=== PATIENT | female | born 1980 | race Caucasian/White ===

== ENCOUNTER → 2020-07-16 08:10 | Outpatient (BNVA) | payer MEDICARE, MEDICAID, SELFPAY | PROVIDERS: Visit Provider Surgery | DX: R00.0 Tachycardia, unspecified (principal); I10 Essential (primary) hypertension; Z79.899 Other long term (current) drug therapy ==

== ENCOUNTER 2020-07-23 13:48 | Outpatient (REF) | payer OTHER, MEDICARE, MEDICAID, SELFPAY ==
--- NOTE | 2020-07-23 13:51 | XR_ITS ---
EXAMINATION: XR CHEST CLINICAL INFORMATION: Essential primary hypertension COMPARISON: Previous chest x-rays most recent October 2017 TECHNIQUE: 2 views of the chest were obtained. FINDINGS: No significant abnormality is noted involving the heart, lungs, mediastinum, bony thorax or soft tissues. IMPRESSION: Unremarkable examination.
[2020-07-23 16:07] LABS: MANUAL DIFF FLAG NO
[2020-07-23 16:10] LABS: Basophils Absolute Auto 0.1 X10*3/uL (0.0-0.2); Basophils Percent Auto 0.9 % (0-2); Eosinophils Absolute Auto 0.1 X10*3/uL (0.0-0.4); Eosinophils Percent Auto 1.7 % (0-4); Hemoglobin 12.6 g/dl (12.0-16.0); Imm Gran Abs Auto 0.01 X10*3/uL (0.00-0.03); Imm Gran Pct Auto 0.2 % (0.0-0.4); Lymphocytes Absolute Auto 2.4 X10*3/uL (1.2-4.9); Lymphocytes Percent Auto 45.4 % (20-40); Mean Corpuscular HGB Conc 34.1 g/dl (31.0-35.0); Mean Corpuscular Hemoglobin 29.4 pg (27.0-33.0); Mean Corpuscular Volume 86.2 fL (80-98); Monocytes Absolute Auto 0.5 X10*3/uL (0.1-1.2); Monocytes Percent Auto 9.8 % (2-11); Neutrophils Absolute Auto 2.2 X10*3/uL (2.0-8.3); Platelet Count 229 X10*3/uL (160-400); Red Blood Count 4.29 X10*6/uL (4.20-5.50); Red Cell Distribution Width 12.9 % (11.0-16.0); White Blood Count 5.3 X10*3/uL (4.8-10.8)
[2020-07-23 16:22] LABS: Estimated Average Glucose 94 mg/dL; Hemoglobin A1c % 4.9 %
[2020-07-23 16:34] LABS: Alanine Aminotransferase 20 U/L (0-31); Albumin Level 4.2 g/dL (3.5-5.0); Alkaline Phosphatase 86 U/L (39-117); Anion Gap 11 (12-20); Aspartate Amino Transferase 17 U/L (5-31); Bilirubin Total 1.5 mg/dL (0.0-1.0); Blood Urea Nitrogen 10 mg/dL (9-16); C Reactive Protein 0.12 mg/dL (< or = 0.50); Calcium 9.3 mg/dL (8.4-10.2); Carbon Dioxide 27 mmol/L (22-29); Chloride 105 mmol/L (96-108); Cholesterol 167 mg/dL; Estimated Glomerular Filt Rate > 60; Glucose Fasting 97 mg/dL (60-99); HDL Cholesterol 47 mg/dL; Iron 58 mcg/dL (30-160); LDL Cholesterol Calculated 68 mg/dl; Percent Iron Saturation 16 % (15-50); Potassium 4.2 mmol/l (3.3-5.1); Sodium 139 mmol/L (135-145); Total Iron Binding Capacity 352 mcg/dL (228-428); Triglycerides 262 mg/dL; Unsaturated Iron Binding 294 ug/dL
[2020-07-23 16:55] LABS: Ferritin 17 ng/mL (10-250); TSH reflex Free T4 1.09 mIU/mL (0.32-4.0); Vitamin D 25-OH Total 20.5 ng/mL (>30)
[2020-07-24 21:11] LABS: Folate 16.2 ng/mL (> or = 4.0); Vitamin B12 602 pg/mL (200-900)
[2020-07-24 21:15] LABS: Insulin Level Total 15.9 uIU/mL
[2020-07-27 16:57] LABS: Zinc 57 mcg/dL (60-130)
[2020-07-29 17:11] LABS: Vitamin A 50 mcg/dL (38-98)
[2020-07-29 17:31] LABS: Parathyroid Hormone Related Pr 11 pg/mL (14-27)
[2020-07-31 13:27] LABS: Vitamin B1 13 nmol/L (8-30)
== END 2020-07-23 13:49 | disposition home or self-care (01) ==
LOC: HO.XRAY 13:48
PROVIDERS: Physician Assistant; PCP Internal Medicine; Visit Provider Surgery
DX: I10 Essential (primary) hypertension (principal)
CPT/HCPCS: 36415; 71046; 80053; 80061; 82306; 82607; 82728; 82746; 83036; 83519; 83525; 83540; 84425; 84443; 84590; 84630; 85025; 86140

== ENCOUNTER 2020-07-28 09:16 | Outpatient (REF) | payer OTHER, MEDICAID, SELFPAY ==
--- NOTE | 2020-07-28 | US_ITS ---
EXAMINATION: US COMPLETE ABDOMEN WITH LIVER ELASTOGRAPHY CLINICAL INFORMATION: Fatty liver. Assess for liver size and fibrosis COMPARISON: Ultrasound and CT 08/14/2014 TECHNIQUE: Real-time imaging of the abdominal viscera. Noninvasive ultrasound liver fibrosis assessment is performed using Melchor ElastPQ point quantification shear wave elastography (pSWE) with a 5 MHz transducer. Multiple elastography samples are obtained. FINDINGS: PANCREAS: The visualized pancreatic head and body are normal in appearance. The remainder of the pancreas is obscured from visualization by the overlying bowel gas. ABDOMINAL AORTA: The proximal aorta is obscured by bowel gas. Middle and distal aortic segments are normal in caliber. INFERIOR VENA CAVA: Visualized portions are normal. LIVER: Diffuse increased hepatic echogenicity. No focal lesions or intrahepatic biliary duct dilatation. The right lobe measures 14.6 cm in length. The left lobe measures 7.9 cm in length. Hepatopedal main portal vein flow. Shear wave elastography provides a median stiffness of 1.2 m/s (reference: normal median stiffness is 0.81 - 1.22 m/s). The IQR/median stiffness to assess sampling precision is 0.13 (reference: optimal IQR/median stiffness is under 0.3). GALLBLADDER: Question twinkle artifact in the supine position associated with the gallbladder wall, which could represent focal adenomyomatosis. This is not confirmed on the decubitus view. No definite gallstones otherwise. No gallbladder wall thickening or pericholecystic fluid. COMMON BILE DUCT: Normal in caliber measuring 0.3 cm in diameter. RIGHT KIDNEY: Normal. No hydronephrosis. No renal calculi or focal parenchymal lesions. The kidney measures 10.6 cm in maximum dimension. LEFT KIDNEY: Multiple nonobstructing renal calculi, the largest in the midpole measuring 3 x 2 mm. No hydronephrosis. No focal parenchymal lesions. The kidney measures 11.7 cm in maximum dimension. SPLEEN: Normal. The spleen measures 10.1 cm in maximum dimension. FREE FLUID: None. IMPRESSION: 1. Increased hepatic echogenicity, correlating with the clinical history of hepatic steatosis. No focal lesions or biliary ductal dilatation. 2. Elastography: Metavir score 1.2 m/s, within normal fibrosis stage. 3. Questionable twinkle artifact associated with the gallbladder wall, perhaps focal adenomyomatosis. 4. Left renal nonobstructing calculi.
--- NOTE | 2020-07-28 10:12 | FL_ITS ---
EXAMINATION: XR FL UPPER GI WITH AIR CLINICAL INFORMATION: Gastroesophageal reflux. COMPARISON: None TECHNIQUE: Upper GI with air. FINDINGS: Normal esophageal motility and distention. No mass or mucosal lesions are seen in the esophagus, stomach or duodenal bulb. No hiatal hernia is seen. No reflux is seen during the course of the procedure. FLUOROSCOPY TIME: 0.9 minutes. DOSE AREA PRODUCT: 158 uGy-m2 (microgray-meter squared). IMPRESSION: Unremarkable upper GI barium study.
== END 2020-07-28 09:17 | disposition home or self-care (01) ==
LOC: HO.US 09:16
PROVIDERS: PCP Internal Medicine; Visit Provider Surgery
DX: Z01.818 Encounter for other preprocedural examination (principal); E66.9 Obesity, unspecified; K21.9 Gastro-esophageal reflux disease without esophagitis
CPT/HCPCS: 74246; 76705; 76981

== ENCOUNTER → 2020-07-30 13:46 | Outpatient (BNVA) | payer MEDICARE, OTHER, MEDICAID, SELFPAY | PROVIDERS: PCP Internal Medicine; Referring Provider Internal Medicine; Visit Provider Dietitian, Registered | DX: Z76.89 Persons encountering health services in other specified circumstances (principal) ==

== ENCOUNTER → 2020-08-03 06:45 | Outpatient (BNVA) | payer OTHER, MEDICARE, MEDICAID, SELFPAY | PROVIDERS: PCP Internal Medicine; Referring Provider Internal Medicine; Visit Provider Surgery | DX: E66.9 Obesity, unspecified (principal); Z68.35 Body mass index [BMI] 35.0-35.9, adult; E55.9 Vitamin D deficiency, unspecified | CPT/HCPCS: 99215 ==

== ENCOUNTER → 2020-08-07 14:07 | Outpatient (BNVA) | payer OTHER, MEDICARE, MEDICAID, SELFPAY | PROVIDERS: PCP Internal Medicine; Referring Provider Internal Medicine; Visit Provider Physician Assistant | DX: E66.9 Obesity, unspecified (principal) | CPT/HCPCS: 99211 ==

== ENCOUNTER 2020-08-07 16:21 | Outpatient (REF) | payer OTHER, MEDICARE, MEDICAID, SELFPAY ==
[2020-08-08 14:06] LABS: H Pylori Breath Test NOT DETECTED (NOT DETECTED)
== END 2020-08-07 16:22 | disposition home or self-care (01) ==
LOC: HO.LNP 16:21
PROVIDERS: Visit Provider Physician Assistant
DX: E66.9 Obesity, unspecified (principal)
CPT/HCPCS: 83013

== ENCOUNTER → 2020-08-24 09:00 | Outpatient (BNVA) | payer OTHER, MEDICARE, MEDICAID, SELFPAY | PROVIDERS: PCP Internal Medicine; Referring Provider Internal Medicine; Visit Provider Surgery | DX: Z76.89 Persons encountering health services in other specified circumstances (principal) ==

== ENCOUNTER → 2020-09-03 13:34 | Outpatient (BNVA) | payer MEDICARE, OTHER, MEDICAID, SELFPAY | PROVIDERS: PCP Internal Medicine; Referring Provider Internal Medicine; Visit Provider Dietitian, Registered | DX: Z76.89 Persons encountering health services in other specified circumstances (principal) ==

== ENCOUNTER → 2020-09-16 08:52 | Outpatient (BNVA) | payer OTHER, MEDICARE, MEDICAID, SELFPAY | PROVIDERS: PCP Internal Medicine; Visit Provider Surgery | DX: E66.9 Obesity, unspecified (principal); Z68.35 Body mass index [BMI] 35.0-35.9, adult | CPT/HCPCS: Q3014 ==

== ENCOUNTER → 2020-11-04 08:10 | Outpatient (BNVA) | payer MEDICARE, MEDICAID, SELFPAY | PROVIDERS: PCP Internal Medicine; Visit Provider Surgery | DX: E66.9 Obesity, unspecified (principal) | CPT/HCPCS: Q3014 ==

== ENCOUNTER → 2020-12-04 08:33 | Outpatient (BNVA) | payer MEDICARE, MEDICAID, SELFPAY | PROVIDERS: PCP Internal Medicine; Visit Provider Surgery | DX: E66.9 Obesity, unspecified (principal); Z68.35 Body mass index [BMI] 35.0-35.9, adult; I10 Essential (primary) hypertension; E78.5 Hyperlipidemia, unspecified; K21.9 Gastro-esophageal reflux disease without esophagitis | CPT/HCPCS: Q3014 ==

== ENCOUNTER → 2020-12-11 13:42 | Outpatient (BNVA) | payer MEDICARE, MEDICAID, SELFPAY | PROVIDERS: PCP Internal Medicine; Visit Provider Physician Assistant ==

== ENCOUNTER → 2020-12-15 10:47 | Outpatient (BNVA) | payer MEDICARE, MEDICAID, SELFPAY | PROVIDERS: PCP Internal Medicine; Visit Provider Nurse Practitioner Family | DX: Z01.810 Encounter for preprocedural cardiovascular examination (principal); E66.9 Obesity, unspecified; R00.0 Tachycardia, unspecified; E78.5 Hyperlipidemia, unspecified; I10 Essential (primary) hypertension | CPT/HCPCS: 99212 ==

== ENCOUNTER 2020-12-17 06:25 | Day surgery (SDC) | payer MEDICARE, MEDICAID, SELFPAY ==
[2020-12-10 10:01] LABS: Basophils Percent Auto 0.8 % (0-2); Mean Corpuscular Volume 85.1 fL (80-98); Red Cell Distribution Width 12.9 % (11.0-16.0)
[2020-12-10 10:03] LABS: Eosinophils Absolute Auto 0.1 X10*3/uL (0.0-0.4); Eosinophils Percent Auto 1.9 % (0-4); Hematocrit 37.8 % (37-47); Hemoglobin 12.6 g/dl (12.0-16.0); Imm Gran Abs Auto 0.02 X10*3/uL (0.00-0.03); Imm Gran Pct Auto 0.4 % (0.0-0.4); Lymphocytes Absolute Auto 2.1 X10*3/uL (1.2-4.9); Lymphocytes Percent Auto 39.5 % (20-40); Mean Corpuscular HGB Conc 33.3 g/dl (31.0-35.0); Mean Corpuscular Hemoglobin 28.4 pg (27.0-33.0); Monocytes Absolute Auto 0.4 X10*3/uL (0.1-1.2); Monocytes Percent Auto 8.2 % (2-11); Neutrophils Absolute Auto 2.6 X10*3/uL (2.0-8.3); Neutrophils Percent Auto 49.2 % (45-73); Platelet Count 182 X10*3/uL (160-400); Red Blood Count 4.44 X10*6/uL (4.20-5.50); White Blood Count 5.2 X10*3/uL (4.8-10.8)
[2020-12-10 10:12] LABS: Partial Thromboplastin Time 28.2 SEC (24.1-38.0)
[2020-12-10 10:22] LABS: Alanine Aminotransferase 20 U/L (0-31); Alkaline Phosphatase 81 U/L (39-117); Anion Gap 12 (12-20); Aspartate Amino Transferase 18 U/L (5-31); Bilirubin Total 1.6 mg/dL (0.0-1.0); Blood Urea Nitrogen 14 mg/dL (9-16); C Reactive Protein 0.15 mg/dL (< or = 0.50); Calcium 8.9 mg/dL (8.4-10.2); Carbon Dioxide 27 mmol/L (22-29); Chloride 104 mmol/L (96-108); Cholesterol 171 mg/dL; Estimated Glomerular Filt Rate > 60; Glucose Random 96 mg/dL (60-115); HDL Cholesterol 49 mg/dL; LDL Cholesterol Calculated 65 mg/dl; Potassium 4.2 mmol/L (3.3-5.1); Sodium 139 mmol/L (135-145); Total Protein 6.6 g/dL (6.5-8.0); Triglycerides 286 mg/dL
[2020-12-10 10:23] LABS: Estimated Average Glucose 94 mg/dL; Hemoglobin A1c % 4.9 %
[2020-12-10 10:45] LABS: TSH reflex Free T4 2.46 uIU/mL (0.32-4.0)
--- NOTE | 2020-12-11 | ECG_ITS ---
Test Reason : Tachy arrythmia, Preop Blood Pressure : / mmHG Vent. Rate : 090 BPM Atrial Rate : 090 BPM P-R Int : 172 ms QRS Dur : 084 ms QT Int : 356 ms P-R-T Axes : 046 010 012 degrees QTc Int : 435 ms Normal sinus rhythm Nonspecific T wave abnormality Abnormal ECG When compared with ECG of 07-DEC-2018 20:46, No significant change was found Referred By: Joleen Mcmullen Electronically Signed By:PJ CARDONA MD
[2020-12-11 11:16] LABS: Insulin Level Total 25.8 uIU/mL
[2020-12-11 12:45] VITALS: BP 148/89; PULSE 92; RESP 16; O2SAT 100; BMI 35.9
--- NOTE | 2020-12-11 13:09 | HO.ANESPROP2 ---
Documented by User: Joleen Mcmullen 12/11/20 13:22 HPI - Anesthesia Eval Consult details Narrative: 40yo F for Gastric Sleeve Pending: cardiac clear PMFSH Active Problems Active Problems: All Active Problems (Updated 12/10/20 @ 15:34 by Teressa Aguila) Obesity (Acute) BMI 35.0-35.9,adult (Acute) Vitamin D deficiency (Acute) BMI 34.0-34.9,adult (Acute) BMI over 35 (Acute) BMI over 35 (Acute) Migraines (Acute) Sciatica (Acute) Depression (Acute) IBS (irritable bowel syndrome) (Acute) GERD (gastroesophageal reflux disease) (Acute) Hyperlipidemia (Acute) Sinus tachycardia (Acute) Hypertension (Acute) Past Medical History Medical History CVA (cerebral vascular accident) Dental crowns present Depression GERD (gastroesophageal reflux disease) Hyperlipidemia Hypertension IBS (irritable bowel syndrome) Migraines Sciatica Seizure Sinus tachycardia Family History Family History Father No problems noted. Mother Cervical cancer Family history of problems with anesthesia: No Surgical History Surgical History Hx of breast biopsy Hx of hemorrhoidectomy Hx of tubal ligation History of Problems with Anesthesia: No Social History Social History Alcohol intake: never Smoking Status: Former smoker Meds Allergies Allergy/AdvReac Type Severity Reaction Status Date / Time Penicillins Allergy Severe RASH Verified 12/17/20 06:39 morphine Allergy Intermediate N/V, RASH, Verified 12/17/20 06:39 itching sulfamethoxazole Allergy Intermediate RASH Verified 12/17/20 06:39 [From BACTRIM] trimethoprim [From BACTRIM] Allergy Intermediate RASH Verified 12/17/20 06:39 Home Medications Medication Instructions Recorded Confirmed Last Taken Type amitriptyline 10 mg tablet 10 mg PO BEDTIME 07/15/20 12/15/20 12/16/20 21:00 History atorvastatin 80 mg tablet 80 mg PO DAILY 07/15/20 12/15/20 12/16/20 08:00 History hydroxyzine HCl 25 mg tablet 25 mg PO BEDTIME PRN 07/15/20 12/15/20 12/03/20 20:00 History lorazepam 0.5 mg tablet 0.5 mg PO DAILY PRN 07/15/20 12/15/20 11/26/20 21:00 History propranolol 120 mg capsule,24 120 mg PO DAILY 07/15/20 12/15/20 12/16/20 08:00 History hr,extended release escitalopram oxalate 1 tab PO DAILY 12/10/20 12/15/20 12/17/20 02:00 History ezetimibe 1 tab PO DAILY 12/10/20 12/15/20 12/16/20 08:00 History Exam Exam Date and Time: December 11, 2020 1309 Height,Weight and Vital Signs: Height 5 ft 1 in Weight 86.183 kg Last Vital Signs Pulse 92 12/11/20 12:45 Resp 16 12/11/20 12:45 BP 148/89 H 12/11/20 12:45 Pulse Ox 100 12/11/20 12:45 Pertinent Lab Results Pertinent Lab Results: Laboratory Tests 12/10/20 12/10/20 12/10/20 09:10 09:10 09:10 WBC 5.2 RBC 4.44 Hgb 12.6 Hct 37.8 MCV 85.1 MCH 28.4 MCHC 33.3 RDW 12.9 Plt Count 182 MPV Not Reportable Immature Gran % (Auto) 0.4 Neut % (Auto) 49.2 Lymph % (Auto) 39.5 Whiteside % (Auto) 8.2 Eos % (Auto) 1.9 Baso % (Auto) 0.8 Lymph # (Auto) 2.1 Whiteside # (Auto) 0.4 Eos # (Auto) 0.1 Baso # (Auto) 0.0 Abs Immat Gran (auto) 0.02 Absolute Neuts (auto) 2.6 Absolute Nucleated RBC 0.000 Nucleated RBC % (auto) 0.0 PT 12.0 INR 1.0 APTT 28.2 Sodium 139 Potassium 4.2 Chloride 104 Carbon Dioxide 27 Anion Gap 12 BUN 14 Creatinine 0.70 Estim Creat Clear Calc TNP Estimated GFR > 60 Random Glucose 96 Estimat Average Glucose Hemoglobin A1c % Total Insulin Calcium 8.9 Total Bilirubin 1.6 H AST 18 ALT 20 Alkaline Phosphatase 81 C-Reactive Protein 0.15 Total Protein 6.6 Albumin 4.0 Triglycerides 286 Cholesterol 171 LDL Cholesterol, Calc 65 HDL Cholesterol 49 TSH 2.46 Blood Type Antibody Screen 12/10/20 12/10/20 12/10/20 09:10 09:10 09:10 WBC RBC Hgb Hct MCV MCH MCHC RDW Plt Count MPV Immature Gran % (Auto) Neut % (Auto) Lymph % (Auto) Whiteside % (Auto) Eos % (Auto) Baso % (Auto) Lymph # (Auto) Whiteside # (Auto) Eos # (Auto) Baso # (Auto) Abs Immat Gran (auto) Absolute Neuts (auto) Absolute Nucleated RBC Nucleated RBC % (auto) PT INR APTT Sodium Potassium Chloride Carbon Dioxide Anion Gap BUN Creatinine Estim Creat Clear Calc Estimated GFR Random Glucose Estimat Average Glucose 94 Hemoglobin A1c % 4.9 Total Insulin 25.8 H Calcium Total Bilirubin AST ALT Alkaline Phosphatase C-Reactive Protein Total Protein Albumin Triglycerides Cholesterol LDL Cholesterol, Calc HDL Cholesterol TSH Blood Type O Positive Antibody Screen NEGATIVE Airway Mallampati Class: III TM Dist: >3cm Neck ROM: Full Loose/Missing/Broken Teeth: Yes (Crowned #8&9) Heart: RRR Lungs: CTA Assessment and Plan Assessment Anesthesia Assessment: Anesthesia Plan Discussed and PAT Visit Documented by User: Julien Machado 12/17/20 08:45 PMFSH Past Medical History Medical History CVA (cerebral vascular accident) Dental crowns present Depression GERD (gastroesophageal reflux disease) Hyperlipidemia Hypertension IBS (irritable bowel syndrome) Migraines Sciatica Seizure Sinus tachycardia Family History Family History Father No problems noted. Mother Cervical cancer Surgical History Surgical History Hx of breast biopsy Hx of hemorrhoidectomy Hx of tubal ligation Social History Social History Alcohol intake: never Smoking Status: Former smoker Meds Allergies Allergy/AdvReac Type Severity Reaction Status Date / Time Penicillins Allergy Severe RASH Verified 12/17/20 06:39 morphine Allergy Intermediate N/V, RASH, Verified 12/17/20 06:39 itching sulfamethoxazole Allergy Intermediate RASH Verified 12/17/20 06:39 [From BACTRIM] trimethoprim [From BACTRIM] Allergy Intermediate RASH Verified 12/17/20 06:39 Home Medications Medication Instructions Recorded Confirmed Last Taken Type amitriptyline 10 mg tablet 10 mg PO BEDTIME 07/15/20 12/15/20 12/16/20 21:00 History atorvastatin 80 mg tablet 80 mg PO DAILY 07/15/20 12/15/20 12/16/20 08:00 History hydroxyzine HCl 25 mg tablet 25 mg PO BEDTIME PRN 07/15/20 12/15/20 12/03/20 20:00 History lorazepam 0.5 mg tablet 0.5 mg PO DAILY PRN 07/15/20 12/15/20 11/26/20 21:00 History propranolol 120 mg capsule,24 120 mg PO DAILY 07/15/20 12/15/20 12/16/20 08:00 History hr,extended release escitalopram oxalate 1 tab PO DAILY 12/10/20 12/15/20 12/17/20 02:00 History ezetimibe 1 tab PO DAILY 12/10/20 12/15/20 12/16/20 08:00 History Exam Airway Mallampati Class: III TM Dist: >3cm Neck ROM: Full Loose/Missing/Broken Teeth: No Heart: rrr+s1s2 Lungs: cta b/l Assessment and Plan Assessment Anesthesia Assessment: Anesthesia Plan Discussed, PAT Visit and Chart Reviewed Final Anesthetic Review NPO: Yes ASA Class: II Final Preanesthetic Review: No Changes in Pt Med Stat, Meds/Allgs Chart Reviewed, Consent Obtained/Reviewed and Anes Risks/Benef Reviewed Patient Risk: Intermediate Procedure Risk: Low Assessment/Block/Sedation in SS: Assess/Block/Sedation-SS Anesthetic Plan Anesthetic Plan: GA and Agree w/ Assess. and Plan Disposition: Standard PACU
[2020-12-14 15:07] LABS: Vitamin D 25-OH, D2 <4 ng/mL; Vitamin D 25-OH, D3 34 ng/mL; Vitamin D 25-OH, Total 34 ng/mL (30-100)
--- NOTE | 2020-12-16 19:25 | MHC.SHP ---
Pre-Procedural Eval Section A The patient is an INPATIENT: Yes The History & Physical has been completed within 30 days and I have reviewed it.: No Section B Chief Complaint: Obesity Details of Present Illness: Obesity Relevant Family History (Specify if Yes): Yes Relevant Social History: None Present Medications: see Short Stay Collaborative assessment Medical History: No relevant PMH History of Previous Operations: No relevant previous surgery Allergies: Allergies Allergy/AdvReac Type Severity Reaction Status Date / Time Penicillins Allergy Severe RASH Verified 12/10/20 15:12 morphine Allergy Intermediate N/V, RASH, Verified 12/10/20 15:12 itching sulfamethoxazole Allergy Intermediate RASH Verified 12/10/20 15:12 [From BACTRIM] trimethoprim [From BACTRIM] Allergy Intermediate RASH Verified 12/10/20 15:12 Review of Systems Sugical H&P ROS: Negative: Constitution, Cardiovascular, Respiratory, Neurological, Psychiatric, Hem-Onc, Allergic/Immunologic, Gastrointestinal, Genitourinary, Musculoskeletal, Integumentary, Endocrine and Eyes/Ears/Nose/Throat Exam Surgical H&P Exam: Normal: HEENT, Normal: Heart, Normal: Lungs, Normal: Extremities, Normal: Abdomen, Normal: Skin and Normal: Neurological Plan Diagnosis/Plan: Unchanged I have reviewed the history and physical and performed a pertinent physical examination on my patient. No changes have occurred unless specified.
[2020-12-17 06:44] VITALS: BP 124/79; PULSE 73; RESP 18; TEMP 36.4; O2SAT 98
[2020-12-17] MEDS: levoFLOXacin/D5W 500 MG/100 ML PIGGYBACK 100 MG IV (07:06)
[2020-12-17 07:08] LABS: COVID-19 Test Negative (Negative)
[2020-12-17] MEDS: Lactated Ringers 1,000 ML 100 ML IVCONT (07:13)
[2020-12-17] MEDS: Lactated Ringers 1,000 ML 999 ML IV (07:13)
--- NOTE | 2020-12-17 08:08 | PM.OP ---
Brief Operative Note Date of Service: 12/17/20 Pre-op diagnosis: Obesity, GERD and comorbidities (see below) Post-op diagnosis: same (Extensive intragastric food contents) Procedure: Esophago-gastroscopy An upper endoscopy was performed as part of the sleeve gastrectomy procedure. Examination of the stomach revealed an extensive amount of food contents. The food contents were throughout the stomach from the GE junction to the pylorus. Most of them were coating the gastric wall and could not be detached. Therefore due to safety reasons the sleeve gastrectomy will be aborted and the surgery will be re-scheduled to allow for additional time for the stomach to empty. Surgeon: Shyam Pearson MD Anesthesia: GETA Estimated blood loss (mL): 0 IV fluids (mL): 1,000 Urine output (mL): 0 (No Perdomo to record) Pathology: none sent Condition: stable Disposition: PACU
[2020-12-17 08:39] VITALS: BP 96/48; PULSE 80; RESP 16; TEMP 36.2; O2SAT 99
[2020-12-17 08:44] VITALS: BP 106/57; PULSE 71; RESP 16; O2SAT 99
[2020-12-17 08:49] VITALS: BP 107/63; PULSE 65; RESP 18; O2SAT 98
[2020-12-17 08:55] VITALS: BP 98/65; PULSE 70; RESP 18; O2SAT 99
[2020-12-17 09:10] VITALS: BP 106/64; PULSE 69; RESP 18; O2SAT 97
== END 2020-12-17 10:15 | disposition home or self-care (01) ==
LOC: HO.SSS 12-18 13:17
PROVIDERS: PCP Internal Medicine; Visit Provider Surgery
PROC: (CPT 43845; principal; 2020-12-17 07:30)
DX: E66.9 Obesity, unspecified (principal); Z68.35 Body mass index [BMI] 35.0-35.9, adult; K21.9 Gastro-esophageal reflux disease without esophagitis; I10 Essential (primary) hypertension; E78.5 Hyperlipidemia, unspecified; Z98.84 Bariatric surgery status; E55.9 Vitamin D deficiency, unspecified; Z20.822 Contact with and (suspected) exposure to COVID-19; I69.351 Hemiplegia and hemiparesis following cerebral infarction affecting right dominant side; I69.398 Other sequelae of cerebral infarction; H53.8 Other visual disturbances; Z79.899 Other long term (current) drug therapy; Z88.0 Allergy status to penicillin; Z88.2 Allergy status to sulfonamides; Z88.8 Allergy status to other drugs, medicaments and biological substances
CPT/HCPCS: 43235; 36415; 80053; 80061; 82306; 83036; 83525; 84443; 85025; 85610; 85730; 86140; 86850; 86900; 86901; 87635; 93005; A4649; J0131; J1100; J1956; J2250; J2405; J3010

== ENCOUNTER 2020-12-22 05:44 | Inpatient (IN) | payer MEDICARE, MEDICAID, SELFPAY ==
--- NOTE | 2020-12-21 12:15 | P.CONAN_ITS ---
Documented by User: Joleen Mcmullen 12/21/20 12:21 HPI - Anesthesia Eval Consult details Narrative: 40yo F for Gastrectomy Sleeve Cardiac cleared Rescheduled from 12/17/20 - brought to OR, found to have food in stomach. PMFSH Active Problems Active Problems: All Active Problems (Updated 12/15/20 @ 14:29 by Chelsi Canseco, [employer]) Preop cardiovascular exam (Acute) Obesity (Acute) BMI 35.0-35.9,adult (Acute) Vitamin D deficiency (Acute) BMI 34.0-34.9,adult (Acute) BMI over 35 (Acute) BMI over 35 (Acute) Migraines (Acute) Sciatica (Acute) Depression (Acute) IBS (irritable bowel syndrome) (Acute) GERD (gastroesophageal reflux disease) (Acute) Hyperlipidemia (Acute) Sinus tachycardia (Acute) Hypertension (Acute) Past Medical History Medical History CVA (cerebral vascular accident) Dental crowns present Depression GERD (gastroesophageal reflux disease) Hyperlipidemia Hypertension IBS (irritable bowel syndrome) Migraines Sciatica Seizure Sinus tachycardia Family History Family History Father No problems noted. Mother Cervical cancer Surgical History Surgical History Hx of breast biopsy Hx of hemorrhoidectomy Hx of tubal ligation Social History Social History Alcohol intake: never Smoking Status: Former smoker Use of substances other than those prescribed or required for medical reasons: No Advance Directives: No Advance Directives Information Provided: No Meds Allergies Allergy/AdvReac Type Severity Reaction Status Date / Time Penicillins Allergy Severe RASH Verified 12/17/20 06:39 morphine Allergy Intermediate N/V, RASH, Verified 12/17/20 06:39 itching sulfamethoxazole Allergy Intermediate RASH Verified 12/17/20 06:39 [From BACTRIM] trimethoprim [From BACTRIM] Allergy Intermediate RASH Verified 12/17/20 06:39 Home Medications Medication Instructions Recorded Confirmed Last Taken Type amitriptyline 10 mg tablet 10 mg PO BEDTIME 07/15/20 12/15/20 12/16/20 21:00 History atorvastatin 80 mg tablet 80 mg PO DAILY 07/15/20 12/15/20 12/16/20 08:00 History hydroxyzine HCl 25 mg tablet 25 mg PO BEDTIME PRN 07/15/20 12/15/20 12/03/20 20:00 History lorazepam 0.5 mg tablet 0.5 mg PO DAILY PRN 07/15/20 12/15/20 11/26/20 21:00 History propranolol 120 mg capsule,24 120 mg PO DAILY 07/15/20 12/15/20 12/16/20 08:00 History hr,extended release escitalopram oxalate 1 tab PO DAILY 12/10/20 12/15/20 12/17/20 02:00 History ezetimibe 1 tab PO DAILY 12/10/20 12/15/20 12/16/20 08:00 History Exam Exam Date and Time: December 21, 2020 1215 Pertinent Lab Results Pertinent Lab Results: Laboratory Tests 12/10/20 12/10/20 09:10 09:10 WBC 5.2 Hgb 12.6 Hct 37.8 Plt Count 182 Sodium 139 Potassium 4.2 Chloride 104 Carbon Dioxide 27 BUN 14 Creatinine 0.70 Narrative Narrative: EKG 12/10/20 Normal sinus rhythm Nonspecific T wave abnormality Abnormal ECG When compared with ECG of 07-DEC-2018 20:46, No significant change was found Assessment and Plan Assessment Anesthesia Assessment: Chart Reviewed Documented by User: Julien Machado 12/22/20 07:01 [facility] Past Medical History Medical History CVA (cerebral vascular accident) Dental crowns present Depression GERD (gastroesophageal reflux disease) Hyperlipidemia Hypertension IBS (irritable bowel syndrome) Migraines Sciatica Seizure Sinus tachycardia Family History Family History Father No problems noted. Mother Cervical cancer Surgical History Surgical History Hx of breast biopsy Hx of hemorrhoidectomy Hx of tubal ligation Social History Social History Alcohol intake: never Smoking Status: Former smoker Use of substances other than those prescribed or required for medical reasons: No Advance Directives: No Advance Directives Information Provided: No Meds Allergies Allergy/AdvReac Type Severity Reaction Status Date / Time Penicillins Allergy Severe RASH Verified 12/17/20 06:39 morphine Allergy Intermediate N/V, RASH, Verified 12/17/20 06:39 itching sulfamethoxazole Allergy Intermediate RASH Verified 12/17/20 06:39 [From BACTRIM] trimethoprim [From BACTRIM] Allergy Intermediate RASH Verified 12/17/20 06:39 Home Medications Medication Instructions Recorded Confirmed Last Taken Type amitriptyline 10 mg tablet 10 mg PO BEDTIME 07/15/20 12/15/20 12/16/20 21:00 History atorvastatin 80 mg tablet 80 mg PO DAILY 07/15/20 12/15/20 12/16/20 08:00 History hydroxyzine HCl 25 mg tablet 25 mg PO BEDTIME PRN 07/15/20 12/15/20 12/03/20 20:00 History lorazepam 0.5 mg tablet 0.5 mg PO DAILY PRN 07/15/20 12/15/20 11/26/20 21:00 History propranolol 120 mg capsule,24 120 mg PO DAILY 07/15/20 12/15/20 12/16/20 08:00 History hr,extended release escitalopram oxalate 1 tab PO DAILY 12/10/20 12/15/20 12/17/20 02:00 History ezetimibe 1 tab PO DAILY 12/10/20 12/15/20 12/16/20 08:00 History Exam Airway Mallampati Class: II TM Dist: >3cm Neck ROM: Full Loose/Missing/Broken Teeth: No Heart: rrr+s1s2 Lungs: CTA b/l Assessment and Plan Assessment Anesthesia Assessment: Anesthesia Plan Discussed, PAT Visit and Chart Reviewed Final Anesthetic Review NPO: Yes ASA Class: II Final Preanesthetic Review: No Changes in Pt Med Stat, Meds/Allgs Chart Reviewed, Consent Obtained/Reviewed and Anes Risks/Benef Reviewed Patient Risk: Low Procedure Risk: Low Assessment/Block/Sedation in SS: Assess/Block/Sedation-SS Anesthetic Plan Anesthetic Plan: GA and Agree w/ Assess. and Plan Disposition: Standard PACU
[2020-12-22] VITALS (19 sets, daily range): BP systolic 88–142; BP diastolic 46–84; PULSE 46–81; RESP 9–18; TEMP 36.1–36.8; O2SAT 86–100; BMI 33.6
[2020-12-22 06:43] LABS: COVID-19 Test Negative (Negative); IDNOW Serial# 9DD0AD1C
[2020-12-22] MEDS: Lactated Ringers 1,000 ML 100 ML IVCONT (06:52)
--- NOTE | 2020-12-22 07:23 | MHC.SHP ---
Pre-Procedural Eval Section A The patient is an INPATIENT: Yes The History & Physical has been completed within 30 days and I have reviewed it.: No Section B Chief Complaint: Obesity Details of Present Illness: obesity Relevant Family History (Specify if Yes): No Relevant Social History: None Present Medications: see Short Stay Collaborative assessment Medical History: No relevant PMH History of Previous Operations: No relevant previous surgery Allergies: Allergies Allergy/AdvReac Type Severity Reaction Status Date / Time Penicillins Allergy Severe RASH Verified 12/17/20 06:39 morphine Allergy Intermediate N/V, RASH, Verified 12/17/20 06:39 itching sulfamethoxazole Allergy Intermediate RASH Verified 12/17/20 06:39 [From BACTRIM] trimethoprim [From BACTRIM] Allergy Intermediate RASH Verified 12/17/20 06:39 Review of Systems Sugical H&P ROS: Negative: Constitution, Cardiovascular, Respiratory, Neurological, Psychiatric, Hem-Onc, Allergic/Immunologic, Gastrointestinal, Genitourinary, Musculoskeletal, Integumentary, Endocrine and Eyes/Ears/Nose/Throat Exam Surgical H&P Exam: Normal: HEENT, Normal: Heart, Normal: Lungs, Normal: Extremities, Normal: Abdomen, Normal: Skin and Normal: Neurological Plan Diagnosis/Plan: Unchanged I have reviewed the history and physical and performed a pertinent physical examination on my patient. No changes have occurred unless specified.
--- NOTE | 2020-12-22 10:20 | P.BOP_ITS ---
Brief Operative Note Date of Service: 12/22/20 Pre-op diagnosis: Severe obesity with comorbidities Post-op diagnosis: same (& diaphragmatic hernia ) Procedure: INITIAL PATIENT BMI ON PRESENTATION AT OUR OFFICE: 35.9 kg/m2 LAST BMI BEFORE SURGERY: 35 kg/m2 COMORBIDITIES: The patient participated in an intensive weekly lifestyle intervention and exercise program during which the patient has lost between the initial office visit and the last preoperative visit 4 lbs, or 2% of initial actual body weight. The patient met the BMI-criteria for bariatric surgery based on the BMI on initial presentation. The patient should not be penalized for achieving such weight loss because it is not sustainable long-term without surgical intervention and it was achieved in preparation for bariatric surgery under my direction and based on my published research ([email or web address] and [email or web address]) that a 10% preoperative weight loss improves long-term weight loss after surgery and reduces perioperative complications. Insurance carriers such as [facility] have endorsed my recommendations and have included in their policies criteria to include a 10% preoperative weight loss requirement. PROCEDURE: Esophago-gastroscopy, laparoscopic repair of incarcerated diaphragmatic hernia, laparoscopic sleeve gastrectomy and laparoscopic gastropexy INDICATIONS: This is a 40 year-old female who was electively scheduled for laparoscopic, possibly open sleeve gastrectomy. The risks and complications of the procedure were discussed with the patient in advance, particularly the possibility of ; pulmonary embolism; staple line leak; bleeding; GERD; cardiac, pulmonary, or renal complications; as well as long-term problems such as insufficient weight loss, vitamin deficiency, strictures, or ulcers. The patient understood all the risks, and was in agreement to proceed with surgery. DESCRIPTION OF PROCEDURE: After informed consent was obtained from the patient, the patient was given preoperative antibiotics, and was transferred to the operating room. After successful induction of general anesthesia, pneumatic compressive devices were placed on both lower extremities. An upper endoscopy was performed next. The oropharynx and esophagus appeared to be within normal limits. There was a diaphragmatic hernia present of moderate size consistent with the findings of the preoperative upper GI. The stomach was entered. Then after all fluid and air were suctioned and the stomach was fully decompressed, the scope was withdrawn and secured in the mid esophagus. The patient was then prepped and draped in the usual sterile manner, and abdominal access was established at the right upper quadrant with the Malissa technique. A 12 mm blunt port was inserted, and the abdomen was insufflated with CO2 to a pressure of 15 mmHg. Under direct visualization, additional ports were placed, specifically two 5 mm Versi-step ports to the left upper quadrant, and a 5 mm Versi-Step port to the right upper quadrant. 1% lidocaine plan was used to infiltrate all port sites as well as all fascia defects. Following that, the patient was placed in a steep reverse Trendelenburg position. An additional 5 mm port was placed to the right flank for the Mediflex retractor that was used to retract the left lobe of the liver. The gastro-esophageal fat pad was opened with the ultrasonic device (Thunderbeat, Olympus) and the anterior esophagus and hiatus were exposed. The angle of His was opened with the ultrasonic device the fundus of the stomach from any diaphragmatic and splenic attachments. I then opened the gastrocolic ligament between the transverse colon and the greater curvature of the stomach with the ultrasonic device to enter the lesser sac and facilitate the ligation of the short gastric vessels. I started at a mid-point along the greater curvature and using the Thunderbeat, all short gastric vessels were divided all the way to the angle of His until the left jhon was completely dissected at its entirety. I then divided the gastro-colic ligament distally to a distance of about 3-4 cm proximal to the esophagus. There was an obvious significant-sized hiatal hernia. I continued dissecting along the hiatus toward the left jhon and the angle of His. I fully mobilized the fat pad that was incarcerated in the hernia. I then continued by dissecting even further into the posterior retro-esophageal space all the way to the angle of His. I continued to mobilize the esophagus into the mediastinum circumferentially. Both vagal nerves were seen and preserved. Right jhon was completely dissected. There was a large vessel at the lesser omentum which was preserved although it made exposure to the hiatus more difficult. At that point, I was able to have at least 3 to 5 cm of esophagus into the abdomen. After I completely mobilized the esophagus from both the left and right jhon and I had a good mobilization of the esophagus circumferentially, I closed the hernia defect with two interrupted #0 Surgidac sutures using the Endo Stitch device, one of which was placed posterior and one anterior to the esophagus. The stomach was then divided transversely with one Endo SANGEETA-45 purple, one SANGEETA- 60 purple and three SANGEETA-60 articulating orange loads using the AEON stapler and loads. Every effort was made that the gastric sleeve had a tubular shape and an even caliber throughout. Once the sleeve resection was completed, the staple line of the gastric sleeve was reinforced with Hemoclips. The resected stomach was retrieved without difficulty from the Malissa port. A gastropexy was then performed in order to prevent postoperative GERD and partial gastric volvulus. Several interrupted 2.0 Surgidac sutures were placed between the sleeve's staple line and the previously divided greater omentum and gastro-colic ligament using the Endo-Stitch device. An upper endoscopy was performed. There was no narrowing at the GE junction. The scope was easily advanced all the way to the pylorus which was clearly visualized. There was no narrowing anywhere and the sleeve's caliber was even throughout. The sleeve's staple line was inspected and there was no evidence of ischemia, bleeding or dehiscence. At that point the gastroscope was withdrawn from the patient?s mouth while we were decompressing the bowel and the stomach from any remaining air. I looked into the lesser sac to see how the sleeve was situating and it was situating well. There was no bleeding from the staple line, spleen, or short gastric vessels. The Mediflex retractor was removed, and the undersurface of the liver was inspected and there was no bleeding. The patient was placed in supine position. I closed the fascial defect of the 12 mm port site with a figure of eight #1 Polysorb suture. Then 100 cc 0.25 % Marcaine plain with 10 mg of Dexamethasone were used to infiltrate the fascial closure as well as all skin incisions. At this point, the abdomen was deflated, all ports were removed under direct vision, and no bleeding was noted from any of the port sites. The skin incisions were irrigated with saline and were closed with 4-0 absorbable monofilament sutu res. Steri-Strips and OpSites were used to cover all incisions. The patient was extubated and was transferred in stable condition to the recovery room for further care. I was present and performed all munoz parts of the procedure. Ms. Yousif was the apartment community assistant manager. There were no residents to assist with this case. Geovanni Pearson MD, PhD, FACS Surgeon: Shyam Pearson MD Anesthesia: GETA, local and other (TAP block) Marine Habitat Resource Specialist: Selena Yousif Estimated blood loss (mL): 10 IV fluids (mL): 3,000 Urine output (mL): 0 (No Perdomo to gravity) Pathology: other (Stomach) Condition: stable Disposition: PACU
--- NOTE | 2020-12-22 10:25 | PM.PNGS ---
Subjective Subjective Date of Service: 12/23/20 Interval history: Complains of mild incisional pain but was able to ambulate and use the incentive spirometer. Physical Exam Vital Signs: Vital Signs: Last Vital Signs Temp 97.4 F 12/22/20 06:23 Pulse 71 12/22/20 06:23 Resp 18 12/22/20 06:23 BP 142/66 H 12/22/20 06:23 Pulse Ox 99 12/22/20 06:23 Body Mass Index 33.6 GI: Inspection: Yes normal to inspection, Yes incision (clean, dry and intact) and Yes obesity Extrem: Right lower extremity: normal to inspection (no calf tenderness) Left lower extremity: normal to inspection (no calf tenderness) Progress Note: A&P Assessment and plan (1) Obesity: Status: Acute (2) BMI 35.0-35.9,adult: Status: Acute (3) GERD (gastroesophageal reflux disease): Status: Acute (4) Hyperlipidemia: Status: Acute (5) Hypertension: Status: Acute (6) Sinus tachycardia: Status: Acute (7) CVA (cerebral vascular accident): Problem details: at age 24, right sided weakness, loss of peripheral vision on right Unknown etiology Status: Acute (8) Diaphragmatic hernia: Status: Acute (9) S/P laparoscopic sleeve gastrectomy: Status: Acute Assessment and Plan: 40 year old Female was admitted 12/22/2020 with morbid obesity and comorbidities. Problem 1: s/p laparoscopic sleeve gastrectomy, repair of incarcerated diaphragmatic hernia, gastropexy Status: Doing well Plan: Check am labs, If OK, will begin phase 1 bariatric diet. (10) Sleep apnea with use of continuous positive airway pressure (CPAP): Status: Acute (11) PCOS (polycystic ovarian syndrome): Status: Acute (12) Sciatica: Problem details: left Status: Acute (13) Depression: Status: Acute (14) IBS (irritable bowel syndrome): Status: Acute (15) Migraines: Problem details: On injectable tax, migraines ~[id number] Status: Acute (16) Steatosis, liver: Status: Acute Fall Risk Details Current Medications: Current Medications Generic Name Dose Route Start Last Admin Trade Name Freq PRN Reason Stop Dose Admin Fentanyl 50 mcg 12/22/20 07:01 Fentanyl Citrate/Pf 100 Mcg/2 Ml Vial IVPUSH Q5M PRN Pain, Moderate (Pain Scale 4-6 Hydromorphone HCl 0.5 mg 12/22/20 07:01 Hydromorphone Hcl 0.5 Mg/0.5 Ml Syringe IVPUSH Q5M PRN Pain, Severe (Pain Scale 7-10) Lactated Ringer's 1,000 mls @ 100 mls/hr 12/22/20 06:15 12/22/20 06:52 Lr IVCONT 100 mls/hr .Q10H MAURICE Administration Promethazine HCl 12.5 mg/ 50.5 mls @ 202 mls/hr 12/22/20 07:01 Sodium Chloride IV ONCE PRN Nausea and Vomiting Ondansetron HCl 4 mg 12/22/20 07:01 Ondansetron Hcl 4 Mg/2 Ml Vial IVPUSH ONCE PRN Nausea and Vomiting Oxycodone HCl 10 mg 12/22/20 07:01 Oxycodone Hcl Immed Release 5 Mg Tablet PO ONCE PRN Pain, Mild (Pain Scale 1-3) Time Spent With Patient Time: Total time spent is greater than 50% in coordination of care (as documented) at patient's floor/unit and/or counseling patient: Time with patient: less than 15 minutes
--- NOTE | 2020-12-22 10:43 | PM.DS ---
DS: Providers Provider Date of Service: 12/23/20 Date of admission: 12/22/20 05:44 Primary care physician: Campos Trivedi MD DS: Diagnosis Discharge Diagnosis (1) Obesity: Status: Acute (2) BMI 35.0-35.9,adult: Status: Acute (3) GERD (gastroesophageal reflux disease): Status: Acute (4) Hyperlipidemia: Status: Acute (5) Hypertension: Status: Acute (6) Sinus tachycardia: Status: Acute (7) CVA (cerebral vascular accident): Status: Acute Problem details: at age 24, right sided weakness, loss of peripheral vision on right Unknown etiology (8) Diaphragmatic hernia: Status: Acute (9) S/P laparoscopic sleeve gastrectomy: Status: Acute DS: Medications Discharge Medications Home Medications: Home Medications Medication Instructions Recorded Confirmed amitriptyline 10 mg tablet 10 mg PO BEDTIME 07/15/20 12/15/20 atorvastatin 80 mg tablet 80 mg PO DAILY 07/15/20 12/15/20 hydroxyzine HCl 25 mg tablet 25 mg PO BEDTIME PRN 07/15/20 12/15/20 lorazepam 0.5 mg tablet 0.5 mg PO DAILY PRN 07/15/20 12/15/20 propranolol 120 mg capsule,24 120 mg PO DAILY 07/15/20 12/15/20 hr,extended release escitalopram oxalate 1 tab PO DAILY 12/10/20 12/15/20 ezetimibe 1 tab PO DAILY 12/10/20 12/15/20 Previous Rx's Medication Instructions Recorded amlodipine 5 mg tablet 5 mg PO DAILY 90 Days #90 tab 07/28/20 evolocumab 140 mg/mL subcutaneous 140 mg SUBCUT Q2W 90 Days #7 ml 09/21/20 syringe pantoprazole 40 mg tablet,delayed 40 mg PO DAILY #30 tab 12/04/20 release DS: Summary Time Spent with Patient Time attestation: ADMITTING DIAGNOSIS: morbid obesity, hx if CVA, HTN, hyperlipidemia, IBS, migraines, seixures, depression, GERD, hiatal hernia DISCHARGE DIAGNOSIS: same, s/p laparoscopic sleeve gastrectomy and hiatal hernia repair PAST SURGICAL HISTORY: BTL, breast biopsy PROCEDURE: upper endoscopy, laparoscopic sleeve gastrectomy and hiatal hernia repair DISCHARGE SUMMARY: History of Present Illness: The patient is a 40 year-old woman with a BMI of 35.9 kg/m2 and associated co-morbidities as described above. The patient had extensive work-up preoperatively and was electively scheduled for laparoscopic, possible open sleeve gastrectomy and gastropexy. Risks and complications of the surgery were discussed with the patient in advance, particularly the possibility of , pulmonary embolism, anastomotic leak, bleeding, bowel injury, GERD, cardiac, renal or pulmonary complications. The patient understood all the risks and was in agreement with the surgical plan. Hospital Course: The patient underwent an uneventful laparoscopic sleeve gastrectomy with gastropexy and repair of hiatal hernia the day of admission. Postoperatively, the patient was transferred to the surgical floor. The patient was on IV Acetaminophen and IV dilaudid for pain control. Patient was started on bariatric phase 1 diet POD #0. On postoperative day one, the patient was feeling well without nausea, vomiting, fevers, or tachycardia. The patient had some mild incisional pain. The abdomen was soft. On the morning of postoperative day one, the patient was continued on 1 ounce of water or ice every half hour. During the first day, the patient did fairly well, having some incisional pain, but able to ambulate adequately and to tolerate liquids well. Since the patient is doing well, we decided that the patient was ready to be discharged. The patient was given instructions to follow-up with me next week and to call my office for any fever over 101, persistent abdominal pain, nausea, vomiting, GERD, symptoms of DVT such as calf tenderness, or leg swelling, or pulmonary embolism such as chest pain or shortness of breath. The patient was also instructed to drink 40-60 ounces of liquids per day using the 1-ounce cups. The patient was given prescription for Tylenol for pain, Zofran prn for nausea, and pantoprazole and carafate. The patient was encouraged to ambulate and use the incentive spirometer. The patient was allowed to shower, but no baths, and encouraged to stay active at home. All of these instructions were given to the patient personally. All questions were answered and the patient understood all instructions, the instructions were also given to the patient in print. Total time spent providing and/or coordinating discharge services: Discharge coordination time: Less than 30 minutes Physical Exam Vital Signs: Vital Signs: Last Vital Signs Temp 98.2 F 12/22/20 10:30 Pulse 68 12/22/20 10:35 Resp 14 12/22/20 10:35 BP 88/55 L 12/22/20 10:35 Pulse Ox 98 12/22/20 10:35 Body Mass Index 33.6 DS: Data Data Completed and Pending Pending studies at discharge: Pending at discharge 12/22/20 08:38 Surgical [PTH] Routine Labs on day of discharge: Laboratory Results - last 24 hr 12/22/20 12/22/20 06:15 06:23 COVID-19 ([facility]) Negative COVID-19 Clin Com See Note Blood Type O Positive Antibody Screen NEGATIVE Discharge Plan Discharge Anticipated Discharge Date/Time: 12/23/20 10:41 Patient Disposition: Home, Self-Care Referrals: Campos Trivedi MD [Primary Care Provider] - Discharge Medications: Continued amlodipine [Norvasc] 5 mg tablet 5 mg PO DAILY 90 Days Qty: 90 RF: 3 evolocumab [Repatha Syringe] 140 mg/mL syringe 140 mg subcut Q2W 90 Days Qty: 7 RF: 3 escitalopram oxalate 10 mg tablet 1 tab PO DAILY RF: 0 ezetimibe 10 mg tablet 1 tab PO DAILY RF: 0 amitriptyline 10 mg tablet 10 mg PO BEDTIME RF: 0 atorvastatin [Lipitor] 80 mg tablet 80 mg PO DAILY RF: 0 lorazepam 0.5 mg tablet 0.5 mg PO DAILY PRN (Reason: Anxiety) RF: 0 propranolol [Inderal LA] 120 mg capsule,extended release 24 hr 120 mg PO DAILY RF: 0 hydroxyzine HCl 25 mg tablet 25 mg PO BEDTIME PRN (Reason: Insomnia) RF: 0 pantoprazole 40 mg tablet,delayed release (DR/EC) 40 mg PO DAILY Qty: 30 RF: 2 Discharge Orders: Discharge Order (Routine); Ordered 12/23/20 Ordered By: Shyam Pearson Diet: other Activity on Discharge: No heavy lifting Stand Alone Forms: Patient Portal Discharge page Activity Restrictions/Additional Instructions: No tub baths, sex or returning to work until discussed at first post op appointment. No exercise, alcohol, tobacco or illegal drug use. Continue to use incentive spirometer hourly while awake. Walk in home for 5- 10 minutes every 2 hours during the first week. Continue phase 1 diet today and start phase 2 diet tomorrow morning. Follow all instructions in the bariatric handbook and call with any questions. Care Plan Goals: weight loss Health Concerns: obesity Plan of Treatment: see discharge instructions Discharge Date/Time: 12/23/20 09:43
[2020-12-22] MEDS: Famotidine/PF 20 MG/2 ML VIAL IVPUSH ×2 (10:54→20:22)
[2020-12-22] MEDS: fentaNYL citrate/PF 100 MCG/2 ML VIAL 50 MCG IVPUSH ×2 (10:59→11:03)
[2020-12-22 12:16] LABS: Hematocrit 34.7 % (37-47); Hemoglobin 11.3 g/dl (12.0-16.0)
[2020-12-22] MEDS: ondansetron HCL 4 MG/2 ML VIAL IVPUSH ×2 (13:11→20:22)
[2020-12-22] MEDS: Lactated Ringers 1,000 ML 125 ML IVCONT (13:11)
[2020-12-22 13:14] LABS: Anion Gap 13 (12-20); Blood Urea Nitrogen 13 mg/dL (9-16); Calcium 8.3 mg/dL (8.4-10.2); Carbon Dioxide 24 mmol/L (22-29); Chloride 104 mmol/L (96-108); Estimated Glomerular Filt Rate > 60; Glucose Random 116 mg/dL (60-115); Potassium 5.4 mmol/L (3.3-5.1); Sodium 136 mmol/L (135-145)
[2020-12-22] MEDS: Propranolol HCL LA 60 MG CAP.SA.24H PO (16:28)
[2020-12-22] MEDS: 0.9 % Sodium Chloride 1,000 ML 125 ML IVCONT (20:22)
[2020-12-22] MEDS: HYDROmorphone HCl 0.5 MG/0.5 ML SYRINGE 0.25 MG IVPUSH (20:22)
[2020-12-22] MEDS: 0.9 % Sodium Chloride Flush 3 ML SYRINGE IVFLUSH (20:22)
[2020-12-23] VITALS: BP 111/67; PULSE 67; RESP 16; TEMP 36.1; O2SAT 97
[2020-12-23 00:23] VITALS: RESP 16
[2020-12-23] MEDS: HYDROmorphone HCl 0.5 MG/0.5 ML SYRINGE 0.25 MG IVPUSH (00:23)
[2020-12-23 00:56] VITALS: RESP 16
[2020-12-23] MEDS: LORazepam 2 MG/ML VIAL 0.25 MG IVPUSH (02:05)
[2020-12-23 04:00] VITALS: BP 125/69; PULSE 67; RESP 16; TEMP 36.4; O2SAT 97
[2020-12-23] MEDS: ondansetron HCL 4 MG/2 ML VIAL IVPUSH (04:05)
[2020-12-23] MEDS: 0.9 % Sodium Chloride 1,000 ML 125 ML IVCONT (04:22)
[2020-12-23 06:47] LABS: MANUAL DIFF FLAG SCAN; Neutrophils Percent Auto 79.2 % (45-73); Red Cell Distribution Width 12.6 % (11.0-16.0); SCAN SMEAR FLAG 1
[2020-12-23 06:49] LABS: Hematocrit 35.5 % (37-47); Hemoglobin 11.6 g/dl (12.0-16.0); Imm Gran Abs Auto 0.03 X10*3/uL (0.00-0.03); Imm Gran Pct Auto 0.3 % (0.0-0.4); Lymphocytes Absolute Auto 1.2 X10*3/uL (1.2-4.9); Lymphocytes Percent Auto 13.2 % (20-40); Mean Corpuscular HGB Conc 32.7 g/dl (31.0-35.0); Mean Corpuscular Hemoglobin 28.3 pg (27.0-33.0); Mean Corpuscular Volume 86.6 fL (80-98); Mean Platelet Volume 13.4 fL (9.4-12.3); Monocytes Absolute Auto 0.6 X10*3/uL (0.1-1.2); Monocytes Percent Auto 7.3 % (2-11); Platelet Count 162 X10*3/uL (160-400); White Blood Count 8.8 X10*3/uL (4.8-10.8)
[2020-12-23] MEDS: levoFLOXacin/D5W 500 MG/100 ML PIGGYBACK 100 MG IV (07:04)
[2020-12-23 07:08] LABS: Anion Gap 13 (12-20); Blood Urea Nitrogen 10 mg/dL (9-16); Calcium 8.1 mg/dL (8.4-10.2); Carbon Dioxide 22 mmol/L (22-29); Chloride 107 mmol/L (96-108); Creatinine Clr Calc Pharmacy 102.2; Estimated Glomerular Filt Rate > 60; Glucose Random 115 mg/dL (60-115); Potassium 4.7 mmol/L (3.3-5.1); Sodium 137 mmol/L (135-145)
[2020-12-23 07:09] VITALS: BP 124/60; PULSE 68; RESP 16; TEMP 36.4; O2SAT 98
[2020-12-23 07:13] LABS: PLT ABN DIST 1
--- NOTE | 2020-12-23 08:21 | MHC.CM.PN ---
Addendum entered by Erica Lockhart RN 12/23/20 09:22: HCP COMPLETED WITH PT, PT HAS DESIGNATED HER [employer] [phone], PT GIVEN ORIGINAL AND 3 COPIES, COPY UPLOADED TO [employer] AND PLACED IN CHART. Original Note: IMM 12/23/20, EMR REVIEWED, PT ADMITTED FOR LAP SLEEVE GASTRECTOMY, HERNIA REPAIR, CM MET W/PT WHO IS ALERT AND ORIENTED AND REPORTS SHE LIVES WITH AND 3 TEENAGE SONS, PT DENIES USE OF DME AND HAVING HOME SERVICES, PT REPORTS FAMILY CAN ASSIST HER WITH ANY NEEDS ONCE HOME, PT VERIFIES PCP, PHARMACY AND DOES NOT HAVE A HCP BUT WOULD LIKE TO COMPLETE ONE PRIOR TO D/C. DISCHARGE PLAN: HOME SELF-CARE, TO TRANSPORT, FOLLOW-UP IN SURGEONS OFFICE. PCP: VIKTORIYA GASPAR
[2020-12-23] MEDS: Famotidine/PF 20 MG/2 ML VIAL IVPUSH (08:37)
--- NOTE | 2020-12-23 14:35 | HO.POSTANES ---
Post Anesthesia Evaluation Post Anesthesia Evaluation Vital Signs: Vital Signs Temp Pulse Resp BP Pulse Ox 12/23/20 07:09 97.5 F 68 16 124/60 98 12/23/20 04:00 97.5 F 67 16 125/69 97 Anesthesia: General Endotracheal-GETA Mental Status: Awake Pain Control: Satisfactory Nausea/Vomiting: None Hydration: Adequate Anesthesia-Related Issues: No Anes. Related Issues
== END 2020-12-23 09:43 | disposition home or self-care (01) | DRG 620 ==
LOC: HO.SSSA 10:42 → HO.S3 11:25
PROVIDERS: Physician Assistant; Admitting Provider Surgery; PCP Internal Medicine; Visit Provider Surgery
PROC: 0DB64Z3 Excision of Stomach, Percutaneous Endoscopic Approach, Vertical (ICD-10-PCS; CPT 43845; principal; 2020-12-22 07:30)
DX: E66.01 Morbid (severe) obesity due to excess calories (principal); K44.0 Diaphragmatic hernia with obstruction, without gangrene; E78.5 Hyperlipidemia, unspecified; Z86.73 Personal history of transient ischemic attack (TIA), and cerebral infarction without residual deficits; Z68.35 Body mass index [BMI] 35.0-35.9, adult; F32.9 Major depressive disorder, single episode, unspecified; K58.9 Irritable bowel syndrome, unspecified; K21.9 Gastro-esophageal reflux disease without esophagitis; G47.30 Sleep apnea, unspecified; K76.0 Fatty (change of) liver, not elsewhere classified; Z99.89 Dependence on other enabling machines and devices; Z88.0 Allergy status to penicillin; Z88.5 Allergy status to narcotic agent; Z79.899 Other long term (current) drug therapy
CPT/HCPCS: 36415; 80048; 85014; 85018; 85025; 86850; 86900; 87635; 88307; 88342; 99024; A4649; J0131; J0330; J1100; J1170; J1956; J2060; J2250; J2370; J2405; J3010

== ENCOUNTER → 2020-12-30 07:44 | Outpatient (BNVA) | payer MEDICARE, MEDICAID, SELFPAY | PROVIDERS: PCP Internal Medicine; Visit Provider Surgery | DX: E66.9 Obesity, unspecified (principal); Z68.33 Body mass index [BMI] 33.0-33.9, adult; Z71.3 Dietary counseling and surveillance | CPT/HCPCS: 99212 ==

== ENCOUNTER → 2021-01-27 08:15 | Outpatient (BNVA) | payer MEDICARE, MEDICAID, SELFPAY | PROVIDERS: PCP Internal Medicine; Visit Provider Surgery | DX: E66.9 Obesity, unspecified (principal); Z68.31 Body mass index [BMI] 31.0-31.9, adult | CPT/HCPCS: 99212; Q3014 ==

== ENCOUNTER 2021-02-10 13:02 | Outpatient (REF) | payer MEDICARE, MEDICAID, SELFPAY ==
[2021-02-10 13:48] LABS: Eosinophils Absolute Auto 0.1 X10*3/uL (0.0-0.4); Eosinophils Percent Auto 1.2 % (0-4); Imm Gran Abs Auto 0.01 X10*3/uL (0.00-0.03); Imm Gran Pct Auto 0.2 % (0.0-0.4); Mean Corpuscular HGB Conc 33.1 g/dl (31.0-35.0); Neutrophils Absolute Auto 2.5 X10*3/uL (2.0-8.3)
[2021-02-10 13:50] LABS: Basophils Percent Auto 0.8 % (0-2); Hematocrit 38.7 % (37-47); Hemoglobin 12.8 g/dl (12.0-16.0); Lymphocytes Absolute Auto 1.8 X10*3/uL (1.2-4.9); Mean Corpuscular Hemoglobin 28.6 pg (27.0-33.0); Mean Corpuscular Volume 86.6 fL (80-98); Monocytes Absolute Auto 0.5 X10*3/uL (0.1-1.2); Monocytes Percent Auto 10.9 % (2-11); Neutrophils Percent Auto 50.9 % (45-73); Platelet Count 150 X10*3/uL (160-400); Red Blood Count 4.47 X10*6/uL (4.20-5.50); Red Cell Distribution Width 14.1 % (11.0-16.0); White Blood Count 4.9 X10*3/uL (4.8-10.8)
[2021-02-10 13:55] LABS: MANUAL DIFF FLAG NO
[2021-02-10 13:56] LABS: PLT ABN DIST NO
[2021-02-10 14:08] LABS: Alanine Aminotransferase 56 U/L (0-31); Albumin Level 3.9 g/dL (3.5-5.0); Alkaline Phosphatase 65 U/L (39-117); Anion Gap 13 (12-20); Aspartate Amino Transferase 45 U/L (5-31); Bilirubin Total 1.3 mg/dL (0.0-1.0); Blood Urea Nitrogen 9 mg/dL (9-16); C Reactive Protein 0.17 mg/dL (< or = 0.50); Calcium 9.4 mg/dL (8.4-10.2); Carbon Dioxide 29 mmol/L (22-29); Chloride 104 mmol/L (96-108); Estimated Glomerular Filt Rate > 60; Glucose Random 102 mg/dL (60-115); Lipase 33 U/L (8-78); Potassium 3.6 mmol/L (3.3-5.1); Sodium 142 mmol/L (135-145); Total Protein 6.4 g/dL (6.5-8.0)
== END 2021-02-10 13:03 | disposition home or self-care (01) ==
LOC: HO.LAB 13:02
PROVIDERS: PCP Internal Medicine; Visit Provider Surgery
DX: R10.9 Unspecified abdominal pain (principal)
CPT/HCPCS: 36415; 80053; 83690; 85025; 86140

== ENCOUNTER 2021-02-17 09:05 | Outpatient (REF) | payer MEDICARE, MEDICAID, SELFPAY ==
--- NOTE | ~2021-02-17 | US_ITS ---
EXAMINATION: US COMPLETE ABDOMEN WITH LIVER ELASTOGRAPHY CLINICAL INFORMATION: Abdominal pain. COMPARISON: None. TECHNIQUE: Real-time imaging of the abdominal viscera. Noninvasive ultrasound liver fibrosis assessment is performed using Melchor ElastPQ point quantification shear wave elastography (pSWE) with a C5-2 MHz transducer. Multiple elastography samples are obtained. FINDINGS: PANCREAS: Normal. The visualized pancreatic head and body are normal in appearance. The remainder of the pancreas is obscured from visualization by the overlying bowel gas. ABDOMINAL AORTA: The proximal abdominal aorta is seen intercostally and likely normal. The mid and the distal abdominal aorta is normal caliber. INFERIOR VENA CAVA: Visualized portions are normal. LIVER: Normal. The liver demonstrates normal size, contour and echogenicity. No focal lesion or intrahepatic biliary duct dilatation. The right lobe measures 14.4 cm in length. The left lobe measures 5.81 cm in length. Portal flow is antegrade. Shear wave liver elastography median stiffness is 1.73 m/s (reference: normal median stiffness is 1.3 m/s or less). IQR/median stiffness to assess sampling precision is 0.14 (reference: good quality data set is IQR/median stiffness of 0.15 or less). GALLBLADDER: There is echogenic bile but no echogenic mobile stones or wall thickening. There is echogenic [id number] gallbladder wall, question calcification. COMMON BILE DUCT: Normal in caliber measuring 0.3 cm in diameter. RIGHT KIDNEY: There is normal cortical thickness. There is an echogenic upper pole stone measuring 0.4 x 0.3 x 0.57. No additional echogenic stones seen. There is no caliectasis or hydronephrosis. The kidney measures 10.1 cm in maximum dimension. LEFT KIDNEY: There is normal cortical thickness. There are multiple echogenic stones. An upper pole echogenic stone measures 0.7 x 0.2 x 0.4 cm, part of cyst, and a midpole echogenic stone measures 0.5 x 0.3 x 0.3 cm. There is no caliectasis or hydronephrosis. There is an anechoic cyst with posterior wall calcification in the upper pole measuring 1.2 x 0.68 x 1.0 cm. There is echogenic calcification measuring 0.7 cm, whether this represents an separate stone adjacent to the cyst or wall calcification in the cyst as described above. The kidney measures 11.1 cm in maximum dimension. SPLEEN: Normal. The spleen measures 11.1 cm in maximum dimension. FREE FLUID: None. US/US abdomen comp w elastography IMPRESSION: 1. Nonobstructive echogenic left renal calculi without hydronephrosis. Complex cyst upper pole left kidney with posterior wall calcification. Nonobstructive echogenic stone upper pole right kidney. Pancreas and proximal abdominal aorta suboptimally visualized. 2. Liver elastography: Median value stiffness 1.73 suggestive of cACLD. REFERENCE: Society of Radiologists in Ultrasound Liver Stiffness Thresholds (2020): LIVER STIFFNESS THRESHOLDS: *Liver Stiffness equal or less than 1.3 m/s: High probability of being normal. *Liver Stiffness less than 1.7 m/s: In the absence of other known clinical signs, rules out compensated advanced chronic liver disease. *Liver Stiffness 1.7-2.1 m/s: Suggestive of compensated advanced chronic liver disease but need further test for confirmation. *Liver Stiffness over 2.1 m/s: Rules in compensated advanced chronic liver disease. *Liver Stiffness over 2.4 m/s: Suggestive of clinically significant portal hypertension. QUALITY OF DATA SET: *IQR/Median value equal or less than 0.15 implies a quality data set. *IQR/Median value over 0.15 implies a poor quality data set. SIGNIFICANT CHANGE FROM PRIOR EXAM: Significant change if liver stiffness measurement is 10% or greater from prior exam. OTHER CONSIDERATIONS: The stage of liver fibrosis may be overestimated in the setting of acute hepatitis, liver inflammation, elevated liver function tests, hepatic vascular congestion, obstructive cholestasis, non-fasting state, and infiltrative diseases such as amyloidosis and lymphoma. In some patients with NAFLD, the liver stiffness thresholds for compensated advanced chronic liver disease may be lower. In causes other than viral hepatitis and NAFLD, liver stiffness thresholds are not well established.
== END 2021-02-17 09:06 | disposition home or self-care (01) ==
LOC: HO.US 09:05
PROVIDERS: PCP Internal Medicine; Visit Provider Surgery
DX: R10.9 Unspecified abdominal pain (principal)
CPT/HCPCS: 76705; 76981

== ENCOUNTER → 2021-02-26 08:11 | Outpatient (BNVA) | payer MEDICARE, MEDICAID, SELFPAY | PROVIDERS: PCP Internal Medicine; Visit Provider Surgery | DX: E66.3 Overweight (principal) | CPT/HCPCS: 99212 ==

== ENCOUNTER 2021-05-07 12:23 | Emergency (ER) | payer MEDICARE, MEDICAID, SELFPAY ==
--- NOTE | ~2021-05-07 | CT_ITS ---
CT ANGIOGRAM NECK WITH CONTRAST CT ANGIOGRAM BRAIN WITH CONTRAST CLINICAL INFORMATION: L sided dizziness, headache hx of stroke COMPARISON: Head CT 08/24/2015. TECHNIQUE: Test bolus sequences followed by intravenous administration 70 mL of Omnipaque 350. Helical imaging was performed in the axial plane from the thoracic inlet to the skull vertex. Delayed postcontrast imaging of the head was also performed. The data was processed at the anesthesiology technologist workstation for generation of MIP sequences. Angled MIPs and volume rendered reformatted images were also generated at an offline 3D workstation under concurrent supervision. Stenoses are assessed in accordance with NASCET criteria unless otherwise indicated. This CT examination was performed using dose optimization techniques as appropriate, variously including the following: *Automated exposure control *Adjustment of mA and/or kV according to patient size (this includes techniques or standardized protocols for targeted exams where dose is matched to indication/reason for exam; i.e. extremities or head) *Use of iterative reconstruction technique FINDINGS: BRAIN: [Redemonstrated chronic infarct within the left occipital lobe. There is no intracranial hemorrhage, hydrocephalus, extra-axial surface collection, midline shift, or other herniation pattern. Qureshi to white matter differentiation is diffusely maintained without evidence of an evolved acute territorial infarct. The basilar cisterns are preserved. No significant soft tissue abnormality. No acute osseous abnormality. The paranasal sinuses and the mastoid air cells are well aerated.] CERVICAL SOFT TISSUES AND LUNG APICES: Multilevel cervical spondylosis. No significant soft tissue findings within the neck. Imaged upper lungs are clear. NECK CTA: [There is a classic 3 vessel configuration of the aortic arch. Proximal arch vessels are non-stenotic. The vertebral arteries are codominant. No significant ostial stenosis is visualized on either side. Both vertebral arteries are widely patent throughout their extracranial cervical course. Both common and internal carotid arteries are normal in course and caliber.] BRAIN CTA: [There is normal opacification of major intracranial arteries. No focal flow-limiting stenosis nor discrete proximal large artery occlusion. No aneurysm. Timing of the contrast bolus allows assessment of the major dural venous sinuses, which all opacify normally] CT/CT angio head neck IMPRESSION: - No acute intracranial findings. A small chronic infarct within the left occipital lobe is again noted. - No acute arterial occlusions and no significant arterial stenoses within the head or neck.
--- NOTE | ~2021-05-07 | XR_ITS ---
EXAMINATION: XR CHEST CLINICAL INFORMATION: Dizziness COMPARISON: Previous chest x-ray most recent July 2020 TECHNIQUE: 2 views of the chest were obtained. FINDINGS: The cardiac and mediastinal contours are stable. The lungs are clear. There is no pleural effusion. There are surgical clips projecting over the stomach. Bony structures are unremarkable. XR/XR chest 2V IMPRESSION: Unremarkable examination.
[2021-05-07 15:14] VITALS: BP 124/86; PULSE 54; RESP 18; TEMP 36.7; O2SAT 100; BMI 26.4
--- NOTE | 2021-05-07 15:23 | ECG_ITS ---
Test Reason : DIZZINESS Blood Pressure : / mmHG Vent. Rate : 048 BPM Atrial Rate : 048 BPM P-R Int : 166 ms QRS Dur : 088 ms QT Int : 454 ms P-R-T Axes : 036 011 007 degrees QTc Int : 405 ms Sinus bradycardia Otherwise normal ECG When compared with ECG of 11-DEC-2020 13:35, Vent. rate has decreased BY 42 BPM Nonspecific T wave abnormality no longer evident in Anterolateral leads Referred By: Gayle Cuadra Electronically Signed By:PJ CARDONA MD
--- NOTE | 2021-05-07 15:38 | ED_ITS ---
HPI - Dizziness General Chief Complaint: Dizziness <ARIEL Payne - Last Filed: 05/07/21 15:43> Stated Complaint: neck pain, dizziness, fainted yesterday <ARIEL Payne - Last Filed: 05/07/21 15:43> Time Seen by Provider: 05/07/21 15:23 <ARIEL Payne - Last Filed: 05/07/21 15:43> Source: patient <Sindy Barros DO - Last Filed: 05/07/21 19:09> Mode of arrival: ambulatory <Sindy Barros DO - Last Filed: 05/07/21 19:09> Limitations: no limitations <Sindy Barros DO - Last Filed: 05/07/21 19:09> History of Present Illness MD elicited complaint: dizziness and lightheadedness <Sindy Barros DO - Last Filed: 05/07/21 19:09> Pertinent past history: other (states 20 years ago had a CVA no known source no deficits and states she is on ASA daily) <Sindy Barros DO - Last Filed: 05/07/21 19:09> Onset (ago): day(s) <Sindy Barros DO - Last Filed: 05/07/21 19:09> Timing: gradual onset and awoke with symptoms <Sindy Barros DO - Last Filed: 05/07/21 19:09> Severity: moderate <Sindy Barros DO - Last Filed: 05/07/21 19:09> Description: sense of movement and lightheadedness <Sindy Barros DO - Last Filed: 05/07/21 19:09> Context: change in body position <Sindy Barros DO - Last Filed: 05/07/21 19:09> History of similar symptoms: Yes <Sindy Barros DO - Last Filed: 05/07/21 19:09> Exacerbating factors: movement/ambulation and change in body position <Sindy Barros DO - Last Filed: 05/07/21 19:09> Relieving factors: remaining still <Sindy Barros DO - Last Filed: 05/07/21 19:09> Associated symptoms: nausea, weakness, ear discomfort and tinnitus <Sindy Barros DO - Last Filed: 05/07/21 19:09> Related Data Home Medications: Home Medications Medication Instructions Recorded Confirmed amitriptyline 10 mg tablet 10 mg PO BEDTIME 07/15/20 12/15/20 atorvastatin 80 mg tablet 80 mg PO DAILY 07/15/20 12/15/20 hydroxyzine HCl 25 mg tablet 25 mg PO BEDTIME PRN 07/15/20 12/15/20 lorazepam 0.5 mg tablet 0.5 mg PO DAILY PRN 07/15/20 12/15/20 escitalopram oxalate 1 tab PO DAILY 12/10/20 12/15/20 ezetimibe 1 tab PO DAILY 12/10/20 12/15/20 Previous Rx's Medication Instructions Recorded amlodipine 5 mg tablet 5 mg PO DAILY 90 Days #90 tab 07/28/20 evolocumab 140 mg/mL subcutaneous 140 mg SUBCUT Q2W 90 Days #7 ml 09/21/20 syringe pantoprazole 40 mg tablet,delayed 40 mg PO DAILY #30 tab 12/04/20 release fondaparinux 2.5 mg/0.5 mL 2.5 mg SUBCUT Q24H #5 ml 01/02/21 subcutaneous solution syringe sucralfate 100 mg/mL oral 10 ml PO BID #1800 ml 01/04/21 suspension docusate sodium 100 mg capsule 100 mg PO DAILY #30 cap 01/16/21 ondansetron HCl 4 mg tablet 4 mg PO Q12H #30 tab 02/15/21 ursodiol 300 mg capsule 300 mg PO ONCE #30 cap 02/17/21 propranolol 120 mg capsule,24 120 mg PO DAILY #90 cap 04/26/21 hr,extended release [id number] 1 tab PO Q6H PRN #20 tab 05/07/21 <ARIEL Payne - Last Filed: 05/07/21 15:43> Allergies/Adverse Reactions: Allergies Allergy/AdvReac Type Severity Reaction Status Date / Time Penicillins Allergy Severe RASH Verified 12/30/20 07:50 morphine Allergy Intermediate N/V, RASH, Verified 12/30/20 07:50 itching sulfamethoxazole Allergy Intermediate RASH Verified 12/30/20 07:50 [From BACTRIM] trimethoprim [From BACTRIM] Allergy Intermediate RASH Verified 12/30/20 07:50 <ARIEL Payne - Last Filed: 05/07/21 15:43> Review of Systems Review of Systems: Constitutional : No Weight loss, No Fever, No Chills, No Fatigue, No Malaise ENT/Mouth : No sore throat, No Rhinorrhea Eyes: No Eye Pain, No Swelling, No Redness Cardiovascular : No Chest Pain, No SOB, No Dyspnea on Exertion, No Orthopnea, No Edema, No Palpitations Respiratory : No Cough, No Sputum, No Wheezing Gastrointestinal : pos Nausea, No Vomiting, No Diarrhea, No Constipation, No abdominal Pain, No Hematochezia, No Melena Genitourinary : No Dysuria, No Urinary Frequency, No Hematuria, Musculoskeletal : No joint pain, No Myalgias, No Joint Swelling Skin : No Skin Lesions, No rash Neuro : No Weakness, No Numbness, pos Dizziness, pos Headache Psych : No Anxiety/Panic, No Depression Heme/Lymph: No Bruising, No Bleeding,No Lymphadenopathy Endocrine : No Polyuria, No Polydipsia All other systems reviewed and are negative <Sindy Barros DO - Last Filed: 05/07/21 19:09> ON LICENSE OF [facility] Past Medical History Attestation statement: The following information was validated with the patient. <Sindy Barros DO - Last Filed: 05/07/21 19:09> Medical History: Medical History CVA (cerebral vascular accident) Dental crowns present Depression GERD (gastroesophageal reflux disease) Hyperlipidemia Hypertension IBS (irritable bowel syndrome) Migraines PCOS (polycystic ovarian syndrome) Sciatica Seizure Sinus tachycardia Steatosis, liver <ARIEL Payne - Last Filed: 05/07/21 15:43> Surgical History: Surgical History History of sleeve gastrectomy History of sleeve gastrectomy Hx of breast biopsy Hx of hemorrhoidectomy Hx of tubal ligation <ARIEL Payne - Last Filed: 05/07/21 15:43> Family History Family History: Family History Father No problems noted. 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 Do you presently have visiting nurse or other home services: No Alcohol intake: never Patient Tobacco Use Status: Never used Tobacco Advance Directives: No Advance Directives Information Provided: Yes Patient : No service: No Current occupational status: unemployed <ARIEL Payne - Last Filed: 05/07/21 15:43> Physical Exam Vital Signs: Vital Signs: Last Vital Signs Temp 98.0 F 05/07/21 15:14 Pulse 47 L 05/07/21 16:21 Resp 16 05/07/21 16:21 BP 125/72 05/07/21 16:21 Pulse Ox 100 05/07/21 16:21 Body Mass Index 26.4 <ARIEL Payne - Last Filed: 05/07/21 15:43> Vital Signs: Last Vital Signs Temp 98.0 F 05/07/21 15:14 Pulse 47 L 05/07/21 16:21 Resp 16 05/07/21 16:21 BP 125/72 05/07/21 16:21 Pulse Ox 100 05/07/21 16:21 Body Mass Index 26.4 <Sindy Barros DO - Last Filed: 05/07/21 19:09> Appearance: Alert. Oriented X3. No acute distress. Eyes: Pupils equal, round and reactive to light. ENT: Pharynx normal. L TM normal Neck: Normal inspection. Neck supple. no meningeal signs CVS: Normal heart rate and rhythm. Pulses normal. Respiratory: No respiratory distress. Breath sounds normal. Abdomen: Soft and nontender. Skin: Skin warm and dry. Normal skin color. Normal skin turgor. Extremities: No lower extremity edema. No calf ttp Neuro: Oriented X 3. No motor deficit. No sensory deficit. no drift <Sindy Barros DO - Last Filed: 05/07/21 19:09> Course Course Course Narrative: 15:24pm - 41 year old female presenting to the ED with multiple complaints which include dizziness with associated left sided head pain, left ear ringing, nausea and reports a syncopal episode yesterday without head trauma. Denies being on blood thinners. On exam patient is alert and oriented x3. Normal steady gait. No focal neuro deficits are noted. Lungs clear to auscultation. CV RRR. At this time patient will be sent back to the waiting room labs, chest x-ray, EKG and UA ordered at this time. <ARIEL Payne - Last Filed: 05/07/21 15:43> HR in 50s at baseline, labs stable, negative workup today stable for DC 66 on recheck ambulated the patient - no ataxia normal gait denies dizziness <Sindy aBrros DO - Last Filed: 05/07/21 19:09> MDM - Dizziness MDM Narrative Medical decision making narrative: 41 yo female hx of gastric sleeve, DIMITRI, migraines reported stroke 20 years ago without a known cause, HTN, HLD here with 2 days of dizziness, ringing in the ears, headache - at this time will obtain labs, EKG, hydrate and give supportive medications, CTA head and neck given reported history of stroke could be complex migraine as well. <Sindy Barros DO - Last Filed: 05/07/21 19:09> Lab Data Result diagrams: : 05/07/21 16:42 05/07/21 16:42 <ARIEL Payne - Last Filed: 05/07/21 15:43> Labs: Lab Results 05/07/21 05/07/21 05/07/21 Range/Units 16:19 16:42 16:42 WBC 5.4 (4.8-10.8) X10*3/uL RBC 4.50 (4.20-5.50) X10*6/uL Hgb 13.2 (12.0-16.0) g/dl Hct 39.8 (37-47) % MCV 88.4 (80-98) fL MCH 29.3 (27.0-33.0) pg MCHC 33.2 (31.0-35.0) g/dl RDW 13.4 (11.0-16.0) % Plt Count 158 L (160-400) X10*3/uL MPV 13.7 H (9.4-12.3) fL Immature Gran % (Auto) Cancelled Neut % (Auto) Cancelled Lymph % (Auto) Cancelled [place] % (Auto) Cancelled Eos % (Auto) Cancelled Baso % (Auto) Cancelled Lymph # (Auto) Cancelled [place] # (Auto) Cancelled Eos # (Auto) Cancelled Baso # (Auto) Cancelled Abs Immat Gran (auto) Cancelled Absolute Neuts (auto) Cancelled Absolute Nucleated RBC 0.000 (0.0-0.012) X10*3/uL Nucleated RBC % (auto) 0.0 (0.0-0.2) /100WBC Neutrophils % (Manual) 45 (45-73) % Band Neutrophils % 5 (3-5) % Lymphocytes % (Manual) 38 (20-40) % Monocytes % (Manual) 6 (2-11) % Eosinophils % (Manual) 2 (0-4) % Basophils % (Manual) 2 H (0-1) % Metamyelocytes % 1 % Myelocytes % 1 % Abs Neuts (Manual) 2.7 (2.2-7.9) X10*3/uL Lymphocytes # (Manual) 2.1 (0.6-4.8) X10*3/uL Monocytes # (Manual) 0.3 (0.0-1.2) X10*3/uL Eosinophils # (Manual) 0.1 (0.0-0.8) X10*3/UL Basophils # (Manual) 0.1 (0.0-0.3) X10*3/uL Metamyelocytes # 0.1 X10*3/uL Myelocytes # 0.1 X10*/uL Platelet Estimate NORMAL (NORMAL) Large Platelets PRESENT Plt Morphology Comment NOTED RBC Morphology NOTED Ovalocytes 1+ (5-14) /OIF Acanthocytes (Spur) 1+ (0-2) /OIF Hold Purple Top PT (9.9-13.0) SEC INR (0.9-1.1) Sodium (135-145) mmol/L Potassium (3.3-5.1) mmol/L Chloride (96-108) mmol/L Carbon Dioxide (22-29) mmol/L Anion Gap (12-20) BUN (9-16) mg/dL Creatinine (0.5-1.4) mg/dL Estim Creat Clear Calc Estimated GFR Random Glucose (60-115) mg/dL Calcium (8.4-10.2) mg/dL Magnesium 1.9 (1.6-2.6) mg/dL Total Bilirubin (0.0-1.0) mg/dL AST (5-31) U/L ALT (0-31) U/L Alkaline Phosphatase (39-117) U/L Total Protein (6.5-8.0) g/dL Albumin (3.5-5.0) g/dL Beta HCG, Quant mIU/mL Urine Color YELLOW Urine Appearance CLEAR Urine pH 6.0 (5.0-8.0) Ur Specific [place] 1.025 (1.005-1.025) Urine Protein NEG (NEG-TRACE) MG/DL Urine Glucose (UA) NEG (NEG) MG/DL Urine Ketones 5 (NEG) MG/DL Urine Blood NEG (NEG) Urine Nitrite NEG (NEG) Ur Leukocyte Esterase NEG (NEG) 05/07/21 05/07/21 05/07/21 Range/Units 16:42 16:42 16:42 WBC (4.8-10.8) X10*3/uL RBC (4.20-5.50) X10*6/uL Hgb (12.0-16.0) g/dl Hct (37-47) % MCV (80-98) fL MCH (27.0-33.0) pg MCHC (31.0-35.0) g/dl RDW (11.0-16.0) % Plt Count (160-400) X10*3/uL MPV (9.4-12.3) fL Immature Gran % (Auto) Neut % (Auto) Lymph % (Auto) [place] % (Auto) Eos % (Auto) Baso % (Auto) Lymph # (Auto) [place] # (Auto) Eos # (Auto) Baso # (Auto) Abs Immat Gran (auto) Absolute Neuts (auto) Absolute Nucleated RBC (0.0-0.012) X10*3/uL Nucleated RBC % (auto) (0.0-0.2) /100WBC Neutrophils % (Manual) (45-73) % Band Neutrophils % (3-5) % Lymphocytes % (Manual) (20-40) % Monocytes % (Manual) (2-11) % Eosinophils % (Manual) (0-4) % Basophils % (Manual) (0-1) % Metamyelocytes % % Myelocytes % % Abs Neuts (Manual) (2.2-7.9) X10*3/uL Lymphocytes # (Manual) (0.6-4.8) X10*3/uL Monocytes # (Manual) (0.0-1.2) X10*3/uL Eosinophils # (Manual) (0.0-0.8) X10*3/UL Basophils # (Manual) (0.0-0.3) X10*3/uL Metamyelocytes # X10*3/uL Myelocytes # X10*/uL Platelet Estimate (NORMAL) Large Platelets Plt Morphology Comment RBC Morphology Ovalocytes /OIF Acanthocytes (Spur) /OIF Hold Purple Top SEE NOTE PT 12.4 (9.9-13.0) SEC INR 1.1 (0.9-1.1) Sodium 140 (135-145) mmol/L Potassium 4.5 D (3.3-5.1) mmol/L Chloride 106 (96-108) mmol/L Carbon Dioxide 26 (22-29) mmol/L Anion Gap 13 (12-20) BUN 13 (9-16) mg/dL Creatinine 0.77 (0.5-1.4) mg/dL Estim Creat Clear Calc 80.4 Estimated GFR > 60 Random Glucose 90 (60-115) mg/dL Calcium 9.5 (8.4-10.2) mg/dL Magnesium (1.6-2.6) mg/dL Total Bilirubin 1.5 H (0.0-1.0) mg/dL AST 14 D (5-31) U/L ALT 7 (0-31) U/L Alkaline Phosphatase 61 (39-117) U/L Total Protein 6.9 (6.5-8.0) g/dL Albumin 4.2 (3.5-5.0) g/dL Beta HCG, Quant mIU/mL Urine Color Urine Appearance Urine pH (5.0-8.0) Ur Specific [place] (1.005-1.025) Urine Protein (NEG-TRACE) MG/DL Urine Glucose (UA) (NEG) MG/DL Urine Ketones (NEG) MG/DL Urine Blood (NEG) Urine Nitrite (NEG) Ur Leukocyte Esterase (NEG) 05/07/21 Range/Units 16:42 WBC (4.8-10.8) X10*3/uL RBC (4.20-5.50) X10*6/uL Hgb (12.0-16.0) g/dl Hct (37-47) % MCV (80-98) fL MCH (27.0-33.0) pg MCHC (31.0-35.0) g/dl RDW (11.0-16.0) % Plt Count (160-400) X10*3/uL MPV (9.4-12.3) fL Immature Gran % (Auto) Neut % (Auto) Lymph % (Auto) [place] % (Auto) Eos % (Auto) Baso % (Auto) Lymph # (Auto) [place] # (Auto) Eos # (Auto) Baso # (Auto) Abs Immat Gran (auto) Absolute Neuts (auto) Absolute Nucleated RBC (0.0-0.012) X10*3/uL Nucleated RBC % (auto) (0.0-0.2) /100WBC Neutrophils % (Manual) (45-73) % Band Neutrophils % (3-5) % Lymphocytes % (Manual) (20-40) % Monocytes % (Manual) (2-11) % Eosinophils % (Manual) (0-4) % Basophils % (Manual) (0-1) % Metamyelocytes % % Myelocytes % % Abs Neuts (Manual) (2.2-7.9) X10*3/uL Lymphocytes # (Manual) (0.6-4.8) X10*3/uL Monocytes # (Manual) (0.0-1.2) X10*3/uL Eosinophils # (Manual) (0.0-0.8) X10*3/UL Basophils # (Manual) (0.0-0.3) X10*3/uL Metamyelocytes # X10*3/uL Myelocytes # X10*/uL Platelet Estimate (NORMAL) Large Platelets Plt Morphology Comment RBC Morphology Ovalocytes /OIF Acanthocytes (Spur) /OIF Hold Purple Top PT (9.9-13.0) SEC INR (0.9-1.1) Sodium (135-145) mmol/L Potassium (3.3-5.1) mmol/L Chloride (96-108) mmol/L Carbon Dioxide (22-29) mmol/L Anion Gap (12-20) BUN (9-16) mg/dL Creatinine (0.5-1.4) mg/dL Estim Creat Clear Calc Estimated GFR Random Glucose (60-115) mg/dL Calcium (8.4-10.2) mg/dL Magnesium (1.6-2.6) mg/dL Total Bilirubin (0.0-1.0) mg/dL AST (5-31) U/L ALT (0-31) U/L Alkaline Phosphatase (39-117) U/L Total Protein (6.5-8.0) g/dL Albumin (3.5-5.0) g/dL Beta HCG, Quant < 2 mIU/mL Urine Color Urine Appearance Urine pH (5.0-8.0) Ur Specific [place] (1.005-1.025) Urine Protein (NEG-TRACE) MG/DL Urine Glucose (UA) (NEG) MG/DL Urine Ketones (NEG) MG/DL Urine Blood (NEG) Urine Nitrite (NEG) Ur Leukocyte Esterase (NEG) <ARIEL Payne - Last Filed: 05/07/21 15:43> Lab Results 05/07/21 05/07/21 05/07/21 Range/Units 16:19 16:42 16:42 WBC 5.4 (4.8-10.8) X10*3/uL RBC 4.50 (4.20-5.50) X10*6/uL Hgb 13.2 (12.0-16.0) g/dl Hct 39.8 (37-47) % MCV 88.4 (80-98) fL MCH 29.3 (27.0-33.0) pg MCHC 33.2 (31.0-35.0) g/dl RDW 13.4 (11.0-16.0) % Plt Count 158 L (160-400) X10*3/uL MPV 13.7 H (9.4-12.3) fL Immature Gran % (Auto) Cancelled Neut % (Auto) Cancelled Lymph % (Auto) Cancelled [place] % (Auto) Cancelled Eos % (Auto) Cancelled Baso % (Auto) Cancelled Lymph # (Auto) Cancelled [place] # (Auto) Cancelled Eos # (Auto) Cancelled Baso # (Auto) Cancelled Abs Immat Gran (auto) Cancelled Absolute Neuts (auto) Cancelled Absolute Nucleated RBC 0.000 (0.0-0.012) X10*3/uL Nucleated RBC % (auto) 0.0 (0.0-0.2) /100WBC Neutrophils % (Manual) 45 (45-73) % Band Neutrophils % 5 (3-5) % Lymphocytes % (Manual) 38 (20-40) % Monocytes % (Manual) 6 (2-11) % Eosinophils % (Manual) 2 (0-4) % Basophils % (Manual) 2 H (0-1) % Metamyelocytes % 1 % Myelocytes % 1 % Abs Neuts (Manual) 2.7 (2.2-7.9) X10*3/uL Lymphocytes # (Manual) 2.1 (0.6-4.8) X10*3/uL Monocytes # (Manual) 0.3 (0.0-1.2) X10*3/uL Eosinophils # (Manual) 0.1 (0.0-0.8) X10*3/UL Basophils # (Manual) 0.1 (0.0-0.3) X10*3/uL Metamyelocytes # 0.1 X10*3/uL Myelocytes # 0.1 X10*/uL Platelet Estimate NORMAL (NORMAL) Large Platelets PRESENT Plt Morphology Comment NOTED RBC Morphology NOTED Ovalocytes 1+ (5-14) /OIF Acanthocytes (Spur) 1+ (0-2) /OIF Hold Purple Top PT (9.9-13.0) SEC INR (0.9-1.1) Sodium (135-145) mmol/L Potassium (3.3-5.1) mmol/L Chloride (96-108) mmol/L Carbon Dioxide (22-29) mmol/L Anion Gap (12-20) BUN (9-16) mg/dL Creatinine (0.5-1.4) mg/dL Estim Creat Clear Calc Estimated GFR Random Glucose (60-115) mg/dL Calcium (8.4-10.2) mg/dL Magnesium 1.9 (1.6-2.6) mg/dL Total Bilirubin (0.0-1.0) mg/dL AST (5-31) U/L ALT (0-31) U/L Alkaline Phosphatase (39-117) U/L Total Protein (6.5-8.0) g/dL Albumin (3.5-5.0) g/dL Beta HCG, Quant mIU/mL Urine Color YELLOW Urine Appearance CLEAR Urine pH 6.0 (5.0-8.0) Ur Specific [place] 1.025 (1.005-1.025) Urine Protein NEG (NEG-TRACE) MG/DL Urine Glucose (UA) NEG (NEG) MG/DL Urine Ketones 5 (NEG) MG/DL Urine Blood NEG (NEG) Urine Nitrite NEG (NEG) Ur Leukocyte Esterase NEG (NEG) 05/07/21 05/07/21 05/07/21 Range/Units 16:42 16:42 16:42 WBC (4.8-10.8) X10*3/uL RBC (4.20-5.50) X10*6/uL Hgb (12.0-16.0) g/dl Hct (37-47) % MCV (80-98) fL MCH (27.0-33.0) pg MCHC (31.0-35.0) g/dl RDW (11.0-16.0) % Plt Count (160-400) X10*3/uL MPV (9.4-12.3) fL Immature Gran % (Auto) Neut % (Auto) Lymph % (Auto) [place] % (Auto) Eos % (Auto) Baso % (Auto) Lymph # (Auto) [place] # (Auto) Eos # (Auto) Baso # (Auto) Abs Immat Gran (auto) Absolute Neuts (auto) Absolute Nucleated RBC (0.0-0.012) X10*3/uL Nucleated RBC % (auto) (0.0-0.2) /100WBC Neutrophils % (Manual) (45-73) % Band Neutrophils % (3-5) % Lymphocytes % (Manual) (20-40) % Monocytes % (Manual) (2-11) % Eosinophils % (Manual) (0-4) % Basophils % (Manual) (0-1) % Metamyelocytes % % Myelocytes % % Abs Neuts (Manual) (2.2-7.9) X10*3/uL Lymphocytes # (Manual) (0.6-4.8) X10*3/uL Monocytes # (Manual) (0.0-1.2) X10*3/uL Eosinophils # (Manual) (0.0-0.8) X10*3/UL Basophils # (Manual) (0.0-0.3) X10*3/uL Metamyelocytes # X10*3/uL Myelocytes # X10*/uL Platelet Estimate (NORMAL) Large Platelets Plt Morphology Comment RBC Morphology Ovalocytes /OIF Acanthocytes (Spur) /OIF Hold Purple Top SEE NOTE PT 12.4 (9.9-13.0) SEC INR 1.1 (0.9-1.1) Sodium 140 (135-145) mmol/L Potassium 4.5 D (3.3-5.1) mmol/L Chloride 106 (96-108) mmol/L Carbon Dioxide 26 (22-29) mmol/L Anion Gap 13 (12-20) BUN 13 (9-16) mg/dL Creatinine 0.77 (0.5-1.4) mg/dL Estim Creat Clear Calc 80.4 Estimated GFR > 60 Random Glucose 90 (60-115) mg/dL Calcium 9.5 (8.4-10.2) mg/dL Magnesium (1.6-2.6) mg/dL Total Bilirubin 1.5 H (0.0-1.0) mg/dL AST 14 D (5-31) U/L ALT 7 (0-31) U/L Alkaline Phosphatase 61 (39-117) U/L Total Protein 6.9 (6.5-8.0) g/dL Albumin 4.2 (3.5-5.0) g/dL Beta HCG, Quant mIU/mL Urine Color Urine Appearance Urine pH (5.0-8.0) Ur Specific [place] (1.005-1.025) Urine Protein (NEG-TRACE) MG/DL Urine Glucose (UA) (NEG) MG/DL Urine Ketones (NEG) MG/DL Urine Blood (NEG) Urine Nitrite (NEG) Ur Leukocyte Esterase (NEG) 05/07/21 Range/Units 16:42 WBC (4.8-10.8) X10*3/uL RBC (4.20-5.50) X10*6/uL Hgb (12.0-16.0) g/dl Hct (37-47) % MCV (80-98) fL MCH (27.0-33.0) pg MCHC (31.0-35.0) g/dl RDW (11.0-16.0) % Plt Count (160-400) X10*3/uL MPV (9.4-12.3) fL Immature Gran % (Auto) Neut % (Auto) Lymph % (Auto) [place] % (Auto) Eos % (Auto) Baso % (Auto) Lymph # (Auto) [place] # (Auto) Eos # (Auto) Baso # (Auto) Abs Immat Gran (auto) Absolute Neuts (auto) Absolute Nucleated RBC (0.0-0.012) X10*3/uL Nucleated RBC % (auto) (0.0-0.2) /100WBC Neutrophils % (Manual) (45-73) % Band Neutrophils % (3-5) % Lymphocytes % (Manual) (20-40) % Monocytes % (Manual) (2-11) % Eosinophils % (Manual) (0-4) % Basophils % (Manual) (0-1) % Metamyelocytes % % Myelocytes % % Abs Neuts (Manual) (2.2-7.9) X10*3/uL Lymphocytes # (Manual) (0.6-4.8) X10*3/uL Monocytes # (Manual) (0.0-1.2) X10*3/uL Eosinophils # (Manual) (0.0-0.8) X10*3/UL Basophils # (Manual) (0.0-0.3) X10*3/uL Metamyelocytes # X10*3/uL Myelocytes # X10*/uL Platelet Estimate (NORMAL) Large Platelets Plt Morphology Comment RBC Morphology Ovalocytes /OIF Acanthocytes (Spur) /OIF Hold Purple Top PT (9.9-13.0) SEC INR (0.9-1.1) Sodium (135-145) mmol/L Potassium (3.3-5.1) mmol/L Chloride (96-108) mmol/L Carbon Dioxide (22-29) mmol/L Anion Gap (12-20) BUN (9-16) mg/dL Creatinine (0.5-1.4) mg/dL Estim Creat Clear Calc Estimated GFR Random Glucose (60-115) mg/dL Calcium (8.4-10.2) mg/dL Magnesium (1.6-2.6) mg/dL Total Bilirubin (0.0-1.0) mg/dL AST (5-31) U/L ALT (0-31) U/L Alkaline Phosphatase (39-117) U/L Total Protein (6.5-8.0) g/dL Albumin (3.5-5.0) g/dL Beta HCG, Quant < 2 mIU/mL Urine Color Urine Appearance Urine pH (5.0-8.0) Ur Specific [place] (1.005-1.025) Urine Protein (NEG-TRACE) MG/DL Urine Glucose (UA) (NEG) MG/DL Urine Ketones (NEG) MG/DL Urine Blood (NEG) Urine Nitrite (NEG) Ur Leukocyte Esterase (NEG) <Sindy Barros DO - Last Filed: 05/07/21 19:09> ECG Data Attestation: I personally reviewed and interpreted this ECG as follows: <Sindy Barros DO - Last Filed: 05/07/21 19:09> ECG interpretation date: 05/07/21 <Sindy Barros DO - Last Filed: 05/07/21 19:09> ECG interpretation time: 16:15 <Sindy Barros DO - Last Filed: 05/07/21 19:09> Interpretation: Rate: 48 Rhythm: sinus bradycardia [place]: normal Normal P waves. Normal SARAH. Normal QRS complex. ST T wave : normal no JADYN qTC: normal prior studies: no acute ischemia The study has been interpreted contemporaneously by me. . <Sindy Barros DO - Last Filed: 05/07/21 19:09> Discharge Plan Discharge Clinical Impression: Dizziness Headache Qualifiers: Headache type: unspecified Headache chronicity pattern: acute headache Intractability: not intractable Qualified Code(s): R51.9 - Headache, unspecified <ARIEL Payne - Last Filed: 05/07/21 15:43> Patient Disposition: Home, Self-Care <ARIEL Payne Last Filed: 05/07/21 15:43> Instructions: Acute Headache (ED), Dizziness (ED) <ARIEL Payne Last Filed: 05/07/21 15:43> Additional Instructions: return to ED for any worsening symptoms or concerns <ARIEL Payne Last Filed: 05/07/21 15:43> Prescriptions: New [id number] 50-325-40 mg tablet 1 tab PO Q6H PRN (Reason: pain) Qty: 20 RF: 0 No Action amlodipine [Norvasc] 5 mg tablet 5 mg PO DAILY 90 Days Qty: 90 RF: 3 evolocumab [Repatha Syringe] 140 mg/mL syringe 140 mg subcut Q2W 90 Days Qty: 7 RF: 3 fondaparinux 2.5 mg/0.5 mL syringe 2.5 mg subcut Q24H Qty: 5 RF: 0 sucralfate 100 mg/mL suspension 10 ml PO BID Qty: 1800 RF: 2 docusate sodium [Colace] 100 mg capsule 100 mg PO DAILY Qty: 30 RF: 2 ondansetron HCl [Zofran] 4 mg tablet 4 mg PO Q12H Qty: 30 RF: 0 ursodiol 300 mg capsule 300 mg PO ONCE Qty: 30 RF: 2 propranolol 120 mg capsule,extended release 24 hr 120 mg PO DAILY Qty: 90 RF: 3 escitalopram oxalate 10 mg tablet 1 tab PO DAILY RF: 0 ezetimibe 10 mg tablet 1 tab PO DAILY RF: 0 amitriptyline 10 mg tablet 10 mg PO BEDTIME RF: 0 atorvastatin [Lipitor] 80 mg tablet 80 mg PO DAILY RF: 0 lorazepam 0.5 mg tablet 0.5 mg PO DAILY PRN (Reason: Anxiety) RF: 0 hydroxyzine HCl 25 mg tablet 25 mg PO BEDTIME PRN (Reason: Insomnia) RF: 0 pantoprazole 40 mg tablet,delayed release (DR/EC) 40 mg PO DAILY Qty: 30 RF: 2 <ARIEL Payne - Last Filed: 05/07/21 15:43> Referrals: Campos Trivedi MD [Primary Care Provider] - 2 days <ARIEL Payne - Last Filed: 05/07/21 15:43> Stand Alone Forms: Work/School Release <ARIEL Payne - Last Filed: 05/07/21 15:43>
[2021-05-07 15:54] VITALS: BP 144/82; BP 145/85; PULSE 50; PULSE 56
[2021-05-07 15:55] VITALS: BP 132/87
[2021-05-07 16:21] VITALS: BP 125/72; PULSE 47; RESP 16; O2SAT 100
[2021-05-07 16:40] LABS: Glucose Urine UA NEG (NEG); Leukocyte Esterase Urine NEG (NEG); Nitrite Urine NEG (NEG); Specific Gravity - Urine 1.025 (1.005-1.025); Urine Blood NEG (NEG); Urine Ketones 5 MG/DL (NEG); Urine Protein NEG (NEG-TRACE)
[2021-05-07 16:43] LABS: Appearance Urine CLEAR; Color Urine YELLOW
[2021-05-07] MEDS: 0.9 % Sodium Chloride 1,000 ML 999 ML IVCONT (16:50)
[2021-05-07] MEDS: diphenhydrAMINE HCL 50 MG/ML VIAL 25 MG IVPUSH (16:50)
[2021-05-07] MEDS: Metoclopramide HCl 10 MG/2 ML VIAL IVPUSH (16:50)
[2021-05-07 16:55] LABS: INTERNATIONAL NORM RATIO 1.1 (0.9-1.1); Prothrombin Time 12.4 SEC (9.9-13.0)
[2021-05-07 16:59] LABS: Hematocrit 39.8 % (37-47); Hemoglobin 13.2 g/dl (12.0-16.0); Mean Corpuscular HGB Conc 33.2 g/dl (31.0-35.0); Mean Corpuscular Hemoglobin 29.3 pg (27.0-33.0); Mean Corpuscular Volume 88.4 fL (80-98); Mean Platelet Volume 13.7 fL (9.4-12.3); Platelet Count 158 X10*3/uL (160-400); Red Cell Distribution Width 13.4 % (11.0-16.0); WBC ABN SCTR FOR CBC 1
[2021-05-07 17:21] LABS: Magnesium 1.9 mg/dL (1.6-2.6)
[2021-05-07 17:22] LABS: Alanine Aminotransferase 7 U/L (0-31); Albumin Level 4.2 g/dL (3.5-5.0); Alkaline Phosphatase 61 U/L (39-117); Anion Gap 13 (12-20); Aspartate Amino Transferase 14 U/L (5-31); Bilirubin Total 1.5 mg/dL (0.0-1.0); Blood Urea Nitrogen 13 mg/dL (9-16); Calcium 9.5 mg/dL (8.4-10.2); Carbon Dioxide 26 mmol/L (22-29); Chloride 106 mmol/L (96-108); Creatinine Clr Calc Pharmacy 80.4; Estimated Glomerular Filt Rate > 60; Glucose Random 90 mg/dL (60-115); Potassium 4.5 mmol/L (3.3-5.1); Sodium 140 mmol/L (135-145); Total Protein 6.9 g/dL (6.5-8.0)
[2021-05-07 17:28] LABS: HCG Quantitative < 2 mIU/mL
[2021-05-07 18:05] LABS: Band Neutrophils Percent 5 % (3-5); Basophils Percent Manual 2 % (0-1); Eosinophils Percent Manual 2 % (0-4); Lymphocytes Percent Manual 38 % (20-40); Metamyelocytes Percent 1 %; Monocytes Percent Manual 6 % (2-11); Myelocytes Percent 1 %; Neutrophils Percent Manual 45 % (45-73); Platelet Estimate NORMAL (NORMAL); Platelet Morphology Comment NOTED; RBC Morphology NOTED
[2021-05-07 18:06] LABS: Acanthocytes 1+ (0-2) /OIF; Basophils Abs Manual 0.1 X10*3/uL (0.0-0.3); Eosinophils Absolute Manual 0.1 X10*3/UL (0.0-0.8); Large Platelet PRESENT; Lymphocytes Absolute Manual 2.1 X10*3/uL (0.6-4.8); Metamyelocytes Absolute 0.1 X10*3/uL; Monocytes Absolute Manual 0.3 X10*3/uL (0.0-1.2); Myelocytes Absolute 0.1 X10*/uL; Neutrophils Absolute Manual 2.7 X10*3/uL (2.2-7.9); Ovalocytes 1+ (5-14) /OIF; White Blood Count 5.4 X10*3/uL (4.8-10.8)
[2021-05-07] MEDS: iohexoL 350 MG/ML 100 ML INFUS..BTL IV (18:19)
== END 2021-05-07 19:41 | disposition home or self-care (01) ==
PROVIDERS: Physician Assistant Medical; Emergency Provider Emergency Medicine; PCP Internal Medicine
DX: R42 Dizziness and giddiness (principal); M54.2 Cervicalgia; R51.9 Headache, unspecified; I10 Essential (primary) hypertension; Z79.899 Other long term (current) drug therapy; Z98.84 Bariatric surgery status
CPT/HCPCS: 36415; 70496; 70498; 71046; 80053; 81003; 83735; 84702; 85007; 85027; 85610; 93005; 96365; 96375; 99284; J1200; J2765; Q9967

== ENCOUNTER → 2021-05-10 07:40 | Outpatient (BNVA) | payer MEDICARE, MEDICAID, SELFPAY | PROVIDERS: PCP Internal Medicine; Visit Provider Surgery | DX: Z13.89 Encounter for screening for other disorder (principal) | CPT/HCPCS: Q3014 ==

== ENCOUNTER → 2021-07-02 12:42 | Outpatient (BNVA) | payer MEDICARE, MEDICAID, SELFPAY | PROVIDERS: PCP Internal Medicine; Visit Provider Physician Assistant Surgical | DX: K21.9 Gastro-esophageal reflux disease without esophagitis (principal); K55.9 Vascular disorder of intestine, unspecified; K59.00 Constipation, unspecified; Z98.84 Bariatric surgery status | CPT/HCPCS: 99212 ==

== ENCOUNTER 2021-07-23 08:51 | Outpatient (REF) | payer MEDICARE, MEDICAID, SELFPAY ==
--- NOTE | ~2021-07-23 | FL_ITS ---
EXAMINATION: XR GI SERIES CLINICAL INFORMATION: Vitamin D deficiency. Gastroesophageal reflux disease. COMPARISON: Previous upper GI July 2020 TECHNIQUE: Upper GI was performed using thin and thick barium and effervescent granules. FINDINGS: Esophageal motility is normal. No reflux or hernia is seen. There are surgical clips adjacent to the proximal stomach. Stomach and duodenum are otherwise normal appearing. No fold thickening, mass, ulcer or stricture is seen. FLUOROSCOPY TIME: 0.9 minutes DOSE AREA PRODUCT: 6 kapadia per centimeter squared. 22 saved fluoroscopic images. FL/FL upper GI series IMPRESSION: Postsurgical changes to the stomach otherwise unremarkable exam.
[2021-07-28 15:06] LABS: Vitamin D 25-OH, D2 <4 ng/mL; Vitamin D 25-OH, D3 28 ng/mL; Vitamin D 25-OH, Total 28 ng/mL (30-100)
== END 2021-07-23 08:52 | disposition home or self-care (01) ==
LOC: HO.XRAY 08:51
PROVIDERS: PCP Internal Medicine; Visit Provider Physician Assistant Surgical
DX: E55.9 Vitamin D deficiency, unspecified (principal); K21.9 Gastro-esophageal reflux disease without esophagitis; I10 Essential (primary) hypertension; E66.9 Obesity, unspecified
CPT/HCPCS: 36415; 74240; 82306

== ENCOUNTER → 2021-08-16 08:52 | Outpatient (BNVA) | payer MEDICARE, MEDICAID, SELFPAY | PROVIDERS: PCP Internal Medicine; Visit Provider Physician Assistant Surgical ==

== ENCOUNTER → 2021-09-16 14:36 | Outpatient (BNVA) | payer MEDICARE, MEDICAID, SELFPAY | PROVIDERS: PCP Internal Medicine; Visit Provider Internal Medicine Cardiovascular Disease | DX: E78.5 Hyperlipidemia, unspecified (principal) | CPT/HCPCS: 99212 ==

== ENCOUNTER 2021-09-22 10:00 | Outpatient (REF) | payer MEDICARE, MEDICAID, SELFPAY ==
[2021-09-22 11:03] LABS: Cholesterol 233 mg/dL; HDL Cholesterol 58 mg/dL; LDL Cholesterol Calculated 146 mg/dl; Triglycerides 145 mg/dL
[2021-09-25 10:56] LABS: CRP High Sensitivity 0.4 mg/L
== END 2021-09-22 10:01 | disposition home or self-care (01) ==
LOC: HO.LAB 10:00
PROVIDERS: Physician Assistant Surgical; Visit Provider Internal Medicine Cardiovascular Disease
DX: E78.5 Hyperlipidemia, unspecified (principal); I25.10 Atherosclerotic heart disease of native coronary artery without angina pectoris; E55.9 Vitamin D deficiency, unspecified; K21.9 Gastro-esophageal reflux disease without esophagitis
CPT/HCPCS: 36415; 80061; 82306; 86141

== ENCOUNTER → 2021-09-23 13:31 | Outpatient (BNVA) | payer MEDICARE, MEDICAID, SELFPAY | PROVIDERS: PCP Internal Medicine; Referring Provider Surgery; Visit Provider Physician Assistant Surgical | DX: Z98.84 Bariatric surgery status (principal) | CPT/HCPCS: 99212 ==

== ENCOUNTER → 2021-11-26 13:24 | Outpatient (BNVA) | payer MEDICARE, MEDICAID, SELFPAY | PROVIDERS: PCP Internal Medicine; Visit Provider Physician Assistant Surgical | DX: Z98.84 Bariatric surgery status (principal) | CPT/HCPCS: 99212 ==

== ENCOUNTER 2021-12-24 09:22 | Outpatient (REF) | payer MEDICARE, MEDICAID, SELFPAY ==
[2021-12-24 09:47] LABS: MANUAL DIFF FLAG NO
[2021-12-24 10:18] LABS: Basophils Absolute Auto 0.1 X10*3/uL (0.0-0.2); Basophils Percent Auto 1.1 % (0-2); Eosinophils Absolute Auto 0.1 X10*3/uL (0.0-0.4); Hematocrit 35.1 % (37.0-47.0); Hemoglobin 11.3 g/dl (12.0-16.0); Imm Gran Abs Auto 0.01 X10*3/uL (0.00-0.03); Imm Gran Pct Auto 0.2 % (0.0-0.4); Lymphocytes Absolute Auto 1.7 X10*3/uL (1.2-4.9); Lymphocytes Percent Auto 38.2 % (20-40); Mean Corpuscular HGB Conc 32.2 g/dl (31.0-35.0); Mean Corpuscular Hemoglobin 28.6 pg (27.0-33.0); Mean Corpuscular Volume 88.9 fL (80.0-98.0); Mean Platelet Volume 13.8 fL (9.4-12.3); Monocytes Absolute Auto 0.4 X10*3/uL (0.1-1.2); Monocytes Percent Auto 8.6 % (2-11); Neutrophils Absolute Auto 2.2 x10*3/uL (2.0-8.3); Neutrophils Percent Auto 49.9 % (45-73); Platelet Count 138 X10*3/uL (160-400); Red Blood Count 3.95 X10*6/uL (4.20-5.50); Red Cell Distribution Width 13.3 % (11.0-16.0); White Blood Count 4.4 X10*3/uL (4.8-10.8)
[2021-12-24 10:48] LABS: Anion Gap 9 (12-20); Blood Urea Nitrogen 11 mg/dL (9-16); C Reactive Protein 0.03 mg/dL (< or = 0.50); Calcium 9.3 mg/dL (8.4-10.2); Carbon Dioxide 30 mmol/L (22-29); Chloride 106 mmol/L (96-108); Cholesterol 154 mg/dL; Estimated Glomerular Filt Rate > 60; Glucose Random 83 mg/dL (60-115); HDL Cholesterol 73 mg/dL; Iron 90 mcg/dL (30-160); LDL Cholesterol Calculated 63 mg/dl; Percent Iron Saturation 25 % (15-50); Potassium 4.3 mmol/L (3.3-5.1); Sodium 141 mmol/L (135-145); Total Iron Binding Capacity 356 mcg/dL (228-428); Triglycerides 93 mg/dL; Unsaturated Iron Binding 266 ug/dL
[2021-12-24 11:00] LABS: Ferritin 7 ng/mL (10-250); TSH reflex Free T4 1.44 uIU/mL (0.32-4.0); Vitamin D 25-OH Total 23.1 ng/mL (>30)
[2021-12-24 11:19] LABS: Estimated Average Glucose 85 mg/dL; Hemoglobin A1c % 4.6 %
[2021-12-24 13:18] LABS: Folate 11.8 ng/mL (> or = 4.0); Vitamin B12 456 pg/mL (200-900)
[2021-12-26 12:37] LABS: Calcium (PTHI) 9.1 mg/dL (8.6-10.2); PTHI 69 pg/mL (14-64)
[2021-12-29 00:07] LABS: Zinc 65 mcg/dL (60-130)
[2021-12-30 06:51] LABS: Vitamin B1 13 nmol/L (8-30)
[2021-12-31 10:26] LABS: Vitamin A 38 mcg/dL (38-98)
== END 2021-12-24 09:23 | disposition home or self-care (01) ==
LOC: HO.LAB 09:22
PROVIDERS: Visit Provider Physician Assistant Surgical
DX: E66.3 Overweight (principal); Z68.25 Body mass index [BMI] 25.0-25.9, adult; E78.5 Hyperlipidemia, unspecified; Z98.84 Bariatric surgery status
CPT/HCPCS: 36415; 80048; 80061; 82306; 82607; 82728; 82746; 83036; 83540; 83970; 84425; 84443; 84590; 84630; 85025; 86140; 99212

== ENCOUNTER → 2022-06-30 14:24 | Outpatient (BNVA) | payer MEDICARE, MEDICAID, SELFPAY | PROVIDERS: PCP Internal Medicine; Visit Provider Physician Assistant Surgical | DX: E66.3 Overweight (principal); Z68.26 Body mass index [BMI] 26.0-26.9, adult; Z98.84 Bariatric surgery status | CPT/HCPCS: 99212 ==

== ENCOUNTER 2022-08-07 10:03 | Emergency (ER) | payer MEDICARE, MEDICAID, SELFPAY ==
[2022-08-07 10:04] VITALS: BP 122/71; PULSE 78; RESP 18; TEMP 36.6; O2SAT 100; BMI 26.0
--- NOTE | 2022-08-07 11:52 | ED.EAR ---
HPI - Ear Problem General Chief complaint: Ear Problems Stated complaint: Ear infection Time Seen by Provider: 08/07/22 11:42 Source: patient Mode of arrival: ambulatory Limitations: no limitations History of Present Illness MD Complaint: ear pain Location: left ear Duration: constant Severity: severe Relieving factors: nothing Exacerbating factors: palpation Discharge from ear: no Associated symptoms ear: decreased hearing, headache, external ear tenderness and ear swelling Treatment prior to arrival: other (has been on cefuroxime and neomycin drops without relief from UC x 2 days) Related Data Home Medications Medication Instructions Recorded Confirmed lorazepam 0.5 mg tablet 0.5 mg PO DAILY PRN Anxiety 07/15/20 06/30/22 escitalopram oxalate 10 mg tablet 1 tab PO DAILY 12/10/20 06/30/22 Previous Rx's Medication Instructions Recorded rosuvastatin 40 mg tablet 40 mg PO DAILY #90 tabs 01/06/22 fluconazole 150 mg tablet 150 mg PO Q3D 2 doses #2 tabs 08/07/22 (Diflucan) hydrocodone 5 mg-acetaminophen 325 1 tab PO Q6H PRN pain #10 tabs 08/07/22 mg tablet levofloxacin 500 mg tablet 500 mg PO DAILY #10 tabs 08/07/22 ofloxacin 0.3 % ear drops 10 drp otic (ears) DAILY 7 days #5 08/07/22 mL Allergies Allergy/AdvReac Type Severity Reaction Status Date / Time Penicillins Allergy Severe RASH Verified 06/30/22 14:33 morphine Allergy Intermediate N/V, RASH, Verified 06/30/22 14:33 itching sulfamethoxazole Allergy Intermediate RASH Verified 06/30/22 14:33 [From BACTRIM] trimethoprim [From BACTRIM] Allergy Intermediate RASH Verified 06/30/22 14:33 Review of Systems Review of Systems: Constitutional : no Fever, no chills ENT/Mouth : no sore throat, pos ear pain Eyes: No Discharge Cardiovascular : No Chest Pain, No SOB Respiratory : No Cough, No Sputum Gastrointestinal : No Nausea, No Vomiting, No Diarrhea Skin : No rash Neuro : No Headache PMFSH Past Medical History Medical History CVA (cerebral vascular accident) Dental crowns present Depression GERD (gastroesophageal reflux disease) Hyperlipidemia Hypertension IBS (irritable bowel syndrome) Migraines PCOS (polycystic ovarian syndrome) Sciatica Seizure Sinus tachycardia Steatosis, liver Surgical History History of sleeve gastrectomy History of sleeve gastrectomy Hx of breast biopsy Hx of hemorrhoidectomy Hx of tubal ligation Family History Family History Father No problems noted. Mother Cervical cancer Social History Social History Are you a primary hospice care transitions coordinator to a significant other at home: Yes Do you presently have visiting nurse or other home services: No Alcohol intake: never Patient Tobacco Use Status: Never used Tobacco Advance Directives: Yes Advance Directives on File: Yes Advance Directives Date on File: 12/24/20 service: No Current occupational status: unemployed Physical Exam Vital Signs: Vital Signs: Last Vital Signs Temp 98 F 08/07/22 10:04 Pulse 78 08/07/22 10:04 Resp 18 08/07/22 10:04 BP 122/71 08/07/22 10:04 Pulse Ox 100 08/07/22 10:04 O2 Del Method 08/07/22 10:04 BMI result Body Mass Index 26.0 Appearance: Alert. Oriented X3. No acute distress. Eyes: Pupils equal, round and reactive to light. ENT: Pharynx normal. no mastoid ttp, mild L preauricular swelling, external canal swelling can see into canal it is red and swollen yellow discharge no blood TM red and bulging - noted swelling will place wick to allow gtts to work Neck: Normal inspection. Neck supple. CVS: Normal heart rate and rhythm. Pulses normal. Respiratory: No respiratory distress. Breath sounds normal. Abdomen: Soft and nontender. Skin: Skin warm and dry. Normal skin color. Normal skin turgor. Extremities: No lower extremity edema. No calf ttp Neuro: Oriented X 3. No motor deficit. No sensory deficit. Procedures Procedure Narrative Procedure Narrative: L ear verbal consent, gently placed ear wick no issues patient tolerated really well minimally placed just to open up canal for gtts MDM - Ear MDM Narrative Medical decision making narrative: 42 yo female no hx of DM here with 3 days of L ear pain and swelling - no mastoid ttp, mild swelling of external ear, not toxic, mild preuricular swelling - no evidence of deeper space infection was on cefuroxime and neomycin will place ear which given swelling and broaden to quinolone drops and PO medications. Discharge Plan Discharge Clinical Impression: Otitis externa Qualifiers: Otitis externa type: diffuse Chronicity: acute Laterality: left Qualified Code(s): H60.312 - Diffuse otitis externa, left ear Otitis media Qualifiers: Otitis media type: suppurative Chronicity: acute Laterality: left Recurrence: non-recurrent Spontaneous tympanic membrane rupture: without spontaneous rupture Qualified Code(s): H66.002 - Acute suppurative otitis media without spontaneous rupture of ear drum, left ear Patient Disposition: Home, Self-Care Instructions: Otitis Externa (ED), Ear Infection (ED) Additional Instructions: return to ED for any worsening symptoms or concerns - no improvement after two doses of antibiotics or worse tomorrow STOP ALL OTHER ANTIBIOTICS NO STRENUOUS EXERCISE WHILE ON ANTIBIOTICS REMOVE EAR WICK (WHITE APPLICATOR) IN 48 HOURS DO NOT GET WET LAY FLAT FOR 10 MINUTES TO LET THE DROPS ABSORB FOLLOW UP IN 3 DAYS WITH PRIMARY CARE DOCTOR TO ASSESS IMPROVEMENT OF EAR Prescriptions: New fluconazole [Diflucan] 150 mg tablet 150 mg PO Q3D Qty: 2 0RF Rx Instructions: may repeat second dose 72 hrs after first dose if symptoms persist ofloxacin 0.3 % drops 10 drp otic (ears) DAILY 7 Days Qty: 5 0RF levofloxacin 500 mg tablet 500 mg PO DAILY Qty: 10 0RF hydrocodone-acetaminophen 5-325 mg tablet 1 tab PO Q6H PRN (Reason: pain) Qty: 10 0RF Rx Instructions: partial fill okay; Partial Fill upon patient request. No Action rosuvastatin 40 mg tablet 40 mg PO DAILY Qty: 90 3RF Rx Instructions: lab work 11/2021 escitalopram oxalate 10 mg tablet 1 tab PO DAILY lorazepam 0.5 mg tablet 0.5 mg PO DAILY PRN (Reason: Anxiety)
== END 2022-08-07 12:08 | disposition home or self-care (01) ==
PROVIDERS: Emergency Provider Emergency Medicine; PCP Physician Assistant Medical
DX: H66.002 Acute suppurative otitis media without spontaneous rupture of ear drum, left ear (principal); H60.312 Diffuse otitis externa, left ear; H92.02 Otalgia, left ear
CPT/HCPCS: 99282; 99283

== ENCOUNTER 2022-10-26 09:44 | Outpatient (REF) | payer MEDICARE, MEDICAID, SELFPAY ==
[2022-10-26 10:26] LABS: Hematocrit 35.6 % (37.0-47.0); Hemoglobin 11.3 g/dl (12.0-16.0); Mean Corpuscular HGB Conc 31.7 g/dl (31.0-35.0); Mean Corpuscular Hemoglobin 26.5 pg (27.0-33.0); Mean Corpuscular Volume 83.6 fL (80.0-98.0); Mean Platelet Volume 13.4 fL (9.4-12.3); Platelet Count 185 X10*3/uL (160-400); Red Blood Count 4.26 X10*6/uL (4.20-5.50); Red Cell Distribution Width 14.4 % (11.0-16.0)
[2022-10-26 10:27] LABS: WBC ABN SCTR FOR CBC 1
[2022-10-26 10:37] LABS: Estimated Average Glucose 85 mg/dL; Hemoglobin A1c % 4.6 %
[2022-10-26 11:03] LABS: Eosinophils Percent Manual 1 % (0-4); Hypochromasia 1+ (5-14) /OIF; Lymphocytes Percent Manual 42 % (20-40); Microcytosis 1+ (5-14) /OIF; Monocytes Percent Manual 9 % (2-11); Neutrophils Percent Manual 48 % (45-73); Platelet Estimate NORMAL (NORMAL); RBC Morphology NOTED
[2022-10-26 11:05] LABS: Lymphocytes Absolute Manual 1.9 X10*3/uL (1.2-4.9); Monocytes Absolute Manual 0.4 X10*3/uL (0.1-1.2); White Blood Count 4.5 X10*3/uL (4.8-10.8)
[2022-10-26 11:47] LABS: Alanine Aminotransferase 9 U/L (0-31); Alkaline Phosphatase 59 U/L (39-117); Anion Gap 12 (12-20); Aspartate Amino Transferase 13 U/L (5-31); Bilirubin Total 1.3 mg/dL (0.0-1.0); Blood Urea Nitrogen 10 mg/dL (9-16); C Reactive Protein < 0.04 mg/dL (< or = 0.50); Calcium 9.3 mg/dL (8.4-10.2); Carbon Dioxide 25 mmol/L (22-29); Chloride 107 mmol/L (96-108); Cholesterol 256 mg/dL; Estimated Glomerular Filt Rate > 60; Glucose Random 85 mg/dL (60-115); HDL Cholesterol 69 mg/dL; Iron 91 mcg/dL (30-160); Percent Iron Saturation 25 % (15-50); Potassium 3.7 mmol/L (3.3-5.1); Sodium 140 mmol/L (135-145); Total Iron Binding Capacity 371 mcg/dL (228-428); Total Protein 6.5 g/dL (6.5-8.0); Unsaturated Iron Binding 280 ug/dL
[2022-10-26 12:36] LABS: Folate 11.9 ng/mL (> or = 4.0); Vitamin B12 744 pg/mL (200-900)
[2022-10-26 12:56] LABS: LDL Cholesterol Calculated 152 mg/dl; Triglycerides 177 mg/dL
[2022-10-26 13:14] LABS: Platelet Morphology Comment NORMAL
[2022-10-26 13:19] LABS: Neutrophils Absolute Manual 2.2 X10*3/uL (2.0-8.3)
[2022-10-26 13:25] LABS: Ferritin 5 ng/mL (10-250); Insulin 20 uU/mL (2-29); TSH reflex Free T4 1.61 uIU/mL (0.32-4.0)
[2022-10-27 13:44] LABS: Calcium (PTHI) 9.5 mg/dL (8.6-10.2); PTHI 56 pg/mL (16-77)
[2022-10-30 20:08] LABS: Vitamin B1 17 nmol/L (8-30)
[2022-10-30 20:39] LABS: Zinc 84 mcg/dL (60-130)
[2022-11-01 14:34] LABS: Vitamin A 57 mcg/dL (38-98)
== END 2022-10-26 09:45 | disposition home or self-care (01) ==
LOC: HO.LAB 09:44
PROVIDERS: PCP Physician Assistant Medical; Visit Provider Physician Assistant Surgical
DX: K91.2 Postsurgical malabsorption, not elsewhere classified (principal); Z98.84 Bariatric surgery status
CPT/HCPCS: 36415; 80053; 80061; 82306; 82607; 82728; 82746; 83036; 83525; 83540; 83970; 84425; 84443; 84590; 84630; 85007; 85027; 86140

== ENCOUNTER → 2022-10-31 10:30 | Outpatient (BNVA) | payer MEDICARE, MEDICAID, SELFPAY | PROVIDERS: PCP Physician Assistant Medical; Visit Provider Physician Assistant Surgical | DX: E66.3 Overweight (principal); Z98.84 Bariatric surgery status; Z68.26 Body mass index [BMI] 26.0-26.9, adult | CPT/HCPCS: Q3014 ==

== ENCOUNTER → 2023-01-23 15:04 | Outpatient (BNVA) | payer MEDICARE, MEDICAID, SELFPAY | PROVIDERS: PCP Physician Assistant Medical; Referring Provider Physician Assistant Medical; Visit Provider Internal Medicine Cardiovascular Disease | DX: I63.9 Cerebral infarction, unspecified (principal) | CPT/HCPCS: 93005; 99212 ==

== ENCOUNTER → 2023-02-27 11:30 | Outpatient (BNVA) | payer MEDICARE, MEDICAID, SELFPAY | PROVIDERS: PCP Physician Assistant Medical; Visit Provider Physician Assistant Surgical | DX: E66.3 Overweight (principal); Z98.84 Bariatric surgery status; Z68.26 Body mass index [BMI] 26.0-26.9, adult | CPT/HCPCS: 99212 ==

== ENCOUNTER → 2023-03-16 12:07 | Outpatient (BNVA) | payer MEDICARE, MEDICAID, SELFPAY | PROVIDERS: PCP Physician Assistant Medical; Visit Provider Internal Medicine Cardiovascular Disease | DX: I63.9 Cerebral infarction, unspecified (principal); R55 Syncope and collapse | CPT/HCPCS: 99212 ==

== ENCOUNTER → 2023-04-06 10:43 | Outpatient (BNVA) | payer MEDICARE, MEDICAID, SELFPAY | PROVIDERS: PCP Physician Assistant Medical; Visit Provider Physician Assistant Surgical | DX: E66.3 Overweight (principal); Z68.27 Body mass index [BMI] 27.0-27.9, adult; L98.7 Excessive and redundant skin and subcutaneous tissue; Z98.84 Bariatric surgery status | CPT/HCPCS: 99212 ==

== ENCOUNTER → 2023-05-24 13:47 | Outpatient (REF) | payer MEDICARE, MEDICAID, SELFPAY ==
--- NOTE | 2023-05-24 13:53 | HM_ITS ---
Cardiac event monitor Indication: Syncope Technique: Patient was hooked up to cardiac event monitor on 05/24/2023 for total period of 30 days. Compliance rate was 83%. Findings: Baseline was normal sinus rhythm with minimal heart rate of 63 beats per minute and maximum heart rate 104 beats per minute. There were no significant arrhythmias noted and no significant ectopy burden noted. Patient reported 2 symptoms 1 of chest pain that correlated to sinus rhythm the other reporting as racing of fast heart rate again correlating with underlying normal sinus rhythm. Conclusion: 1. Baseline rhythm was normal sinus rhythm with no significant pauses with no significant arrhythmias 2. Patient reported to events correlated with sinus rhythm MTDD
== END ==
LOC: HO.CARD 13:47
PROVIDERS: PCP Physician Assistant Medical; Visit Provider Internal Medicine Cardiovascular Disease
DX: I63.9 Cerebral infarction, unspecified (principal); R00.0 Tachycardia, unspecified; R55 Syncope and collapse
CPT/HCPCS: 93270

== ENCOUNTER → 2023-05-24 13:53 | Outpatient (BNV) | payer MEDICARE, MEDICAID, SELFPAY | PROVIDERS: PCP Physician Assistant Medical; Visit Provider Internal Medicine Cardiovascular Disease | DX: R00.0 Tachycardia, unspecified (principal); R07.9 Chest pain, unspecified | CPT/HCPCS: 93272 ==

== ENCOUNTER 2023-06-05 08:00 | Outpatient (AMB) | payer MEDICARE, MEDICAID, SELFPAY ==
--- NOTE | 2023-06-05 10:17 | MHC.OFFVISWM ---
Intake VS Expanded 06/05/23 10:18 Height 5 ft 1 in Weight 139 lb BMI 26.3 Intake Visit Reasons: TV Pre Op Panniculectomy 06/22/23 Allergies Penicillins Allergy (Severe, Verified 06/05/23 10:17) RASH morphine Allergy (Intermediate, Verified 06/05/23 10:17) N/V, RASH, itching sulfamethoxazole [From BACTRIM] Allergy (Intermediate, Verified 06/05/23 10:17) RASH trimethoprim [From BACTRIM] Allergy (Intermediate, Verified 06/05/23 10:17) RASH Medication List - Last Reconciled 06/05/23 by Shyam Pearson MD cholecalciferol (vitamin D3) 50 mcg PO DAILY ciprofloxacin HCl (Cipro) 500 mg PO Q12H clotrimazole 1% 1 appl topical BID docusate sodium (Colace) 100 mg PO DAILY escitalopram oxalate 1 tab PO DAILY ferrous sulfate (FeroSul) 325 mg PO DAILY hydrocodone-acetaminophen 5-325 mg 1 tab PO Q6H PRN lorazepam 0.5 mg PO DAILY PRN rosuvastatin 40 mg PO DAILY HPI TV Pre Op Panniculectomy 06/22/23 HPI Details Start time: 10.14am, End time: 10.34am ?I spent 15 minutes speaking with the patient on the phone plus an additional 5 minutes reviewing and updating records for a total of 20 minutes HPI Comments History of Present Illness Details Overall weight loss: 51lbs, or 26.8% TBWL Is doing 2 premade Premier protein shakes, 2 meals (lunch and dinner) PFSH Medical History CVA (cerebral vascular accident) Dental crowns present Depression GERD (gastroesophageal reflux disease) Hyperlipidemia Hypertension IBS (irritable bowel syndrome) Migraines PCOS (polycystic ovarian syndrome) Sciatica Seizure Sinus tachycardia Steatosis, liver Surgical History History of sleeve gastrectomy History of sleeve gastrectomy Hx of breast biopsy Hx of hemorrhoidectomy Hx of tubal ligation Family History Father No problems noted. Mother Cervical cancer Social History (Reviewed 04/06/23 @ 10:51 by SHANT Last Are you a primary skin care therapist to a significant other at home: Yes Do you presently have visiting nurse or other home services: No Alcohol intake: never Patient Tobacco Use Status: Never used Tobacco Advance Directives Date on File: 12/24/20 service: No Current occupational status: unemployed Physical Exam Vital Signs: BMI result Body Mass Index 26.3 Assessment & Plan Assessment & Plan (1) Excess skin: Code(s): L98.7 - Excessive and redundant skin and subcutaneous tissue Plan: 1. Plan for panniculectomy. Risks of infection, bleeding, asymmetry, fluid collections, wound dehiscence and blood clots were discussed with the patient. 2. You will have a drain the abdomen that may stay a few weeks before it may be removed 3. You will need to be doing sponge baths the first 1-2 weeks. No showers. You need to have help at home to get you up and limit your activities as much as possible for at least the 4-6 weeks after surgery 4. We will arrange for a visiting nurse to come at home to help you with dressing changes and send me pictures of the procedures. We will send at your home supplies for the dressing changes. 5. Change nutritional plan to two premade Premier shakes at 8am-10am, and 11am-1pm, one Zone Perfect protein bars at 2pm-4pm and one meal at 5pm-6pm (6 forks of protein and 6 forks of salad or vegetables). If needed, do another HALF bar at 8pm-9pm if you feel hungry. This will improve weight loss and healing after surgery. 6. Continue all vitamins 7. Stop aspirin tomorrow 06/06/23. 8. Do blood work not fasting any day between Monday11/14/22 and Monday11/18/22 and curing pickling packer the antibiotic prescription from your pharmacy 9. Risks and complications were discussed the possibility of bleeding that may require transfusion, loss of the umbilicus, wound dehiscence or infection, dog ears , flap asymmetry. We also discussed the importance of strict avoidance of weight lifting. 10. Avoid aspirin, motrin, ibuprofen, Aleve, Advil, Naproxyn. 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 Panel Today K91.2 - Postsurgical malabsorption, not elsewhere classified, Z90.3 - Acquired absence of stomach [part of] C Reactive Protein Today K91.2 - Postsurgical malabsorption, not elsewhere classified, Z90.3 - Acquired absence of stomach [part of] Ferritin Today K91.2 - Postsurgical malabsorption, not elsewhere classified, Z90.3 - Acquired absence of stomach [part of] Hemoglobin A1c Today K91.2 - Postsurgical malabsorption, not elsewhere classified, Z90.3 - Acquired absence of stomach [part of] Insulin Today K91.2 - Postsurgical malabsorption, not elsewhere classified, Z90.3 - Acquired absence of stomach [part of] IRON PROFILE Today K91.2 - Postsurgical malabsorption, not elsewhere classified, Z90.3 - Acquired absence of stomach [part of] Lipid Panel Today K91.2 - Postsurgical malabsorption, not elsewhere classified, Z90.3 - Acquired absence of stomach [part of] PTHI Today K91.2 - Postsurgical malabsorption, not elsewhere classified, Z90.3 - Acquired absence of stomach [part of] TSH reflex Free T4 Today K91.2 - Postsurgical malabsorption, not elsewhere classified, Z90.3 - Acquired absence of stomach [part of] Vitamin A Today K91.2 - Postsurgical malabsorption, not elsewhere classified, Z90.3 - Acquired absence of stomach [part of] Vitamin B1 Today K91.2 - Postsurgical malabsorption, not elsewhere classified, Z90.3 - Acquired absence of stomach [part of] Vitamin D 25-OH Total Today K91.2 - Postsurgical malabsorption, not elsewhere classified, Z90.3 - Acquired absence of stomach [part of] Zinc Today K91.2 - Postsurgical malabsorption, not elsewhere classified, Z90.3 - Acquired absence of stomach [part of] Prothrombin Time INR Today K91.2 - Postsurgical malabsorption, not elsewhere classified, Z90.3 - Acquired absence of stomach [part of] Partial Thromboplastin Time Today K91.2 - Postsurgical malabsorption, not elsewhere classified, Z90.3 - Acquired absence of stomach [part of] Complete Blood Count Auto Diff Today K91.2 - Postsurgical malabsorption, not elsewhere classified, Z90.3 - Acquired absence of stomach [part of] Medications: New docusate sodium (Colace) 100 mg PO DAILY 30 caps 2RF K59.00 - Constipation, unspecified ciprofloxacin HCl (Cipro) 500 mg PO Q12H 30 tabs 2RF L03.90 - Cellulitis, unspecified Telehealth Telehealth Location of provider rendering services: practice address Location of patient: address on file Patient Identification confirmed using: Name, : Yes Telehealth method: voice only Patient verbally consented to treatment: Yes Patient verbally consented to billing insurance company: Yes Patient informed of any privacy concerns related to visit: Yes Minutes spent on Phone/Video with Pt.: 20 Coding Level of Care Code Tele Est Pt Level 3 (20090) Diagnoses Excess skin L98.7 Postgastrectomy malabsorption K91.2; Z90.3 Time Spent (min) 20
[2023-06-05 10:18] VITALS: BMI 26.3
== END 2023-06-05 10:35 | disposition home or self-care (01) ==
PROVIDERS: PCP Physician Assistant Medical; Visit Provider Surgery
DX: L98.7 Excessive and redundant skin and subcutaneous tissue (principal); E66.3 Overweight; Z68.27 Body mass index [BMI] 27.0-27.9, adult; Z90.3 Acquired absence of stomach [part of]; Z98.84 Bariatric surgery status
CPT/HCPCS: 99443

== ENCOUNTER → 2023-06-05 08:00 | Outpatient (BNVA) | payer MEDICARE, MEDICAID, SELFPAY | PROVIDERS: PCP Physician Assistant Medical; Visit Provider Surgery ==

== ENCOUNTER → 2023-06-15 08:45 | Outpatient (BNVA) | payer MEDICARE, MEDICAID, SELFPAY | PROVIDERS: PCP Physician Assistant Medical; Visit Provider Surgery ==

== ENCOUNTER 2023-06-22 06:01 | Day surgery (SDC) | payer MEDICARE, MEDICAID, SELFPAY ==
[2023-06-12 11:08] LABS: MANUAL DIFF FLAG NO
[2023-06-12 11:43] LABS: Basophils Absolute Auto 0.1 X10*3/uL (0.0-0.2); Basophils Percent Auto 0.8 % (0-2); Eosinophils Absolute Auto 0.1 X10*3/uL (0.0-0.4); Eosinophils Percent Auto 1.6 % (0-4); Hematocrit 38.1 % (37.0-47.0); Hemoglobin 12.8 g/dl (12.0-16.0); Imm Gran Abs Auto 0.01 X10*3/uL (0.00-0.03); Imm Gran Pct Auto 0.2 % (0.0-0.4); Lymphocytes Absolute Auto 1.8 X10*3/uL (1.2-4.9); Lymphocytes Percent Auto 29.5 % (20-40); Mean Corpuscular HGB Conc 33.6 g/dl (31.0-35.0); Mean Corpuscular Hemoglobin 30.6 pg (27.0-33.0); Mean Corpuscular Volume 91.1 fL (80.0-98.0); Mean Platelet Volume 14.3 fL (9.4-12.3); Monocytes Absolute Auto 0.4 X10*3/uL (0.1-1.2); Neutrophils Absolute Auto 3.7 x10*3/uL (2.0-8.3); Neutrophils Percent Auto 60.9 % (45-73); Platelet Count 147 X10*3/uL (160-400); Red Blood Count 4.18 X10*6/uL (4.20-5.50); Red Cell Distribution Width 12.2 % (11.0-16.0); White Blood Count 6.1 X10*3/uL (4.8-10.8)
[2023-06-12 11:54] LABS: Prothrombin Time 11.7 SEC (11.1-13.3)
[2023-06-12 11:56] LABS: Partial Thromboplastin Time 28.8 SEC (26.0-36.4)
[2023-06-12 12:14] LABS: Estimated Average Glucose 82 mg/dL; Hemoglobin A1c % 4.5 % (<6.0)
[2023-06-12 13:26] LABS: Alanine Aminotransferase 11 U/L (0-31); Alkaline Phosphatase 52 U/L (39-117); Anion Gap 11 (12-20); Aspartate Amino Transferase 15 U/L (5-31); Bilirubin Total 1.4 mg/dL (0.0-1.0); Blood Urea Nitrogen 11 mg/dL (9-16); C Reactive Protein < 0.04 mg/dL (< or = 0.50); Calcium 9.5 mg/dL (8.4-10.2); Carbon Dioxide 27 mmol/L (22-29); Chloride 107 mmol/L (96-108); Cholesterol 159 mg/dL (<200); Estimated Glomerular Filt Rate > 60; Glucose Random 88 mg/dL (60-115); HDL Cholesterol 65 mg/dL (>40); Iron 102 mcg/dL (30-160); LDL Cholesterol Calculated 78 mg/dL (<100); Percent Iron Saturation 34 % (15-50); Potassium 3.8 mmol/L (3.3-5.1); Sodium 141 mmol/L (135-145); Total Iron Binding Capacity 298 mcg/dL (228-428); Total Protein 6.7 g/dL (6.5-8.0); Triglycerides 83 mg/dL (<150); Unsaturated Iron Binding 196 ug/dL
[2023-06-12 13:27] LABS: Vitamin B12 980 pg/mL (200-900)
[2023-06-12 13:30] LABS: Ferritin 17 ng/mL (10-250); Insulin 11 uU/mL (2-29); TSH reflex Free T4 0.75 uIU/mL (0.32-4.0); Vitamin D 25-OH Total 40.4 ng/mL (>30)
[2023-06-13 16:43] LABS: Calcium (PTHI) 9.4 mg/dL (8.6-10.2); PTHI 43 pg/mL (16-77)
[2023-06-14 11:27] VITALS: BMI 26.3
[2023-06-15 00:53] LABS: Zinc 85 mcg/dL (60-130)
[2023-06-16 08:34] LABS: Vitamin B1 14 nmol/L (8-30)
[2023-06-16 18:53] LABS: Vitamin A 37 mcg/dL (38-98)
--- NOTE | 2023-06-18 22:06 | MHC.SHP ---
Pre-Procedural Eval Section A Date of Service: 06/18/23 The patient is an INPATIENT: No The History & Physical has been completed within 30 days and I have reviewed it.: Yes Section B Chief Complaint: Excessive and redundant skin and subcutaneous tiss Relevant Family History (Specify if Yes): No Relevant Social History: None Present Medications: None Medical History: No relevant PMH History of Previous Operations: Relevant previous surgery/procedure and date(s) (Laparoscopic sleeve gastrectomy) Allergies: Allergies Allergy/AdvReac Type Severity Reaction Status Date / Time Penicillins Allergy Severe RASH Verified 06/05/23 10:17 morphine Allergy Intermediate N/V, RASH, Verified 06/05/23 10:17 itching sulfamethoxazole Allergy Intermediate RASH Verified 06/05/23 10:17 [From BACTRIM] trimethoprim [From BACTRIM] Allergy Intermediate RASH Verified 06/05/23 10:17 Review of Systems Sugical H&P ROS: Negative: Constitution, Cardiovascular, Respiratory, Neurological, Psychiatric, Hem-Onc, Allergic/Immunologic, Gastrointestinal, Genitourinary, Musculoskeletal, Integumentary, Endocrine and Eyes/Ears/Nose/Throat Exam Surgical H&P Exam: Normal: HEENT, Normal: Heart, Normal: Lungs, Normal: Extremities, Normal: Abdomen, Normal: Skin and Normal: Neurological Plan Diagnosis/Plan: Unchanged I have reviewed the history and physical and performed a pertinent physical examination on my patient. No changes have occurred unless specified. Time Spent With Patient Time: Total time managing care of this patient today ____ minutes.
--- NOTE | 2023-06-21 09:54 | P.CONAN_ITS ---
Documented by User: Joleen Mcmullen NP 06/21/23 10:00 HPI - Anesthesia Eval Consult details Narrative: 43yo F for Panniculectomy Cardiac coptimized (Recent eval for dyan/syncope with tilt table test) PMFSH Active Problems Active Problems: All Active Problems (Updated 06/14/23 @ 11:08 by Mague Vickers RN) Obesity (Acute) BMI 35.0-35.9,adult (Acute) Vitamin D deficiency (Acute) BMI 34.0-34.9,adult (Acute) BMI over 35 (Acute) BMI over 35 (Acute) Preop cardiovascular exam (Acute) Diaphragmatic hernia (Acute) S/P laparoscopic sleeve gastrectomy (Acute) Sleep apnea with use of continuous positive airway pressure (CPAP) (Acute) BMI 33.0-33.9,adult (Acute) COVID-19 (Acute) Constipation (Acute) BMI 31.0-31.9,adult (Acute) Abdominal pain (Acute) Biliary colic (Acute) Overweight (Acute) Syncope (Acute) Excess skin (Acute) Postgastrectomy malabsorption (Acute) Steatosis, liver (Acute) CVA (cerebral vascular accident) (Acute) PCOS (polycystic ovarian syndrome) (Acute) Migraines (Acute) Sciatica (Acute) Depression (Acute) IBS (irritable bowel syndrome) (Acute) GERD (gastroesophageal reflux disease) (Acute) Hyperlipidemia (Acute) Sinus tachycardia (Acute) Hypertension (Acute) Past Medical History Medical History Anemia Vaso vagal episode Anxiety Asthma Steatosis, liver PCOS (polycystic ovarian syndrome) Dental crowns present Migraines Sciatica Seizure CVA (cerebral vascular accident) Depression IBS (irritable bowel syndrome) GERD (gastroesophageal reflux disease) Hyperlipidemia Sinus tachycardia Hypertension Family History Family History Father No problems noted. Mother Cervical cancer Family history of problems with anesthesia: No Surgical History Surgical History Hx of prior ablation treatment History of sleeve gastrectomy History of sleeve gastrectomy Hx of hemorrhoidectomy Hx of breast biopsy Hx of tubal ligation History of Problems with Anesthesia: No Social History Social History Are you a primary long term acute care registered nurse to a significant other at home: No Do you presently have visiting nurse or other home services: No Alcohol intake: never Patient Tobacco Use Status: Never used Tobacco Use of substances other than those prescribed or required for medical reasons: No Have you been hit, kicked, punched, or otherwise hurt by someone within the past year? If so, by whom?: No Are you DNR?: No Advance Directives: No Advance Directives Information Provided: Yes Advance Directives on File: No Advance Directives Date on File: 12/24/20 Recently lost weight without trying: No Eating poorly because of decreased appetite: No Nutrition Risks: No Nutritional Risk Patient : No : No Poor oral hygiene: Yes (two front upper crowns) service: No Current occupational status: unemployed Meds Allergies Allergy/AdvReac Type Severity Reaction Status Date / Time Penicillins Allergy Severe RASH Verified 06/05/23 10:17 morphine Allergy Intermediate N/V, RASH, Verified 06/05/23 10:17 itching sulfamethoxazole Allergy Intermediate RASH Verified 06/05/23 10:17 [From BACTRIM] trimethoprim [From BACTRIM] Allergy Intermediate RASH Verified 06/05/23 10:17 Home Medications Medication Instructions Recorded Confirmed Last Taken Type lorazepam 0.5 mg tablet 0.5 mg PO DAILY PRN Anxiety 07/15/20 06/22/23 11/26/20 21:00 History escitalopram oxalate 10 mg tablet 1 tab PO DAILY 12/10/20 06/22/23 12/17/20 02:00 History ferrous sulfate 325 mg (65 mg 325 mg PO DAILY 01/23/23 06/22/23 Unknown History iron) tablet (FeroSul) Exam Exam Date and Time: June 21, 2023 0954 Height,Weight and Vital Signs: Height 5 ft 1 in Weight 63.049 kg Pertinent Lab Results Pertinent Lab Results: Laboratory Tests 06/12/23 06/12/23 06/12/23 10:44 11:03 11:03 WBC 6.1 RBC 4.18 L Hgb 12.8 Hct 38.1 MCV 91.1 MCH 30.6 MCHC 33.6 RDW 12.2 Plt Count 147 L MPV 14.3 H Immature Gran % (Auto) 0.2 Neut % (Auto) 60.9 Lymph % (Auto) 29.5 [place] % (Auto) 7.0 Eos % (Auto) 1.6 Baso % (Auto) 0.8 Lymph # (Auto) 1.8 [place] # (Auto) 0.4 Eos # (Auto) 0.1 Baso # (Auto) 0.1 Abs Immat Gran (auto) 0.01 Absolute Neuts (auto) 3.7 Absolute Nucleated RBC 0.000 Nucleated RBC % (auto) 0.0 PT 11.7 INR 1.0 APTT 28.8 Sodium Potassium Chloride Carbon Dioxide Anion Gap BUN Creatinine Estim Creat Clear Calc Estimated GFR Random Glucose Estimat Average Glucose Hemoglobin A1c % Insulin Level Calcium Iron TIBC % Saturation Unsat Iron Binding Ferritin Total Bilirubin AST ALT Alkaline Phosphatase C-Reactive Protein Total Protein Albumin Triglycerides Cholesterol LDL Cholesterol, Calc HDL Cholesterol Vitamin A Vitamin B1 Vitamin B12 25-OH Vitamin D Total TSH PTH Intact Calcium (PTH Intact) Zinc Blood Type O Positive Antibody Screen NEGATIVE 06/12/23 06/12/23 06/12/23 11:03 11:03 11:03 WBC RBC Hgb Hct MCV MCH MCHC RDW Plt Count MPV Immature Gran % (Auto) Neut % (Auto) Lymph % (Auto) [place] % (Auto) Eos % (Auto) Baso % (Auto) Lymph # (Auto) [place] # (Auto) Eos # (Auto) Baso # (Auto) Abs Immat Gran (auto) Absolute Neuts (auto) Absolute Nucleated RBC Nucleated RBC % (auto) PT INR APTT Sodium 141 Potassium 3.8 Chloride 107 Carbon Dioxide 27 Anion Gap 11 L BUN 11 Creatinine 0.65 Estim Creat Clear Calc TNP Estimated GFR > 60 Random Glucose 88 Estimat Average Glucose 82 Hemoglobin A1c % 4.5 Insulin Level 11 Calcium 9.5 Iron 102 TIBC 298 % Saturation 34 Unsat Iron Binding 196 Ferritin 17 Total Bilirubin 1.4 H AST 15 ALT 11 Alkaline Phosphatase 52 C-Reactive Protein < 0.04 Total Protein 6.7 Albumin 4.0 Triglycerides 83 Cholesterol 159 LDL Cholesterol, Calc 78 HDL Cholesterol 65 Vitamin A Vitamin B1 Vitamin B12 980 H 25-OH Vitamin D Total 40.4 TSH 0.75 PTH Intact Calcium (PTH Intact) Zinc Blood Type Antibody Screen 06/12/23 06/12/23 06/12/23 11:03 11:03 11:03 WBC RBC Hgb Hct MCV MCH MCHC RDW Plt Count MPV Immature Gran % (Auto) Neut % (Auto) Lymph % (Auto) [place] % (Auto) Eos % (Auto) Baso % (Auto) Lymph # (Auto) [place] # (Auto) Eos # (Auto) Baso # (Auto) Abs Immat Gran (auto) Absolute Neuts (auto) Absolute Nucleated RBC Nucleated RBC % (auto) PT INR APTT Sodium Potassium Chloride Carbon Dioxide Anion Gap BUN Creatinine Estim Creat Clear Calc Estimated GFR Random Glucose Estimat Average Glucose Hemoglobin A1c % Insulin Level Calcium Iron TIBC % Saturation Unsat Iron Binding Ferritin Total Bilirubin AST ALT Alkaline Phosphatase C-Reactive Protein Total Protein Albumin Triglycerides Cholesterol LDL Cholesterol, Calc HDL Cholesterol Vitamin A 37 L Vitamin B1 14 Vitamin B12 25-OH Vitamin D Total TSH PTH Intact 43 Calcium (PTH Intact) 9.4 Zinc 85 Blood Type Antibody Screen Narrative Narrative: EKG 01/2023 normal sinus rhythm with nonspecific T-wave changes ECHO 02/2023 1. Nml LV size. Nml conc LVH. Nml RWM 2. Nml LV systolic function. LVEF 63%. Nml LV diastolic function. 3. Nml RV size and function 4. Bubble study without evidence of R to L shunting at rest and with Valsalva 5. No significant valve disease Assessment and Plan Assessment Anesthesia Assessment: Chart Reviewed Final Anesthetic Review Family History of Problems with Anesthesia: No History of Problems with Anesthesia: No Documented by User: Kely Galvan MD 06/22/23 11:14 [facility] Active Problems Active Problems: All Active Problems (Updated 06/22/23 @ 07:47 by Kely Galvan MD) Obesity (Acute) Vitamin D deficiency (Acute) BMI 34.0-34.9,adult (Acute) Preop cardiovascular exam (Acute) Diaphragmatic hernia (Acute) S/P laparoscopic sleeve gastrectomy (Acute) Sleep apnea with use of continuous positive airway pressure (CPAP) (Acute)- patient denies h/o DIMITRI. Never had sleep test Constipation (Acute) Abdominal pain (Acute) Biliary colic (Acute) Overweight (Acute) Syncope (Acute) Excess skin (Acute) Postgastrectomy malabsorption (Acute) Steatosis, liver (Acute) H/o CVA (cerebral vascular accident) aged 24. On baby aspirin. Last dose 1 week ago PCOS (polycystic ovarian syndrome) (Acute) Migraines (Acute) Sciatica (Acute) Depression (Acute) IBS (irritable bowel syndrome) (Acute) GERD (gastroesophageal reflux disease) (Acute) Hyperlipidemia (Acute) Sinus tachycardia (Acute) Hypertension (Acute) Past Medical History Medical History Anemia Vaso vagal episode Anxiety Asthma Steatosis, liver PCOS (polycystic ovarian syndrome) Dental crowns present Migraines Sciatica Seizure CVA (cerebral vascular accident) Depression IBS (irritable bowel syndrome) GERD (gastroesophageal reflux disease) Hyperlipidemia Sinus tachycardia Hypertension Family History Family History Father No problems noted. Mother Cervical cancer Surgical History Surgical History Hx of prior ablation treatment History of sleeve gastrectomy History of sleeve gastrectomy Hx of hemorrhoidectomy Hx of breast biopsy Hx of tubal ligation Social History Social History Are you a primary long term acute care registered nurse to a significant other at home: No Do you presently have visiting nurse or other home services: No Alcohol intake: never Patient Tobacco Use Status: Never used Tobacco Use of substances other than those prescribed or required for medical reasons: No Have you been hit, kicked, punched, or otherwise hurt by someone within the past year? If so, by whom?: No Are you DNR?: No Advance Directives: No Advance Directives Information Provided: Yes Advance Directives on File: No Advance Directives Date on File: 12/24/20 Recently lost weight without trying: No Eating poorly because of decreased appetite: No Nutrition Risks: No Nutritional Risk Patient : No : No Poor oral hygiene: Yes (two front upper crowns) service: No Current occupational status: unemployed Meds Allergies Allergy/AdvReac Type Severity Reaction Status Date / Time Penicillins Allergy Severe RASH Verified 06/05/23 10:17 morphine Allergy Intermediate N/V, RASH, Verified 06/05/23 10:17 itching sulfamethoxazole Allergy Intermediate RASH Verified 06/05/23 10:17 [From BACTRIM] trimethoprim [From BACTRIM] Allergy Intermediate RASH Verified 06/05/23 10:17 Home Medications Medication Instructions Recorded Confirmed Last Taken Type lorazepam 0.5 mg tablet 0.5 mg PO DAILY PRN Anxiety 07/15/20 06/22/23 11/26/20 21:00 History escitalopram oxalate 10 mg tablet 1 tab PO DAILY 12/10/20 06/22/23 12/17/20 02:00 History ferrous sulfate 325 mg (65 mg 325 mg PO DAILY 01/23/23 06/22/23 Unknown History iron) tablet (FeroSul) Exam Height,Weight and Vital Signs: Height 5 ft 1 in Weight 63.049 kg Vital Signs Temp Pulse Resp BP Pulse Ox O2 Del Method 98.1 F 67 16 123/85 99 Room Air 06/22/23 06:58 06/22/23 06:58 06/22/23 06:58 06/22/23 06:58 06/22/23 06:58 06/22/23 06:58 Airway Loose/Missing/Broken Teeth: No (Denies broken, loose, missing teeth) Heart: RRR Lungs: CTAB Assessment and Plan Final Anesthetic Review Assessment/Block/Sedation in SS: Assess/Block/Sedation-SS Documented by User: Odessa Vasquez MD 06/22/23 08:19 PMFSH Past Medical History Medical History Anemia Vaso vagal episode Anxiety Asthma Steatosis, liver PCOS (polycystic ovarian syndrome) Dental crowns present Migraines Sciatica Seizure CVA (cerebral vascular accident) Depression IBS (irritable bowel syndrome) GERD (gastroesophageal reflux disease) Hyperlipidemia Sinus tachycardia Hypertension Family History Family History Father No problems noted. Mother Cervical cancer Surgical History Surgical History Hx of prior ablation treatment History of sleeve gastrectomy History of sleeve gastrectomy Hx of hemorrhoidectomy Hx of breast biopsy Hx of tubal ligation Social History Social History Are you a primary long term acute care registered nurse to a significant other at home: No Do you presently have visiting nurse or other home services: No Alcohol intake: never Patient Tobacco Use Status: Never used Tobacco Use of substances other than those prescribed or required for medical reasons: No Have you been hit, kicked, punched, or otherwise hurt by someone within the past year? If so, by whom?: No Are you DNR?: No Advance Directives: No Advance Directives Information Provided: Yes Advance Directives on File: No Advance Directives Date on File: 12/24/20 Recently lost weight without trying: No Eating poorly because of decreased appetite: No Nutrition Risks: No Nutritional Risk Patient : No : No Poor oral hygiene: Yes (two front upper crowns) service: No Current occupational status: unemployed Meds Allergies Allergy/AdvReac Type Severity Reaction Status Date / Time Penicillins Allergy Severe RASH Verified 06/05/23 10:17 morphine Allergy Intermediate N/V, RASH, Verified 06/05/23 10:17 itching sulfamethoxazole Allergy Intermediate RASH Verified 06/05/23 10:17 [From BACTRIM] trimethoprim [From BACTRIM] Allergy Intermediate RASH Verified 06/05/23 10:17 Home Medications Medication Instructions Recorded Confirmed Last Taken Type lorazepam 0.5 mg tablet 0.5 mg PO DAILY PRN Anxiety 07/15/20 06/22/23 11/26/20 21:00 History escitalopram oxalate 10 mg tablet 1 tab PO DAILY 12/10/20 06/22/23 12/17/20 02:00 History ferrous sulfate 325 mg (65 mg 325 mg PO DAILY 01/23/23 06/22/23 Unknown History iron) tablet (FeroSul) Exam Airway Mallampati Class: II TM Dist: >3cm Neck ROM: Full Heart: rrr Lungs: ccta Assessment and Plan Assessment Anesthesia Assessment: Anesthesia Plan Discussed Final Anesthetic Review NPO: Yes ASA Class: III Final Preanesthetic Review: No Changes in Pt Med Stat, Meds/Allgs Chart Reviewed, Consent Obtained/Reviewed and Anes Risks/Benef Reviewed Patient Risk: Intermediate Procedure Risk: Intermediate Anesthetic Plan Anesthetic Plan: GA Disposition: Standard PACU
[2023-06-22] VITALS (12 sets, daily range): BP systolic 109–127; BP diastolic 56–85; PULSE 67–115; RESP 16–18; TEMP 36.7–37; O2SAT 97–99
[2023-06-22] MEDS: Lactated Ringers 1,000 ML 100 ML IVCONT (06:59)
--- NOTE | 2023-06-22 07:27 | PM.OP ---
Brief Operative Note Date of Service: 06/22/23 Pre-op diagnosis: Excess skin Post-op diagnosis: same Procedure: PROCEDURE: Panniculectomy with umbilical transposition and bilateral subcutaneous fat flaps INDICATION: This a 43 year old female who underwent laparoscopic sleeve gastrectomy on 12/22/2020. She had an excellent result achieving a BMI of 26.84 kg/m2 with a total weight loss of 51lbs, or 26.3% of her TBWL. As a result, she has developed panniculitis which has not resolved despite continuous use of clotrimazole ointment as well as skin irritation. On exam she has extreme skin laxity due to massive weight loss, with the abdominal pannus completely hanging 4cm below the pubis. Panniculectomy was recommended. We discussed the two options for the panniculectomy of using a combined vertical and horizontal incisions or just a horizontal (bikini) incision. It was my recommendation to do only horizontal incision based on her body habitus and skin laxity. The patient agreed with this. Risks and complications were discussed with the patient including bleeding, infection, umbilical loss, flap necrosis, asymmetry, dehiscence, seroma, VTE. The patient understood the risks and was in agreement to proceed with surgery. PROCEDURE: The incisions were appropriately marked at the preop area with the patient standing and laying down. After induction of general anesthesia a Perdomo catheter and pneumatic compression devices were placed. The patient was prepped and draped in the usual sterile manner and the incisions were marked again and confirmed. The skin was infiltrated with lidocaine and epinephrine. The #10 blade scalpel was used for the large incisions and the #15 blade scalpel for the umbilicus. Cautery was used to divide the subcutaneous tissues until the fascia was identified. Then I used the cautery to separate the pannus from the fascia. The inferior incision was made initially and I mobilized the flap for a several centimeters cephalad to the umbilicus. The umbilicus was incised circumferentially and detached from the surrounding tissues all the way to the fascia while its stalk was preserved. With the patient in reflex position I confirmed that the skin flaps were appropriate and would allow for the tissues to come together with reasonable tension. At that point a horizontal incision was made 4 cm above the umbilicus. #10 blade was used for the skin, cautery for the dermis and the remaining tissues. A subcutaneous fat flap was raised from the upper skin flap in order to fill the space under the skin and support the closure of the two flaps. In addition the inferior flap was mobilized caudally for a few centimeters to create a space for the subcutaneous fat flap as well as relieve tension from the closure. A circumferential incision was made at the area where the umbilicus would be re-implanted. The umbilicus was appropriately oriented and was delivered through the defect and was secured in place with a [place]. No bleeding was noted anywhere. One FABY drain was placed from the left corner of the horizontal incision across the wound and was secured in place with a silk suture. A total of 14ml of Zynrelef was applied on top of the fascia and under the subcutaneous fat flaps. The subcutaneous fat flap was secured under the inferior flap with several interrupted 3.0 Monocryl sutures. The two flaps were brought together and were attached at the midline of the horizontal incision with a #3.0 Monocryl suture. At that point the umbilicus was properly oriented and was re-approximated to the skin with 8 interrupted 3.0 Monocryl sutures. In a similar fashion the skin flaps were re-approximated with multiple 3.0 Monocryl sutures. The skin was closed in all incisions and umbilicus with 4.0 Monocryl sutures. Steri-strips, xeroform gauzes and gauzes were used to cover the incisions. An abdominal binder was also placed. The was awaken and was transferred to the recover room in a stable condition. I was present and performed the entire procedure. Chel was the assistant finance manager. Geovanni Pearson MD, PhD, FACS Surgeon: Shyam Pearson MD Surgeon: Shyam Pearson MD Anesthesia: GETA, local and other (14ml Zynrelef) Was an [employer] used for this Procedure?: No [employer]: Micah Milligan Estimated blood loss (mL): 10 IV fluids (mL): 1,500 Urine output (mL): 500 (No Perdomo to record output) Pathology: other (Abdominal pannus) Condition: stable Disposition: PACU
--- NOTE | 2023-06-22 11:49 | PHA.MEDREC ---
Pharmacy Consult ? Medication Reconciliation Pharmacy has completed the medication reconciliation. COMPLETED BY RN, REVIEWED BY PHARMACY
--- NOTE | 2023-06-22 12:20 | W.MHC.F2F ---
Service Date Service Date: 06/22/23 Encounter Date of encounter: 06/22/23 Reasons for Services Signs and symptoms assessed: s/p panniculectomy on 06/22/23 Reason for senior care: postoperative assessment and/or care Homebound: Leaving the home is medically contraindicated at this time without the asist of a device and/or another person due th the listed conditions above and below. Reason homebound: unable to drive Certification: Based on the above findings, I certify that this patient is confined to the home and needs intermittent senior care care, physical therapy and/or speech therapy, or continues to need occupational therapy. The patient is under my care, and I have initiated the establishment of the plan of care. The patient will be followed by a physician who will periodically review the plan of care. Time Spent With Patient Time: Total time managing care of this patient today 20 minutes.
== END 2023-06-22 14:57 | disposition home or self-care (01) ==
PROVIDERS: PCP Physician Assistant Medical; Visit Provider Surgery
PROC: 0JB80ZZ Excision of Abdomen Subcutaneous Tissue and Fascia, Open Approach (ICD-10-PCS; CPT 15830; principal; 2023-06-22 07:30)
DX: L98.7 Excessive and redundant skin and subcutaneous tissue (principal); M79.3 Panniculitis, unspecified; K91.2 Postsurgical malabsorption, not elsewhere classified; Z90.3 Acquired absence of stomach [part of]; K21.9 Gastro-esophageal reflux disease without esophagitis; L57.4 Cutis laxa senilis; K76.0 Fatty (change of) liver, not elsewhere classified; I10 Essential (primary) hypertension; E78.5 Hyperlipidemia, unspecified; L03.90 Cellulitis, unspecified; R00.0 Tachycardia, unspecified; K59.00 Constipation, unspecified; Z86.73 Personal history of transient ischemic attack (TIA), and cerebral infarction without residual deficits; Z98.51 Tubal ligation status; Z79.899 Other long term (current) drug therapy; Z88.0 Allergy status to penicillin; Z88.2 Allergy status to sulfonamides; Z88.5 Allergy status to narcotic agent; E65 Localized adiposity; L30.4 Erythema intertrigo; R26.2 Difficulty in walking, not elsewhere classified
CPT/HCPCS: 15830; 15847; 36415; 80053; 80061; 82306; 82607; 82728; 83036; 83525; 83540; 83970; 84425; 84443; 84590; 84630; 85025; 85610; 85730; 86140; 86850; 86900; 86901; 88304; C9088; J0131; J1100; J1170; J1956; J2250; J2371; J2405; J3010; J3370

== ENCOUNTER → 2023-06-22 06:01 | Outpatient (BNV) | payer MEDICARE, MEDICAID, SELFPAY | PROVIDERS: PCP Physician Assistant Medical; Visit Provider Physician Assistant Surgical | DX: L98.7 Excessive and redundant skin and subcutaneous tissue (principal) | CPT/HCPCS: 15830 ==

== ENCOUNTER 2023-06-30 10:58 | Outpatient (AMB) | payer MEDICARE, MEDICAID, SELFPAY ==
--- NOTE | 2023-06-30 11:00 | A.OFFVIS_ITS ---
Intake VS Expanded 06/30/23 11:08 Pulse 64 Pulse Source Pulse Oximeter Temp 97.3 F Temperature Source Tympanic Pulse Oximetry 100 Oxygen Delivery Method Room Air Intake Visit Reasons: (OV) 8 Days PO Panniculectomy 06/22/23 Allergies Penicillins Allergy (Severe, Verified 06/05/23 10:17) RASH morphine Allergy (Intermediate, Verified 06/05/23 10:17) N/V, RASH, itching sulfamethoxazole [From BACTRIM] Allergy (Intermediate, Verified 06/05/23 10:17) RASH trimethoprim [From BACTRIM] Allergy (Intermediate, Verified 06/05/23 10:17) RASH HPI HPI Comments History of Present Illness Details 43 yo female s/p panniculectomy by Dr Ra marte on 06/22/23 Reports min to no pain 50-60 serosang out of drain daily ruddy meal plan per Dr Jordan continues abx Had several days of constipation, now resolved. [facility] Medical History Anemia Vaso vagal episode Anxiety Asthma Steatosis, liver PCOS (polycystic ovarian syndrome) Dental crowns present Migraines Sciatica Seizure CVA (cerebral vascular accident) Depression IBS (irritable bowel syndrome) GERD (gastroesophageal reflux disease) Hyperlipidemia Sinus tachycardia Hypertension Surgical History Hx of prior ablation treatment History of sleeve gastrectomy History of sleeve gastrectomy Hx of hemorrhoidectomy Hx of breast biopsy Hx of tubal ligation Family History Father No problems noted. Mother Cervical cancer Social History Are you a primary career orientation teacher to a significant other at home: No Do you presently have visiting nurse or other home services: No Alcohol intake: never Patient Tobacco Use Status: Never used Tobacco Advance Directives Date on File: 12/24/20 service: No Current occupational status: unemployed Physical Exam GI Other: min dehiscence at 6-8 o clock of umbilicus, viable, no s/sx infection Assessment & Plan Assessment & Plan (1) S/P panniculectomy: Code(s): Z98.890 - Other specified postprocedural states Plan: S/P panniculectomy on 06/22/23 Continue to follow meal plan exactly from Dr Julian VALDEZ Continue to monitor drain output daily Abdominal binder at all times except dressing change or hygene rtc 1 week Coding Level of Care Code Global (78825) Diagnoses S/P panniculectomy Z98.890
[2023-06-30 11:08] VITALS: PULSE 64; TEMP 36.3; O2SAT 100
== END 2023-06-30 11:25 | disposition home or self-care (01) ==
PROVIDERS: PCP Physician Assistant Medical; Visit Provider Physician Assistant Surgical
DX: Z98.890 Other specified postprocedural states (principal)
CPT/HCPCS: 99024

== ENCOUNTER → 2023-06-30 10:58 | Outpatient (BNVA) | payer MEDICARE, MEDICAID, SELFPAY | PROVIDERS: PCP Physician Assistant Medical; Visit Provider Physician Assistant Surgical ==

== ENCOUNTER 2023-07-04 12:59 | Outpatient (AMB) | payer MEDICARE, MEDICAID, SELFPAY ==
[2023-07-04 13:05] VITALS: RESP 16; BMI 26.8
--- NOTE | 2023-07-04 13:05 | A.OFFVIS_ITS ---
Intake VS Expanded 07/04/23 13:05 Height 5 ft 1 in Weight 141 lb 15.643 oz BMI 26.8 Respiratory Rate 16 Intake Visit Reasons: (OV) PO Panniculectomy 06/22/23 Allergies Penicillins Allergy (Severe, Verified 07/04/23 13:06) RASH morphine Allergy (Intermediate, Verified 07/04/23 13:06) N/V, RASH, itching sulfamethoxazole [From BACTRIM] Allergy (Intermediate, Verified 07/04/23 13:06) RASH trimethoprim [From BACTRIM] Allergy (Intermediate, Verified 07/04/23 13:06) RASH HPI HPI Comments History of Present Illness Details 43 yo female s/p panniculectomy on 3. Demian meal plan per Dr Jordan continues abx mild left sided discomfort w BM q 2 days on MOM and colace daily PFSH Medical History Anemia Vaso vagal episode Anxiety Asthma Steatosis, liver PCOS (polycystic ovarian syndrome) Dental crowns present Migraines Sciatica Seizure CVA (cerebral vascular accident) Depression IBS (irritable bowel syndrome) GERD (gastroesophageal reflux disease) Hyperlipidemia Sinus tachycardia Hypertension Surgical History Hx of prior ablation treatment History of sleeve gastrectomy History of sleeve gastrectomy Hx of hemorrhoidectomy Hx of breast biopsy Hx of tubal ligation Family History Father No problems noted. Mother Cervical cancer Social History Are you a primary director of healthcare systems to a significant other at home: No Do you presently have visiting nurse or other home services: No Alcohol intake: never Patient Tobacco Use Status: Never used Tobacco Advance Directives Date on File: 12/24/20 service: No Current occupational status: unemployed Physical Exam Vital Signs: Last Vital Signs Resp 16 07/04/23 13:05 BMI result Body Mass Index 26.8 Skin Other: no dehiscence, no s/sx inferctino 20 mL serosang in collection bulb. Assessment & Plan Assessment & Plan (1) S/P panniculectomy: Code(s): Z98.890 - Other specified postprocedural states Plan: 30-40 mL via collection bulb daily continue to monitor output Continue abx and meal plans Add another colace daily for the constipation rtc 1 week Coding Level of Care Code Global (35534) Diagnoses S/P panniculectomy Z98.890
== END 2023-07-04 13:25 | disposition home or self-care (01) ==
PROVIDERS: PCP Physician Assistant Medical; Visit Provider Physician Assistant Surgical
DX: Z98.890 Other specified postprocedural states (principal)
CPT/HCPCS: 99024

== ENCOUNTER → 2023-07-04 12:59 | Outpatient (BNVA) | payer MEDICARE, MEDICAID, SELFPAY | PROVIDERS: PCP Physician Assistant Medical; Visit Provider Physician Assistant Surgical | DX: Z98.890 Other specified postprocedural states (principal) ==

== ENCOUNTER 2023-07-12 11:33 | Outpatient (AMB) | payer MEDICARE, MEDICAID, SELFPAY ==
--- NOTE | 2023-07-12 11:42 | A.OFFVIS_ITS ---
Intake VS Expanded 07/12/23 11:56 BP 136/81 Blood Pressure Location Rt brachial Blood Pressure Position Sitting Pulse 64 Pulse Source Pulse Oximeter Temp 97.7 F Temperature Source Temporal Artery Scan Pulse Oximetry 97 Oxygen Delivery Method Room Air Intake Visit Reasons: (OV) PO Panniculectomy 06/22/23 Allergies Penicillins Allergy (Severe, Verified 07/12/23 11:57) RASH morphine Allergy (Intermediate, Verified 07/12/23 11:57) N/V, RASH, itching sulfamethoxazole [From BACTRIM] Allergy (Intermediate, Verified 07/12/23 11:57) RASH trimethoprim [From BACTRIM] Allergy (Intermediate, Verified 07/12/23 11:57) RASH HPI HPI Comments History of Present Illness Details 43-year-old female presents to the [facility] in follow-up. She underwent a panniculectomy on 06/22/2023. She reports she continues the meal plan as outlined by Dr. Jordan. She continues the antibiotics. She denies any complaints of pain and reports approximately 20 mL of fluid out of her drain daily over the last 3 or 4 days. [facility] Medical History Anemia Vaso vagal episode Anxiety Asthma Steatosis, liver PCOS (polycystic ovarian syndrome) Dental crowns present Migraines Sciatica Seizure CVA (cerebral vascular accident) Depression IBS (irritable bowel syndrome) GERD (gastroesophageal reflux disease) Hyperlipidemia Sinus tachycardia Hypertension Surgical History Hx of prior ablation treatment History of sleeve gastrectomy History of sleeve gastrectomy Hx of hemorrhoidectomy Hx of breast biopsy Hx of tubal ligation Family History Father No problems noted. Mother Cervical cancer Social History Are you a primary resident caregiver to a significant other at home: No Do you presently have visiting nurse or other home services: No Alcohol intake: never Patient Tobacco Use Status: Never used Tobacco Advance Directives Date on File: 12/24/20 service: No Current occupational status: unemployed Physical Exam GI Inspection: Yes incision (c/d/i) Assessment & Plan Assessment & Plan (1) S/P panniculectomy: Code(s): Z98.890 - Other specified postprocedural states Plan: Continue current plans. Monitor drain output. Return to clinic 1 week. Coding Level of Care Code Global (66044) Diagnoses S/P panniculectomy Z98.890
[2023-07-12 11:56] VITALS: BP 136/81; PULSE 64; TEMP 36.5; O2SAT 97
== END 2023-07-12 12:13 | disposition home or self-care (01) ==
PROVIDERS: PCP Physician Assistant Medical; Visit Provider Physician Assistant Surgical
DX: Z98.890 Other specified postprocedural states (principal)
CPT/HCPCS: 99024

== ENCOUNTER → 2023-07-12 11:33 | Outpatient (BNVA) | payer MEDICARE, MEDICAID, SELFPAY | PROVIDERS: PCP Physician Assistant Medical; Visit Provider Physician Assistant Surgical | DX: Z98.890 Other specified postprocedural states (principal) ==

== ENCOUNTER 2023-07-19 11:52 | Outpatient (AMB) | payer MEDICARE, MEDICAID, SELFPAY ==
[2023-07-19 12:00] VITALS: PULSE 75; TEMP 36.7; O2SAT 98
--- NOTE | 2023-07-19 12:00 | MHC.OFFVISWM ---
Intake VS Expanded 07/19/23 12:00 Pulse 75 Pulse Source Pulse Oximeter Temp 98.1 F Temperature Source Temporal Artery Scan Pulse Oximetry 98 Oxygen Delivery Method Room Air Intake Visit Reasons: (OV) PO Panniculectomy 06/22/23 Allergies Penicillins Allergy (Severe, Verified 07/19/23 12:01) RASH morphine Allergy (Intermediate, Verified 07/19/23 12:01) N/V, RASH, itching sulfamethoxazole [From BACTRIM] Allergy (Intermediate, Verified 07/19/23 12:01) RASH trimethoprim [From BACTRIM] Allergy (Intermediate, Verified 07/19/23 12:01) RASH HPI HPI Comments History of Present Illness Details Very pleasant 43-year-old female, returns to the office today in follow-up. She is approximately 4 weeks post panniculectomy performed on 06/22/2023. She states that she is doing well, tolerating antibiotics and meal plan according to Dr. Pearson. She states she has had approximately 10 mL out the of the drain daily over the last 2-3 days. [facility] Medical History Anemia Vaso vagal episode Anxiety Asthma Steatosis, liver PCOS (polycystic ovarian syndrome) Dental crowns present Migraines Sciatica Seizure CVA (cerebral vascular accident) Depression IBS (irritable bowel syndrome) GERD (gastroesophageal reflux disease) Hyperlipidemia Sinus tachycardia Hypertension Surgical History Hx of prior ablation treatment History of sleeve gastrectomy History of sleeve gastrectomy Hx of hemorrhoidectomy Hx of breast biopsy Hx of tubal ligation Family History Father No problems noted. Mother Cervical cancer Social History Are you a primary career development specialist to a significant other at home: No Do you presently have visiting nurse or other home services: No Alcohol intake: never Patient Tobacco Use Status: Never used Tobacco Advance Directives Date on File: 12/24/20 service: No Current occupational status: unemployed Physical Exam Vital Signs: Last Vital Signs Temp 98.1 F 07/19/23 12:00 Pulse 75 07/19/23 12:00 Pulse Ox 98 07/19/23 12:00 Oxygen Delivery Method Room Air 07/19/23 12:00 GI Inspection: Yes incision (Incision c/d/i, umbilicus with scab and viable) Assessment & Plan Assessment & Plan (1) S/P panniculectomy: Code(s): Z98.890 - Other specified postprocedural states Plan: Patient seen and examined with Dr. Pearson. She will continue her current meal plan, antibiotics, monitoring drain output, and return to clinic in approximately 2 weeks. If at that time, she is doing well and has had no further increase in output, she will have her drain removed. She was instructed to avoid any salty foods, soups, processed meats as this can contribute to water retention. Coding Level of Care Code Global (55243) Diagnoses S/P panniculectomy Z98.890
== END 2023-07-19 12:26 | disposition home or self-care (01) ==
PROVIDERS: PCP Physician Assistant Medical; Visit Provider Physician Assistant Surgical
DX: Z98.890 Other specified postprocedural states (principal)
CPT/HCPCS: 99024

== ENCOUNTER → 2023-07-19 11:52 | Outpatient (BNVA) | payer MEDICARE, MEDICAID, SELFPAY | PROVIDERS: PCP Physician Assistant Medical; Visit Provider Physician Assistant Surgical | DX: Z98.890 Other specified postprocedural states (principal) ==

== ENCOUNTER 2023-08-02 09:06 | Outpatient (AMB) | payer MEDICARE, MEDICAID, SELFPAY ==
--- NOTE | 2023-08-02 09:08 | MHC.OFFVISWM ---
Intake VS Expanded 08/02/23 09:14 BP 142/68 H Blood Pressure Location Rt brachial Blood Pressure Position Sitting Pulse 77 Pulse Source Pulse Oximeter Temp 97.4 F Temperature Source Temporal Artery Scan Pulse Oximetry 100 Oxygen Delivery Method Room Air Intake Visit Reasons: (OV) PO Panniculectomy 06/22/23 Feather Edger Required: No Allergies Penicillins Allergy (Severe, Verified 08/02/23 09:14) RASH morphine Allergy (Intermediate, Verified 08/02/23 09:14) N/V, RASH, itching sulfamethoxazole [From BACTRIM] Allergy (Intermediate, Verified 08/02/23 09:14) RASH trimethoprim [From BACTRIM] Allergy (Intermediate, Verified 08/02/23 09:14) RASH Medication List - Last Reconciled 08/02/23 by ARIEL Azul cholecalciferol (vitamin D3) 50 mcg PO DAILY ciprofloxacin HCl (Cipro) 500 mg PO Q12H clotrimazole 1% 1 appl topical BID docusate sodium (Colace) 100 mg PO DAILY escitalopram oxalate 1 tab PO DAILY ferrous sulfate (FeroSul) 325 mg PO DAILY hydrocodone-acetaminophen 5-325 mg 1 tab PO Q6H PRN lorazepam 0.5 mg PO DAILY PRN rosuvastatin 40 mg PO DAILY HPI HPI Comments History of Present Illness Details Patient is a very pleasant 43-year-old female who returns to the office today in follow-up for her panniculectomy performed on 06/22/2023. She states that over the last for 5 days she has noticed an increase in swelling to the right side of her lower abdomen. She has not noticed any increase in drainage or change in consistency. Drainage has been approximately 15 mL serous fluid daily. She has been feeling well and denies any fevers or chills. She has continued her antibiotics and meal plan per Dr. Pearson. [facility] Medical History Anemia Vaso vagal episode Anxiety Asthma Steatosis, liver PCOS (polycystic ovarian syndrome) Dental crowns present Migraines Sciatica Seizure CVA (cerebral vascular accident) Depression IBS (irritable bowel syndrome) GERD (gastroesophageal reflux disease) Hyperlipidemia Sinus tachycardia Hypertension Surgical History Hx of prior ablation treatment History of sleeve gastrectomy History of sleeve gastrectomy Hx of hemorrhoidectomy Hx of breast biopsy Hx of tubal ligation Family History Father No problems noted. Mother Cervical cancer Social History Are you a primary critical care specialist to a significant other at home: No Do you presently have visiting nurse or other home services: No Alcohol intake: never Patient Tobacco Use Status: Never used Tobacco Advance Directives Date on File: 12/24/20 service: No Current occupational status: unemployed Physical Exam Vital Signs: Last Vital Signs Temp 97.4 F 08/02/23 09:14 Pulse 77 08/02/23 09:14 BP 142/68 H 08/02/23 09:14 Pulse Ox 100 08/02/23 09:14 Oxygen Delivery Method Room Air 08/02/23 09:14 GI Other: Incision is clean, dry, intact. There is some asymmetry to her abdomen with fullness appreciated about the right lower quadrant without induration or appreciable fluctuance Assessment & Plan Assessment & Plan (1) S/P panniculectomy: Code(s): Z98.890 - Other specified postprocedural states Plan: Will order abdominal ultrasound looking for any fluid collection. She will return to clinic next week for possible drain removal if no fluid collection. She may need IR guided removal if there is loculated fluid. Continue oral antibiotics and meal plan per Dr. Pearson. Patient was seen and examined with Dr. Pearson today. Orders: Orders US abdomen limited Today Z98.890 - Other specified postprocedural states Coding Level of Care Code Global (69528) Diagnoses S/P panniculectomy Z98.890
[2023-08-02 09:14] VITALS: BP 142/68; PULSE 77; TEMP 36.3; O2SAT 100
== END 2023-08-02 09:31 | disposition home or self-care (01) ==
PROVIDERS: PCP Physician Assistant Medical; Visit Provider Physician Assistant Surgical
DX: Z98.890 Other specified postprocedural states (principal)
CPT/HCPCS: 99024

== ENCOUNTER → 2023-08-02 09:06 | Outpatient (BNVA) | payer MEDICARE, MEDICAID, SELFPAY | PROVIDERS: PCP Physician Assistant Medical; Visit Provider Physician Assistant Surgical ==

== ENCOUNTER 2023-08-02 12:43 | Outpatient (REF) | payer MEDICARE, MEDICAID, SELFPAY ==
--- NOTE | ~2023-08-02 | US_ITS ---
EXAMINATION: US ABDOMEN LIMITED CLINICAL INFORMATION: Post panniculectomy 07/12/2023. Evaluate for fluid collection.. COMPARISON: None available. TECHNIQUE: Real-time imaging of the anterior abdominal wall over the panniculectomy incision FINDINGS: There is a small complex fluid collection deep to the right side of the incision measuring 2.7 x 1 x 2.7 cm. Drainage catheter is seen deep to the incision. No other fluid collection along the course of the drainage catheter seen. US/US abdomen limited IMPRESSION: Small complex fluid collection to the right side of the incision measuring 2.7 x 1 x 2.7 cm
== END 2023-08-02 12:44 | disposition home or self-care (01) ==
LOC: HO.US 12:43
PROVIDERS: PCP Physician Assistant Medical; Visit Provider Physician Assistant Surgical
DX: Z98.890 Other specified postprocedural states (principal)
CPT/HCPCS: 76705

== ENCOUNTER 2023-08-07 09:13 | Outpatient (AMB) | payer MEDICARE, MEDICAID, SELFPAY ==
--- NOTE | 2023-08-07 09:15 | MHC.OFFVIS ---
Intake Vital Signs 08/07/23 09:16 Height 5 ft 1 in Weight 146 lb 13.246 oz BMI 27.7 BP 138/80 Blood Pressure Location Lt brachial Position Sitting Pulse 60 Pulse Source Pulse Oximeter Intake Visit Reasons: follow up Intake Note: f/u School Child Care Attendant Required: No Allergies Penicillins Allergy (Severe, Verified 08/07/23 09:18) RASH morphine Allergy (Intermediate, Verified 08/07/23 09:18) N/V, RASH, itching sulfamethoxazole [From BACTRIM] Allergy (Intermediate, Verified 08/07/23 09:18) RASH trimethoprim [From BACTRIM] Allergy (Intermediate, Verified 08/07/23 09:18) RASH Medication List - Last Reconciled 08/07/23 by Chelsi Canseco, HEARING SCREEN COORDINATOR-C cholecalciferol (vitamin D3) 50 mcg PO DAILY ciprofloxacin HCl (Cipro) 500 mg PO Q12H clotrimazole 1% 1 appl topical BID docusate sodium (Colace) 100 mg PO DAILY escitalopram oxalate 1 tab PO DAILY ferrous sulfate (FeroSul) 325 mg PO DAILY hydrocodone-acetaminophen 5-325 mg 1 tab PO Q6H PRN lorazepam 0.5 mg PO DAILY PRN rosuvastatin 40 mg PO DAILY HPI follow up HPI Details Zeny is a 43-year-old female with past medical history of hypertension, hyperlipidemia, obesity status prosed bariatric surgery, inappropriate sinus tach, CVA, vasovagal syncope who presents for follow-up. Today she reports that since her last visit she had 2 episodes where she felt presyncopal. She did not have a full syncope event. Both occasions occurred when she was on the toilet having a bowel movement. She had a pain in her abdomen then developed tingling in her feet and sweating. She laid down on the floor and her symptoms did resolve. No episodes have occurred in other situations. She has maintain good hydration. No chest discomfort, shortness of breath, palpitations, PND, orthopnea or edema. She reports good activity tolerance. She recently had panniculectomy and still has a drain in place. [facility] Medical History Anemia Vaso vagal episode Anxiety Asthma Steatosis, liver PCOS (polycystic ovarian syndrome) Dental crowns present Migraines Sciatica Seizure CVA (cerebral vascular accident) Depression IBS (irritable bowel syndrome) GERD (gastroesophageal reflux disease) Hyperlipidemia Sinus tachycardia Hypertension Surgical History Hx of prior ablation treatment History of sleeve gastrectomy History of sleeve gastrectomy Hx of hemorrhoidectomy Hx of breast biopsy Hx of tubal ligation Family History Father No problems noted. Mother Cervical cancer Social History Are you a primary aged or disabled carer to a significant other at home: No Do you presently have visiting nurse or other home services: No Alcohol intake: never Patient Tobacco Use Status: Never used Tobacco Advance Directives Date on File: 12/24/20 service: No Current occupational status: unemployed Review of Systems Const All systems reviewed & are unremarkable except as noted in HPI and below ENT Details: presyncope Denies dizziness Card Denies chest pain, Denies chest pain at rest, Denies chest pain with activity, Denies rapid heart rate, Denies pedal edema, Denies edema, Denies leg edema, Denies lightheadedness, Denies palpitations, Denies dyspnea, Denies dyspnea on exertion and Denies orthopnea Resp Denies cough, Denies dyspnea and Denies dyspnea on exertion GI Denies hematochezia and Denies change in stool character Musc Denies abnormal gait, Denies limited range of motion, Denies muscle cramps, Denies muscle weakness, Denies numbness, Denies radiating pain into limb, Denies stiffness and Denies tingling Neuro Denies abnormal gait, Denies dizziness, Denies numbness and Denies tingling Endo Denies palpitations Physical Exam Vital Signs: Last Vital Signs Pulse 60 08/07/23 09:16 BP 138/80 08/07/23 09:16 BMI result Body Mass Index 27.7 Const General: cooperative, healthy appearing, comfortable and no acute distress Orientation/consciousness: patient oriented x3 Eyes Sclerae: sclerae normal Neck Neck: Yes normal visual inspection Resp Effort & Inspection: normal respiratory effort Auscultation: clear to auscultation bilaterally, no crackles, no rales, no rhonchi and no wheezes Cardio Jugular venous distension: no JVD Rate: regular rate Rhythm: regular rhythm Heart sounds: S1 normal heart sound present, S2 normal heart sound present, no murmurs and no rubs Skin General skin exam: no rashes or lesions noted Neuro General: patient oriented x3 Extrem General: Yes normal to inspection Psych Appearance: grossly normal Mental Status: mental status grossly normal Speech and movement: Normal speech and movement present Assessment & Plan Assessment & Plan (1) Vasovagal syncope: Code(s): R55 - Syncope and collapse Plan: Syncopal event which occurred in the setting of abdominal discomfort. She was evaluated at [facility] following that event. EKG showed sinus rhythm with nonspecific ST changes. A CT scan of the head and echocardiogram were both non revealing. Her event was thought to be vasovagal. On last visit a cardiac event monitor was ordered and done on 05/24/2023 for 30 days showing sinus rhythm with heart rate range 64 to 104, no significant arrhythmia. A tilt-table test was performed on 06/13/2023 which confirmed vasovagal syncope. Since last visit in March she describes 2 episodes of presyncope that occurred when sitting on the toilet for bowel movement, having abdominal discomfort. No presyncope or syncope has occurred in any other setting. She has been instructed to increase her fluid intake, use compression stockings, recognize symptoms and lay down whenever symptoms occur. She recently had abdominal surgery and is being followed by the Bariatric Department. Cardiology follow-up 4 months, sooner if needed. (2) CVA (cerebral vascular accident): Comment: at age 24, right sided weakness, loss of peripheral vision on right Unknown etiology Code(s): I63.9 - Cerebral infarction, unspecified Plan: History of CVA with infarct of the occipital lobe. She is maintained on low-dose aspirin. Also on statin therapy with target LDL goal less than 70. On last visit she thought her rosuvastatin was giving her a headache. Now she tells me her headache has resolved and she has been able to take rosuvastatin without concerning symptoms. Labs done 06/12/2023 shows LDL 78. (3) Hypertension: Code(s): I10 - Essential (primary) hypertension Plan: Adequately controlled at present. No med changes made (4) Hyperlipidemia: Code(s): E78.5 - Hyperlipidemia, unspecified Plan: As above (5) Sinus tachycardia: Code(s): R00.0 - Tachycardia, unspecified Plan: History of inappropriate sinus tachycardia. Recent cardiac event monitor as above. Sinus tachycardia/palpitations have not been an issue recently. Coding Level of Care Code Est Pt Level 4 (34513) Diagnoses Vasovagal syncope R55 CVA (cerebral vascular accident) I63.9 Hypertension I10 Hyperlipidemia E78.5 Sinus tachycardia R00.0 Time Spent (min) 28
[2023-08-07 09:16] VITALS: BP 138/80; PULSE 60; BMI 27.7
== END 2023-08-07 09:44 | disposition home or self-care (01) ==
PROVIDERS: PCP Physician Assistant Medical; Visit Provider Nurse Practitioner Family
DX: R55 Syncope and collapse (principal); I63.9 Cerebral infarction, unspecified; I10 Essential (primary) hypertension; E78.5 Hyperlipidemia, unspecified; R00.0 Tachycardia, unspecified
CPT/HCPCS: 99214

== ENCOUNTER → 2023-08-07 09:13 | Outpatient (BNVA) | payer MEDICARE, MEDICAID, SELFPAY | PROVIDERS: PCP Physician Assistant Medical; Visit Provider Nurse Practitioner Family | DX: R55 Syncope and collapse (principal); I63.9 Cerebral infarction, unspecified; I10 Essential (primary) hypertension; R00.0 Tachycardia, unspecified; E78.5 Hyperlipidemia, unspecified | CPT/HCPCS: 99212 ==

== ENCOUNTER 2023-08-08 08:33 | Emergency (ER) | payer MEDICARE, MEDICAID, SELFPAY ==
--- NOTE | ~2023-08-08 | CT_ITS ---
EXAMINATION: CT abdomen pelvis without IV contrast. Clinical indications: Abdominal pain and swelling. COMPARISON: CT abdomen pelvis without contrast 08/14/2014. TECHNIQUE: 5 mm thin axial and reformatted 3 mm thin sagittal and coronal images of abdomen pelvis were obtained without contrast. [address] examination was performed using dose optimization technique as appropriate, variously including the following: Automated exposure control Adjustment of MA and/or KV according to patient size(this includes techniques or standardized protocols for targeted exams where dose is matched to indication/reason for exam; extremities or head. Use of iterative reconstruction techniques. FINDINGS: Abdomen and pelvis: Lung bases: There is focal atelectatic changes in the right lung base. Heart size is normal. Liver, ducts and gallbladder: The liver is normal size, contour and attenuation. No focal lesion or intrahepatic ductal dilatation seen no radiopaque gallstones or wall thickening. Spleen: Unremarkable. Pancreas: Unremarkable. Adrenal glands: Unremarkable. Kidneys: Both kidneys are normal size, attenuation without radiopaque renal calculi or hydronephrosis. Lymphovascular structures: Abdominal aorta is normal caliber. No abnormal size retroperitoneal lymph nodes or mass seen. Abdominal wall: There is small umbilical hernia with fat stranding likely low-grade inflammatory process. There is abdominal wall reconstructive surgery with a drainage catheter. The tip of a drainage catheter is in the right lateral abdominal wall exiting the left lateral abdominal wall. No focal collection seen. Pelvis: The urinary bladder is nondistended. The uterus is anteverted no free fluid or free air seen. No adnexal mass. No evidence of inguinal hernia or lymph nodes. Osseous structures: No aggressive lytic or sclerotic process seen. CT/CT abdomen wo IV con IMPRESSION: There is lower abdominal wall reconstructive surgery with a drainage catheter. The tip of the drainage catheter is in the right lateral abdominal wall.. No focal fluid collection seen. Mild fat stranding of the umbilicus with underlying hernia. Moderate constipation.
[2023-08-08 09:14] VITALS: BP 137/87; PULSE 66; RESP 18; TEMP 36.7; O2SAT 99; BMI 24.6
--- NOTE | 2023-08-08 09:25 | PC.NURSE ---
SPOKE WITH DR CASTELLANO WHO HAD RECEIVED A CALL FROM PATIENT'S PHYSICIAN. PLAN IS FOR LAB WORK AND NON CONTRAST CT. PT UPDATED ON PLAN. ORDERS PER MD.
[2023-08-08 09:46] LABS: Appearance Urine Clear; Color Urine Yellow; Glucose Urine UA Negative (Negative); Leukocyte Esterase Urine Negative (Negative); Nitrite Urine Negative (Negative); Specific Gravity - Urine <= 1.005 (1.005-1.025); Urine Blood Negative (Negative); Urine Ketones Negative (Negative); Urine Protein Negative (Neg-Trace)
[2023-08-08 09:46] LABS: Hemoglobin 12.5 g/dl (12.0-16.0); Mean Corpuscular HGB Conc 34.7 g/dl (31.0-35.0); Mean Corpuscular Hemoglobin 30.9 pg (27.0-33.0); Mean Corpuscular Volume 88.9 fL (80.0-98.0); Mean Platelet Volume 12.8 fL (9.4-12.3); Platelet Count 174 X10*3/uL (160-400); Red Blood Count 4.05 X10*6/uL (4.20-5.50); Red Cell Distribution Width 12.6 % (11.0-16.0)
[2023-08-08 09:51] LABS: WBC ABN SCTR FOR CBC 1
[2023-08-08 10:04] LABS: Alanine Aminotransferase 12 U/L (0-31); Albumin Level 4.2 g/dL (3.5-5.0); Alkaline Phosphatase 52 U/L (39-117); Anion Gap 11 (12-20); Aspartate Amino Transferase 18 U/L (5-31); Bilirubin Total 1.8 mg/dL (0.0-1.0); Blood Urea Nitrogen 9 mg/dL (9-16); Calcium 9.1 mg/dL (8.4-10.2); Carbon Dioxide 27 mmol/L (22-29); Chloride 107 mmol/L (96-108); Creatinine Clr Calc Pharmacy 90.1; Estimated Glomerular Filt Rate > 60; Glucose Random 86 mg/dL (60-115); Sodium 141 mmol/L (135-145); Total Protein 6.9 g/dL (6.5-8.0)
[2023-08-08 10:31] LABS: Band Neutrophils Percent 3 % (3-5); Eosinophils Percent Manual 3 % (0-4); Lymphocytes Percent Manual 41 % (20-40); Monocytes Percent Manual 3 % (2-11); Neutrophils Percent Manual 50 % (45-73); Toxic Vacuolation PRESENT
[2023-08-08 10:32] LABS: RBC Morphology NOTED
[2023-08-08 10:33] LABS: Macrocytosis 1+ (5-14) /OIF; Platelet Estimate NORMAL (NORMAL); Platelet Morphology Comment NORMAL; Polychromasia 1+ (0-2) /OIF
[2023-08-08 10:34] LABS: Tear Drop Cells 1+ (0-2) /OIF
[2023-08-08 10:35] LABS: Eosinophils Absolute Manual 0.1 X10*3/uL (0.0-0.4); Lymphocytes Absolute Manual 1.4 X10*3/uL (1.2-4.9); Monocytes Absolute Manual 0.1 X10*3/uL (0.1-1.2); Neutrophils Absolute Manual 1.9 X10*3/uL (2.0-8.3); White Blood Count 3.5 X10*3/uL (4.8-10.8)
== END 2023-08-08 17:27 | disposition left against medical advice (07) ==
LOC: HO.ED 17:14
PROVIDERS: Emergency Provider Emergency Medicine; PCP Physician Assistant Medical
DX: G89.18 Other acute postprocedural pain (principal); I10 Essential (primary) hypertension; E78.5 Hyperlipidemia, unspecified; Z86.73 Personal history of transient ischemic attack (TIA), and cerebral infarction without residual deficits; Z98.84 Bariatric surgery status
CPT/HCPCS: 36415; 72192; 74150; 80053; 81003; 85007; 85027; 99282; 99284

== ENCOUNTER 2023-08-14 11:14 | Outpatient (AMB) | payer MEDICARE, MEDICAID, SELFPAY ==
--- NOTE | 2023-08-14 11:21 | A.OFFVIS_ITS ---
Intake VS Expanded 08/14/23 11:31 BP 135/81 Blood Pressure Location Lt brachial Blood Pressure Position Sitting Pulse 66 Pulse Source Pulse Oximeter Pulse Oximetry 100 Oxygen Delivery Method Room Air Height 5 ft 1 in Intake Visit Reasons: (OV) PO Panniculectomy 06/22/23 *Time okay Per MB* Intake Note: Patient is seen in office for post op assessment post panniculectomy. Lens Grinder And Polisher Required: No Accompanied by: Self / Same As Patient Allergies Penicillins Allergy (Severe, Verified 08/14/23 11:33) RASH morphine Allergy (Intermediate, Verified 08/14/23 11:33) N/V, RASH, itching sulfamethoxazole [From BACTRIM] Allergy (Intermediate, Verified 08/14/23 11:33) RASH trimethoprim [From BACTRIM] Allergy (Intermediate, Verified 08/14/23 11:33) RASH HPI HPI Comments History of Present Illness Details Pleasant 43-year-old female returns to the office today. She is being seen in follow-up from her hand next elected knee performed on 06/22/2023. She did have a fluid collection in the right abdomen that was seen on ultrasound. She went to the emergency room approximately week later due to complaints of abdominal pain. There was no increase in the right-sided fluid collection, and the CT scan revealed stool burden. She was given bowel meds and has since had regular bowel movements with no further abdominal pain. She states that she has had approximately 15 mL of serous fluid from the collection bulb daily over the last 5 days. [facility] Medical History Anemia Vaso vagal episode Anxiety Asthma Steatosis, liver PCOS (polycystic ovarian syndrome) Dental crowns present Migraines Sciatica Seizure CVA (cerebral vascular accident) Depression IBS (irritable bowel syndrome) GERD (gastroesophageal reflux disease) Hyperlipidemia Sinus tachycardia Hypertension Surgical History Hx of prior ablation treatment History of sleeve gastrectomy History of sleeve gastrectomy Hx of hemorrhoidectomy Hx of breast biopsy Hx of tubal ligation Family History Father No problems noted. Mother Cervical cancer Social History Are you a primary healthcare applications analyst to a significant other at home: No Do you presently have visiting nurse or other home services: No Alcohol intake: never Patient Tobacco Use Status: Never used Tobacco Advance Directives Date on File: 12/24/20 service: No Current occupational status: unemployed Physical Exam Vital Signs: Last Vital Signs Pulse 66 08/14/23 11:31 BP 135/81 08/14/23 11:31 Pulse Ox 100 08/14/23 11:31 Oxygen Delivery Method Room Air 08/14/23 11:31 Skin Other: Incision healing well, umbilicus viable, no signs or symptoms of infection or dehiscence. Assessment & Plan Assessment & Plan (1) S/P panniculectomy: Code(s): Z98.890 - Other specified postprocedural states Plan: Continue meal plan per . Drain was removed today without incident. She will avoid showers for the next 48 hours. Continue with her abdominal binder. She may continue use of the treadmill with the abdominal binder starting tomorrow. Return to clinic in 1 week. Coding Level of Care Code Global (25402) Diagnoses S/P panniculectomy Z98.890
[2023-08-14 11:31] VITALS: BP 135/81; PULSE 66; O2SAT 100
== END 2023-08-14 11:46 | disposition home or self-care (01) ==
PROVIDERS: PCP Physician Assistant Medical; Visit Provider Physician Assistant Surgical
DX: Z98.890 Other specified postprocedural states (principal)
CPT/HCPCS: 99024

== ENCOUNTER → 2023-08-14 11:14 | Outpatient (BNVA) | payer MEDICARE, MEDICAID, SELFPAY | PROVIDERS: PCP Physician Assistant Medical; Visit Provider Physician Assistant Surgical ==

== ENCOUNTER 2023-08-21 11:38 | Outpatient (AMB) | payer MEDICARE, MEDICAID, SELFPAY ==
--- NOTE | 2023-08-21 11:56 | A.OFFVIS_ITS ---
Intake VS Expanded 08/21/23 12:00 BP 134/76 Blood Pressure Location Rt brachial Blood Pressure Position Sitting Pulse 64 Pulse Source Pulse Oximeter Temp 95.8 F L Temperature Source Temporal Artery Scan Pulse Oximetry 100 Oxygen Delivery Method Room Air Intake Visit Reasons: (OV) PO Panniculectomy 06/22/23 *Time okay Per MB* Allergies Penicillins Allergy (Severe, Verified 08/21/23 12:01) RASH morphine Allergy (Intermediate, Verified 08/21/23 12:01) N/V, RASH, itching sulfamethoxazole [From BACTRIM] Allergy (Intermediate, Verified 08/21/23 12:01) RASH trimethoprim [From BACTRIM] Allergy (Intermediate, Verified 08/21/23 12:01) RASH HPI HPI Comments History of Present Illness Details This is a pleasant 43-year-old female who returns to the office today in follow-up from her panniculectomy performed on 06/22/2023. The drain was removed at her visit last week. She reports continued intermittent lower abdominal pain described as ?cramping? occurring perhaps once every several days. She reports having bowel movements daily. She reports continuing the meal plan as outlined by Dr. Kieran maradiaga and continues antibiotics. [facility] Medical History Anemia Vaso vagal episode Anxiety Asthma Steatosis, liver PCOS (polycystic ovarian syndrome) Dental crowns present Migraines Sciatica Seizure CVA (cerebral vascular accident) Depression IBS (irritable bowel syndrome) GERD (gastroesophageal reflux disease) Hyperlipidemia Sinus tachycardia Hypertension Surgical History Hx of prior ablation treatment History of sleeve gastrectomy History of sleeve gastrectomy Hx of hemorrhoidectomy Hx of breast biopsy Hx of tubal ligation Family History Father No problems noted. Mother Cervical cancer Social History Are you a primary managed care analyst to a significant other at home: No Do you presently have visiting nurse or other home services: No Alcohol intake: never Patient Tobacco Use Status: Never used Tobacco Advance Directives Date on File: 12/24/20 service: No Current occupational status: unemployed Review of Systems Const All systems reviewed & are unremarkable except as noted in HPI and below Physical Exam Vital Signs: Last Vital Signs Temp 95.8 F L 08/21/23 12:00 Pulse 64 08/21/23 12:00 BP 134/76 08/21/23 12:00 Pulse Ox 100 08/21/23 12:00 Oxygen Delivery Method Room Air 08/21/23 12:00 GI Inspection: Yes incision (heling well) Palpation (GI): Soft to palpation and nontender Assessment & Plan Assessment & Plan (1) S/P panniculectomy: Code(s): Z98.890 - Other specified postprocedural states Plan: Continue antibiotics x1 more week (total of 2 weeks since the drain was removed) then she may stop. May begin exercising for weight loss on the treadmill using the abdominal binder with exercise and activity. Continue meal plan per Dr. Pearson. Return to the office in 2 weeks. I suspect that her intermittent abdominal discomfort is bowel related. There is no physical findings suggestive of abnormality and recent CT scan showed excess stool burden. Coding Level of Care Code Global (75474) Diagnoses S/P panniculectomy Z98.890
[2023-08-21 12:00] VITALS: BP 134/76; PULSE 64; TEMP 35.4; O2SAT 100
== END 2023-08-21 12:23 | disposition home or self-care (01) ==
PROVIDERS: PCP Physician Assistant Medical; Visit Provider Physician Assistant Surgical
DX: Z98.890 Other specified postprocedural states (principal)
CPT/HCPCS: 99024

== ENCOUNTER → 2023-08-21 11:38 | Outpatient (BNVA) | payer MEDICARE, MEDICAID, SELFPAY | PROVIDERS: PCP Physician Assistant Medical; Visit Provider Physician Assistant Surgical ==

== ENCOUNTER 2023-09-04 11:59 | Outpatient (AMB) | payer MEDICARE, SELFPAY ==
--- NOTE | 2023-09-04 12:08 | MHC.OFFVISWM ---
Intake VS Expanded 09/04/23 12:13 BP 155/83 H Blood Pressure Location Rt brachial Blood Pressure Position Sitting Pulse 72 Pulse Source Pulse Oximeter Temp 97.8 F Temperature Source Temporal Artery Scan Pulse Oximetry 100 Oxygen Delivery Method Room Air Intake Visit Reasons: (OV) PO Panniculectomy 06/22/23 *Time okay Per MB* Allergies Penicillins Allergy (Severe, Verified 09/04/23 12:13) RASH morphine Allergy (Intermediate, Verified 09/04/23 12:13) N/V, RASH, itching sulfamethoxazole [From BACTRIM] Allergy (Intermediate, Verified 09/04/23 12:13) RASH trimethoprim [From BACTRIM] Allergy (Intermediate, Verified 09/04/23 12:13) RASH HPI HPI Comments History of Present Illness Details 43-year-old female returns to the office today in follow-up. She is status post panniculectomy performed on 06/22/2023. She states that she has some intermittent left lower quadrant abdominal cramping although has been moving her bowels fairly regularly, she does state that she has been snacking on dried fruit at night which may be causing increased gas and distention. We discussed avoiding this and she will stop snacking on dried fruit, substituting for a fresh apple or half cup fresh berries. She has been using the treadmill daily for approximately 20 minutes. She continues wearing the abdominal binder. [facility] Medical History Anemia Vaso vagal episode Anxiety Asthma Steatosis, liver PCOS (polycystic ovarian syndrome) Dental crowns present Migraines Sciatica Seizure CVA (cerebral vascular accident) Depression IBS (irritable bowel syndrome) GERD (gastroesophageal reflux disease) Hyperlipidemia Sinus tachycardia Hypertension Surgical History Hx of prior ablation treatment History of sleeve gastrectomy History of sleeve gastrectomy Hx of hemorrhoidectomy Hx of breast biopsy Hx of tubal ligation Family History Father No problems noted. Mother Cervical cancer Social History Are you a primary field care advocate to a significant other at home: No Do you presently have visiting nurse or other home services: No Alcohol intake: never Patient Tobacco Use Status: Never used Tobacco Advance Directives Date on File: 12/24/20 service: No Current occupational status: unemployed Physical Exam Vital Signs: Last Vital Signs Temp 97.8 F 09/04/23 12:13 Pulse 72 09/04/23 12:13 BP 155/83 H 09/04/23 12:13 Pulse Ox 100 09/04/23 12:13 Oxygen Delivery Method Room Air 09/04/23 12:13 GI Other: All incisions healing very nicely without any evidence of dehiscence or infection. Abdomen is soft. No point tenderness. Assessment & Plan Assessment & Plan (1) S/P panniculectomy: Code(s): Z98.890 - Other specified postprocedural states Plan: Patient encouraged to follow the meal plan exactly. Increase exercise as able. May discontinue her abdominal binder 09/24/2023. Return to clinic 1 month. Stop snacking on dried fruit. Coding Level of Care Code Global (32215) Diagnoses S/P panniculectomy Z98.890
[2023-09-04 12:13] VITALS: BP 155/83; PULSE 72; TEMP 36.6; O2SAT 100
== END 2023-09-04 12:26 | disposition home or self-care (01) ==
PROVIDERS: PCP Physician Assistant Medical; Visit Provider Physician Assistant Surgical
DX: Z98.890 Other specified postprocedural states (principal)
CPT/HCPCS: 99024

== ENCOUNTER → 2023-09-04 11:59 | Outpatient (BNVA) | payer MEDICARE, SELFPAY | PROVIDERS: PCP Physician Assistant Medical; Visit Provider Physician Assistant Surgical ==

== ENCOUNTER 2023-10-02 12:28 | Outpatient (REF) | payer MEDICARE, SELFPAY ==
[2023-10-02 15:28] LABS: Appearance Urine Clear; Color Urine Yellow; Glucose Urine UA Negative (Negative); Leukocyte Esterase Urine Negative (Negative); Nitrite Urine Negative (Negative); Specific Gravity - Urine 1.015 (1.005-1.025); UMIC TRIGGER UACC YES; Urine Blood Small (1+) (Negative); Urine Ketones Negative (Negative); Urine Protein Negative (Neg-Trace)
[2023-10-02 15:38] LABS: Basophils Percent Auto 0.4 % (0-2); Eosinophils Percent Auto 0.4 % (0-4); Hematocrit 37.7 % (37.0-47.0); Hemoglobin 12.6 g/dl (12.0-16.0); Imm Gran Abs Auto 0.02 X10*3/uL (0.00-0.03); Imm Gran Pct Auto 0.4 % (0.0-0.4); Lymphocytes Absolute Auto 0.6 X10*3/uL (1.2-4.9); Lymphocytes Percent Auto 13.2 % (20-40); MANUAL DIFF FLAG SCAN; Mean Corpuscular HGB Conc 33.4 g/dl (31.0-35.0); Mean Corpuscular Hemoglobin 29.8 pg (27.0-33.0); Mean Corpuscular Volume 89.1 fL (80.0-98.0); Mean Platelet Volume 13.7 fL (9.4-12.3); Monocytes Absolute Auto 0.4 X10*3/uL (0.1-1.2); Monocytes Percent Auto 7.9 % (2-11); Neutrophils Absolute Auto 3.7 x10*3/uL (2.0-8.3); Neutrophils Percent Auto 77.7 % (45-73); Platelet Count 147 X10*3/uL (160-400); Red Blood Count 4.23 X10*6/uL (4.20-5.50); Red Cell Distribution Width 12.7 % (11.0-16.0); SCAN SMEAR FLAG 1; White Blood Count 4.8 X10*3/uL (4.8-10.8)
[2023-10-02 15:39] LABS: PLT ABN DIST 1
[2023-10-02 15:48] LABS: Alanine Aminotransferase 10 U/L (0-31); Albumin Level 4.1 g/dL (3.5-5.0); Alkaline Phosphatase 65 U/L (39-117); Anion Gap 11 (12-20); Aspartate Amino Transferase 16 U/L (5-31); Bilirubin Total 1.6 mg/dL (0.0-1.0); Blood Urea Nitrogen 14 mg/dL (9-16); Carbon Dioxide 28 mmol/L (22-29); Chloride 106 mmol/L (96-108); Estimated Glomerular Filt Rate > 60; Glucose Random 88 mg/dL (60-115); Sodium 141 mmol/L (135-145); Total Protein 6.7 g/dL (6.5-8.0)
[2023-10-02 16:14] LABS: Bacteria Urine Trace (None Seen); Hyaline Casts Urine 0-2 /LPF (0-2); RBC Urine 0-2 /HPF (0-2); WBC Urine 0-5 /HPF (0-5)
[2023-10-02 18:23] LABS: SLIDE REVIEW VERIFIED
== END 2023-10-02 12:29 | disposition home or self-care (01) ==
LOC: HO.LAB 12:28
PROVIDERS: PCP Physician Assistant Medical; Visit Provider Physician Assistant Surgical
DX: Z13.89 Encounter for screening for other disorder (principal)
CPT/HCPCS: 36415; 80053; 81001; 85025

== ENCOUNTER 2023-10-02 12:28 | Outpatient (AMB) | payer MEDICARE, MEDICAID, SELFPAY ==
--- NOTE | 2023-10-02 12:48 | A.OFFVIS_ITS ---
Intake VS Expanded 10/02/23 12:52 BP 115/72 Blood Pressure Location Lt brachial Pulse 96 Pulse Source Pulse Oximeter Temp 96.8 F Temperature Source Tympanic Pulse Oximetry 97 Oxygen Delivery Method Room Air Intake Visit Reasons: (OV) PO Panniculectomy 06/22/23 Banking Supervisor Required: No Allergies Penicillins Allergy (Severe, Verified 09/04/23 12:13) RASH morphine Allergy (Intermediate, Verified 09/04/23 12:13) N/V, RASH, itching sulfamethoxazole [From BACTRIM] Allergy (Intermediate, Verified 09/04/23 12:13) RASH trimethoprim [From BACTRIM] Allergy (Intermediate, Verified 09/04/23 12:13) RASH Medication List - Last Reconciled 10/02/23 by ARIEL Azul cholecalciferol (vitamin D3) 50 mcg PO DAILY clotrimazole 1% 1 appl topical BID docusate sodium (Colace) 100 mg PO DAILY escitalopram oxalate 1 tab PO DAILY ferrous sulfate (FeroSul) 325 mg PO DAILY lorazepam 0.5 mg PO DAILY PRN rosuvastatin 40 mg PO DAILY HPI HPI Comments History of Present Illness Details 43-year-old female returns to the office today in follow-up. She is approximately 3 months post panniculectomy performed on 06/22/2023. She also has a history of sleeve gastrectomy performed on 12/22/2020. She states that over the last 2 days she has noticed abdominal pain, she states that this did start in the periumbilical area and has migrated to the right lower quadrant. She has noticed associated chills and sweats with difficulty sleeping last night. She has had normal bowel movements although does report urinary urgency without dysuria or hematuria. She has been taking 3 shakes per day of the last 2 days but has had little appetite. She was advised to go to the emergency room for a CT scan and blood work as well as urinalysis. She states that she will go. [facility] Medical History Anemia Vaso vagal episode Anxiety Asthma Steatosis, liver PCOS (polycystic ovarian syndrome) Dental crowns present Migraines Sciatica Seizure CVA (cerebral vascular accident) Depression IBS (irritable bowel syndrome) GERD (gastroesophageal reflux disease) Hyperlipidemia Sinus tachycardia Hypertension Surgical History S/P panniculectomy Hx of prior ablation treatment History of sleeve gastrectomy History of sleeve gastrectomy Hx of hemorrhoidectomy Hx of breast biopsy Hx of tubal ligation Family History Father No problems noted. Mother Cervical cancer Social History Are you a primary group care worker to a significant other at home: No Do you presently have visiting nurse or other home services: No Alcohol intake: never Comment: pt sleeping Patient Tobacco Use Status: Never used Tobacco Advance Directives Date on File: 12/24/20 service: No Current occupational status: unemployed Physical Exam Vital Signs: Last Vital Signs Temp 96.8 F 10/02/23 12:52 Pulse 96 10/02/23 12:52 BP 115/72 10/02/23 12:52 Pulse Ox 97 10/02/23 12:52 Oxygen Delivery Method Room Air 10/02/23 12:52 Const General: healthy appearing and ill appearing Resp Effort & Inspection: normal respiratory effort Auscultation: clear to auscultation bilaterally Cardio Rate: regular rate Rhythm: regular rhythm GI Inspection: Yes normal to inspection Palpation (GI): Tenderness to palpation present (GI) in the RLQ and at McBurney's point and no guarding Extrem General: Yes normal to inspection Assessment & Plan Assessment & Plan (1) Abdominal pain, right lower quadrant: Code(s): R10.31 - Right lower quadrant pain Plan: She was advised to go to the emergency room and I called down there to give report. She texted me upon leaving the office stating that she does not think that she will stay. She was advised that she may need more urgent care given the pattern of her pain. I will order blood work and urinalysis for today. Differential diagnosis includes early appendicitis, urinary tract infection, nephrolithiasis, constipation. Orders: Orders Complete Blood Count Auto Diff Today R10.31 - Right lower quadrant pain UA CC w/rflx Micro + Cult Today R10.31 - Right lower quadrant pain Comprehensive Met. Panel Today R10.31 - Right lower quadrant pain Coding Level of Care Code Est Pt Level 4 (87541) Diagnoses Abdominal pain, right lower quadrant R10.31
[2023-10-02 12:52] VITALS: BP 115/72; PULSE 96; TEMP 36; O2SAT 97
== END 2023-10-02 13:13 | disposition home or self-care (01) ==
PROVIDERS: PCP Physician Assistant Medical; Visit Provider Physician Assistant Surgical
DX: R10.31 Right lower quadrant pain (principal)
CPT/HCPCS: 99214

== ENCOUNTER 2023-10-02 13:07 | Emergency (ER) | payer MEDICARE, MEDICAID, SELFPAY | END 2023-10-02 15:40 | disposition left against medical advice (07) | LOC: HO.ED 15:28 | PROVIDERS: Emergency Provider Emergency Medicine; PCP Physician Assistant Medical | DX: R10.9 Unspecified abdominal pain (principal) | CPT/HCPCS: 36415; 80053; 81001; 85025; 99212 ==

== ENCOUNTER 2023-10-03 09:20 | Emergency (ER) | payer MEDICARE, MEDICAID, SELFPAY ==
--- NOTE | ~2023-10-03 | CT_ITS ---
EXAMINATION: CT ANGIOGRAM OF THE CHEST WITH AND WITHOUT CONTRAST (CT PULMONARY ANGIOGRAM FOR PE) CLINICAL INFORMATION: Reason for Exam requested by bariatric surgery, sob COMPARISON: Previous chest x-ray April 2021 TECHNIQUE: Prior to contrast administration, noncontrast localization images were obtained. Subsequently, multidetector volumetric imaging was performed from the thoracic inlet to below the diaphragms following the administration of 65 mL Omnipaque 350 intravenous contrast. No contrast reaction reported Sagittal, coronal, and MIP oblique sagittal reformatted images were obtained on the CT workstation, uploaded to PACS, and reviewed. This CT examination was performed using dose optimization techniques as appropriate, variously including the following: *Automated exposure control *Adjustment of mA and/or kV according to patient size (this includes techniques or standardized protocols for targeted exams where dose is matched to indication/reason for exam; i.e. extremities or head) *Use of iterative reconstruction technique Total exam dose-length product 218 mGy-cm FINDINGS: QUALITY OF STUDY/CONTRAST BOLUS: Satisfactory. PULMONARY ARTERIES: No pulmonary emboli. THORACIC AORTA: No aneurysm. LUNG: Surgical staple line right right lower lobe nodule. Question 2 cm solid right lower lobe nodules measuring 7 mm axial image 213 and 222 series 11. Small 3 mm peripheral or subpleural left lower lobe nodules probably representing subpleural lymph nodes. PLEURA: No pleural effusion or pneumothorax. MEDIASTINUM: Normal heart size. No pericardial effusion. No hilar or mediastinal lymphadenopathy. No evidence of septal bowing or right heart strain. CORONARY ARTERY CALCIFICATION: None visualized on this study. CHEST WALL/AXILLA: No axillary or internal mammary lymphadenopathy. OSSEOUS STRUCTURES: No acute or suspicious osseous abnormality. UPPER ABDOMEN: No reflux of contrast into the hepatic veins to suggest elevated right heart pressures. CT/CT angio chest PE protocol IMPRESSION: No evidence of pulmonary embolism. VTE: negative
--- NOTE | ~2023-10-03 | CT_ITS ---
EXAMINATION: CT ABDOMEN AND PELVIS WITH CONTRAST CLINICAL INFORMATION: Bilateral lower quadrant pain COMPARISON: Previous CT of the abdomen and pelvis July 2023 TECHNIQUE: Multidetector volumetric images were obtained from the superior aspect of the liver through the pubic symphysis following administration 85 mL of Omnipaque 350 intravenous contrast. Sagittal and coronal reformatted images were obtained on the technologist's workstation. Oral contrast: Yes This CT examination was performed using dose optimization techniques as appropriate, variously including the following: *Automated exposure control *Adjustment of mA and/or kV according to patient size (this includes techniques or standardized protocols for targeted exams where dose is matched to indication/reason for exam; i.e. extremities or head) *Use of iterative reconstruction technique DLP: 430 mGy-cm FINDINGS: LIVER, GALLBLADDER, AND BILIARY TREE: The liver is normal in size, shape, and attenuation. No focal hepatic lesion or biliary ductal dilatation is present. The gallbladder is unremarkable with no evidence of radiopaque gallstones, gallbladder wall thickening, or obvious pericholecystic inflammatory changes. PANCREAS: Unremarkable. SPLEEN: Unremarkable. ADRENAL GLANDS: Unremarkable. KIDNEYS AND URETERS: The kidneys are normal in size, shape, and attenuation. . 3 mm stone in the mid left kidney. Question small 1 mm size stones in the right kidney. No hydronephrosis. Small subcentimeter left renal cyst. No imaging follow-up recommended. BLADDER: Unremarkable. GASTROINTESTINAL TRACT: Postsurgical changes from gastric sleeve. No fluid collection or free air. The small and large bowel are unremarkable. The appendix is unremarkable. ABDOMINAL WALL: Postsurgical changes to the anterior abdominal wall. No hernia or fluid collection. LYMPH NODES: Normal. VASCULAR: Duplicated IVC. PELVIC VISCERA: Unremarkable. OSSEOUS STRUCTURES: Unremarkable. CT/CT abdomen pelvis w IV con IMPRESSION: 3 mm left renal stone and question small millimeter right lower pole renal stones. Postsurgical changes from gastric bypass. Fleischner guidelines were followed.
[2023-10-03 10:16] VITALS: BP 148/95; PULSE 72; RESP 18; TEMP 36.1; O2SAT 98; BMI 26.9
[2023-10-03 10:37] LABS: MANUAL DIFF FLAG NO
[2023-10-03 10:38] LABS: Basophils Percent Auto 0.4 % (0-2); Eosinophils Absolute Auto 0.1 X10*3/uL (0.0-0.4); Hematocrit 38.3 % (37.0-47.0); Hemoglobin 12.7 g/dl (12.0-16.0); Lymphocytes Percent Auto 40.1 % (20-40); Mean Corpuscular HGB Conc 33.2 g/dl (31.0-35.0); Mean Corpuscular Hemoglobin 29.7 pg (27.0-33.0); Mean Corpuscular Volume 89.5 fL (80.0-98.0); Mean Platelet Volume 12.6 fL (9.4-12.3); Monocytes Absolute Auto 0.4 X10*3/uL (0.1-1.2); Monocytes Percent Auto 16.3 % (2-11); Neutrophils Percent Auto 41.2 % (45-73); Platelet Count 154 X10*3/uL (160-400); Red Blood Count 4.28 X10*6/uL (4.20-5.50)
[2023-10-03 10:40] LABS: Appearance Urine Clear; Color Urine Yellow; Glucose Urine UA Negative (Negative); Leukocyte Esterase Urine Negative (Negative); Nitrite Urine Negative (Negative); PH 5.5 (5.0-9.0); Specific Gravity - Urine <= 1.005 (1.005-1.025); Urine Blood Negative (Negative); Urine Ketones Negative (Negative); Urine Protein Negative (Neg-Trace)
[2023-10-03 10:41] LABS: UPreg QC Valid YES; Urine Pregnancy NEGATIVE (NEGATIVE); White Blood Count 2.5 X10*3/uL (4.8-10.8)
[2023-10-03 10:54] LABS: Alanine Aminotransferase 11 U/L (0-31); Albumin Level 4.1 g/dL (3.5-5.0); Alkaline Phosphatase 63 U/L (39-117); Anion Gap 12 (12-20); Aspartate Amino Transferase 20 U/L (5-31); Bilirubin Total 1.1 mg/dL (0.0-1.0); Blood Urea Nitrogen 10 mg/dL (9-16); Calcium 9.1 mg/dL (8.4-10.2); Carbon Dioxide 29 mmol/L (22-29); Chloride 106 mmol/L (96-108); Creatinine Clr Calc Pharmacy 92.6; Estimated Glomerular Filt Rate > 60; Glucose Random 96 mg/dL (60-115); Potassium 3.5 mmol/L (3.3-5.1); Sodium 143 mmol/L (135-145); Total Protein 7.2 g/dL (6.5-8.0)
[2023-10-03 13:06] VITALS: BP 133/76; PULSE 66; RESP 18; TEMP 37; O2SAT 99
--- NOTE | 2023-10-03 13:29 | ED.GENADULT ---
HPI - General Adult General Chief complaint: General Medical Stated complaint: LLQ pain SOB Time Seen by Provider: 10/03/23 13:09 Source: patient Mode of arrival: ambulatory Limitations: no limitations History of Present Illness HPI narrative: Comes to the emergency room complaining of bilateral lower quadrant pain for 2 months. Patient states that over the last 3 days, it has been constant and worse than before. Patient had surgery, panniculectomy on 06/22/2023. Patient states she has no complications from her surgeries. Patient denies nausea vomiting or diarrhea, no fever or chills, no URI or UTI symptoms. Patient states that yesterday she had an asthma exacerbation. Today, patient is breathing comfortably. Related Data Home Medications Medication Instructions Recorded Confirmed lorazepam 0.5 mg tablet 0.5 mg PO DAILY PRN Anxiety 07/15/20 10/02/23 escitalopram oxalate 10 mg tablet 1 tab PO DAILY 12/10/20 10/02/23 ferrous sulfate 325 mg (65 mg 325 mg PO DAILY 01/23/23 10/02/23 iron) tablet (FeroSul) Previous Rx's Medication Instructions Recorded rosuvastatin 40 mg tablet 40 mg PO DAILY #90 tabs 01/06/22 cholecalciferol (vitamin D3) 50 50 mcg PO DAILY #90 caps 10/31/22 mcg (2,000 unit) capsule clotrimazole 1 % topical cream 1 appl topical BID #45 grams 02/27/23 docusate sodium 100 mg capsule 100 mg PO DAILY #30 caps 06/05/23 (Colace) Allergies Allergy/AdvReac Type Severity Reaction Status Date / Time Penicillins Allergy Severe RASH Verified 09/04/23 12:13 morphine Allergy Intermediate N/V, RASH, Verified 09/04/23 12:13 itching sulfamethoxazole Allergy Intermediate RASH Verified 09/04/23 12:13 [From BACTRIM] trimethoprim [From BACTRIM] Allergy Intermediate RASH Verified 09/04/23 12:13 Review of Systems Review of Systems: Constitutional : No Weight loss, No Fever, No Chills, No Night Sweats, No Fatigue, No Malaise ENT/Mouth : No Hearing loss, No Ear Pain, No Nasal Congestion, No Sinus Pain, No Hoarseness, No sore throat, No Rhinorrhea, No Swallowing Difficulty Eyes: No Eye Pain, No Swelling, No Redness, No Foreign Body, No Discharge, No Vision Changes Cardiovascular : No Chest Pain, No SOB, No Dyspnea on Exertion, No Orthopnea, No Edema, No Palpitations Respiratory : Asthma exacerbation yesterday but resolved today, No Cough, No Sputum, No Wheezing, No Smoke Exposure, No Dyspnea Gastrointestinal : No Nausea, No Vomiting, No Diarrhea, No Constipation, complaining of bilateral lower quadrant pain Genitourinary : no irregular bleeding, No Dysuria, No Urinary Frequency, No Hematuria, No Urinary Incontinence, No Urgency, No Flank Pain, No Urinary Flow Changes, No Hesitancy Musculoskeletal : No joint pain, No Myalgias, No Joint Swelling Skin : No Skin Lesions, No rash Neuro : No Weakness, No Numbness, No Paresthesias, No Loss of Consciousness, No Dizziness, No Headache Psych : No Anxiety/Panic, No Depression, No SI/HI/AH/VH, No Social Issues, Heme/Lymph: No Bruising, No Bleeding,No Lymphadenopathy Endocrine : No Polyuria, No Polydipsia, No Temperature Intolerance PMFSH Past Medical History Medical History Anemia Vaso vagal episode Anxiety Asthma Steatosis, liver PCOS (polycystic ovarian syndrome) Dental crowns present Migraines Sciatica Seizure CVA (cerebral vascular accident) Depression IBS (irritable bowel syndrome) GERD (gastroesophageal reflux disease) Hyperlipidemia Sinus tachycardia Hypertension Surgical History S/P panniculectomy Hx of prior ablation treatment History of sleeve gastrectomy History of sleeve gastrectomy Hx of hemorrhoidectomy Hx of breast biopsy Hx of tubal ligation Family History Family History Father No problems noted. Mother Cervical cancer Social History Social History Are you a primary workforce investment act career manager to a significant other at home: No Do you presently have visiting nurse or other home services: No Alcohol intake: never Comment: pt sleeping Patient Tobacco Use Status: Never used Tobacco Advance Directives: Yes Advance Directives on File: Yes Advance Directives Date on File: 12/24/20 service: No Current occupational status: unemployed Physical Exam ED Vital Signs: Vital Signs - 24 hr 10/03/23 10:16 10/03/23 13:06 10/03/23 14:52 Temperature 97.0 F 98.6 F 98.4 F Pulse Rate 72 66 68 Respiratory Rate 18 18 18 Blood Pressure 148/95 H 133/76 128/82 Pulse Oximetry 98 99 100 Oxygen Delivery Method Room Air Room Air Room Air 10/03/23 17:18 Temperature 98.7 F Pulse Rate 62 Respiratory Rate 15 Blood Pressure 128/75 Pulse Oximetry 100 Oxygen Delivery Method Room Air BMI result Body Mass Index 26.9 Const Other: Appearance: Alert. Oriented X3. No acute distress. Comfortable, using her phone Eyes: Pupils equal, round and reactive to light. ENT: Pharynx normal. Neck: Normal inspection. Neck supple. No lymph nodes noted. No crepitus CVS: Normal heart rate and rhythm. Pulses normal. Normal S1 and S2 Respiratory: No respiratory distress. Breath sounds normal. No Wheezing. No rales Abdomen: Soft and nontender. No rigidity. No distention. Skin: Skin warm and dry. Normal skin color. Normal skin turgor. Well-healed panniculectomy incision, no drainage, no signs of cellulitis, no rebound, no guarding Extremities: No lower extremity edema. No Lacerations. No Rash Neuro: Oriented X 3. No motor deficit. No sensory deficit. Moving all extremities. No slurred speech. CN 2 through 12 grossly intact Psych: calm, cooperative, normal affect Course Course Course Narrative: My interpretation of labs: Normal hematology, normal chemistry, LFTs within normal limits -CT scan of the abdomen pending. Bariatric surgery requested a CTA. At this time, patient is asymptomatic Medications Administered Discontinued Medications Generic Name Dose Route Start Last Admin Trade Name Freq PRN Reason Stop Dose Admin Iohexol 100 ml 10/03/23 15:59 10/03/23 15:59 Iohexol 350 Mg/Ml 100 Ml Infus..Btl IV 10/03/23 16:00 85 ml ONCE ONE Administration Medical Decision Making Medical Decision Making [facility] Narrative: -my interpretation of labs: Hematology and chemistry at baseline -my interpretation of CTA: No obvious pulmonary embolism -interpretation of CT scan of the abdomen, surgical changes from gastric sleeve present, no SBO, no obvious abnormality -I discussed the patient with AP on-call for bariatric surgery, okay for patient to be discharged home, patient to follow-up with her primary care physician. -discussed the above-mentioned with the patient, also there is a 3 mm stone in the left kidney, unlikely to be causing patient's symptoms. Patient agrees with plan Differential Diagnosis Differential Diagnoses: The differential diagnosis associated with the presentation includes (Panniculitis, SBO, appendicitis, diverticulitis) Admission/Observation Consideration of admission/observation: Escalation of care including admission/observation considered (Given patient's recent history and concerns of the bariatric surgery team, admission was concerned) Lab Data MDM Lab Attestation statement: I reviewed the patient's lab results. 10/03/23 10:31 10/03/23 10:31 Labs: Lab Results 10/03/23 Range/Units 10:31 WBC 2.5 L (4.8-10.8) X10*3/uL RBC 4.28 (4.20-5.50) X10*6/uL Hgb 12.7 (12.0-16.0) g/dl Hct 38.3 (37.0-47.0) % MCV 89.5 (80.0-98.0) fL MCH 29.7 (27.0-33.0) pg MCHC 33.2 (31.0-35.0) g/dl RDW 13.0 (11.0-16.0) % Plt Count 154 L (160-400) X10*3/uL MPV 12.6 H (9.4-12.3) fL Immature Gran % (Auto) 0.0 (0.0-0.4) % Neut % (Auto) 41.2 L (45-73) % Lymph % (Auto) 40.1 H (20-40) % Metcalfe % (Auto) 16.3 H (2-11) % Eos % (Auto) 2.0 (0-4) % Baso % (Auto) 0.4 (0-2) % Lymph # (Auto) 1.0 L (1.2-4.9) X10*3/uL Metcalfe # (Auto) 0.4 (0.1-1.2) X10*3/uL Eos # (Auto) 0.1 (0.0-0.4) X10*3/uL Baso # (Auto) 0.0 (0.0-0.2) X10*3/uL Abs Immat Gran (auto) 0.00 (0.00-0.03) X10*3/uL Absolute Neuts (auto) 1.0 L (2.0-8.3) x10*3/uL Absolute Nucleated RBC 0.000 (0.0-0.012) X10*3/uL Nucleated RBC % (auto) 0.0 (0.0-0.2) /100WBC Sodium 143 (135-145) mmol/L Potassium 3.5 (3.3-5.1) mmol/L Chloride 106 (96-108) mmol/L Carbon Dioxide 29 (22-29) mmol/L Anion Gap 12 (12-20) BUN 10 (9-16) mg/dL Creatinine 0.66 (0.5-1.4) mg/dL Estim Creat Clear Calc 92.6 Estimated GFR > 60 Random Glucose 96 (60-115) mg/dL Calcium 9.1 (8.4-10.2) mg/dL Total Bilirubin 1.1 H (0.0-1.0) mg/dL AST 20 (5-31) U/L ALT 11 (0-31) U/L Alkaline Phosphatase 63 (39-117) U/L Total Protein 7.2 (6.5-8.0) g/dL Albumin 4.1 (3.5-5.0) g/dL Lipase 20 (8-78) U/L Urine Color Yellow Urine Appearance Clear Urine pH 5.5 (5.0-9.0) Ur Specific Rentz <= 1.005 (1.005-1.025) Urine Protein Negative (Neg-Trace) mg/dL Urine Glucose (UA) Negative (Negative) mg/dL Urine Ketones Negative (Negative) mg/dL Urine Blood Negative (Negative) Urine Nitrite Negative (Negative) Ur Leukocyte Esterase Negative (Negative) Urine Test NEGATIVE (NEGATIVE) Independent Interpretation I performed an independent interpretation of an: CT Scan Radiology Impression Discussion of test interpretation with radiology: I have reviewed the radiologist's reading. Radiologist Impression: FINDINGS: LIVER, GALLBLADDER, AND BILIARY TREE: The liver is normal in size, shape, and attenuation. No focal hepatic lesion or biliary ductal dilatation is present. The gallbladder is unremarkable with no evidence of radiopaque gallstones, gallbladder wall thickening, or obvious pericholecystic inflammatory changes. PANCREAS: Unremarkable. SPLEEN: Unremarkable. ADRENAL GLANDS: Unremarkable. KIDNEYS AND URETERS: The kidneys are normal in size, shape, and attenuation. . 3 mm stone in the mid left kidney. Question small 1 mm size stones in the right kidney. No hydronephrosis. Small subcentimeter left renal cyst. No imaging follow-up recommended. BLADDER: Unremarkable. GASTROINTESTINAL TRACT: Postsurgical changes from gastric sleeve. No fluid collection or free air. The small and large bowel are unremarkable. The appendix is unremarkable. ABDOMINAL WALL: Postsurgical changes to the anterior abdominal wall. No hernia or fluid collection. LYMPH NODES: Normal. VASCULAR: Duplicated IVC. PELVIC VISCERA: Unremarkable. OSSEOUS STRUCTURES: Unremarkable. CT/CT abdomen pelvis w IV con IMPRESSION: 3 mm left renal stone and question small millimeter right lower pole renal stones. Postsurgical changes from gastric bypass. IMPRESSION: No evidence of pulmonary embolism. VTE: negative External Record Review External record reviewed: Office record (Bariatric surgery) Discharge Plan Discharge Clinical Impression: Abdominal pain Patient Disposition: Home, Self-Care Instructions: Abdominal Pain (ED) Additional Instructions: Please follow-up with your primary care physician tomorrow. If you have any worsening or new symptoms, please return to the emergency room or call 911 Prescriptions: No Action rosuvastatin 40 mg tablet 40 mg PO DAILY Qty: 90 3RF Rx Instructions: lab work 11/2021 escitalopram oxalate 10 mg tablet 1 tab PO DAILY lorazepam 0.5 mg tablet 0.5 mg PO DAILY PRN (Reason: Anxiety) clotrimazole 1 % cream 1 appl topical BID Qty: 45 3RF ferrous sulfate [FeroSul] 325 mg (65 mg iron) tablet 325 mg PO DAILY cholecalciferol (vitamin D3) 50 mcg (2,000 unit) capsule 50 mcg PO DAILY Qty: 90 3RF docusate sodium [Colace] 100 mg capsule 100 mg PO DAILY Qty: 30 2RF
[2023-10-03 14:25] LABS: Lipase 20 U/L (8-78)
[2023-10-03 14:52] VITALS: BP 128/82; PULSE 68; RESP 18; TEMP 36.9; O2SAT 100
[2023-10-03] MEDS: iohexoL 350 MG/ML 100 ML INFUS..BTL IV (15:59)
[2023-10-03 17:18] VITALS: BP 128/75; PULSE 62; RESP 15; TEMP 37.1; O2SAT 100
== END 2023-10-03 19:04 | disposition home or self-care (01) ==
PROVIDERS: Emergency Provider Emergency Medicine; PCP Physician Assistant Medical
DX: R10.32 Left lower quadrant pain (principal); R06.02 Shortness of breath; Z79.899 Other long term (current) drug therapy
CPT/HCPCS: 36415; 71275; 74177; 80053; 81003; 81025; 83690; 85025; 99283; 99284; Q9967

== ENCOUNTER 2023-10-12 11:50 | Outpatient (REF) | payer MEDICARE, MEDICAID, SELFPAY ==
[2023-10-12] MEDS: Barium Sulfate Oral (Mocha) 450 ML ORAL.SUSP 900 ML PO (14:41)
[2023-10-12] MEDS: iohexoL 350 MG/ML 100 ML INFUS..BTL IV (14:41)
== END 2023-10-12 11:51 | disposition home or self-care (01) ==
LOC: HO.CT 11:50
PROVIDERS: Visit Provider Physician Assistant Surgical
DX: R10.9 Unspecified abdominal pain (principal)
CPT/HCPCS: 74177; Q9967

== ENCOUNTER 2023-11-17 12:40 | Outpatient (AMB) | payer MEDICAID, SELFPAY ==
--- NOTE | 2023-11-17 12:49 | A.OFFVIS_ITS ---
Intake VS Expanded 11/17/23 12:53 BP 136/61 Blood Pressure Location Rt brachial Blood Pressure Position Sitting Pulse 78 Pulse Source Pulse Oximeter Temp 96.4 F L Temperature Source Tympanic Pulse Oximetry 100 Oxygen Delivery Method Room Air Intake Visit Reasons: (OV) PO Panniculectomy 06/22/23 Company Dancer Required: No Allergies Penicillins Allergy (Severe, Verified 11/17/23 12:54) RASH morphine Allergy (Intermediate, Verified 11/17/23 12:54) N/V, RASH, itching sulfamethoxazole [From BACTRIM] Allergy (Intermediate, Verified 11/17/23 12:54) RASH trimethoprim [From BACTRIM] Allergy (Intermediate, Verified 11/17/23 12:54) RASH Medication List - Last Reconciled 11/17/23 by ARIEL Azul cholecalciferol (vitamin D3) 50 mcg PO DAILY clotrimazole 1% 1 appl topical BID docusate sodium (Colace) 100 mg PO DAILY escitalopram oxalate 1 tab PO DAILY ferrous sulfate (FeroSul) 325 mg PO DAILY lorazepam 0.5 mg PO DAILY PRN rosuvastatin 40 mg PO DAILY HPI HPI Comments History of Present Illness Details Patient is a pleasant 43-year-old female who returns to the office today in follow-up. She is approximately 4.5 months post panniculectomy performed on 06/22/2023. She had been having problems with abdominal pain, CT scan without evidence of significant abnormality but heavy stool burden consistent with constipation. She is also 2 years 11 months post laparoscopic sleeve gastrectomy with hiatal hernia repair performed on 12/22/2020. She does complain of intermittent mild suprapubic tenderness. She reports sometimes straining to move her bowels although denies hard stools. She continues with meal plan as outlined by Dr. Pearson. [facility] Medical History Anemia Vaso vagal episode Anxiety Asthma Steatosis, liver PCOS (polycystic ovarian syndrome) Dental crowns present Migraines Sciatica Seizure CVA (cerebral vascular accident) Depression IBS (irritable bowel syndrome) GERD (gastroesophageal reflux disease) Hyperlipidemia Sinus tachycardia Hypertension Surgical History S/P panniculectomy Hx of prior ablation treatment History of sleeve gastrectomy History of sleeve gastrectomy Hx of hemorrhoidectomy Hx of breast biopsy Hx of tubal ligation Family History Father No problems noted. Mother Cervical cancer Social History Are you a primary health care marketing specialist to a significant other at home: No Do you presently have visiting nurse or other home services: No Alcohol intake: never Comment: pt sleeping Patient Tobacco Use Status: Never used Tobacco Advance Directives Date on File: 12/24/20 service: No Current occupational status: unemployed Physical Exam Vital Signs: Last Vital Signs Temp 96.4 F L 11/17/23 12:53 Pulse 78 11/17/23 12:53 BP 136/61 11/17/23 12:53 Pulse Ox 100 11/17/23 12:53 Oxygen Delivery Method Room Air 11/17/23 12:53 GI Inspection: Yes normal to inspection and Yes incision (Transverse incision and umbilicus has healed nicely.) Palpation (GI): Soft to palpation and nontender Assessment & Plan Assessment & Plan (1) S/P panniculectomy: Comment: 06/22/23 Code(s): Z98.890 - Other specified postprocedural states Plan: Patient was reassured that there is no identifiable abnormality based on CT scan findings and that her intermittent suprapubic discomfort is likely constipation related. Suggested adding fiber gummy daily. She may continue to exercise freely without restriction. We will have her return to the office in approximately 5 weeks for her 3 year follow-up from her sleeve gastrectomy. Coding Level of Care Code Est Pt Level 3 (30264) Diagnoses S/P panniculectomy Z98.890
[2023-11-17 12:53] VITALS: BP 136/61; PULSE 78; TEMP 35.8; O2SAT 100
== END 2023-11-17 13:13 | disposition home or self-care (01) ==
PROVIDERS: PCP Physician Assistant Medical; Visit Provider Physician Assistant Surgical
DX: E66.3 Overweight (principal); Z68.28 Body mass index [BMI] 28.0-28.9, adult; Z90.3 Acquired absence of stomach [part of]; Z98.84 Bariatric surgery status
CPT/HCPCS: 99213

== ENCOUNTER → 2023-11-17 12:40 | Outpatient (BNVA) | payer MEDICARE, MEDICAID, SELFPAY | PROVIDERS: PCP Physician Assistant Medical; Visit Provider Physician Assistant Surgical | DX: Z98.890 Other specified postprocedural states (principal) | CPT/HCPCS: 99212 ==

== ENCOUNTER 2023-12-11 10:12 | Outpatient (AMB) | payer MEDICARE, MEDICAID, SELFPAY ==
[2023-12-11 10:23] VITALS: BP 120/82; PULSE 74; BMI 26.7
--- NOTE | 2023-12-11 10:23 | A.OFFVIS_ITS ---
Intake Vital Signs 12/11/23 10:23 Height 5 ft 1 in Weight 141 lb 8.588 oz BMI 26.7 BP 120/82 Blood Pressure Location Rt brachial Position Sitting Pulse 74 Pulse Source Pulse Oximeter Intake Visit Reasons: 4M follow up Pharmacy Ancillary Required: No Allergies Penicillins Allergy (Severe, Verified 12/11/23 10:26) RASH morphine Allergy (Intermediate, Verified 12/11/23 10:26) N/V, RASH, itching sulfamethoxazole [From BACTRIM] Allergy (Intermediate, Verified 12/11/23 10:26) RASH trimethoprim [From BACTRIM] Allergy (Intermediate, Verified 12/11/23 10:26) RASH Medication List - Last Reconciled 12/11/23 by Chelsi Canseco, LEASE ANALYST-C cholecalciferol (vitamin D3) 50 mcg PO DAILY clotrimazole 1% 1 appl topical BID docusate sodium (Colace) 100 mg PO DAILY escitalopram oxalate 1 tab PO DAILY ferrous sulfate (FeroSul) 325 mg PO DAILY lorazepam 0.5 mg PO DAILY PRN rosuvastatin 40 mg PO DAILY HPI 4M follow up HPI Details Zeny is a 43-year-old female with past medical history of hypertension, hyperlipidemia, obesity status post bariatric surgery, inappropriate sinus tach, CVA, vasovagal syncope who presents for follow-up. Today she states she has been doing well since her last visit in July. She has had no recurrent presyncope and no syncope events. She has occasional heart palpitations which are not bothersome to her. No chest discomfort at rest or with activity. No shortness of breath, PND, orthopnea or edema. She reports good activity tolerance. She is leaving for vacation to [place] tomorrow. [facility] Medical History Anemia Vaso vagal episode Anxiety Asthma Steatosis, liver PCOS (polycystic ovarian syndrome) Dental crowns present Migraines Sciatica Seizure CVA (cerebral vascular accident) Depression IBS (irritable bowel syndrome) GERD (gastroesophageal reflux disease) Hyperlipidemia Sinus tachycardia Hypertension Surgical History S/P panniculectomy Hx of prior ablation treatment History of sleeve gastrectomy History of sleeve gastrectomy Hx of hemorrhoidectomy Hx of breast biopsy Hx of tubal ligation Family History Father No problems noted. Mother Cervical cancer Social History Are you a primary care taker to a significant other at home: No Do you presently have visiting nurse or other home services: No Alcohol intake: never Comment: pt sleeping Patient Tobacco Use Status: Never used Tobacco Advance Directives Date on File: 12/24/20 service: No Current occupational status: unemployed Review of Systems Const All systems reviewed & are unremarkable except as noted in HPI and below ENT Denies dizziness Card Denies chest pain, Denies chest pain at rest, Denies chest pain with activity, Denies rapid heart rate, Denies pedal edema, Denies edema, Denies leg edema, Denies lightheadedness, Denies palpitations, Denies dyspnea, Denies dyspnea on exertion and Denies orthopnea Resp Denies cough, Denies dyspnea and Denies dyspnea on exertion GI Denies hematochezia and Denies change in stool character Musc Denies abnormal gait, Denies limited range of motion, Denies muscle cramps, Denies muscle weakness, Denies numbness, Denies radiating pain into limb, Denies stiffness and Denies tingling Neuro Denies abnormal gait, Denies dizziness, Denies numbness and Denies tingling Endo Denies palpitations Physical Exam Vital Signs: Last Vital Signs Pulse 74 12/11/23 10:23 BP 120/82 12/11/23 10:23 BMI result Body Mass Index 26.7 Const General: cooperative, healthy appearing, comfortable and no acute distress Orientation/consciousness: patient oriented x3 Eyes Sclerae: sclerae normal Neck Neck: Yes normal visual inspection Resp Effort & Inspection: normal respiratory effort Auscultation: clear to auscultation bilaterally, no crackles, no rales, no rhonchi and no wheezes Cardio Jugular venous distension: no JVD Rate: regular rate Rhythm: regular rhythm Heart sounds: S1 normal heart sound present, S2 normal heart sound present, no murmurs and no rubs Skin General skin exam: no rashes or lesions noted Neuro General: patient oriented x3 Extrem General: Yes normal to inspection Psych Appearance: grossly normal Mental Status: mental status grossly normal Speech and movement: Normal speech and movement present Assessment & Plan Assessment & Plan (1) Vasovagal syncope: Code(s): R55 - Syncope and collapse Plan: Syncopal event which occurred in the setting of abdominal discomfort. She was evaluated at [facility] following that event. EKG showed sinus rhythm with nonspecific ST changes. A CT scan of the head and echocardiogram were both non revealing. Her event was thought to be vasovagal. Cardiac event monitor done on 05/24/2023 for 30 days showing sinus rhythm with heart rate range 64 to 104, no significant arrhythmia. A tilt-table test was performed on 06/13/2023 which confirmed vasovagal syncope. Between March and July she describes 2 episodes of presyncope that occurred when sitting on the toilet for bowel movement, having abdominal discomfort. No presyncope or syncope has occurred in any other setting. No recurrent events since July. Reviewed increasing her fluid intake, use compression stockings, recognize symptoms and lay down whenever symptoms occur. Cardiology follow-up 6 months, sooner if needed. (2) CVA (cerebral vascular accident): Comment: at age 24, right sided weakness, loss of peripheral vision on right Unknown etiology Code(s): I63.9 - Cerebral infarction, unspecified Plan: History of CVA with infarct of the occipital lobe. She is maintained on low- dose aspirin. Also on statin therapy with target LDL goal less than 70. On last visit she thought her rosuvastatin was giving her a headache. Now she tells me her headache has resolved and she has been able to take rosuvastatin without concerning symptoms. Labs done 06/12/2023 shows LDL 78. (3) Hypertension: Code(s): I10 - Essential (primary) hypertension Plan: Adequately controlled at present. No med changes made (4) Hyperlipidemia: Code(s): E78.5 - Hyperlipidemia, unspecified Plan: As above (5) Sinus tachycardia: Code(s): R00.0 - Tachycardia, unspecified Plan: History of inappropriate sinus tachycardia. Recent cardiac event monitor as above. Sinus tachycardia/palpitations have not been an issue recently. Plan Time spent on chart review, documentation, interview and assessment Coding Level of Care Code Est Pt Level 3 (05247) Diagnoses Vasovagal syncope R55 CVA (cerebral vascular accident) I63.9 Hypertension I10 Hyperlipidemia E78.5 Sinus tachycardia R00.0 Time Spent (min) 24
== END 2023-12-11 10:51 | disposition home or self-care (01) ==
PROVIDERS: PCP Physician Assistant Medical; Visit Provider Nurse Practitioner Family
DX: R55 Syncope and collapse (principal); I63.9 Cerebral infarction, unspecified; I10 Essential (primary) hypertension; E78.5 Hyperlipidemia, unspecified; R00.0 Tachycardia, unspecified
CPT/HCPCS: 99213

== ENCOUNTER → 2023-12-11 10:12 | Outpatient (BNVA) | payer MEDICARE, MEDICAID, SELFPAY | PROVIDERS: PCP Physician Assistant Medical; Visit Provider Nurse Practitioner Family | DX: R55 Syncope and collapse (principal); I10 Essential (primary) hypertension; E78.5 Hyperlipidemia, unspecified; R00.0 Tachycardia, unspecified; Z86.73 Personal history of transient ischemic attack (TIA), and cerebral infarction without residual deficits | CPT/HCPCS: 99212 ==

== ENCOUNTER 2024-02-02 11:49 | Outpatient (REF) | payer MEDICARE, MEDICAID, SELFPAY ==
[2024-02-02 12:33] LABS: Hematocrit 37.4 % (37.0-47.0); Hemoglobin 12.8 g/dl (12.0-16.0); Mean Corpuscular HGB Conc 34.2 g/dl (31.0-35.0); Mean Corpuscular Volume 87.8 fL (80.0-98.0); Mean Platelet Volume 13.1 fL (9.4-12.3); Platelet Count 168 X10*3/uL (160-400); Red Blood Count 4.26 X10*6/uL (4.20-5.50); Red Cell Distribution Width 13.2 % (11.0-16.0); WBC ABN SCTR FOR CBC 1; White Blood Count 4.3 X10*3/uL (4.8-10.8)
[2024-02-02 13:54] LABS: Band Neutrophils Percent 0 % (3-5); Eosinophils Absolute Manual 0.1 X10*3/uL (0.0-0.4); Eosinophils Percent Manual 3 % (0-4); Lymphocytes Absolute Manual 1.2 X10*3/uL (1.2-4.9); Lymphocytes Percent Manual 28 % (20-40); Monocytes Absolute Manual 0.2 X10*3/uL (0.1-1.2); Monocytes Percent Manual 5 % (2-11); Neutrophils Absolute Manual 2.8 X10*3/uL (2.0-8.3); Neutrophils Percent Manual 64 % (45-73)
[2024-02-02 13:55] LABS: Platelet Estimate NORMAL (NORMAL); Platelet Morphology Comment NORMAL; RBC Morphology NORMAL
[2024-02-02 15:28] LABS: Estimated Average Glucose 91 mg/dL; Hemoglobin A1c % 4.8 % (<6.0)
[2024-02-02 17:22] LABS: Anion Gap 8 (12-20); Blood Urea Nitrogen 10 mg/dL (9-16); C Reactive Protein < 0.10 mg/dL (< or = 0.50); Calcium 8.5 mg/dL (8.4-10.2); Carbon Dioxide 30 mmol/L (22-29); Chloride 107 mmol/L (96-108); Cholesterol 255 mg/dL (<200); Estimated Glomerular Filt Rate > 60; Ferritin 12 ng/mL (10-250); Glucose Random 84 mg/dL (60-115); HDL Cholesterol 71 mg/dL (>40); Insulin 6 uU/mL (2-29); Iron 146 mcg/dL (30-160); LDL Cholesterol Calculated 161 mg/dL (<100); Percent Iron Saturation 48 % (15-50); Potassium 3.6 mmol/L (3.3-5.1); Sodium 141 mmol/L (135-145); TSH reflex Free T4 0.85 uIU/mL (0.32-4.0); Total Iron Binding Capacity 302 mcg/dL (228-428); Triglycerides 115 mg/dL (<150); Unsaturated Iron Binding 156 ug/dL; Vitamin D 25-OH Total 36.1 ng/mL (>30)
[2024-02-02 20:13] LABS: Folate 13.2 ng/mL (> or = 4.0)
[2024-02-04 00:38] LABS: Vitamin B12 921 pg/mL (200-900)
[2024-02-06 06:14] LABS: Vitamin A 34 mcg/dL (38-98)
[2024-02-06 06:44] LABS: Zinc 61 mcg/dL (60-130)
[2024-02-07 14:38] LABS: Vitamin B1 10 nmol/L (8-30)
== END 2024-02-02 11:50 | disposition home or self-care (01) ==
LOC: HO.LAB 11:49
PROVIDERS: Visit Provider Physician Assistant Surgical
DX: E66.3 Overweight (principal); E55.9 Vitamin D deficiency, unspecified; K76.0 Fatty (change of) liver, not elsewhere classified; K58.9 Irritable bowel syndrome, unspecified; E78.5 Hyperlipidemia, unspecified; I10 Essential (primary) hypertension
CPT/HCPCS: 36415; 80048; 80061; 82306; 82607; 82728; 82746; 83036; 83525; 83540; 84425; 84443; 84590; 84630; 85007; 85027; 86140

== ENCOUNTER 2024-02-21 07:04 | Day surgery (SDC) | payer MEDICARE, MEDICAID, SELFPAY ==
--- NOTE | 2024-02-19 14:43 | P.CONAN_ITS ---
Documented by User: Joleen Mcmullen NP 02/19/24 14:44 HPI - Anesthesia Eval Consult details Narrative: 43yo F for Upper Endoscopy PMFSH Active Problems Active Problems: All Active Problems Abdominal pain, right lower quadrant (Acute) S/P panniculectomy (Acute) Vasovagal syncope (Acute) Postgastrectomy malabsorption (Acute) Excess skin (Acute) Syncope (Acute) Overweight (Acute) Biliary colic (Acute) Abdominal pain (Acute) BMI 31.0-31.9,adult (Acute) Constipation (Acute) COVID-19 (Acute) BMI 33.0-33.9,adult (Acute) Sleep apnea with use of continuous positive airway pressure (CPAP) (Acute) S/P laparoscopic sleeve gastrectomy (Acute) Diaphragmatic hernia (Acute) Preop cardiovascular exam (Acute) BMI over 35 (Acute) BMI over 35 (Acute) BMI 34.0-34.9,adult (Acute) Vitamin D deficiency (Acute) BMI 35.0-35.9,adult (Acute) Obesity (Acute) Steatosis, liver (Acute) CVA (cerebral vascular accident) (Acute) PCOS (polycystic ovarian syndrome) (Acute) Migraines (Acute) Sciatica (Acute) Depression (Acute) IBS (irritable bowel syndrome) (Acute) GERD (gastroesophageal reflux disease) (Acute) Hyperlipidemia (Acute) Sinus tachycardia (Acute) Hypertension (Acute) Past Medical History Medical History Anemia Vaso vagal episode Anxiety Asthma Steatosis, liver PCOS (polycystic ovarian syndrome) Dental crowns present Migraines Sciatica Seizure CVA (cerebral vascular accident) Depression IBS (irritable bowel syndrome) GERD (gastroesophageal reflux disease) Hyperlipidemia Sinus tachycardia Hypertension Family History Family History Father No problems noted. Mother Cervical cancer Family history of problems with anesthesia: No Surgical History Surgical History S/P panniculectomy Hx of prior ablation treatment History of sleeve gastrectomy History of sleeve gastrectomy Hx of hemorrhoidectomy Hx of breast biopsy Hx of tubal ligation History of Problems with Anesthesia: No Social History Social History Are you a primary out of school hours care worker to a significant other at home: No Do you presently have visiting nurse or other home services: No Alcohol intake: never Comment: pt sleeping Patient Tobacco Use Status: Former Tobacco user Quit Date: 1 month Use of substances other than those prescribed or required for medical reasons: No Are you DNR?: No Advance Directives: No Advance Directives Information Provided: Yes Advance Directives Date on File: 12/24/20 service: No Current occupational status: unemployed Meds Allergies Allergy/AdvReac Type Severity Reaction Status Date / Time Penicillins Allergy Severe RASH Verified 02/21/24 07:19 morphine Allergy Intermediate N/V, RASH, Verified 02/21/24 07:19 itching sulfamethoxazole Allergy Intermediate RASH Verified 02/21/24 07:19 [From BACTRIM] trimethoprim [From BACTRIM] Allergy Intermediate RASH Verified 02/21/24 07:19 Home Medications ?Medication ?Instructions ?Recorded ?Confirmed ?Last Taken ?Type lorazepam 0.5 mg tablet 0.5 mg PO DAILY PRN Anxiety 07/15/20 12/11/23 11/26/20 21:00 History escitalopram oxalate 10 mg tablet 1 tab PO DAILY 12/10/20 02/21/24 02/21/24 History ferrous sulfate 325 mg (65 mg 325 mg PO DAILY 01/23/23 12/11/23 Unknown History iron) tablet (FeroSul) Assessment and Plan Assessment Anesthesia Assessment: Chart Reviewed Final Anesthetic Review Family History of Problems with Anesthesia: No History of Problems with Anesthesia: No Documented by User: Pia Beavers MD 02/21/24 07:48 [facility] Past Medical History Medical History Anemia Vaso vagal episode Anxiety Asthma Steatosis, liver PCOS (polycystic ovarian syndrome) Dental crowns present Migraines Sciatica Seizure CVA (cerebral vascular accident) Depression IBS (irritable bowel syndrome) GERD (gastroesophageal reflux disease) Hyperlipidemia Sinus tachycardia Hypertension Family History Family History Father No problems noted. Mother Cervical cancer Surgical History Surgical History S/P panniculectomy Hx of prior ablation treatment History of sleeve gastrectomy History of sleeve gastrectomy Hx of hemorrhoidectomy Hx of breast biopsy Hx of tubal ligation Social History Social History Are you a primary out of school hours care worker to a significant other at home: No Do you presently have visiting nurse or other home services: No Alcohol intake: never Comment: pt sleeping Patient Tobacco Use Status: Former Tobacco user Quit Date: 1 month Use of substances other than those prescribed or required for medical reasons: No Are you DNR?: No Advance Directives: No Advance Directives Information Provided: Yes Advance Directives Date on File: 12/24/20 service: No Current occupational status: unemployed Meds Allergies Allergy/AdvReac Type Severity Reaction Status Date / Time Penicillins Allergy Severe RASH Verified 02/21/24 07:19 morphine Allergy Intermediate N/V, RASH, Verified 02/21/24 07:19 itching sulfamethoxazole Allergy Intermediate RASH Verified 02/21/24 07:19 [From BACTRIM] trimethoprim [From BACTRIM] Allergy Intermediate RASH Verified 02/21/24 07:19 Home Medications ?Medication ?Instructions ?Recorded ?Confirmed ?Last Taken ?Type lorazepam 0.5 mg tablet 0.5 mg PO DAILY PRN Anxiety 07/15/20 12/11/23 11/26/20 21:00 History escitalopram oxalate 10 mg tablet 1 tab PO DAILY 12/10/20 02/21/24 02/21/24 History ferrous sulfate 325 mg (65 mg 325 mg PO DAILY 01/23/23 12/11/23 Unknown History iron) tablet (FeroSul) Exam Airway Mallampati Class: III TM Dist: >3cm Neck ROM: Full Loose/Missing/Broken Teeth: No (crowns upper central incisors) Heart: RRR Lungs: CTA Assessment and Plan Assessment Anesthesia Assessment: Anesthesia Plan Discussed Final Anesthetic Review NPO: Yes ASA Class: II Final Preanesthetic Review: Meds/Allgs Chart Reviewed, Consent Obtained/Reviewed and Anes Risks/Benef Reviewed Patient Risk: Low Procedure Risk: Intermediate Anesthetic Plan Anesthetic Plan: MAC: Disposition: Standard PACU
[2024-02-21 07:13] VITALS: BMI 25.5
--- NOTE | 2024-02-21 07:50 | MHC.SHP ---
Pre-Procedural Eval Section A - 24 Hr Update-Section A only Date of Service: 02/21/24 The patient is an INPATIENT: No The patient has been examined within 24 hours of the surgical procedure. The History & Physical has been completed within 30 days and I have reviewed it.: Yes Section B - Complete if H&P > 30 days Chief Complaint: Other acute postprocedural pain Details of Present Illness: abdominal pain Relevant Family History (Specify if Yes): No Relevant Social History: None Present Medications: None Medical History: No relevant PMH History of Previous Operations: Relevant previous surgery/procedure and date(s) (laparoscopic sleeve gastrectomy) Allergies: Allergies Allergy/AdvReac Type Severity Reaction Status Date / Time Penicillins Allergy Severe RASH Verified 02/21/24 07:19 morphine Allergy Intermediate N/V, RASH, Verified 02/21/24 07:19 itching sulfamethoxazole Allergy Intermediate RASH Verified 02/21/24 07:19 [From BACTRIM] trimethoprim [From BACTRIM] Allergy Intermediate RASH Verified 02/21/24 07:19 Review of Systems Sugical H&P ROS: Negative: Constitution, Cardiovascular, Respiratory, Neurological, Psychiatric, Hem-Onc, Allergic/Immunologic, Genitourinary, Musculoskeletal, Integumentary, Endocrine and Eyes/Ears/Nose/Throat and Yes, Specify: Gastrointestinal (lower abdominal pain) Exam Surgical H&P Exam: Normal: HEENT, Normal: Heart, Normal: Lungs, Normal: Extremities, Normal: Skin and Normal: Neurological and Not Evaluated: Abdomen (periumbilical tenderness) Plan Diagnosis/Plan: Unchanged (EGD to assess etiology of abdominal pain. Risks of bleeding and perforation were discussed with the patient and he is in agreement with the plan.) I have reviewed the history and physical and performed a pertinent physical examination on my patient. No changes have occurred unless specified. Time Spent With Patient Time: Total time managing care of this patient today ____ minutes.
[2024-02-21 07:51] VITALS: BP 131/75; PULSE 61; RESP 16; TEMP 36.3; O2SAT 100
[2024-02-21] MEDS: Lactated Ringers 1,000 ML 80 ML IVCONT (07:52)
--- NOTE | 2024-02-21 08:14 | P.BOP_ITS ---
Brief Operative Note Date of Service: 02/21/24 Pre-op diagnosis: Abdominal pain Post-op diagnosis: same Procedure: PROCEDURE DATE: 02/21/2024 PREOPERATIVE DIAGNOSIS: Abdominal pain, s/p sleeve gastrectomy POSTOPERATIVE DIAGNOSIS: ?Same as above. 1) mild esophagitis PROCEDURE: [id number] with biopsies Surgeon: ?Geovanni Pearson M.D.. Ph.D. Heating Plant Superintendent: None ? Anesthesia: IV sedation Estimated blood loss: ?Minimal FINDINGS AND PROCEDURE: ? OPERATIVE INDICATIONS: ?The patient is a 43 year old female known to me who underwent a laparoscopic sleeve gastrectomy. The patient had remarkable weight loss so far and had a completely uneventful recovery.? Recently in June 2023 had a panniculectomy. The patient was doing very well but has recently been complaining of periumbilical and lower abdominal pain as well as some fullness in the LLQ. Based on this information I recommended an upper endoscopy to evaluate the patient's symptoms. Risks and complications of the surgery were discussed with the patient in advance particularly the possibility of perforation or bleeding that may require surgical intervention. The patient understood the risks and was in agreement with the plan. ? PROCEDURE: After informed consent was obtained by the patient, the patient was ?transferred to the Operating Room and was placed in the supine position.? After successful induction of IV sedation, a mouth block was inserted and the patient was placed in the left lateral decubitus position. An upper endoscopy was performed next, the oropharynx and esophagus appeared within the normal limits. There was no hiatal hernia. The z-line was irregular with tongues of gastric mucosa protruding into the esophagus in 25% of circumference. Two biopsies were obtained from the distal esophagus 2-3 cm proxi mal to the GE junction and two additional biopsies from the GE junction. The sleeve was entered and it appeared to be of normal size. There was no gastritis. There was no stricture or ulcer. Biopsies were obtained from the proximal sleeve as well as the antrum. No significant bleeding was noted from any of the biopsy sites. The scope was then advanced into the duodenum which appeared to be normal as well. At that point the duodenum ?and the sleeve were decompressed and the scope was withdrawn from the patient's mouth. No retroflexion was performed due to the history of sleeve gastrectomy. The patient extubated and was transferred in stable condition to the Recovery Room for further care. I was present and performed all steps of the procedure. There were no residents to assist with this case. Geovanni Pearson M.D., Ph.D. Surgeon: Shyam Pearson MD Anesthesia: MAC Was an Heating Plant Superintendent used for this Procedure?: No Estimated blood loss (mL): 0 IV fluids (mL): 400 Urine output (mL): 0 (No Perdomo to record output) Pathology: other (1) antrum x1, 2) proximal sleeve/gastric fundus x1, 3) EGJ x2, 4) distal esophagus x2) Condition: stable Disposition: PACU
[2024-02-21 08:38] VITALS: BP 134/80; PULSE 83; RESP 18; TEMP 36.4; O2SAT 100
[2024-02-21 09:00] VITALS: BP 121/49; PULSE 75; RESP 17; TEMP 36.4; O2SAT 99
== END 2024-02-21 09:44 | disposition home or self-care (01) ==
PROVIDERS: Visit Provider Surgery
PROC: 0DJ08ZZ Inspection of Upper Intestinal Tract, Via Natural or Artificial Opening Endoscopic (ICD-10-PCS; CPT 43235; principal; 2024-02-21 08:10)
DX: G89.18 Other acute postprocedural pain (principal); K20.80 Other esophagitis without bleeding; K22.89 Other specified disease of esophagus; Z98.84 Bariatric surgery status; Z90.3 Acquired absence of stomach [part of]; K21.9 Gastro-esophageal reflux disease without esophagitis; I10 Essential (primary) hypertension; E78.5 Hyperlipidemia, unspecified; D64.9 Anemia, unspecified; J45.909 Unspecified asthma, uncomplicated; K76.0 Fatty (change of) liver, not elsewhere classified; K58.9 Irritable bowel syndrome, unspecified; Z86.73 Personal history of transient ischemic attack (TIA), and cerebral infarction without residual deficits; Z79.899 Other long term (current) drug therapy; Z88.0 Allergy status to penicillin; Z88.2 Allergy status to sulfonamides; Z88.5 Allergy status to narcotic agent; Z98.890 Other specified postprocedural states; Z87.891 Personal history of nicotine dependence
CPT/HCPCS: 43239; 88305; 88313; 88342; J1596; J2250; J2704

== ENCOUNTER → 2024-02-21 07:04 | Outpatient (BNV) | payer MEDICARE, MEDICAID, SELFPAY | PROVIDERS: Visit Provider Surgery | DX: R10.9 Unspecified abdominal pain (principal); K20.90 Esophagitis, unspecified without bleeding; G89.18 Other acute postprocedural pain | CPT/HCPCS: 43239 ==

== ENCOUNTER 2024-02-26 13:38 | Outpatient (AMB) | payer MEDICARE, MEDICAID, SELFPAY ==
--- NOTE | 2024-02-26 13:45 | A.OFFVIS_ITS ---
VS Expanded 02/26/24 13:54 BP 128/66 Blood Pressure Location Rt brachial Blood Pressure Position Sitting Pulse 82 Pulse Source Pulse Oximeter Temp 97.7 F Temperature Source Temporal Artery Scan Pulse Oximetry 99 Oxygen Delivery Method Room Air Height 5 ft 1 in Weight 141 lb 9.6 oz BMI 26.8 Body Fat % 32.4 Body Fat Mass 45.8 Fat Free Mass 95.6 Visceral Fat Rating 6.0 Body Water % 48.1 Body Water Mass 68.2 Muscle Mass/Score 90.8 Basal Metabolic Rate/Score 1,307 Intake Visit Reasons: (OV) PO LSG 12/22/20 Imaging Analyst Required: No Allergies Penicillins Allergy (Severe, Verified 02/26/24 13:49) RASH morphine Allergy (Intermediate, Verified 02/26/24 13:49) N/V, RASH, itching sulfamethoxazole [From BACTRIM] Allergy (Intermediate, Verified 02/26/24 13:49) RASH trimethoprim [From BACTRIM] Allergy (Intermediate, Verified 02/26/24 13:49) RASH Medication List - Last Reconciled 02/26/24 by ARIEL Azul aspirin 81 mg PO DAILY cholecalciferol (vitamin D3) 50 mcg PO DAILY clotrimazole 1% 1 appl topical BID docusate sodium (Colace) 100 mg PO DAILY escitalopram oxalate 1 tab PO DAILY ferrous sulfate (FeroSul) 325 mg PO DAILY lorazepam 0.5 mg PO DAILY PRN rosuvastatin 40 mg PO DAILY vitamin A palmitate 3,000 mcg PO DAILY 90 days HPI Comments Details: Patient is a pleasant 43-year-old female who returns to the office today in follow-up. She is approximately 8 months post panniculectomy performed on 06/22/2023. She had been having problems with abdominal pain, CT scan without evidence of significant abnormality but heavy stool burden consistent with constipation. She had upper endoscopy by Dr. Pearson done on 02/21/2024. Operative report: An upper endoscopy was performed next, the oropharynx and esophagus appeared within the normal limits. There was no hiatal hernia. The z-line was irregular with tongues of gastric mucosa protruding into the esophagus in 25% of circumference. Two biopsies were obtained from the distal esophagus 2-3 cm proximal to the GE junction and two additional biopsies from the GE junction. The sleeve was entered and it appeared to be of normal size. There was no gastritis. There was no stricture or ulcer. Biopsies were obtained from the proximal sleeve as well as the antrum. No significant bleeding was noted from any of the biopsy sites. The scope was then advanced into the duodenum which appeared to be normal as well. At that point the duodenum ?and the sleeve were decompressed and the scope was withdrawn from the patient's mouth. No retroflexion was performed due to the history of sleeve gastrectomy. Pathology: A. Stomach, antrum, biopsy: Antral-type mucosa with mild chronic inactive inflammation; no Helicobacter organisms seen. B. Stomach, proximal sleeve, biopsy: Oxyntic mucosa with mild chronic inactive inflammation; no Helicobacter organisms seen. C. GE junction, biopsy: - Cardiac-type mucosa with moderate chronic inactive inflammation; no intestinal metaplasia seen. - Squamous mucosa within normal limits. D. Esophagus, biopsy: Squamous epithelium within normal limits; no inflammation seen She is also 3 years 2 months post laparoscopic sleeve gastrectomy with hiatal hernia repair performed on 12/22/2020. She does complain of intermittent mild suprapubic tenderness. Weight today is 141.6 lb with a BMI of 26.8. Meal plan: premier protein 2 scoops in 8-10 oz almond milk meal 6 forks protein 6 salad another meal 6 forks protein and 6 forks veg and 1/2 c rice 2 days of the week Drinking 40-60 oz water Exercise plan: Treadmill 45 min 4 days per week, doesn't track calories. [facility] Medical History Anemia Vaso vagal episode Anxiety Asthma Steatosis, liver PCOS (polycystic ovarian syndrome) Dental crowns present Migraines Sciatica Seizure CVA (cerebral vascular accident) Depression IBS (irritable bowel syndrome) GERD (gastroesophageal reflux disease) Hyperlipidemia Sinus tachycardia Hypertension Surgical History (Updated 02/26/24 @ 13:51 by Marilyn Batista CMA) Hx of bladder endoscopy S/P panniculectomy Hx of prior ablation treatment History of sleeve gastrectomy History of sleeve gastrectomy Hx of hemorrhoidectomy Hx of breast biopsy Hx of tubal ligation Family History Father No problems noted. Mother Cervical cancer Social History (Updated 02/26/24 @ 13:51 by Marilyn Colon, CHILDREN'S TUTOR) Are you a primary healthcare educator to a significant other at home: No Do you presently have visiting nurse or other home services: No Alcohol intake: current Alcohol intake frequency: holidays/special occasions only Patient Tobacco Use Status: Former Tobacco user Quit Date: 1 month Advance Directives Date on File: 12/24/20 service: No Current occupational status: unemployed Physical Exam Const General: healthy appearing and no acute distress Resp Effort & Inspection: normal respiratory effort Auscultation: clear to auscultation bilaterally Cardio Rate: regular rate Rhythm: regular rhythm GI Auscultation: normal bowel sounds Extrem General: Yes normal to inspection Assessment & Plan Assessment & Plan (1) S/P laparoscopic sleeve gastrectomy: Code(s): Z98.84 - Bariatric surgery status Category: Surgical Plan: Overall doing fairly well. She appeared in good spirits and had no significant complaints. Still complains of some mild right lower quadrant abdominal discomfort. Encouraged to avoid rice at dinnertime, decrease her protein shake in the morning from 2 scoops down to 1.5 scoops per shake. Encouraged to increase exercise to daily with a goal of burning 300 calories per day. We will have her return to the office in 4 months, she will text sooner with any questions or concerns. She may text at any time.
[2024-02-26 13:54] VITALS: BP 128/66; PULSE 82; TEMP 36.5; O2SAT 99; BMI 26.8
== END 2024-02-26 14:14 | disposition home or self-care (01) ==
PROVIDERS: PCP Physician Assistant Medical; Visit Provider Physician Assistant Surgical
DX: E66.3 Overweight (principal); Z68.26 Body mass index [BMI] 26.0-26.9, adult; Z90.3 Acquired absence of stomach [part of]; Z98.84 Bariatric surgery status
CPT/HCPCS: 99213

== ENCOUNTER → 2024-02-26 13:38 | Outpatient (BNVA) | payer MEDICARE, MEDICAID, SELFPAY | PROVIDERS: PCP Physician Assistant Medical; Visit Provider Physician Assistant Surgical | DX: Z98.84 Bariatric surgery status (principal) | CPT/HCPCS: 99212 ==

== ENCOUNTER 2024-06-13 12:20 | Outpatient (AMB) | payer MEDICARE, MEDICAID, SELFPAY ==
[2024-06-13 12:29] VITALS: BP 130/80; PULSE 61; BMI 27.9
--- NOTE | 2024-06-13 12:29 | MHC.OFFVIS ---
Vital Signs 06/13/24 12:29 Height 5 ft 1 in Weight 147 lb 11.355 oz BMI 27.9 BP 130/80 Blood Pressure Location Lt brachial Position Sitting Pulse 61 Intake Visit Reasons: ED-[facility] F/up Intake Note: Follow-up [facility] ED with ekg feeling good now Marketing Communications Associate Required: No Allergies Penicillins Allergy (Severe, Verified 02/26/24 13:49) RASH morphine Allergy (Intermediate, Verified 02/26/24 13:49) N/V, RASH, itching sulfamethoxazole [From BACTRIM] Allergy (Intermediate, Verified 02/26/24 13:49) RASH trimethoprim [From BACTRIM] Allergy (Intermediate, Verified 02/26/24 13:49) RASH HPI Comments Details: Zeny comes for follow-up after recent hospital presentation to [facility] with sudden-onset retrosternal to up a precordial chest discomfort she describes as sharp pressure that started suddenly while she was resting. Symptoms were present for 2 days but was on an often severity and got severely worse when she presented to [facility]. Symptoms associated with shortness of breath. By the time she came to the emergency room with chest pain has resolved without any obvious intervention. A troponins were minimally elevated but flat. EKG was unremarkable and therefore she was discharged home and advised outpatient follow-up. She has been taking all her medications. LDL is extremely well optimized. Stress remains very active. She has not had any recurrent syncopal episodes. [facility] Medical History Anemia Vaso vagal episode Anxiety Asthma Steatosis, liver PCOS (polycystic ovarian syndrome) Dental crowns present Migraines Sciatica Seizure CVA (cerebral vascular accident) Depression IBS (irritable bowel syndrome) GERD (gastroesophageal reflux disease) Hyperlipidemia Sinus tachycardia Hypertension Surgical History Hx of bladder endoscopy S/P panniculectomy Hx of prior ablation treatment History of sleeve gastrectomy History of sleeve gastrectomy Hx of hemorrhoidectomy Hx of breast biopsy Hx of tubal ligation Family History Father No problems noted. Mother Cervical cancer Social History Are you a primary care management associate to a significant other at home: No Do you presently have visiting nurse or other home services: No Alcohol intake: current Alcohol intake frequency: holidays/special occasions only Patient Tobacco Use Status: Former Tobacco user Advance Directives Date on File: 12/24/20 service: No Current occupational status: unemployed Review of Systems Const Denies chills, Denies fatigue, Denies fever(s), Denies frequent falls, Denies weakness, Denies weight gain and Denies weight loss ENT Denies dizziness Card Denies chest pain, Denies leg edema, Denies lightheadedness, Denies palpitations, Denies dyspnea, Denies dyspnea on exertion, Denies orthopnea and Denies other (loss of consciousness) Resp Denies cough, Denies dyspnea and Denies dyspnea on exertion GI Denies hematochezia and Denies change in stool character Musc Denies abnormal gait, Denies muscle weakness, Denies numbness, Denies radiating pain into limb and Denies tingling Neuro Denies abnormal gait, Denies dizziness, Denies frequent falls, Denies numbness, Denies tingling and Denies weakness Endo Denies fatigue and Denies palpitations Physical Exam Vital Signs: Last Vital Signs Pulse 61 06/13/24 12:29 BP 130/80 06/13/24 12:29 BMI result Body Mass Index 27.9 Const General: cooperative, healthy appearing, comfortable and no acute distress Orientation/consciousness: patient oriented x3 Eyes Sclerae: sclerae normal Neck Neck: Yes normal visual inspection Resp Effort & Inspection: normal respiratory effort Auscultation: clear to auscultation bilaterally, no crackles, no rales, no rhonchi and no wheezes Cardio Jugular venous distension: no JVD Rate: regular rate Rhythm: regular rhythm Heart sounds: S1 normal heart sound present, S2 normal heart sound present, no murmurs and no rubs Skin General skin exam: no rashes or lesions noted Neuro General: patient oriented x3 Extrem General: Yes normal to inspection Psych Appearance: grossly normal Mental Status: mental status grossly normal Speech and movement: Normal speech and movement present Assessment & Plan Assessment & Plan (1) Atypical chest pain: Code(s): R07.89 - Other chest pain Plan: Atypical chest pain in this middle-aged woman with prior history of occipital infarct with marked hyperlipidemia in the past with prior smoking. Currently she is not smoking as good functional status. Her chest pain has atypical feature but had minimally elevated troponins. Given her multiple risk factors suggest a stress echocardiogram to further assess for myocardial ischemia. Further treatment based on the finding of the test results. (2) Vasovagal syncope: Code(s): R55 - Syncope and collapse Category: Medical Plan: Vasovagal syncope without any obvious recurrence at this point time advised to maintain adequate hydration. An adequate salt intake was discussed orthostatic precautions were discussed advised to call me with any worsening symptoms. (3) CVA (cerebral vascular accident): Comment: at age 24, right sided weakness, loss of peripheral vision on right Unknown etiology Code(s): I63.9 - Cerebral infarction, unspecified Category: Medical Plan: CVA with prior occipital stroke with marked hyperlipidemia. No obvious vascular or cardioembolic source was found at that time. Has done well on medical therapy with no recurrent neurologic events. Continue lifelong aspirin therapy. Continue high-intensity statin therapy with LDL well optimized at this point time. Smoking cessation was applauded. Continue to maintain activity level as tolerated. Will follow up in the clinic in 1 year, sooner p.r.n.. Thank you for allowing me to partake in the care Coding Level of Care Code Est Pt Level 4 (24531) Diagnoses Atypical chest pain R07.89 Vasovagal syncope R55 CVA (cerebral vascular accident) I63.9
== END 2024-06-13 12:51 | disposition home or self-care (01) ==
PROVIDERS: PCP Physician Assistant Medical; Visit Provider Internal Medicine Cardiovascular Disease
DX: R07.89 Other chest pain (principal); R55 Syncope and collapse; I63.9 Cerebral infarction, unspecified
CPT/HCPCS: 93010; 99214

== ENCOUNTER → 2024-06-13 12:20 | Outpatient (BNVA) | payer MEDICARE, MEDICAID, SELFPAY | PROVIDERS: PCP Physician Assistant Medical; Visit Provider Internal Medicine Cardiovascular Disease | DX: R07.89 Other chest pain (principal); R55 Syncope and collapse; Z86.73 Personal history of transient ischemic attack (TIA), and cerebral infarction without residual deficits; R94.31 Abnormal electrocardiogram [ECG] [EKG] | CPT/HCPCS: 93005; 99212 ==

== ENCOUNTER → 2024-06-24 10:40 | Outpatient (REF) | payer MEDICARE, MEDICAID, SELFPAY ==
--- NOTE | 2024-06-24 10:43 | CA_ITS ---
Acquisition Time: 2024-06-24 10:40:33 Total Exercise Time: 00:09:45 Test Indications: R07.89 - Other chest pain Medications: Protocol: PRESTON Max HR: 193 BPM 110% of Pred: 174 BPM Max BP: 140/086 mmHG Max Work Load: 11.3 METS Exercise stress test exercise 9 min 456 sec of Preston protocol achieving 104% MPHR, with 6/10 chest pressure(resolved within seconds of recovery), mild SOB, without arrhythmias, with normotensive response to exercise, with T wave inversion 3, aVF. Echo images obtained by tech at rest and immediately post peak exercise. Definity contrast used. Referred By: Fitz Claros Overread By: Aminata Ahuja
== END ==
LOC: HO.CARD 10:40
PROVIDERS: PCP Physician Assistant Medical; Visit Provider Internal Medicine Cardiovascular Disease
DX: R07.89 Other chest pain (principal)
CPT/HCPCS: 93350; Q9957

== ENCOUNTER → 2024-06-24 10:43 | Outpatient (BNV) | payer MEDICARE, MEDICAID, SELFPAY | PROVIDERS: PCP Physician Assistant Medical; Visit Provider Nurse Practitioner | DX: R07.89 Other chest pain (principal) | CPT/HCPCS: 93016; 93018; 93350; 93352 ==

== ENCOUNTER 2024-07-01 11:53 | Outpatient (AMB) | payer MEDICARE, MEDICAID, SELFPAY ==
[2024-07-01 11:34] VITALS: BMI 28.0
--- NOTE | 2024-07-01 11:34 | A.OFFVIS_ITS ---
VS Expanded 07/01/24 11:34 Height 5 ft 1 in Weight 148 lb 4 oz BMI 28.0 Body Fat % 34 Visceral Fat Rating 11 Body Water % 45.3 Intake Visit Reasons: (tV) PO LSG 12/22/20 Allergies Penicillins Allergy (Severe, Verified 02/26/24 13:49) RASH morphine Allergy (Intermediate, Verified 02/26/24 13:49) N/V, RASH, itching sulfamethoxazole [From BACTRIM] Allergy (Intermediate, Verified 02/26/24 13:49) RASH trimethoprim [From BACTRIM] Allergy (Intermediate, Verified 02/26/24 13:49) RASH HPI Comments Details: Patient is a pleasant 43-year-old female who returns to the office today in follow-up. She is approximately 1 year post panniculectomy performed on 06/22/2023. She had been having problems with abdominal pain, CT scan without evidence of significant abnormality but heavy stool burden consistent with constipation. She states that her constipation has improved and she is having no longer difficulty with this. She does report noted asymmetry with a ?bulge? on the right side. She is also 3 years 6 months post laparoscopic sleeve gastrectomy with hiatal hernia repair performed on 12/22/2020. She does complain of intermittent mild suprapubic tenderness. Weight today is 148.4 lb with a BMI of 28. She reports her last weight was in May. And at that time was 143.6 lb Meal plan: premier protein 1-2 scoops in 8-10 oz almond milk (1 or 2 depending on if she is having lunch) skip another meal 7-8 forks protein and 7-8 forks veg and 1/2 c rice 2 days of the week after dinner eating snacks - pretzels, chips, cookies, ice cream. Drinking 48 oz water Exercise plan: Treadmill 60 min 7 days per week, (for the last weeks, before, she was using it 6 x per week 2 x per day) at home, doesn't track calories. weight lifting [facility] Medical History Anemia Vaso vagal episode Anxiety Asthma Steatosis, liver PCOS (polycystic ovarian syndrome) Dental crowns present Migraines Sciatica Seizure CVA (cerebral vascular accident) Depression IBS (irritable bowel syndrome) GERD (gastroesophageal reflux disease) Hyperlipidemia Sinus tachycardia Hypertension Surgical History Hx of bladder endoscopy S/P panniculectomy Hx of prior ablation treatment History of sleeve gastrectomy History of sleeve gastrectomy Hx of hemorrhoidectomy Hx of breast biopsy Hx of tubal ligation Family History Father No problems noted. Mother Cervical cancer Social History Are you a primary insurance healthcare representative to a significant other at home: No Do you presently have visiting nurse or other home services: No Alcohol intake: current Alcohol intake frequency: holidays/special occasions only Patient Tobacco Use Status: Former Tobacco user Advance Directives Date on File: 12/24/20 service: No Current occupational status: unemployed Telehealth Telehealth Telehealth Platform: Telephone Location of provider rendering services: practice address Location of patient: address on file Patient Identification confirmed using: Name, : Yes Telehealth method: voice only Patient verbally consented to treatment: Yes Patient verbally consented to billing insurance company: Yes Patient informed of any privacy concerns related to visit: Yes Minutes spent on Phone/Video with Pt.: 15 Assessment & Plan Assessment & Plan (1) Overweight: Code(s): E66.3 - Overweight Category: Medical Plan: Encouraged to change meal plan, utilizing Premier protein powder: 9-11 am shake with 1 scoop 1-3 pm half scoop with an additional half cup of fresh berries or an apple meal at 5 pm 7 forks protein and 7 forks vegetables, avoiding rice 8-10 pm shake 1 scoop Avoid snacks at night. Attempt to track calories burned. She states she has started using her treadmill now daily, previously using it twice a week. It appears as though the snacking at night and rice are the barriers to her stated goal of healthy weight and healthy lifestyle. She will try to avoid these. We will have her return to the office in approximately 4 weeks. Encouraged to text weekly with her weight is and with any questions or concerns.
== END 2024-07-01 11:59 | disposition home or self-care (01) ==
LOC: HO.HBS 11:53
PROVIDERS: PCP Physician Assistant Medical; Visit Provider Physician Assistant Surgical
DX: E66.3 Overweight (principal); Z68.28 Body mass index [BMI] 28.0-28.9, adult
CPT/HCPCS: 98967

== ENCOUNTER → 2024-07-01 11:53 | Outpatient (BNVA) | payer MEDICARE, MEDICAID, SELFPAY | PROVIDERS: PCP Physician Assistant Medical; Visit Provider Physician Assistant Surgical ==

== ENCOUNTER 2024-08-03 05:27 | Emergency (ER) | payer MEDICARE, MEDICAID, SELFPAY ==
--- NOTE | ~2024-08-03 | CT_ITS ---
EXAMINATION: CT ABDOMEN AND PELVIS WITHOUT CONTRAST CLINICAL INFORMATION: Left flank pain COMPARISON: CT abdomen from 10/04/2023, CT angiogram chest from 10/03/2023 TECHNIQUE: Multidetector volumetric imaging was performed from the superior aspect of the liver through the pubic symphysis. Sagittal and coronal reformatted images were obtained on the technologist's workstation. This CT examination was performed using dose optimization techniques as appropriate, variously including the following: *Automated exposure control *Adjustment of mA and/or kV according to patient size (this includes techniques or standardized protocols for targeted exams where dose is matched to indication/reason for exam; i.e. extremities or head) *Use of iterative reconstruction technique DLP: 477 mGy-cm FINDINGS: LUNG BASES: Post surgical changes of the right lower lobe, stable. Stable pleural-based nodular focus along the lateral aspect of the left lower lobe (series 4, image 67) measuring 4 mm. No pneumothorax. No large pleural effusion. Slight elevation right hemidiaphragm. LIVER, GALLBLADDER, AND BILIARY TREE: The liver is normal in size, shape, and attenuation. No focal hepatic lesion or biliary ductal dilatation is present. The gallbladder is unremarkable with no evidence of radiopaque gallstones, gallbladder wall thickening, or obvious pericholecystic inflammatory changes. PANCREAS: Unremarkable. SPLEEN: Unremarkable. ADRENAL GLANDS: Unremarkable. KIDNEYS AND URETERS: Mild left-sided hydroureteronephrosis with periureteral and perinephric stranding secondary to a 7 mm calculus along the left proximal ureter. Additional calculus noted in the left renal lower pole measuring 7 mm. No right-sided nephrolithiasis or hydronephrosis. BLADDER: Suboptimally distended. GASTROINTESTINAL TRACT: Postsurgical changes of the stomach. The small and large bowel are unremarkable. The appendix is unremarkable. ABDOMINAL WALL: Surgical material along the anterior abdominal wall. LYMPH NODES: No enlarged lymph nodes per size criteria. VASCULAR: Abdominal aorta is nonaneurysmal. Duplicated IVC. PELVIC VISCERA: Anteverted uterus with coarse calcification along the anterior fundus. OSSEOUS STRUCTURES: Degenerative changes of the thoracolumbar lumbosacral spine. Degenerative arthropathy of the bilateral sacroiliac joints. CT/CT abdomen pelvis wo IV con IMPRESSION: 1. Mild left-sided hydroureteronephrosis with periureteral and perinephric stranding secondary to a 7 mm calculus along the left proximal ureter. Additional calculus noted in the left renal lower pole measuring 7 mm. 2. Postsurgical changes of the stomach. 3. Duplicated IVC. 4. Stable pleural-based nodular focus along the lateral aspect of the left lower lobe measuring 4 mm. Stable postsurgical changes in the right lower lobe. Electronically signed by: Frances Kilpatrick MD 08/03/2024 10:35 AM EDT
[2024-08-03 05:43] VITALS: BP 139/83; PULSE 75; RESP 20; TEMP 36.9; O2SAT 100; BMI 26.3
[2024-08-03 06:09] LABS: Hematocrit 36.9 % (37.0-47.0); Hemoglobin 12.2 g/dl (12.0-16.0); Mean Corpuscular HGB Conc 33.1 g/dl (31.0-35.0); Mean Corpuscular Hemoglobin 29.2 pg (27.0-33.0); Mean Corpuscular Volume 88.3 fL (80.0-98.0); Mean Platelet Volume 13.3 fL (9.4-12.3); Platelet Count 149 X10*3/uL (160-400); Red Blood Count 4.18 X10*6/uL (4.20-5.50); Red Cell Distribution Width 12.4 % (11.0-16.0); WBC ABN SCTR FOR CBC 1; White Blood Count 9.3 X10*3/uL (4.8-10.8)
[2024-08-03 06:10] LABS: Appearance Urine Cloudy; Color Urine Orange; Glucose Urine UA Negative (Negative); Leukocyte Esterase Urine Small (1+) (Negative); Nitrite Urine Negative (Negative); UMIC TRIGGER UACC YES; Urine Blood Large (3+) (Negative); Urine Ketones Negative (Negative); Urine Protein 30 (1+) mg/dL (Neg-Trace)
[2024-08-03 06:11] LABS: UPreg QC Valid YES; Urine Pregnancy NEGATIVE (NEGATIVE)
[2024-08-03 06:16] LABS: Bacteria Urine None Seen (None Seen); Hyaline Casts Urine 0-2 /LPF (0-2); RBC Urine >20 /HPF (0-2); Squamous Epithelial Cell Urine 0-2 /HPF (0-2); UACC Culture Trigger YES; WBC Urine 0-5 /HPF (0-5)
[2024-08-03 06:22] LABS: Alanine Aminotransferase 9 U/L (0-31); Alkaline Phosphatase 58 U/L (39-117); Anion Gap 12 (12-20); Aspartate Amino Transferase 15 U/L (5-31); Bilirubin Total 1.2 mg/dL (0.0-1.0); Blood Urea Nitrogen 16 mg/dL (9-16); Calcium 8.9 mg/dL (8.4-10.2); Carbon Dioxide 29 mmol/L (22-29); Chloride 107 mmol/L (96-108); Creatinine Clr Calc Pharmacy 78.7; Estimated Glomerular Filt Rate > 60; Glucose Random 113 mg/dL (60-115); Lipase 47 U/L (8-78); Potassium 4.2 mmol/L (3.3-5.1); Sodium 144 mmol/L (135-145); Total Protein 6.6 g/dL (6.5-8.0)
[2024-08-03] MEDS: ondansetron HCL 4 MG/2 ML VIAL IVPUSH (06:37)
[2024-08-03] MEDS: 0.9 % Sodium Chloride 1,000 ML 999 ML IVCONT (06:37)
[2024-08-03] MEDS: Ketorolac Tromethamine 30 MG/ML VIAL IVPUSH (06:37)
[2024-08-03 06:43] LABS: Band Neutrophils Percent 0 % (3-5); Basophils Abs Manual 0.2 X10*3/uL (0.0-0.2); Basophils Percent Manual 2 % (0-2); Eosinophils Absolute Manual 0.4 X10*3/uL (0.0-0.4); Eosinophils Percent Manual 4 % (0-4); Lymphocytes Absolute Manual 1.3 X10*3/uL (1.2-4.9); Lymphocytes Percent Manual 14 % (20-40); Monocytes Absolute Manual 0.1 X10*3/uL (0.1-1.2); Monocytes Percent Manual 1 % (2-11); Neutrophils Absolute Manual 7.3 X10*3/uL (2.0-8.3); Neutrophils Percent Manual 79 % (45-73); RBC Morphology NORMAL
[2024-08-03 06:44] LABS: Platelet Estimate SLIGHTLY DECREASED (NORMAL); Platelet Morphology Comment NORMAL
--- NOTE | 2024-08-03 07:11 | ED_ITS ---
HPI - Abdominal Pain General Chief Complaint: Abdominal Pain Stated Complaint: abd pain, n/v Time Seen by Provider: 08/03/24 06:26 Source: patient Mode of arrival: ambulatory Limitations: no limitations History of Present Illness ED Provider: Edna Tovar PA-C HPI narrative: 44 yo female with history of CVA, PCOS, GERD, HTN, sciatrica, migraines, kidney stones who presents to the Er for evaluation of 07/25 left lower quadrants pain that started 3-4 hours ago, woke her up from sleep. Pain is sharp and stabbing and radiates to the left flank. It is associated with nausea and vomiting. She had a normal BM yesterday. No fever or chills. No urinary symptoms until she got here when she noticed blood in her urine. MD elicited complaint: abdominal pain and flank pain Pertinent past history: kidney stones Onset (ago): hour(s) Pain Consistency: constant Location: LLQ Severity: severe Pain scale (0-10): 10 Quality: stabbing and sharp Radiation: L flank Migration to: no migration Exacerbating factors: nothing Relieving factors: nothing Context: history of similar episodes Associated symptoms: nausea and vomiting Related Data Home Medications ?Medication ?Instructions ?Recorded ?Confirmed lorazepam 0.5 mg tablet 0.5 mg PO DAILY PRN Anxiety 07/15/20 02/26/24 ferrous sulfate 325 mg (65 mg 325 mg PO DAILY 01/23/23 02/26/24 iron) tablet (FeroSul) aspirin 81 mg tablet,delayed 81 mg PO DAILY 02/26/24 02/26/24 release escitalopram oxalate 10 mg tablet 10 mg PO DAILY 06/13/24 Previous Rx's ?Medication ?Instructions ?Recorded clotrimazole 1 % topical cream 1 appl topical BID #45 grams 02/27/23 docusate sodium 100 mg capsule 100 mg PO DAILY #30 caps 06/05/23 (Colace) cholecalciferol (vitamin D3) 50 50 mcg PO DAILY #90 caps 12/21/23 mcg (2,000 unit) capsule rosuvastatin 40 mg tablet 40 mg PO DAILY #90 tabs 02/15/24 vitamin A palmitate 3,000 mcg 3,000 mcg PO DAILY 90 days #90 caps 06/14/24 (10,000 unit) capsule naproxen 500 mg tablet 500 mg PO BID PRN pain #20 tabs 08/03/24 ondansetron 4 mg disintegrating 4 mg PO Q8H PRN nausea and 08/03/24 tablet vomiting 3 days #10 tabs oxycodone 5 mg tablet 5 mg PO Q8H PRN severe pain (scale 08/03/24 score 7-10) #6 tabs tamsulosin 0.4 mg capsule (Flomax) 0.4 mg PO DAILY #20 caps 08/03/24 Allergies Allergy/AdvReac Type Severity Reaction Status Date / Time Penicillins Allergy Severe RASH Verified 08/03/24 05:44 morphine Allergy Intermediate N/V, RASH, Verified 08/03/24 05:44 itching sulfamethoxazole Allergy Intermediate RASH Verified 08/03/24 05:44 [From BACTRIM] trimethoprim [From BACTRIM] Allergy Intermediate RASH Verified 08/03/24 05:44 Review of Systems Review of Systems Yes all other systems are reviewed and are negative PMFSH Past Medical History Medical History Anemia Vaso vagal episode Anxiety Asthma Steatosis, liver PCOS (polycystic ovarian syndrome) Dental crowns present Migraines Sciatica Seizure CVA (cerebral vascular accident) Depression IBS (irritable bowel syndrome) GERD (gastroesophageal reflux disease) Hyperlipidemia Sinus tachycardia Hypertension Surgical History Hx of bladder endoscopy S/P panniculectomy Hx of prior ablation treatment History of sleeve gastrectomy History of sleeve gastrectomy Hx of hemorrhoidectomy Hx of breast biopsy Hx of tubal ligation Family History Family History Father No problems noted. Mother Cervical cancer Social History Social History Are you a primary tree care foreman to a significant other at home: No Do you presently have visiting nurse or other home services: No Alcohol intake: current Alcohol intake frequency: holidays/special occasions only Patient Tobacco Use Status: Former Tobacco user Smoked in Last 30 Days: No Advance Directives: Yes Advance Directives on File: Yes Advance Directives Date on File: 12/24/20 Do you have a plan to hurt others: No Plan Patient : No service: No Current occupational status: unemployed Physical Exam ED Vital Signs: Vital Signs - 24 hr 10/19/24 05:43 08/03/24 08:50 Temperature 98.5 F 98.3 F Pulse Rate 75 79 Respiratory Rate 20 18 Blood Pressure 139/83 128/75 Pulse Oximetry 100 97 Oxygen Delivery Method Room Air Room Air BMI result Body Mass Index 26.3 Appearance: Alert. Oriented X3. Appears uncomfortable. Head: normocephalic, atraumatic. Eyes: Pupils equal, round and reactive to light. ENT: Pharynx normal. No tonsillar swelling or exudate. Neck: Normal inspection. Neck supple. CVS: Normal heart rate and rhythm. Pulses normal. Respiratory: No respiratory distress. Breath sounds normal. Abdomen: Soft with LLQ tenderness with guarding, no rebound, normal active +BS x4. +CVA tenderness on the left Skin: Skin warm and dry. Normal skin color. Normal skin turgor. No rashes. Extremities: No lower extremity edema. No joint swelling. Neuro/psych: Oriented X 3. No motor deficit. No sensory deficit. CN II-XII intact. Normal speech and cognition. Medical Decision Making Medical Decision Making [facility] Narrative: 44-year-old female presents to the ER for evaluation of 10 and a 10 left lower quadrant pain that radiates to the left flank with new onset hematuria. Symptoms started 3 hours ago and are worsening. Patient appears uncomfortable on arrival, concern for kidney stone. IV was established and she was given IV morphine and Toradol. Urinalysis showing blood. Lab work showing no leukocytosis, no significant anemia, mild thrombocytopenia. Normal renal function. CT scan reviewed, 7 mm stone seen in the ureter with mild hydronephrosis. She is feeling better after the Toradol. She has a urologist at [facility] that she would like to follow-up with. She feels comfortable for discharge home with pain medication and outpatient follow-up. Return precautions were discussed. Stable for DC home Differential Diagnosis Differential Diagnoses: The differential diagnosis associated with the presentation includes kidney stone with hydroneprhosis, UTI, pyelonephritis, diverticulitis, colitis Admission/Observation Consideration of admission/observation: Escalation of care including admission/observation considered Lab Data [facility] Lab Attestation statement: I reviewed the patient's lab results. mild thrombocytopenia, normal renal function, +UA w/ blood 08/03/24 05:57 08/03/24 05:57 Labs: Lab Results 08/03/24 Range/Units 05:57 WBC 9.3 (4.8-10.8) X10*3/uL RBC 4.18 L (4.20-5.50) X10*6/uL Hgb 12.2 (12.0-16.0) g/dl Hct 36.9 L (37.0-47.0) % MCV 88.3 (80.0-98.0) fL MCH 29.2 (27.0-33.0) pg MCHC 33.1 (31.0-35.0) g/dl RDW 12.4 (11.0-16.0) % Plt Count 149 L (160-400) X10*3/uL MPV 13.3 H (9.4-12.3) fL Immature Gran % (Auto) Cancelled Neut % (Auto) Cancelled Lymph % (Auto) Cancelled [place] % (Auto) Cancelled Eos % (Auto) Cancelled Baso % (Auto) Cancelled Lymph # (Auto) Cancelled [place] # (Auto) Cancelled Eos # (Auto) Cancelled Baso # (Auto) Cancelled Abs Immat Gran (auto) Cancelled Absolute Neuts (auto) Cancelled Absolute Nucleated RBC 0.000 (0.0-0.012) X10*3/uL Nucleated RBC % (auto) 0.0 (0.0-0.2) /100WBC Neutrophils % (Manual) 79 H (45-73) % Band Neutrophils % 0 L (3-5) % Lymphocytes % (Manual) 14 L (20-40) % Monocytes % (Manual) 1 L (2-11) % Eosinophils % (Manual) 4 (0-4) % Basophils % (Manual) 2 (0-2) % Abs Neuts (Manual) 7.3 (2.0-8.3) X10*3/uL Lymphocytes # (Manual) 1.3 (1.2-4.9) X10*3/uL Monocytes # (Manual) 0.1 (0.1-1.2) X10*3/uL Eosinophils # (Manual) 0.4 (0.0-0.4) X10*3/uL Basophils # (Manual) 0.2 (0.0-0.2) X10*3/uL Platelet Estimate SLIGHTLY DECREASED (NORMAL) Plt Morphology Comment NORMAL RBC Morphology NORMAL Sodium 144 (135-145) mmol/L Potassium 4.2 (3.3-5.1) mmol/L Chloride 107 (96-108) mmol/L Carbon Dioxide 29 (22-29) mmol/L Anion Gap 12 (12-20) BUN 16 (9-16) mg/dL Creatinine 0.76 (0.5-1.4) mg/dL Estim Creat Clear Calc 78.7 Estimated GFR > 60 Random Glucose 113 (60-115) mg/dL Calcium 8.9 (8.4-10.2) mg/dL Total Bilirubin 1.2 H (0.0-1.0) mg/dL AST 15 (5-31) U/L ALT 9 (0-31) U/L Alkaline Phosphatase 58 (39-117) U/L Total Protein 6.6 (6.5-8.0) g/dL Albumin 4.0 (3.5-5.0) g/dL Lipase 47 (8-78) U/L Urine Color [place] A Urine Appearance Cloudy Urine pH 6.0 (5.0-9.0) Ur Specific [place] 1.020 (1.005-1.025) Urine Protein 30 (1+) H (Neg-Trace) mg/dL Urine Glucose (UA) Negative (Negative) mg/dL Urine Ketones Negative (Negative) mg/dL Urine Blood Large (3+) H (Negative) Urine Nitrite Negative (Negative) Ur Leukocyte Esterase Small (1+) H (Negative) Urine RBC >20 H (0-2) /HPF Urine WBC 0-5 (0-5) /HPF Ur Squamous Epith Cells 0-2 (0-2) /HPF Urine Bacteria None Seen (None Seen) Hyaline Casts 0-2 (0-2) /LPF Urine Test NEGATIVE (NEGATIVE) Independent Interpretation I performed an independent interpretation of an: CT Scan Interpretation: Large obstructing kidney stone with hydroureteronephrosis on the left side Radiology Impression Discussion of test interpretation with radiology: I have reviewed the radiologist's reading. Radiologist Impression: EXAMINATION: CT ABDOMEN AND PELVIS WITHOUT CONTRAST CLINICAL INFORMATION: Left flank pain COMPARISON: CT abdomen from 10/04/2023, CT angiogram chest from 10/03/2023 TECHNIQUE: Multidetector volumetric imaging was performed from the superior aspect of the liver through the pubic symphysis. Sagittal and coronal reformatted images were obtained on the technologist's workstation. This CT examination was performed using dose optimization techniques as appropriate, variously including the following: *Automated exposure control *Adjustment of mA and/or kV according to patient size (this includes techniques or standardized protocols for targeted exams where dose is matched to indication/reason for exam; i.e. extremities or head) *Use of iterative reconstruction technique DLP: 477 mGy-cm FINDINGS: LUNG BASES: Post surgical changes of the right lower lobe, stable. Stable pleural-based nodular focus along the lateral aspect of the left lower lobe (series 4, image 67) measuring 4 mm. No pneumothorax. No large pleural effusion. Slight elevation right hemidiaphragm. LIVER, GALLBLADDER, AND BILIARY TREE: The liver is normal in size, shape, and attenuation. No focal hepatic lesion or biliary ductal dilatation is present. The gallbladder is unremarkable with no evidence of radiopaque gallstones, gallbladder wall thickening, or obvious pericholecystic inflammatory changes. PANCREAS: Unremarkable. SPLEEN: Unremarkable. ADRENAL GLANDS: Unremarkable. KIDNEYS AND URETERS: Mild left-sided hydroureteronephrosis with periureteral and perinephric stranding secondary to a 7 mm calculus along the left proximal ureter. Additional calculus noted in the left renal lower pole measuring 7 mm. No right-sided nephrolithiasis or hydronephrosis. BLADDER: Suboptimally distended. GASTROINTESTINAL TRACT: Postsurgical changes of the stomach. The small and large bowel are unremarkable. The appendix is unremarkable. ABDOMINAL WALL: Surgical material along the anterior abdominal wall. LYMPH NODES: No enlarged lymph nodes per size criteria. VASCULAR: Abdominal aorta is nonaneurysmal. Duplicated IVC. PELVIC VISCERA: Anteverted uterus with coarse calcification along the anterior fundus. OSSEOUS STRUCTURES: Degenerative changes of the thoracolumbar lumbosacral spine. Degenerative arthropathy of the bilateral sacroiliac joints. CT/CT abdomen pelvis wo IV con IMPRESSION: 1. Mild left-sided hydroureteronephrosis with periureteral and perinephric stranding secondary to a 7 mm calculus along the left proximal ureter. Additional calculus noted in the left renal lower pole measuring 7 mm. 2. Postsurgical changes of the stomach. 3. Duplicated IVC. 4. Stable pleural-based nodular focus along the lateral aspect of the left lower lobe measuring 4 mm. Stable postsurgical changes in the right lower lobe. External Record Review External record reviewed: Office record, Outpatient record, Prior outpatient labs and Prior outpatient radiology Prescription Management I considered prescription management with: Pain Medication and Antibiotic Chronic Conditions Patient?s care impacted by: Other (kidney stones, HTN, HLD) Medications Administered Discontinued Medications Generic Name Dose Route Start Last Admin Trade Name Freq PRN Reason Stop Dose Admin Acetaminophen 975 mg 08/03/24 10:44 08/03/24 10:56 Acetaminophen 325 Mg Tablet PO 08/03/24 10:45 975 mg ONCE ONE Administration Sodium Chloride 1,000 mls @ 999 mls/hr 08/03/24 06:30 08/03/24 10:56 Ns IVCONT 08/03/24 07:30 Infused .Q1H1M MAURICE Infusion Ketorolac Tromethamine 30 mg 08/03/24 06:28 08/03/24 06:37 Ketorolac Tromethamine 30 Mg/Ml Vial IVPUSH 08/03/24 06:29 30 mg ONCE ONE Administration Ondansetron HCl 4 mg 08/03/24 06:28 08/03/24 06:37 Ondansetron Hcl 4 Mg/2 Ml Vial IVPUSH 08/03/24 06:29 4 mg ONCE ONE Administration Oxycodone HCl 5 mg 08/03/24 10:44 08/03/24 10:55 Oxycodone Hcl Immed Release 5 Mg Tablet PO 08/03/24 10:45 5 mg ONCE ONE Administration Critical Care Time Critical Care Time Critical Care Time: No Discharge Plan Discharge Clinical Impression: Hydronephrosis with ureteral calculus Patient Disposition: Home, Self-Care Instructions: Hydronephrosis (ED), Ureteral Stones (ED) Additional Instructions: Your CT scan today showed a 7 mm stone in your ureter, which is the tube the drains urine from your kidney to your bladder. You may or may not pass the stone on your own. Take the prescribed medications as directed. Call your urologist on Monday to arrange evaluation this week for possible intervention. Rest and drink plenty of fluids. If you develop new or worsening symptoms call 911 or come back to the ER for further evaluation. Prescriptions: New ondansetron 4 mg tablet,disintegrating 4 mg PO Q8H PRN (Reason: nausea and vomiting) 3 Days Qty: 10 0RF naproxen 500 mg tablet 500 mg PO BID PRN (Reason: pain) Qty: 20 0RF tamsulosin [Flomax] 0.4 mg capsule 0.4 mg PO DAILY Qty: 20 0RF oxycodone 5 mg tablet 5 mg PO Q8H PRN (Reason: severe pain (scale score 7-10)) Qty: 6 0RF Rx Instructions: Partial Fill upon patient request. No Action cholecalciferol (vitamin D3) 50 mcg (2,000 unit) capsule 50 mcg PO DAILY Qty: 90 3RF rosuvastatin 40 mg tablet 40 mg PO DAILY Qty: 90 3RF vitamin A palmitate 3,000 mcg (10,000 unit) capsule 3,000 mcg PO DAILY 90 Days Qty: 90 0RF escitalopram oxalate 10 mg tablet 10 mg PO DAILY lorazepam 0.5 mg tablet 0.5 mg PO DAILY PRN (Reason: Anxiety) clotrimazole 1 % cream 1 appl topical BID Qty: 45 3RF ferrous sulfate [FeroSul] 325 mg (65 mg iron) tablet 325 mg PO DAILY docusate sodium [Colace] 100 mg capsule 100 mg PO DAILY Qty: 30 2RF aspirin 81 mg tablet,delayed release (DR/EC) 81 mg PO DAILY Print Language: Slovak
[2024-08-03 08:50] VITALS: BP 128/75; PULSE 79; RESP 18; TEMP 36.8; O2SAT 97
[2024-08-03] MEDS: oxyCODONE HCl Immed Release 5 MG TABLET PO (10:55)
[2024-08-03] MEDS: Acetaminophen 325 MG TABLET 975 MG PO (10:56)
[2024-08-03 11:00] VITALS: BP 128/75; PULSE 79; RESP 18; TEMP 36.8; O2SAT 98
== END 2024-08-03 11:01 | disposition home or self-care (01) ==
PROVIDERS: Emergency Provider Emergency Medicine
DX: N13.2 Hydronephrosis with renal and ureteral calculous obstruction (principal); R10.32 Left lower quadrant pain; R11.2 Nausea with vomiting, unspecified; Z87.891 Personal history of nicotine dependence
CPT/HCPCS: 36415; 74176; 80053; 81001; 81025; 83690; 85007; 85027; 87086; 96361; 96374; 96375; 99284; 99285; J1885; J2405

== ENCOUNTER 2024-08-23 11:30 | Outpatient (AMB) | payer MEDICARE, MEDICAID, SELFPAY ==
--- NOTE | 2024-08-23 08:31 | MHC.OFFVISWM ---
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 Allergies Penicillins Allergy (Severe, Verified 08/03/24 05:44) RASH morphine Allergy (Intermediate, Verified 08/03/24 05:44) N/V, RASH, itching sulfamethoxazole [From BACTRIM] Allergy (Intermediate, Verified 08/03/24 05:44) RASH trimethoprim [From BACTRIM] Allergy (Intermediate, Verified 08/03/24 05:44) RASH Medication List - Last Reconciled 08/23/24 by ARIEL Azul aspirin 81 mg PO DAILY cholecalciferol (vitamin D3) 50 mcg PO DAILY clotrimazole 1% 1 appl topical BID docusate sodium (Colace) 100 mg PO DAILY escitalopram oxalate 10 mg PO DAILY ferrous sulfate (FeroSul) 325 mg PO DAILY lorazepam 0.5 mg PO DAILY PRN naproxen 500 mg PO BID PRN ondansetron 4 mg PO Q8H PRN 3 days oxycodone 5 mg PO Q8H PRN rosuvastatin 40 mg PO DAILY tamsulosin (Flomax) 0.4 mg PO DAILY vitamin A palmitate 3,000 mcg PO DAILY 90 days HPI Comments Details: Patient is a pleasant 43-year-old female who returns to the office today in follow-up. She is approximately 1 year 2 months post panniculectomy performed on 06/22/2023. She had been having problems with abdominal pain, CT scan without evidence of significant abnormality but heavy stool burden consistent with constipation. She states that her constipation has improved and she is having no longer difficulty with this. She does report noted asymmetry with a ?bulge? on the right side. She is also 3 years 8 months post laparoscopic sleeve gastrectomy with hiatal hernia repair performed on 12/22/2020. She does complain of intermittent mild suprapubic tenderness. Weight today is 141 lb with a BMI of 26.6. She reports her last weight was in May. And at that time was 143.6 lb She just had ureteroscopy and stent placement for left sided nephrolithiasis. Meal plan: premier protein 2 scoops in 8-10 oz almond milk (1 or 2 depending on if she is having lunch) premier protein 1 scoop in 8 oz almond milk another meal 7 forks protein and 7 forks veg after dinner eating snacks - berries Drinking 48 oz water Exercise plan: Treadmill 3 days per week, 30-45 minutes x 2 on exercise days weight lifting PFSH Medical History Anemia Vaso vagal episode Anxiety Asthma Steatosis, liver PCOS (polycystic ovarian syndrome) Dental crowns present Migraines Sciatica Seizure CVA (cerebral vascular accident) Depression IBS (irritable bowel syndrome) GERD (gastroesophageal reflux disease) Hyperlipidemia Sinus tachycardia Hypertension Surgical History Hx of bladder endoscopy S/P panniculectomy Hx of prior ablation treatment History of sleeve gastrectomy History of sleeve gastrectomy Hx of hemorrhoidectomy Hx of breast biopsy Hx of tubal ligation Family History Father No problems noted. Mother Cervical cancer Social History Are you a primary home care provider to a significant other at home: No Do you presently have visiting nurse or other home services: No Alcohol intake: current Alcohol intake frequency: holidays/special occasions only Patient Tobacco Use Status: Former Tobacco user Advance Directives Date on File: 12/24/20 service: No Current occupational status: unemployed Physical Exam Vital Signs: BMI result Body Mass Index 26.6 Telehealth Telehealth Telehealth Platform: Telephone Location of provider rendering services: practice address Location of patient: address on file Patient Identification confirmed using: Name, : Yes Telehealth method: voice only Patient verbally consented to treatment: Yes Patient verbally consented to billing insurance company: Yes Patient informed of any privacy concerns related to visit: Yes Minutes spent on Phone/Video with Pt.: 15 Assessment & Plan Assessment & Plan (1) S/P laparoscopic sleeve gastrectomy: Code(s): Z98.84 - Bariatric surgery status Category: Medical Plan: Patient is much more satisfied with her meal plan. We will continue as such. Returned to exercise as she is able once she recovers from her urogenital surgery for left-sided nephrolithiasis. We will check a vitamin-A and vitamin-D level as these were previously low and supplemented. We will have her return to the office in approximately 6 weeks. Orders: Orders Vitamin A Today R79.89 - Other specified abnormal findings of blood chemistry Vitamin D 25-OH Total Today R79.89 - Other specified abnormal findings of blood chemistry
[2024-08-23 08:32] VITALS: BMI 26.6
== END 2024-08-23 11:59 | disposition home or self-care (01) ==
LOC: HO.HBS 11:56
PROVIDERS: Visit Provider Physician Assistant Surgical
DX: E66.3 Overweight (principal); Z68.26 Body mass index [BMI] 26.0-26.9, adult; Z90.3 Acquired absence of stomach [part of]; Z98.84 Bariatric surgery status
CPT/HCPCS: 98967

== ENCOUNTER → 2024-08-23 11:30 | Outpatient (BNVA) | payer MEDICARE, MEDICAID, SELFPAY | PROVIDERS: Visit Provider Physician Assistant Surgical | DX: R79.89 Other specified abnormal findings of blood chemistry (principal); Z98.84 Bariatric surgery status ==

== ENCOUNTER 2024-08-27 15:02 | Outpatient (REF) | payer MEDICARE, MEDICAID, SELFPAY ==
[2024-08-27 15:26] LABS: MANUAL DIFF FLAG NO
[2024-08-27 15:47] LABS: Basophils Absolute Auto 0.1 X10*3/uL (0.0-0.2); Basophils Percent Auto 1.3 % (0-2); Eosinophils Absolute Auto 0.1 X10*3/uL (0.0-0.4); Eosinophils Percent Auto 2.6 % (0-4); Hematocrit 36.3 % (37.0-47.0); Hemoglobin 12.3 g/dl (12.0-16.0); Imm Gran Abs Auto 0.02 X10*3/uL (0.00-0.03); Imm Gran Pct Auto 0.4 % (0.0-0.4); Lymphocytes Absolute Auto 1.8 X10*3/uL (1.2-4.9); Lymphocytes Percent Auto 38.4 % (20-40); Mean Corpuscular HGB Conc 33.9 g/dl (31.0-35.0); Mean Corpuscular Hemoglobin 29.5 pg (27.0-33.0); Mean Corpuscular Volume 87.1 fL (80.0-98.0); Mean Platelet Volume 13.5 fL (9.4-12.3); Monocytes Absolute Auto 0.4 X10*3/uL (0.1-1.2); Monocytes Percent Auto 8.4 % (2-11); Neutrophils Absolute Auto 2.3 x10*3/uL (2.0-8.3); Neutrophils Percent Auto 48.9 % (45-73); Platelet Count 174 X10*3/uL (160-400); Red Blood Count 4.17 X10*6/uL (4.20-5.50); Red Cell Distribution Width 12.9 % (11.0-16.0); White Blood Count 4.6 X10*3/uL (4.8-10.8)
[2024-08-27 15:53] LABS: Appearance Urine Clear; Color Urine Yellow; Glucose Urine UA Negative (Negative); Leukocyte Esterase Urine Negative (Negative); Nitrite Urine Negative (Negative); Urine Blood Negative (Negative); Urine Ketones Trace mg/dL (Negative); Urine Protein Negative (Neg-Trace)
[2024-08-27 16:30] LABS: Vitamin D 25-OH Total 38.1 ng/mL (>30)
[2024-09-02 13:02] LABS: Vitamin A 53 mcg/dL (38-98)
== END 2024-08-27 15:03 | disposition home or self-care (01) ==
LOC: HO.LAB 15:02
PROVIDERS: PCP Physician Assistant Medical; Visit Provider Physician Assistant Surgical
DX: E66.3 Overweight (principal); R10.31 Right lower quadrant pain; E55.9 Vitamin D deficiency, unspecified; K76.0 Fatty (change of) liver, not elsewhere classified; K58.9 Irritable bowel syndrome, unspecified; E78.5 Hyperlipidemia, unspecified; I10 Essential (primary) hypertension; R79.89 Other specified abnormal findings of blood chemistry
CPT/HCPCS: 36415; 81003; 82306; 84590; 85025

== ENCOUNTER 2025-01-01 13:50 | Outpatient (REF) | payer MEDICARE, MEDICAID, SELFPAY ==
[2025-01-02 21:23] LABS: Cardiolipin IgG Ab <2.0 GPL-U/mL; Cardiolipin IgM Ab 7.8 MPL-U/mL
[2025-01-05 23:38] LABS: Hexagonal Phase Neutralization Negative (Negative); PTT (LAC) Screen 42 sec (<=40)
[2025-01-07 19:48] LABS: Factor V Leiden NEGATIVE
== END 2025-01-01 13:51 | disposition home or self-care (01) ==
LOC: HO.LAB 13:50
PROVIDERS: PCP Physician Assistant Medical; Visit Provider Psychiatry & Neurology Neurology
DX: G43.109 Migraine with aura, not intractable, without status migrainosus (principal); Z13.0 Encounter for screening for diseases of the blood and blood-forming organs and certain disorders involving the immune mechanism
CPT/HCPCS: 36415; 81241; 85597; 85598; 85613; 85730; 86147

== ENCOUNTER 2025-01-07 10:48 | Outpatient (AMB) | payer MEDICARE, MEDICAID, SELFPAY ==
--- NOTE | 2025-01-07 10:51 | A.OFFVIS_ITS ---
VS Expanded 01/07/25 10:55 BP 134/82 Pulse 69 Pulse Source Pulse Oximeter Pulse Oximetry 97 Height 5 ft 1 in Body Fat % 32.7 Body Fat Mass 44.6 Fat Free Mass 91.8 Visceral Fat Rating 6.0 Body Water % 47.9 Body Water Mass 65.2 Muscle Mass/Score 87.0 Basal Metabolic Rate/Score 1,257 Intake Visit Reasons: (OV) PO LSG 12/22/20 [employer] Required: No Allergies Penicillins Allergy (Severe, Verified 01/07/25 10:52) RASH morphine Allergy (Intermediate, Verified 01/07/25 10:52) N/V, RASH, itching sulfamethoxazole [From BACTRIM] Allergy (Intermediate, Verified 01/07/25 10:52) RASH trimethoprim [From BACTRIM] Allergy (Intermediate, Verified 01/07/25 10:52) RASH Medication List - Last Reconciled 01/07/25 by ARIEL Azul albuterol sulfate 90 mcg/actuation inhalation aspirin 81 mg PO DAILY cholecalciferol (vitamin D3) 50 mcg PO DAILY clotrimazole 1% 1 appl topical BID docusate sodium (Colace) 100 mg PO DAILY escitalopram oxalate 20 mg PO DAILY ferrous sulfate (FeroSul) 325 mg PO DAILY fluoxetine 20 mg PO DAILY lorazepam 0.5 mg PO DAILY PRN naproxen 500 mg PO BID PRN rosuvastatin 40 mg PO DAILY tamsulosin (Flomax) 0.4 mg PO DAILY vitamin A 1 cap PO DAILY HPI Comments Details: Patient is a pleasant 43-year-old female who returns to the office today in follow-up. She is approximately 1 year 6 months post panniculectomy performed on 06/22/2023. She had been having problems with abdominal pain, CT scan without evidence of significant abnormality but heavy stool burden consistent with constipation. She states that her constipation has improved and she is having no longer difficulty with this. She does report noted asymmetry with a ?bulge? on the right side of her abdomen although this is improving with core and abdominal exercises. She is also 4 years post laparoscopic sleeve gastrectomy with hiatal hernia repair performed on 12/22/2020. She does complain of intermittent mild suprapubic tenderness. Weight today is 136.4 lb with a BMI of 25.8. Meal plan: premier protein 2 scoops in 8-10 oz almond milk (1 or 2 depending on if she is having lunch) premier protein 1 scoop in 8 oz almond milk another meal 7 forks protein and 7 forks veg after dinner eating snacks - berries Drinking 48 oz water Exercise plan: Treadmill 5 days per week, 30-45 minutes x 2 on exercise days weight lifting Any post op complications: None DIMITRI: Never DM: Never HTN: Resolved Hyperlipidemia: Improved GERD:?0-5 scale ??0 = no symptoms ??1 = symptoms noticeable but not bothersome 2 =symptoms bothersome but not daily ? 3 = symptoms bothersome and daily 4 = symptoms affect daily activities 5 = symptoms are incapacitating, unable to do daily activities ? How bad is the heartburn: 0 ? Heartburn while lying down: 0 ? Heartburn when standing up: 0 ? Heartburn after meals: 0 ? Does heartburn change your diet: 0 ? Does heartburn wake you up from sleep: 0 ? Do you have difficulty swallowin ? Do you have pain with swallowin ? If you take medicine for your reflux, does this affect your daily life: 0 Satisfaction with present condition - satisfied or not satisfied: Satisfied [facility] Medical History Hx of nephrolithotomy with removal of calculi Anemia Vaso vagal episode Anxiety Asthma Steatosis, liver PCOS (polycystic ovarian syndrome) Dental crowns present Migraines Sciatica Seizure CVA (cerebral vascular accident) Depression IBS (irritable bowel syndrome) GERD (gastroesophageal reflux disease) Hyperlipidemia Sinus tachycardia Hypertension Surgical History Hx of bladder endoscopy S/P panniculectomy Hx of prior ablation treatment History of sleeve gastrectomy History of sleeve gastrectomy Hx of hemorrhoidectomy Hx of breast biopsy Hx of tubal ligation Family History Father No problems noted. Mother Cervical cancer Social History Are you a primary child day care provider to a significant other at home: No Do you presently have visiting nurse or other home services: No Alcohol intake: current Alcohol intake frequency: holidays/special occasions only Patient Tobacco Use Status: Former Tobacco user Advance Directives Date on File: 12/24/20 service: No Current occupational status: unemployed Physical Exam Const General: cooperative and no acute distress Orientation/consciousness: patient oriented x3 Resp Effort & Inspection: normal respiratory effort Auscultation: clear to auscultation bilaterally Cardio Rate: regular rate Rhythm: regular rhythm GI Inspection: Yes normal to inspection and Yes incision (well healed) Palpation (GI): Soft to palpation and no masses Neuro General: patient oriented x3 Assessment & Plan Assessment & Plan (1) S/P laparoscopic sleeve gastrectomy: Code(s): Z98.84 - Bariatric surgery status Category: Surgical Plan: Overall doing very well with her meal plan. She has achieved a healthy lifestyle and balance. She continues to exercise regularly. We will have her follow-up in approximately 1 year. Sooner should there be any questions or concerns. Additionally, we will check 4 year postop labs. Orders: Orders Hemoglobin A1c Today E78.5 - Hyperlipidemia, unspecified, I10 - Essential (primary) hypertension, R79.89 - Other specified abnormal findings of blood chemistry, Z98.84 - Bariatric surgery status Lipid Panel Today E78.5 - Hyperlipidemia, unspecified, I10 - Essential (primary) hypertension, R79.89 - Other specified abnormal findings of blood chemistry, Z98.84 - Bariatric surgery status Vitamin B12 and Folate Today E78.5 - Hyperlipidemia, unspecified, I10 - Essential (primary) hypertension, R79.89 - Other specified abnormal findings of blood chemistry, Z98.84 - Bariatric surgery status Vitamin A Today E78.5 - Hyperlipidemia, unspecified, I10 - Essential (primary) hypertension, R79.89 - Other specified abnormal findings of blood chemistry, Z98.84 - Bariatric surgery status Vitamin D 25-OH Total Today E78.5 - Hyperlipidemia, unspecified, I10 - Essential (primary) hypertension, R79.89 - Other specified abnormal findings of blood chemistry, Z98.84 - Bariatric surgery status Insulin Today E78.5 - Hyperlipidemia, unspecified, I10 - Essential (primary) hypertension, R79.89 - Other specified abnormal findings of blood chemistry, Z 98.84 - Bariatric surgery status Complete Blood Count Auto Diff Today E78.5 - Hyperlipidemia, unspecified, I10 - Essential (primary) hypertension, R79.89 - Other specified abnormal findings of blood chemistry, Z98.84 - Bariatric surgery status IRON PROFILE Today E78.5 - Hyperlipidemia, unspecified, I10 - Essential (primary) hypertension, R79.89 - Other specified abnormal findings of blood chemistry, Z98.84 - Bariatric surgery status Comprehensive Met. Panel Today E78.5 - Hyperlipidemia, unspecified, I10 - Essential (primary) hypertension, R79.89 - Other specified abnormal findings of blood chemistry, Z98.84 - Bariatric surgery status Zinc Today E78.5 - Hyperlipidemia, unspecified, I10 - Essential (primary) hypertension, R79.89 - Other specified abnormal findings of blood chemistry, Z98.84 - Bariatric surgery status C Reactive Protein Today E78.5 - Hyperlipidemia, unspecified, I10 - Essential (primary) hypertension, R79.89 - Other specified abnormal findings of blood chemistry, Z98.84 - Bariatric surgery status Vitamin B1 Today E78.5 - Hyperlipidemia, unspecified, I10 - Essential (primary) hypertension, R79.89 - Other specified abnormal findings of blood chemistry, Z98.84 - Bariatric surgery status TSH reflex Free T4 Today E78.5 - Hyperlipidemia, unspecified, I10 - Essential (primary) hypertension, R79.89 - Other specified abnormal findings of blood chemistry, Z98.84 - Bariatric surgery status Ferritin Today E78.5 - Hyperlipidemia, unspecified, I10 - Essential (primary) hypertension, R79.89 - Other specified abnormal findings of blood chemistry, Z98.84 - Bariatric surgery status
[2025-01-07 10:55] VITALS: BP 134/82; PULSE 69; O2SAT 97
--- OUTSIDE RECORDS SUMMARY | 2025-01-07 13:06 | XMS_ITS | Encounter Summary ---
Author Organization [facility] [place] [address] Care Team Providers Care Certified Midwife Name Role Phone Micah Jacques Primary Care Provider [phone] Encounter Details Date Type Department Care Team (Late st Contact Info) Description 11/08/2024 Telephone Obstetrics and Gynecology - [address] [id number] Janis Box [place] Social History Tobacco Use Types Packs/Day Years Used Date Smoking Tobacco: Some Days Cigarettes Smokeless Tobacco: Never Alcohol Use Standard Drinks/Week Comments Not Currently 0 (1 standard drink = 0.6 oz pur e alcohol) Housing Instability Answer Date Recorde d Are you worried that in the next 2 months you may not have stable housing? No 10/31/2024 Food Access & Nutrition Answer Date Rec orded Do you have access to a vari ety of food including fruits and vegetables? Yes 10/31/2024 Access to Healthcare Answer Date Record ed Within the last 3 months, ho w many times did you visit the emergency department for your medical care? 1 10/31/2024 Health Literacy Answer Date Recorded How often do you need to hav e someone help you when you read instructions, pamphlets, or other written material from your doctor or pharmacy? Never 10/31/2024 Caregiver: How often do you need to have someone help you when you read instructions, pamphlets, or other written material from your doctor or pharmacy? Not on file 10/31/2024 Financial Risk Answer Date Recorded How hard is it for you to pa y for the very basics like food, housing, medical care, and air conditioning / heating? Not very hard 10/31/2024 Transportation Answer Date Recorded Has the lack of transportati on kept you from meetings, work, or from getting things needed for daily living? No Has the lack of transportati on kept you from medical appointments or from getting medications? No 10/31/2024 Social Isolation Answer Date Recorded How often do you feel lonely or isolated from th ose around you? Rarely 10/31/2024 Food Risk Answer Date Recorded Within the past 12 months we worried whether our food would run out before we got money to buy more. Never true 10/31/2024 Within the past 12 months th e food we bought just didn't last and we didn't have money to get more. Never true 10/31/2024 Dependent Care Answer Date Recorded Do you need help finding or paying for care for your loved ones. For example, early childhood teacher or elderly care for an older adult? No 10/31/2024 Education Answer Date Recorded Do you think completing more education or training, like finishing a GED, going to college, or learning a trade, would be helpful for you? N/A 10/31/2024 Employment and Income Answer Date Recor ded During the last four weeks, have you been actively looking for work? No 10/31/2024 Living Situation Answer Date Recorded What is your living situation? 0 10/31/2024 Comments No Sex and Gender Information Value Date Recorded Sex Assigned at Female 09/17/2024 12:05 PM EST Legal Sex Female 2:33 AM EST Gender Identity Female 09/17/2024 12:05 PM EST Sexual Orientation Straight 09/17/2024 12 :05 PM EST documented as of this encounter Plan of Treatment Upcoming Encounters Date Type Department Care Team (Late st Contact Info) Description 04/08/2025 8:15 AM EDT Office Visit Adult Medicine [facility] [address] [place] [address] Micah Jacques PA [address] [place] [address] documented as of this encounter Visit Diagnoses Not on filedocumented in this encounter Additional Health Concerns Assessment Noted Time PHQ-9 Depression Total Score: 12 025 11:14 AM EST documented as of this encounter Care Teams Certified Midwife Relationship Specialty Start Date End Date Micah Jacques PA [address] [place] [address] PCP - General Internal Medicine 03/05/21 documented as of this encounter
--- OUTSIDE RECORDS SUMMARY | 2025-01-07 13:06 | XMS_ITS | Clinical Summary ---
Author Organization 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 Cough Active clotrimazole (LOTRIMIN) 1 % cream Apply 1 Application topically 2 (two) times a day. 3 Active diclofenac (VOLTAREN) 1 % topical gel Apply 4 g topically 1 (one) time each day if needed. pain 3 Active fluticasone propionate (FLONASE) 50 mcg/actuation nasal spray Administer 2 sprays into each nostril 1 (one) time each day. SHAKE LIQUID Active fluticasone furoate (Arnuity Ellipta) 200 mcg/actuation blister with device inhaler Inhale 1 puff by mouth 2 (two) times a day. 3 Active ferrous sulfate 325 mg (65 mg elemental iron) tablet Take 1 tablet (325 mg total) by mouth 1 (one) time each day. 3 Active rosuvastatin (CRESTOR) 40 mg tablet Take 1 tablet (40 mg total) by mouth 1 (one) time each day. Active vitamin A 3,000 mcg (10,000 unit) tablet Take 1 tablet (10,000 Units total) by mouth 1 (one) time each day. FOR 90 DAYS 4 Active aspirin 81 mg EC tablet TAKE 1 TABLET BY MOUTH DAILY 90 tablet 1 4 Active cholecalcifero l (VITAMIN D-3) 50 mcg (2,000 unit) capsule Take 1 capsule (2,000 Units total) by mouth 1 (one) time each day. 90 capsule 3 4 Active pregabalin (LYRICA) 75 mg capsule Take 1 capsule (75 mg total) by mouth at bedtime. Max Daily Amount: 75 mg 30 each 5 4 Active escitalopram (LEXAPRO) 20 mg tablet TAKE 1 TABLET BY MOUTH DAILY 90 tablet 1 5 Active LORazepam (ATIVAN) 0.5 mg tablet Take 1 tablet (0.5 mg total) by mouth 2 (two) times a day if needed for anxiety. panic attacks Max Daily Amount: 1 mg 56 tablet 5 Active LORazepam (ATIVAN) 0.5 mg tablet Take 1 tablet (0.5 mg total) by mouth 2 (two) times a day if needed for anxiety. panic attacks Max Daily Amount: 1 mg 56 tablet 5 12/22/19 25 Discontin ued(Reord er) Active Problems Problem Noted Date Diagnosed Date Vasovagal syncope 11/17/2023 Menorrhagia with irregular cycle 01/09/2023 Overview (09/01/2024): Last Assessment & Plan: Pt was counseled regarding options for treatment of her symptoms including oral hormonal therapy, levonorgestrel IUD, ablation, and hysterectomy. I reviewed the risks, benefits, and rates of amenorrhea. She was most interested in endometrial ablation. She does not feel comfortable with hormonal treatments given history of stroke despite counseling that Mirena IUD is category 1. The risks and benefits of endometrial ablation were reviewed including risk of infection, pain, bleeding, damage to surrounding organs, development of post tubal ligation endometrial ablation syndrome and difficulty detecting hyperplasia or cancer in the future. She expressed understanding and desires to proceed. Will schedule. She will return for endometrial biopsy prior to the procedure. All questions answered. Raimundo Cueto, DO Irregular menses 03/30/2022 Overview (09/01/2024): Last Assessment & Plan: Since just this month, will observe for now. Could be recent increased stress. If continues to be irregular, patient will call in and we can get an US and discuss management at follow up visit. Microscopic hematuria 03/30/2022 Gilbert syndrome 03/19/2021 Anxiety 07/17/2020 Esophageal dysmotility 12/30/2019 Asthma 11/11/2019 Thyroid nodule 10/28/2019 Left ovarian cyst 08/12/2019 Rectocele, female 11/24/2017 Hypertension 04/08/2017 Multiple pulmonary nodules 01/02/2017 Overview (09/01/2024): Last Assessment & Plan: Ms. Castillo is a 43-year-old female current smoker who in April 2022 had a right VATS lung wedge biopsy for benign parenchymal lymph node he has been being followed for several years initially at [facility] by her physical therapy assistant for multiple small pulmonary nodules. Her most recent chest CT surveillance scan was obtained in October 2023 shows no new or worsening pulmonary nodules or mediastinal lymphadenopathy. Even though these nodules have been stable for several years patient wishes to continue with CT surveillance of these nodules and per Fleischner Society guidelines we will repeat a chest CT surveillance scan in 2 years which will be October 2025 and have a visit at the thoracic surgical department thereafter to discuss results. Patient was also informed that once she turns 48 years old she will be referred to the lung cancer screening program for continued surveillance due to her smoking history. While patient was in office we also discussed smoking cessation for approximately 2 minutes duration and patient states that at this time she is not ready to fully quit and feels that her current smoking mild is quite minimal. 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 Pap normal 2009 and 2010 and 2011 (+ HPV) Mixed hyperlipidemia 09/22/2006 Occipital stroke 09/22/2006 Overview (09/01/2024): September 2006; Left medial occipital ischemia; MRI 05/27 similar to MRIs in 2005 and 2008 Convulsions 09/22/2006 Overview (09/01/2024): FOLLOWED BY DR VILLATORO Encounters Date Type Department Care Team Description 12/27/2024 1:14 PM EDT - 12/27/2024 11:59 PM EDT [facility] [address] [phone] Encounter for screening mammogram for breast cancer Discharge Disposition: Home or Self Care 11/08/2024 Telephone Obstetrics and Gynecology - [address] [phone] Janis Box MA 11/07/2024 Telephone Obstetrics and Gynecology - [address] [phone] Katie Valdez CNM 11/04/2024 5:35 PM EST - 11/04/2024 11:59 PM EST Hospital Encounter Radiology Department - [address] [phone] Pelvic pain Discharge Disposition: Home or Self Care 11/01/2024 1:00 PM EST Office Visit Obstetrics and Gynecology - [address] [phone] Katie Valdez CNM Pelvic pain (Primary Dx); Sebaceous cyst from Last 3 Months Immunizations Name Administration Dates Next Due HPV 9-valent (Gardisil) 9yo to less than 46yo 04/11/2022,03/22/2021 Influenza Quadravalent, MDCK , 0.5ml, preservative free (Flucelvax) 6mo and older 11/17/2023,08/02/2021,07/06/2020,06/22 Influenza trivalent, MDCK, 0 .5mL, preservative free (Flucelvax) 6mo and older 10/08/2024 Influenza trivalent, with pr eservative (Fluzone; Afluria) 6mo and older 06/16/2016,08/20/2013,11/26/2010,07/03 Influenza, Unspecified 07/01/2019,08/10/2015, PPD Test 01/29/2013,08/05/2009 PlanZap SARS-CoV-2 COVID-19, mRNA, LNP-S, preservative free 08/02/2021 Pneumococcal polysaccharide 23 valent (Pneumovax 23) 2yo and older 01/28/2016,11/26/2010 Td Tetanus diptheria (Tdvax) 7yo and older 11/20/2019 Tdap Tetanus diptheria acell ular pertussis (Boostrix; Adacel) 7yo and older 07/03/2009 Surgical History Surgery Date Site/Laterality Comments CERVICAL BIOPSY W/ LOOP ELECTRODE EXCISION 2007 PROCEDURE: MN CONIZATION CERVIX W/WO D&C RPR ELTRD EXC; COMMENT: ALMAS 2 free margins in 2007. Also done in 1999. TUBAL LIGATION 04/2009 PROCEDURE: HISTORICAL TUBAL LIGATION; COMMENT: laparoscopy BREAST BIOPSY 2007 Left PROCEDURE: BX BREAST; PERC NEEDLE CORE W/IMAG GUID; COMMENT: neg OTHER SURGICAL HISTORY Right PROCEDURE: MN ANES HRNA RPR UPR ABD LMBR&VNT HERNIA&/DEHSN FLEXIBLE SIGMOIDOSCOPY 09/12/2011 PROCEDURE: HISTORICAL FLEXIBLE SIGMOIDOSCOPY; COMMENT: hemorrhoids COLONOSCOPY 06/17/2010 PROCEDURE: HISTORICAL COLONOSCOPY; COMMENT: Normal UPPER GASTROINTESTINAL ENDOSCOPY 06/17/2010 PROCEDURE: MN UPPER GI ENDOSCOPY PERFORMED; COMMENT: Normal COLONOSCOPY 11/27/2019 PROCEDURE: HISTORICAL COLONOSCOPY; COMMENT: Normal examination. HEMORRHOID SURGERY 07/11/2014 PROCEDURE: HISTORICAL HEMMORROIDECTOMY; COMMENT: Hemorrhoid surgery, Dr. Reji Mcqueen, [facility]. UPPER GASTROINTESTINAL ENDOSCOPY 11/18/2020 PROCEDURE: MN UPPER GI ENDOSCOPY PERFORMED; COMMENT: Normal findings. OTHER SURGICAL HISTORY 04/27/2022 PROCEDURE: MN THORACTOMY W/DX BX LUNG NODULE/MASS UNILATERAL; COMMENT: dr. laki rousou - wedge biopsy for lung nodules OTHER SURGICAL HISTORY 2021 PROCEDURE: HISTORY OTHER; COMMENT: Gastric sleeve OTHER SURGICAL HISTORY 04/12/2023 PROCEDURE: MN HYSTEROSCOPY ENDOMETRIAL ABLATION; COMMENT: Benign pathology, polyp, AUB OTHER SURGICAL HISTORY PROCEDURE: HISTORICAL PANNICULECTOMY; COMMENT: raftopolous Medical History Medical History Date Comments Miscarriage X2 DX:Miscarriage; COMMENT: one early, one at 5 1/2 months Other convulsions DX:Other convu lsions Unspecified essential hypertension 10/23/2006 DX:Unspecified essential hypertension Cerebrovascular disease, unspecified 05/21 DX:Cerebrovascular disease, unspecified; COMMENT: ? due to migraines Other specified personal his tory presenting hazards to health(V15.89) 1999 DX:Other specifie d personal history presenting hazards to health(V15.89); COMMENT: Dysplasia of Cervix in past Renal cyst, left 06/13/2011 DX:Renal cyst, left Transient cerebral ischemia 09/22/2006 DX:T ransient cerebral ischemia; COMMENT: MRI 05/27 similar to MRIs in 2005 and 2008 Convulsions, unspecified con vulsion type (CMS/HCC) 09/22/2006 DX:Convulsions, unspecified convulsion type (HCC); COMMENT: FOLLOWED BY DR VILLATORO Mixed hyperlipidemia 09/22/2006 DX:Mixed hy perlipidemia Moderate dysplasia of cervix 12/31/2007 DX: Moderate dysplasia of cervix; COMMENT: LEEP procedure done 02/01/08. 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 DX:Interc ostal neuropathy Fibromyalgia 02/27/2008 DX:Fibromyalgia Abdominal pain, chronic, generalized 07/20/2010 DX:Abdominal pain, chronic, generalized Migraine 03/25/2011 DX:Migraine IBS (irritable bowel syndrome) 06/09/2011 D X:IBS (irritable bowel syndrome) Thyroid nodule 10/28/2019 DX:Thyroid nodul e Asthma 11/11/2019 Family History Medical History Relation Name Comments Ovarian cancer Aunt maternal Colon cancer Brother 1 dx 2018 Stroke Father Breast cancer Maternal Grandmother ` Ovarian cancer Maternal Grandmother Ovarian cancer Mother Breast cancer Mother's Sister Leukemia Uncle mothers side Cancer of Small Bowel Neg Hx Kidney cancer Neg Hx Pancreatic cancer Neg Hx Uterine cancer Neg Hx Relation Name Status Comments Aunt Brother 1 Brother 2 Alive Brother 3 Alive AND SEVERAL 1/2 SIB Father stroke age 60 Maternal Grandmother Alive Mother DM HTN THYROID Mother's Sister Alive Uncle Social History Tobacco Use Types Packs/Day Years Used Date Smoking Tobacco: Some Days Cigarettes Smokeless Tobacco: Never Tobacco Cessation:Ready to Q uit: Not Asked Alcohol Use Standard Drinks/Week Comments Not Currently [...] Record ed Within the last 3 months, debby thapa many times did you visit the emergency [...] your loved ones. For example, early childhood educator aide or elderly care for an older adult? [...] Orientation Straight 09/17/2024 12 :05 PM EST Obstetrics History Para Term AB IAB SAB Ectopic Multiple Livin g Live Births 5 3 3 0 2 0 2 0 0 3 3 Date Outcome GA Total Labor Labor/2nd/3rd Weight Sex Type Anes PTL Karma A1 A5 Name Clin SAB [facility] 1997 Term 40w 0d 13h 00m/ 3544 g (125 oz) M Vag-S pont None Livin g RAEKWO N CNM Delivery Location:[facility] 2000 Term 40w 0d 7h 00m/ 3544 g (125 oz) M Vag-S pont Livin g MICHAE L CNM Delivery Location:[facility] 2008 Term 38w 6d 8h 00m/ 3277 g (115.6 oz) M Vag-S pont None Livin g 8 9 Griselda Moore calvert Delivery Location:[facility] Last Filed Vital Signs Vital Sign Reading Time Taken Comments Blood Pressure 133/86 11/01/2024 1:07 PM EST Pulse 71 11/01/2024 1:07 PM EST Temperature 36.2 ??C (97.2 ??F) 10/08/2024 8:42 AM ES T Respiratory Rate 14 11/01/2024 1:07 PM EST Oxygen Saturation - - Inhaled Oxygen Concentration - - Weight 63 kg (139 lb) 12/27/2024 1:39 PM EDT Height 154.9 cm (5' 1 ) 12/27/2024 1:39 PM EDT Body Mass Index 26.26 12/27/2024 1:39 PM EDT Plan of Treatment Upcoming Encounters Date Type Department Care Team (Late st Contact Info) Description 04/08/2025 8:15 AM EDT Office Visit Adult Medicine [facility] [address] [place] [address] Micah Jacques PA [address] [place] [address] Health Maintenance Due Date Last Done Comments Hepatitis A Vaccines (1 of 2 - Risk 2-dose series) 1997 Hepatitis B Vaccines (1 of 3 - 19+ 3-dose series) 1997 Pneumococcal Vaccine: Pediatrics (0 to 5 Years) and At-Risk Patients (6 to 64 Years) (2 of 2 - PCV) 01/27/2017 01/28/2016, 11/26/2010 HPV Vaccines (3 - 3-dose SCDM series) 07/04/2022 04/11/2022, 03/22/2021 Medicare Annual Wellness Visit 09/24/2022 COVID-19 Vaccine ( season) 2024 08/02/2021, 01/13/2021, 11/19/2020 Hypertension/CHF/CAD Annual BMP Blood Test 10/08/2025 10/08/2024, 05/23/2024, 05/23/2024, Additional history exists Colorectal Cancer Screening: Colonoscopy 10/30/2025 10/30/2020 Depression Screening 10/31/2025 10/31/2024 Social Influencers of Health Screening 10/31/2025 10/31/2024 Cervical Cancer Screening: HPV 03/30/2026 03/30/2021 Breast Cancer Screening 12/27/2026 12/28/19, 11/18/2023, 11/08/2022, Additional history exists Cholesterol Screening (Lipid Panel) 10/08/2029 10/08/2024, 11/17/2023 DTaP,Tdap,and Td Vaccines (3 - Td or Tdap) 11/20/2029 11/20/2019, 07/03/2009 HIV Screening Completed 08/20/2013 Hepatitis C Screening Completed 08/10/2021 Influenza Vaccine Completed 10/08/2024, , 08/02/2021, Additional history exists HIB Vaccines Aged Out No longer eligi ble based on patient's age to complete this topic IPV Vaccines Aged Out No longer eligi ble based on patient's age to complete this topic MMR Vaccines Aged Out No longer eligi ble based on patient's age to complete this topic Meningococcal ACWY Vaccine Aged Out N o longer eligible based on patient's age to complete this topic Meningococcal B Vacine Aged Out No lo nger eligible based on patient's age to complete this topic RSV Immunization Patients Under 20 months Aged Out No longer eligible based on patient's age to complete this topic Varicella Vaccines Aged Out No longer eligible based on patient's age to complete this topic Procedures Procedure Name Priority Date/Time Associated Diagnosis Comments MG MAMMO DIGITAL SCREENING W KODI BILAT Routine 12/27/2024 1:54 PM EDT Encounter for screening mammogram for breast cancer US PELVIS NON OB COMPLETE W TRANSVAGINAL Routine 11/04/2024 6:05 PM EST Pelvic pain TRICHOMONAS VAGINALIS ANTIGEN Routine 11/01/2024 1:31 PM EST Pelvic pain WET PREP, GENITAL Routine 11/01/2024 1:3 1 PM EST Pelvic pain CHLAMYDIA TRACHOMATIS AND NEISSERIA GONORRHOEAE PCR Routine 11/01/2024 1:31 PM EST Pelvic pain COMPREHENSIVE METABOLIC PANEL Routine 10/08/2024 9:31 AM EST Fibromyalgia Esophageal dysmotility Asthma with status asthmaticus, unspecified asthma severity, unspecified whether persistent Primary hypertension Need for prophylactic vaccination and inoculation against influenza LIPID PANEL WITH REFLEX TO DIRECT LDL Routine 10/08/2024 9:31 AM EST Fibromyalgia Esophageal dysmotility Asthma with status asthmaticus, unspecified asthma severity, unspecified whether persistent Primary hypertension Need for prophylactic vaccination and inoculation against influenza HEPATITIS C SCREENING Routine 08/10/2021 HM HPV Routine 03/30/2021 COLONOSCOPY Routine 10/30/2020 HIV SCREENING Routine 08/20/2013 from Last 3 Months or Most Recently Relevant to Health Maintenance Results * MG Mammo Digital Screening w Kodi bilat (12/27/2024 1:54 PM EDT) Anatomical Region Laterality Modality Breast Bilateral Mammography 12/30/2024 4:42 PM EDT Impressions 12/30/2024 4:51 PM EDT No mammographic evidence of malignancy. ?? No suspicious interval change. A negative mammogram in the presence of a clinically suspicious palpable abnormality does not preclude the possibility of malignancy or alter the indications for biopsy. ASSESSMENT: ?? BI-RADS 1: NEGATIVE RECOMMENDATION(S): 1: Routine screening mammogram BILATERAL in 1 year. [facility] location[facility] [address], [address] -------- FINAL REPORT -------- Dictated By: Omar Wynne Dictated Date: 12/30/2024 16:42 ET Assigned Physician: Omar Wynne Reviewed and Electronically Signed By: Omar Wynne Signed Date: 12/30/2024 16:51 ET Workstation ID: [id number] Transcribed By: Self Edit Transcribed Date: 12/30/2024 16:42 ET Narrative 12/30/2024 4:51 PM EDT EXAM: ??SCREENING MAMMOGRAPHY, BILATERAL HISTORY: ??SCREENING. ??Family history of breast cancer; maternal grandmother diagnosed age 45, maternal aunt COMPARISON: ??11/18/2023, 11/08/2022, 09/17/2020 TECHNIQUE: Synthesized CC and MLO projections of each breast. ??Tomosynthesis of each breast in the CC and MLO projections. ADDITIONAL IMAGING: None Computer-aided detection was employed with the iCAD ??ProFound AI 3-D. TISSUE DENSITY: There are scattered areas of fibroglandular density. (BI-RADS category B) FINDINGS: RIGHT BREAST: No suspicious mass. No suspicious calcification. No distortion. ?? No additional suspicious right breast findings LEFT BREAST: No suspicious mass. No suspicious calcification. No distortion. ?? No additional suspicious left breast findings Procedure Note Omar Wynne MD - 12/30/2024 EXAM: SCREENING MAMMOGRAPHY, BILATERAL HISTORY: SCREENING. Family history of breast cancer; maternalgrandmother diagnosed age 45, maternal aunt COMPARISON: 11/18/2023, 11/08/2022, 09/17/2020 TECHNIQUE: Synthesized CC and MLO projections of each breast.Tomosynthesis of each breast in the CC and MLO projections. ADDITIONAL IMAGING: None Computer-aided detection was employed with the iCAD Braingaze AI 3-D. TISSUE DENSITY: There are scattered areas of fibroglandular density.(BI-RADS category B) FINDINGS: RIGHT BREAST: No suspicious mass. No suspicious calcification. No distortion. Noadditional suspicious right breast findings LEFT BREAST: No suspicious mass. No suspicious calcification. No distortion. Noadditional suspicious left breast findings IMPRESSION: No mammographic evidence of malignancy. No suspicious interval change. A negative mammogram in the presence of a clinically suspicious palpableabnormality does not preclude the possibility of malignancy or alter theindications for biopsy. ASSESSMENT: BI-RADS 1: NEGATIVE RECOMMENDATION(S): 1: Routine screening mammogram BILATERAL in 1 year. [facility] location[facility] at [address], [address] -------- FINAL REPORT -------- Dictated By: Omar Wynne Dictated Date: 12/30/2024 16:42 ET Assigned Physician: Omar Wynne Reviewed and Electronically Signed By: Omar Wynne Signed Date: 12/30/2024 16:51 ET Workstation ID: [id number] Transcribed By: Self Edit Transcribed Date: 12/30/2024 16:42 ET us Self Referral Sppl IMG BI PROCEDURES Final Resul t * US Pelvis Non OB Complete w Transvaginal (11/04/2024 6:05 PM EST) Anatomical Region Laterality Modality Body, Pelvis Ultrasound 11/05/2024 8:07 AM EST Impressions 11/05/2024 8:13 AM EST Decreasing size of a small uterine fibroid. ??No ovarian abnormality. POS [id number] -------- FINAL REPORT -------- Dictated By: Estephania Caldwell Dictated Date: 11/05/2024 08:07 ET Assigned Physician: Estephania Caldwell Reviewed and Electronically Signed By: Estephania Caldwell Signed Date: 11/05/2024 08:13 ET Workstation ID: [id number] Transcribed By: Self Edit Transcribed Date: 11/05/2024 08:07 ET Narrative 11/05/2024 8:13 AM EST PELVIC ULTRASOUND HISTORY: Pelvic pain. COMPARISON: ??06/01/2022 FINDINGS: Both transabdominal and endovaginal pelvic ultrasound were performed. ?? Uterus: 7.5 x 5.5 x 4.3 cm in size. ??1.5 x 1.2 x 1.0 cm heterogeneous hypoechoic lesion in the right uterine body which likely represents an intramural fibroid has decreased in size compared with 1.8 x 1.8 x 1.6 cm previously. Endometrium: 0.4 cm in thickness which is within normal limits. ??No focal abnormality identified. Right ovary: Normal in size measuring 2.3 x 1.3 x 1.2 cm without abnormality. ??Unable to obtain arterial and venous waveforms on spectral Doppler analysis. Left ovary: Normal in size measuring 2.3 x 2.0 x 1.5 cm without abnormality. ??Unable to obtain arterial and venous waveforms on spectral Doppler analysis. Cul-de-sac: No free fluid. Procedure Note Estephania Caldwell MD - 11/05/2024 PELVIC ULTRASOUND HISTORY: Pelvic pain. COMPARISON: 06/01/2022 FINDINGS: Both transabdominal and endovaginal pelvic ultrasound were performed. Uterus: 7.5 x 5.5 x 4.3 cm in size. 1.5 x 1.2 x 1.0 cm heterogeneoushypoechoic lesion in the right uterine body which likely represents anintramural fibroid has decreased in size compared with 1.8 x 1.8 x 1.6 cmpreviously. Endometrium: 0.4 cm in thickness which is within normal limits. No focalabnormality identified. Right ovary: Normal in size measuring 2.3 x 1.3 x 1.2 cm withoutabnormality. Unable to obtain arterial and venous waveforms on spectralDoppler analysis. Left ovary: Normal in size measuring 2.3 x 2.0 x 1.5 cm withoutabnormality. Unable to obtain arterial and venous waveforms on spectralDoppler analysis. Cul-de-sac: No free fluid. IMPRESSION: Decreasing size of a small uterine fibroid. No ovarian abnormality. POS [id number] -------- FINAL REPORT -------- Dictated By: Estephania Caldwell Dictated Date: 11/05/2024 08:07 ET Assigned Physician: Estephania Caldwell Reviewed and Electronically Signed By: Estephania Caldwell Signed Date: 11/05/2024 08:13 ET Workstation ID: [id number] Transcribed By: Self Edit Transcribed Date: 11/05/2024 08:07 ET Katie Valdez CNM IMG US PROCEDURES Final Result * Trichomonas vaginalis antigen (11/01/2024 1:31 PM EST) Trichomonas vaginalis Negative Negative 11/01/2024 10:05 PM EST [facility] Swab Vaginal structure / Unknown Non-blood Collection / Unknown 11/01/2024 1:31 PM EST 11/01/2024 1:31 PM EST Katie Valdez CNM LAB MICROBIOLOGY - GENERAL CLEMENTE RABTYRA Final Result [facility] [address] [place] [address], * Chlamydia trachomatis and Neisseria gonorrhoeae molecular study (11/01/2024 1:31 PM EST) Neisseria gonorrhoeae PCR Negative Negative LAB MOLECULAR DIAGNOSTICS METHOD 11/02/2024 10:31 AM EST [facility] Chlamydia trachomatis PCR Negative Negative LAB MOLECULAR DIAGNOSTICS METHOD 11/02/2024 10:31 AM EST [facility] Swab Cervix uteri structure / Unknown Non-blood Collection / Unknown 11/01/2024 1:31 PM EST 11/01/2024 1:31 PM EST Katie Valdez CNM LAB MICROBIOLOGY - GENERAL ORDE RABTYRA Final Result [facility] [address] [place] [address], [place] [phone] * Wet prep, genital (11/01/2024 1:31 PM EST) Clue Cells, Wet Prep Negative Negative 11/01/2024 10:04 PM [facility] Yeast, Wet Prep Negative Negative 11/01/2024 10:04 PM [facility] Trichomonas, Wet Prep Indeterminate Negative 11/01/2024 10:04 PM [facility] Comment:Refer to Trichomonas antigen. Swab Vaginal structure / Unknown Non-blood Collection / Unknown 11/01/2024 1:31 PM EST 11/01/2024 1:31 PM EST Katie ROSALES LAB MICROBIOLOGY - GENERAL ORDE RABTYRA Final Result Performing Organization Address City/[facility]/ZIP Co de Phone Number [facility] [address] [place] [address], [place] [phone] * Lipid panel with reflex to direct LDL (10/08/2024 9:31 AM EST) Cholesterol 197 0 - 200 mg/dL LAB CHEMISTRY METHOD 10/08/2024 2:25 PM [facility] Triglycerides 118 0 - 150 mg/dL LAB CHEMISTRY METHOD 10/08/2024 2:25 PM [facility] HDL 79 >=40 mg/dL LAB CHEMISTRY METHOD 10/08/2024 2:25 PM [facility] LDL Calculated 94 0 - 100 mg/dL LAB CHEMISTRY METHOD 10/08/2024 2:25 PM [facility] [facility] VLDL Cholesterol Des 23.6 mg/dL LAB CHEMISTRY METHOD 10/08/2024 2:25 PM [facility] Non HDL Chol. (LDL+VLDL) 118 <145 mg/dL LAB CHEMISTRY METHOD 10/08/2024 2:25 PM [facility] Chol/HDL Ratio 2.5 0.0 - 4.4 LAB CHEMISTRY METHOD 10/08/2024 2:25 PM [facility] Blood Venous blood specimen / Unknown Venipuncture / Unknown 10/08/2024 9:31 AM EST 10/08/2024 9:31 AM EST us Micah GEORGE LAB BLOOD ORDERABLES Annamaria de la cruz Result [facility] [address] [place] [address], [place] [phone] * (ABNORMAL) Comprehensive metabolic panel (10/08/2024 9:31 AM EST) Sodium 140 133 - 145 mmol/L LAB CHEMISTRY METHOD 10/08/2024 2:25 PM [facility] Potassium 3.8 3.5 - 5.5 mmol/L LAB CHEMISTRY METHOD 10/08/2024 2:25 PM [facility] Chloride 106 96 - 110 mmol/L LAB CHEMISTRY METHOD 10/08/2024 2:25 PM [facility] CO2 26 21 - 32 mmol/L LAB CHEMISTRY METHOD 10/08/2024 2:25 PM [facility] Anion Gap 8 3 - 11 LAB CHEMISTRY METHOD 10/08/2024 2:25 PM [facility] Glucose 86 70 - 100 mg/dL LAB CHEMISTRY METHOD 10/08/2024 2:25 PM [facility] BUN 12 5 - 25 mg/dL LAB CHEMISTRY METHOD 10/08/2024 2:25 PM [facility] Creatinine 0.74 0.50 - 1.10 mg/dL LAB CHEMISTRY METHOD 10/08/2024 2:25 PM [facility] eGFR 101 >=60 mL/min/1. 73m2 LAB CHEMISTRY METHOD 10/08/2024 2:25 PM [facility] Comment:Calculation based on the??Chronic Kidney Disease Epidemiology Collaboration (CKD-EPI) equation refit??without adjustment for race. BUN/Creatinine Ratio 16.2 LAB CHEMISTRY METHOD 10/08/2024 2:25 PM [facility] Calcium 9.5 8.5 - 10.5 mg/dL LAB CHEMISTRY METHOD 10/08/2024 2:25 PM [facility] AST (SGOT) 17 10 - 42 unit/L LAB CHEMISTRY METHOD 10/08/2024 2:25 PM [facility] ALT (SGPT) 16 10 - 60 unit/L LAB CHEMISTRY METHOD 10/08/2024 2:25 PM [facility] Alkaline Phosphatase 65 42 - 121 unit/L LAB CHEMISTRY METHOD 10/08/2024 2:25 PM [facility] Total Protein 6.7 6.0 - 8.0 g/dL LAB CHEMISTRY METHOD 10/08/2024 2:25 PM [facility] Albumin 4.0 3.2 - 5.0 g/dL LAB CHEMISTRY METHOD 10/08/2024 2:25 PM [facility] Total Bilirubin 1.6(H) 0.0 - 1.4 mg/dL LAB CHEMISTRY METHOD 10/08/2024 2:25 PM [facility] Blood Venous blood specimen / Unknown Venipuncture / Unknown 10/08/2024 9:31 AM EST 10/08/2024 9:31 AM EST Micah GEORGE LAB BLOOD ORDERABLES Annamaria l Result [facility] [address] [place] [address], * Hepatitis C Screening (08/10/2021) Pathologist [facility] Hepatitis C Screening abstracted Historical Provider HEALTH MAINTENANCE Final Result * Cervical Cancer Screening: HPV (03/30/2021) [facility] Cervical Cancer Screening: HPV negative, abstracted [facility] Provider HEALTH MAINTENANCE Final Result * Colonoscopy (10/30/2020) [facility] Colonoscopy no interpretation , abstracted Anatomical Region Laterality Modality Other Historical Provider HEALTH MAINTENANCE Final Result * HIV Screening (08/20/2013) [facility] HIV Screening abstracted [facility] Provider HEALTH MAINTENANCE Final Result from Last 3 Months or Most Recently Relevant to Health Maintenance Insurance MEDICARE MEDICAID - [place] Care Teams Cutter And Edge Trimmer Relationship Specialty Start Date End Date Micah Jacques PA [address] [place] [address] PCP - General Internal Medicine 03/05/21
--- OUTSIDE RECORDS SUMMARY | 2025-01-07 13:06 | XMS_ITS | Clinical Summary ---
Author Organization [facility] Address [address] [place] [phone] Phone Care Team Providers Care Commercial Account Executive Name Role Phone Eder Jose MD Primary Care Provider Unavailabl e Social History Tobacco Use Types Packs/Day Years Used Date Smoking Tobacco: Never Assessed Comments Unknown Sex and Gender Information Value Date Recorded Sex Assigned at Not on file Legal Sex Female 3:12 PM EDT Gender Identity Not on file Sexual Orientation Not on file Plan of Treatment Health Maintenance Due Date Last Done Comments MMR Vaccines (1 of 1 - Stand melquiades series) 1979 Varicella Vaccines (1 of 2 - 13+ 2-dose series) 1991 DTaP,Tdap,and Td Vaccines (1 - Tdap) 1996 Hepatitis B Vaccines (1 of 3 - 19+ 3-dose series) 1997 Influenza Vaccines (#1) 2024 COVID-19 Vaccine (2023-2 5 season) 2024 HIB Vaccines Aged Out No longer eligi ble based on patient's age to complete this topic HPV Vaccines Aged Out No longer eligi ble based on patient's age to complete this topic Hepatitis A Vaccines Aged Out No long er eligible based on patient's age to complete this topic IPV Vaccines Aged Out No longer eligi ble based on patient's age to complete this topic Men B Vaccine Aged Out No longer elig ible based on patient's age to complete this topic Meningococcal Vaccine Aged Out No graham joyce eligible based on patient's age to complete this topic Pneumococcal Vaccine Aged Out No long er eligible based on patient's age to complete this topic Care Teams Commercial Account Executive Relationship Specialty Start Date End Date Eder Jose MD PCP - General 05/26/17
--- OUTSIDE RECORDS SUMMARY | 2025-01-07 13:06 | XMS_ITS | Encounter Summary ---
Author Organization [facility] Address [address] [place] [address] Care Team Providers Care Travel Counselor Automobile Club Name Role Phone Micah Jacques Primary Care Provider [phone] Reason for Referral * Imaging (Routine) - Closed Specialty Diagnoses / Procedures Referred By Contac t Referred To Contact Radiology Diagnoses Encounter for screening mammogram for breast cancer Procedures MG Mammo Digital Screening w Kodi bilat Sppl, Self Referral [facility] Referral ID Status Reason Start Date Expiration Date Visits Re quested Visits Authorized [id number] Closed 12/26/2024 12/26/2025 1 1 * Imaging (Routine) - Closed Specialty Diagnoses / Procedures Referred By Contac t Referred To Contact Radiology Diagnoses Encounter for screening mammogram for breast cancer Procedures MG Mammo Digital Screening w Kodi bilat Sppl, Self Referral [facility] Referral ID Status Reason Start Date Expiration Date Visits Re quested Visits Authorized [id number] Closed 12/26/2024 12/26/2025 1 1 Reason for Visit * Imaging (Routine) - Closed Specialty Diagnoses / Procedures Referred By Contac t Referred To Contact Radiology Diagnoses Encounter for screening mammogram for breast cancer Procedures MG Mammo Digital Screening w Kodi bilat Sppl, Self Referral [facility] Referral ID Status Reason Start Date Expiration Date Visits Re quested Visits Authorized [id number] Closed 12/26/2024 12/26/2025 1 1 Encounter Details Date Type Department Care Team (Latest Contact Info) Description 12/27/2024 1:14 PM EDT - 12/27/2024 11:59 PM EDT Hospital [facility] [address] [address] Encounter for screening mammogram for breast cancer Discharge Disposition: Home or Self Care Social History Tobacco Use Types Packs/Day Years [...] your loved ones. For example, early childhood education worker or elderly care for an older adult? [...] PM EST documented as of this encounter Last Filed Vital Signs Vital Sign Reading Time Taken Comments Blood Pressure - - Pulse - - Temperature - - Respiratory Rate - - Oxygen Saturation - - Inhaled Oxygen Concentration - - Weight 63 kg (139 lb) 12/27/2024 1:39 PM EDT Height 154.9 cm (5' 1 ) 12/27/2024 1:39 PM EDT Body Mass Index 26.26 12/27/2024 1:39 PM EDT documented in this encounter Medications at Time of Discharge albuterol HFA (PROAIR HFA ; PROVENTIL HFA ; VENTOLIN HFA) 90 mcg/actuation inhaler Inhale 1 puff by mouth every 6 hours as needed for wheezing or shortness of breath. Cough aspirin 81 mg EC tablet TAKE 1 TABLET BY MOUTH DAILY 90 tablet 1 09/20/2024 cholecalciferol (VITAMIN D-3) 50 mcg (2,000 unit) capsule Take 1 capsule (2,000 Units total) by mouth 1 (one) time each day. 90 capsule 3 10/08/2024 clotrimazole (LOTRIMIN) 1 % cream Apply 1 Application topically 2 (two) times a day. 02/27/2023 diclofenac (VOLTAREN) 1 % topical gel Apply 4 g topically 1 (one) time each day if needed. pain 06/30/2023 escitalopram (LEXAPRO) 20 mg tablet TAKE 1 TABLET BY MOUTH DAILY 90 tablet 1 10/29/2024 ferrous sulfate 325 mg (65 mg elemental iron) tablet Take 1 tablet (325 mg total) by mouth 1 (one) time each day. 03/07/2023 fluticasone furoate (Arnuity Ellipta) 200 mcg/actuation blister with device inhaler Inhale 1 puff by mouth 2 (two) times a day. 11/17/2022 fluticasone propionate (FLONASE) 50 mcg/actuation nasal spray Administer 2 sprays into each nostril 1 (one) time each day. SHAKE LIQUID LORazepam (ATIVAN) 0.5 mg tablet Take 1 tablet (0.5 mg total) by mouth 2 (two) times a day if needed for anxiety. panic attacks Max Daily Amount: 1 mg 56 tablet 12/23/2024 pregabalin (LYRICA) 75 mg capsule Take 1 capsule (75 mg total) by mouth at bedtime. Max Daily Amount: 75 mg 30 each 5 10/08/2024 rosuvastatin (CRESTOR) 40 mg tablet Take 1 tablet (40 mg total) by mouth 1 (one) time each day. vitamin A 3,000 mcg (10,000 unit) tablet Take 1 tablet (10,000 Units total) by mouth 1 (one) time each day. FOR 90 DAYS 02/18/2024 documented as of this encounter Discharge Disposition Disposition Code Departure Means Destination Home or Self Care documented in this encounter Plan of Treatment Upcoming Encounters Date Type Department Care Team (Late st Contact Info) Description 04/08/2025 8:15 AM EDT Office Visit Adult Medicine [facility] [address] [place] [address] Micah Jacques PA [address] [place] [address] documented as of this encounter Procedures Procedure Name Priority Date/Time Associated Diagnosis Comments MG MAMMO DIGITAL SCREENING W KODI BILAT Routine 12/27/2024 1:54 PM EDT Encounter for screening mammogram for breast cancer documented in this encounter Results * MG Mammo Digital Screening w [...] year. 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 TISSUE DENSITY: There are scattered [...] year. Mammography location: [facility] [address], [address] -------- FINAL REPORT -------- Dictated By: Omar Wynne Dictated Date: 12/30/2024 16:42 ET Assigned Physician: Omar Wynne Reviewed and Electronically Signed By: Omar Wynne Signed Date: 12/30/2024 16:51 ET Workstation ID: [id number] Transcribed By: Self Edit Transcribed Date: 12/30/2024 16:42 ET us Self Referral Sppl IMG BI PROCEDURES Final Resul t documented in this encounter Visit Diagnoses Diagnosis Encounter for screening mammogram for breast cancer documented in this encounter Additional Health Concerns Assessment Noted Time PHQ-9 Depression Total Score: 12 10/31/ 025 11:14 AM EST documented as of this encounter Care Teams Travel Counselor Automobile Club Relationship Specialty Start Date End Date Micah Jacques PA [address] [place] [address] PCP - General Internal Medicine 03/05/21 documented as of this encounter
== END 2025-01-07 11:30 | disposition home or self-care (01) ==
LOC: HO.HBS 10:49
PROVIDERS: PCP Physician Assistant Medical; Visit Provider Physician Assistant Surgical
DX: E66.3 Overweight (principal); Z68.25 Body mass index [BMI] 25.0-25.9, adult; Z90.3 Acquired absence of stomach [part of]; Z98.84 Bariatric surgery status
CPT/HCPCS: 99214

== ENCOUNTER 2025-01-07 10:48 | Outpatient (REF) | payer MEDICARE, MEDICAID, SELFPAY ==
[2025-01-07 11:34] LABS: MANUAL DIFF FLAG NO
[2025-01-07 11:57] LABS: Basophils Absolute Auto 0.1 X10*3/uL (0.0-0.2); Basophils Percent Auto 1.7 % (0-2); Eosinophils Absolute Auto 0.1 X10*3/uL (0.0-0.4); Eosinophils Percent Auto 2.2 % (0-4); Hematocrit 37.2 % (37.0-47.0); Hemoglobin 12.6 g/dl (12.0-16.0); Imm Gran Abs Auto 0.02 X10*3/uL (0.00-0.03); Imm Gran Pct Auto 0.5 % (0.0-0.4); Lymphocytes Absolute Auto 1.7 X10*3/uL (1.2-4.9); Lymphocytes Percent Auto 41.6 % (20-40); Mean Corpuscular HGB Conc 33.9 g/dl (31.0-35.0); Mean Corpuscular Hemoglobin 29.2 pg (27.0-33.0); Mean Corpuscular Volume 86.3 fL (80.0-98.0); Mean Platelet Volume 13.5 fL (9.4-12.3); Monocytes Absolute Auto 0.4 X10*3/uL (0.1-1.2); Monocytes Percent Auto 9.1 % (2-11); Neutrophils Absolute Auto 1.9 x10*3/uL (2.0-8.3); Neutrophils Percent Auto 44.9 % (45-73); Platelet Count 159 X10*3/uL (160-400); Red Blood Count 4.31 X10*6/uL (4.20-5.50); White Blood Count 4.2 X10*3/uL (4.8-10.8)
[2025-01-07 12:17] LABS: Estimated Average Glucose 97 mg/dL; Total Hemoglobin (HGBA1C) 3384.5331 umol/L
[2025-01-07 12:45] LABS: Alanine Aminotransferase 13 U/L (0-31); Alkaline Phosphatase 56 U/L (39-117); Anion Gap 8 (12-20); Aspartate Amino Transferase 17 U/L (5-31); Bilirubin Total 1.4 mg/dL (0.0-1.0); Blood Urea Nitrogen 14 mg/dL (9-16); C Reactive Protein < 0.04 mg/dL (< or = 0.50); Calcium 9.3 mg/dL (8.4-10.2); Carbon Dioxide 30 mmol/L (22-29); Chloride 109 mmol/L (96-108); Cholesterol 223 mg/dL (<200); Estimated Glomerular Filt Rate > 60; Ferritin 18 ng/mL (10-250); Glucose Random 91 mg/dL (60-115); HDL Cholesterol 70 mg/dL (>40); Iron 122 mcg/dL (30-160); LDL Cholesterol Calculated 130 mg/dL (<100); Percent Iron Saturation 44 % (15-50); Potassium 4.1 mmol/L (3.3-5.1); Sodium 143 mmol/L (135-145); TSH reflex Free T4 1.17 uIU/mL (0.32-4.0); Total Iron Binding Capacity 280 mcg/dL (228-428); Total Protein 6.7 g/dL (6.5-8.0); Triglycerides 118 mg/dL (<150); Unsaturated Iron Binding 158 ug/dL
[2025-01-07 12:54] LABS: Folate 10.3 ng/mL (> or = 4.0); Vitamin B12 900 pg/mL (200-900)
[2025-01-07 13:09] LABS: Insulin 5 uU/mL (2-29)
[2025-01-10 12:59] LABS: Vitamin A 50 mcg/dL (38-98)
[2025-01-10 21:53] LABS: Zinc 70 mcg/dL (60-130)
[2025-01-13 21:04] LABS: Vitamin B1 7 nmol/L (8-30)
== END 2025-01-07 10:49 | disposition home or self-care (01) ==
LOC: HO.LAB 10:48
PROVIDERS: PCP Physician Assistant Medical; Visit Provider Physician Assistant Surgical
DX: I10 Essential (primary) hypertension (principal); R79.89 Other specified abnormal findings of blood chemistry; E78.5 Hyperlipidemia, unspecified; Z98.84 Bariatric surgery status
CPT/HCPCS: 36415; 80053; 80061; 82306; 82607; 82728; 82746; 83036; 83525; 83540; 84425; 84443; 84590; 84630; 85025; 86140; 99212

== ENCOUNTER 2025-08-11 14:17 | Outpatient (AMB) | payer MEDICARE, MEDICAID, SELFPAY ==
--- NOTE | 2025-08-11 14:19 | A.OFFVIS_ITS ---
Vital Signs 08/11/25 14:20 Height 5 ft 1 in Weight 141 lb 1.533 oz BMI 26.7 BP 120/72 Blood Pressure Location Lt brachial Position Sitting Pulse 71 Intake Visit Reasons: 1 yr follow up r/s 06-12-25 Intake Note: 1 year follow-up with ekg c/o more palpitations and off balance [employer]board [employer] Experimental Mechanic Required: No Allergies Penicillins Allergy (Severe, Verified 01/07/25 10:52) RASH morphine Allergy (Intermediate, Verified 01/07/25 10:52) N/V, RASH, itching sulfamethoxazole (From BACTRIM) Allergy (Intermediate, Verified 01/07/25 10:52) RASH trimethoprim (From BACTRIM) Allergy (Intermediate, Verified 01/07/25 10:52) RASH Medication List - Last Reconciled 08/11/25 by Fitz Claros MD albuterol sulfate 90 mcg/actuation inhalation aspirin 81 mg PO DAILY cholecalciferol (vitamin D3) 50 mcg PO DAILY clotrimazole 1% 1 appl topical BID docusate sodium (Colace) 100 mg PO DAILY escitalopram oxalate 20 mg PO DAILY ferrous sulfate (FeroSul) 325 mg PO DAILY fluoxetine 20 mg PO DAILY lorazepam 0.5 mg PO DAILY PRN naproxen 500 mg PO BID PRN rosuvastatin 40 mg PO DAILY tamsulosin (Flomax) 0.4 mg PO DAILY thiamine HCl (vitamin B1) 100 mg PO DAILY 90 days vitamin A 1 cap PO DAILY HPI Comments Details: Zeny comes for follow-up. He complains of symptoms of rapid heartbeat happening few times associated with lightheadedness. She gets imbalance at that time. She has not had any syncopal episodes. Denies any exertional chest pain or shortness of breath. Overall has done well with a weight loss surgery and has maintain her weight. She is currently on high-intensity statin therapy with rosuvastatin, not on PCSK9 inhibitor therapy. Taking all her medications including aspirin. She has not new neurologic issues. [facility] Medical History Hx of nephrolithotomy with removal of calculi Anemia Vaso vagal episode Anxiety Asthma Steatosis, liver PCOS (polycystic ovarian syndrome) Dental crowns present Migraines Sciatica Seizure CVA (cerebral vascular accident) Depression IBS (irritable bowel syndrome) GERD (gastroesophageal reflux disease) Hyperlipidemia Sinus tachycardia Hypertension Surgical History Hx of bladder endoscopy S/P panniculectomy Hx of prior ablation treatment History of sleeve gastrectomy History of sleeve gastrectomy Hx of hemorrhoidectomy Hx of breast biopsy Hx of tubal ligation Family History Father No problems noted. Mother Cervical cancer Social History Are you a primary health and social care teacher to a significant other at home: No Do you presently have visiting nurse or other home services: No Alcohol intake: current Alcohol intake frequency: holidays/special occasions only Patient Tobacco Use Status: Former Tobacco user Advance Directives Date on File: 12/24/20 service: No Current occupational status: unemployed Review of Systems Const Denies chills, Denies fatigue, Denies fever(s), Denies frequent falls, Denies weakness, Denies weight gain and Denies weight loss ENT Denies dizziness Card Denies chest pain, Denies leg edema, Denies lightheadedness, Denies palpitations, Denies dyspnea, Denies dyspnea on exertion, Denies orthopnea and Denies other (loss of consciousness) Resp Denies cough, Denies dyspnea and Denies dyspnea on exertion GI Denies hematochezia and Denies change in stool character Musc Denies abnormal gait, Denies muscle weakness, Denies numbness, Denies radiating pain into limb and Denies tingling Neuro Denies abnormal gait, Denies dizziness, Denies frequent falls, Denies numbness, Denies tingling and Denies weakness Endo Denies fatigue and Denies palpitations Physical Exam Vital Signs: Last Vital Signs Pulse 71 08/11/25 14:20 BP 120/72 08/11/25 14:20 BMI result Body Mass Index 26.7 Const General: cooperative, healthy appearing, comfortable and no acute distress Orientation/consciousness: patient oriented x3 Eyes Sclerae: sclerae normal Neck Neck: Yes normal visual inspection Resp Effort & Inspection: normal respiratory effort Auscultation: clear to auscultation bilaterally, no crackles, no rales, no rhonchi and no wheezes Cardio Jugular venous distension: no JVD Rate: regular rate Rhythm: regular rhythm Heart sounds: S1 normal heart sound present, S2 normal heart sound present, no murmurs and no rubs Skin General skin exam: no rashes or lesions noted Neuro General: patient oriented x3 Extrem General: Yes normal to inspection Psych Appearance: grossly normal Mental Status: mental status grossly normal Speech and movement: Normal speech and movement present Office Procedures EKG Details: EKG shows normal sinus rhythm nonspecific T-wave changes 67143-[id number], Complete Assessment & Plan Assessment & Plan (1) Palpitations: Code(s): R00.2 - Palpitations Plan: Patient was symptoms of palpitation which could represent short episodes of SVT less likely AFib. Could also represent anxiety/inappropriate sinus tachycardia. Would suggest a 30 day event monitor to further assess for the same. Further treatment based on the findings. (2) CVA (cerebral vascular accident): Comment: at age 24, right sided weakness, loss of peripheral vision on right Unknown etiology Code(s): I63.9 - Cerebral infarction, unspecified Category: Medical Plan: Prior history of CVA with no obvious abnormality but had significant hyperlipidemia. Currently on high-intensity statin therapy. Target goal LDL less than 70 mg/dL being pursue through office. Continue lifelong aspirin therapy. Currently off all blood pressure medication since weight loss. Blood pressure is well optimized at this point time. Advised to continue maintain lifestyle modification. Will follow up in the clinic in 1 year's time, sooner PRN. Thank you for allowing partake in her care Orders: Orders ECG 30 day event monitor Today R00.2 - Palpitations Coding Level of Care Code Est Pt Level 4 (71399) Complex EM visit Add On G2211 Diagnoses Palpitations R00.2 CVA (cerebral vascular accident) I63.9 CPT Codes EKG - CPT: 10836-[id number], Complete ([id number])
[2025-08-11 14:20] VITALS: BP 120/72; PULSE 71; BMI 26.7
--- OUTSIDE RECORDS SUMMARY | 2025-08-11 17:54 | XMS_ITS | Encounter Summary ---
Author Organization [facility] [place] [address] Care Team Providers Care Blood Donor Recruiter Name Role Phone Micah Jacques Primary Care Provider [phone] Reason for Visit * Reason Onset Date Comments thumb pain 08/08/2025 Encounter Details Date Type Department Care Team ([facility] st Contact Info) Description 08/08/2025 Telephone Adult Medicine [address] [address] Micah Jacques PA [address] [place] [address] Social History Tobacco Use Types Packs/Day Years [...] care for your loved ones. For example, child and adolescent psychologist or elderly care for an older adult? [...] Date Recorded What is your living situation? Unrecognized valu e 10/31/2024 Comments No Sex and Gender Information Value Date Recorded Sex Assigned at Female 09/17/2024 12:05 PM EST Legal Sex Female 2:33 AM EST Gender Identity Female 09/17/2024 12:05 PM EST Sexual Orientation Straight 09/17/2024 12 :05 PM EST documented as of this encounter Progress Notes * Darlene Chino RN - 08/08/2025 10:20 AM EDT Spoke with the pt Bilateral thumb pain for about 1 month No known injury Taking ibuprofen Swelling more in the morning but is not every day Pain is every day and radiates to the wrists R>L Does interfere with activities and is not able to orange picker objects, needs to use both hands Scheduled eval for 08/12 at 7:15 with PCP and 30 min * Inez Trammell - 08/08/2025 8:58 AM EDT Patient call requires triage: Symptoms patient is presenting: c/o bilateral thumb pain How long has patient had these symptoms?: 1 month For ALL patients calling to schedule any appointment (routine, sick visit, follow up, consult, etc.) in the outpatient setting please ask the following questions: Do you have fever of higher than 101, sore throat with difficulty swallowing or severe shortness ofbreath? no If YES to any of these above symptoms, send a message to triage and do not book. Red dot. If no, an audio or video visit should be booked. Have you had close contact with someone with Coronavirus in the last 14 days? no Have you traveled abroad? no Have you traveled recently to another state outside of [place], [place], [place], [place], [place], [place], [place]? no o If yes, did you quarantine for 14 days or have a negative covid test? no If yes to any of the above, patient is not to be scheduled in office until after 14 day quarantine or negative covid test. If pain or injury related was it due to an accident at work or from a motor vehicle accident? If yes, date of accident/Injury: No If yes, gather 3rd democrat insurance information [employer] Party Information: not applicable PCP: ARIEL Tipton Payor: MEDICARE / Plan: MEDICARE PART A & B / Product Type: Medicare / documented in this encounter Plan of Treatment Upcoming Encounters Date Type Department Care Team (Late st Contact Info) Description 08/12/2025 7:30 AM EDT Office Visit Adult Medicine [address] [address] Micah Jacques PA [address] [place] [phone] 10/08/2025 8:15 AM EST Office Visit Adult Medicine [facility] [address] [place] [address] Micah Jacques PA [address] [place] [phone] documented as of this encounter Visit Diagnoses Not on filedocumented in this encounter Additional Health Concerns Assessment Noted Time PHQ-9 Depression Total Score: 12 025 11:14 AM EST documented as of this encounter Care Teams Blood Donor Recruiter Relationship Specialty Start Date End Date Micah Jacques PA [address] [place] [address] PCP - General Internal Medicine 03/05/21 documented as of this encounter
--- OUTSIDE RECORDS SUMMARY | 2025-08-11 17:55 | XMS_ITS | Encounter Summary ---
Author Organization [facility] Address [address] [facility] [address] [place] [phone] Phone Care Team Providers Care Business Analyst Consultant Name Role Phone Micah Jacques Primary Care Provid er Encounter Details Date Type Department Care Team (Late st Contact Info) Description 08/26/2024 Procedure Pass OR Admitting Dept - Virtual Department [address] [place] [address] Social History Tobacco Use Types Packs/Day Years Used Date Smoking Tobacco: Never Smokeless Tobacco: Never Alcohol Use Standard Drinks/Week Comments Yes 0 (1 standard drink = 0.6 oz pur e alcohol) one drink once a month Education Answer Date Recorded Are you interested in more education? Not on jessica e 02/10/2023 Are you concerned about learning? Not on file 02/10/2023 No 02/10/2023 No 02/10/2023 Digital Access Answer Date Recorded No 03/10/2023 No 03/10/2023 Reliable internet access at home? Not on file 03/10/2023 Device with a working camera? Not on file Comments No Sex and Gender Information Value Date Recorded Sex Assigned at Not on file Legal Sex Female 9:25 PM EDT Gender Identity Not on file Sexual Orientation Not on file documented as of this encounter Plan of Treatment Not on file documented as of this encounter Visit Diagnoses Not on filedocumented in this encounter Care Teams Business Analyst Consultant Relationship Specialty Start Date End Date Micah Jacques PA [address] [place] [address] PCP - General Unknown Provider Specialty 01/31/22 documented as of this encounter Additional Source Comments The information contained in this document represents components of the legal health record. It is not the complete legal health record[facility]
--- OUTSIDE RECORDS SUMMARY | 2025-08-11 17:55 | XMS_ITS | Encounter Summary ---
Author Organization [facility] Address [address] [facility] [address] [place] [address] Phone Care Team Providers Care Manufacturing Helper Name Role Phone Micah Jacques Primary Care Provid er Encounter Details Date Type Department Care Team (Late st Contact Info) Description 02/02/2022 Procedure Pass OR Admitting Dept - Virtual Department [address] [place] [address] Social History Tobacco Use Types Packs/Day Years Used Date Smoking Tobacco: Never Smokeless Tobacco: Never Alcohol Use Standard Drinks/Week Comments Yes 0 (1 standard drink = 0.6 oz pur e alcohol) one drink once a month Comments No Sex and Gender Information Value Date Recorded Sex Assigned at Not on file Legal Sex Female 9:25 PM EDT Gender Identity Not on file Sexual Orientation Not on file documented as of this encounter Plan of Treatment Not on file documented as of this encounter Visit Diagnoses Not on filedocumented in this encounter Care Teams Manufacturing Helper Relationship Specialty Start Date End Date Micah Jacques PA [address] [place] [id number] PCP - General Unknown Provider Specialty 01/31/22 documented as of this encounter Additional Source Comments The information contained in this document represents components of the legal health record. It is not the complete legal health record.[facility]
--- OUTSIDE RECORDS SUMMARY | 2025-08-11 17:55 | XMS_ITS | Encounter Summary ---
Author Organization [facility] Address [address] [facility] [address] [place] [address] Phone Care Team Providers Care Field Aide Name Role Phone Micah Jacques Primary Care Provid er Encounter Details Date Type Department Care Team (Late st Contact Info) Description 08/07/2024 Procedure Pass OR Admitting Dept - Virtual Department [address] [place] [address] Social History Tobacco Use Types Packs/Day Years [...] on filedocumented in this encounter Care Teams Field Aide Relationship Specialty Start Date End Date Micah Jacques PA [address] [place] [phone] PCP - General Unknown Provider Specialty 01/31/22 documented as of this encounter Additional Source Comments The information contained in this document represents components of the legal health record. It is not the complete legal health record.[facility]
--- OUTSIDE RECORDS SUMMARY | 2025-08-11 17:55 | XMS_ITS | Clinical Summary ---
Author Organization [facility] [place] [address] Phone Care Team Providers Care Associate Financial Advisor Name Role Phone Micah Jacques Primary Care Provider [phone] Allergies Active Allergy Reactions Criticality Noted Date [...] Application topically 2 (two) times a day. 02/28/20 23 Active diclofenac (VOLTAREN) 1 % topical gel Apply 4 g topically 1 (one) time each day if needed. pain 06/30/20 23 Active fluticasone propionate (FLONASE) 50 mcg/actuation nasal spray Administer 2 sprays into each nostril 1 (one) time each day. SHAKE LIQUID Active fluticasone furoate (Arnuity Ellipta) 200 mcg/actuation blister with device inhaler Inhale 1 puff by mouth 2 (two) times a day. 11/17/19 23 Active ferrous sulfate 325 mg (65 mg elemental iron) tablet Take 1 tablet (325 mg total) by mouth 1 (one) time each day. 03/07/20 23 Active rosuvastatin (CRESTOR) 40 mg tablet Take 1 tablet (40 mg total) by mouth 1 (one) time each day. Active vitamin A 3,000 mcg (10,000 unit) tablet Take 1 tablet (10,000 Units total) by mouth 1 (one) time each day. FOR 90 DAYS 02/18/20 24 Active aspirin 81 mg EC tablet TAKE 1 TABLET BY MOUTH DAILY 90 tablet 1 09/20/20 24 Active cholecalciferol (VITAMIN D-3) 50 mcg (2,000 unit) capsule Take 1 capsule (2,000 Units total) by mouth 1 (one) time each day. 90 capsule 3 10/08/20 24 Active cyclobenzaprine (FLEXERIL) 10 mg tabletIndication s:Mass of right side of neck,Thyroid nodule,Multiple pulmonary nodules,Fibromya lgia,Anxiety,Annika griselda hypertension Take 1 tablet (10 mg total) by mouth 3 (three) times a day if needed for muscle spasms. 90 tablet 11 04/08/20 25 Active escitalopram (LEXAPRO) 20 mg tablet Take 1 tablet (20 mg total) by mouth 1 (one) time each day. 90 tablet 1 04/21/20 25 Active minoxidiL (Rogaine) 2 % external solution Apply topically 2 (two) times a day. 60 mL 5 05/06/20 25 Active LORazepam (ATIVAN) 0.5 mg tablet Take 1 tablet (0.5 mg total) by mouth 2 (two) times a day if needed for anxiety. panic attacks Max Daily Amount: 1 mg 56 tablet 08/04/20 25 Active LORazepam (ATIVAN) 0.5 mg tablet Take 1 tablet (0.5 mg total) by mouth 2 (two) times a day if needed for anxiety. panic attacks Max Daily Amount: 1 mg 56 tablet 06/13/20 25 025 Discontin ued(Reord er) Active Problems Problem Noted [...] being followed for several years initially at [facility] by her downstairs maid for multiple small pulmonary nodules. Her most [...] (+ HPV) Mixed hyperlipidemia 09/22/2006 Occipital stroke ([facility] V24, [facility] V28) 05/2006 Overview (09/01/2024): September 2006; Left medial occipital ischemia; MRI 05/27 similar to MRIs in 2005 and 2008 Convulsions ([facility] V24, [facility] V28) Overview (09/01/2024): FOLLOWED BY DR VILLATORO Encounters Date Type Department Care Team Description 08/08/2025 Telephone Adult Medicine [address] [phone] Micah Jacques PA 05/26/2025 11:30 AM EDT Office Visit [facility]-In [facility] - [address] [phone] Cassandra Cole NP Other infective acute otitis externa of left ear (Primary Dx) from Last 3 Months Immunizations Immunization Administration Dates Next Due HPV 9-valent (Gardisil) 9yo to less than 46yo 04/11/2022,03/22/2021 Influenza Quadravalent, MDCK , 0.5ml, preservative free (Flucelvax) 6mo and older 11/17/2023,08/02/2021,07/06/2020,06/22 Influenza trivalent, MDCK, 0 .5mL, preservative free (Flucelvax) 6mo and older 10/08/2024 Influenza trivalent, with pr eservative (Fluzone; Afluria) 6mo and older 06/16/2016,08/20/2013,11/26/2010,07/03 Influenza, Unspecified 07/01/2019,08/10/2015, PPD Test 01/29/2013,08/05/2009 Pfizer SARS-CoV-2 COVID-19, mRNA, LNP-S, preservative free 08/02/2021 Pneumococcal polysaccharide 23 valent (Pneumovax 23) 2yo and older 01/28/2016,11/26/2010 Td Tetanus diptheria (Tdvax) 7yo and older 11/20/2019 Tdap Tetanus diptheria acell ular pertussis (Boostrix; Adacel) 7yo and older 07/03/2009 Surgical History Surgery Date Site/Laterality Comments CERVICAL BIOPSY W/ LOOP ELECTRODE EXCISION 2007 PROCEDURE: KY CONIZATION CERVIX W/WO D&C RPR ELTRD EXC; COMMENT: ALMAS 2 free margins in 2007. Also done in 1999. TUBAL LIGATION 04/2009 PROCEDURE: HISTORICAL TUBAL LIGATION; COMMENT: laparoscopy BREAST BIOPSY 2007 Left PROCEDURE: BX BREAST; PERC NEEDLE CORE W/IMAG GUID; COMMENT: neg OTHER SURGICAL HISTORY Right PROCEDURE: KY ANES HRNA RPR UPR ABD LMBR&VNT HERNIA&/DEHSN FLEXIBLE SIGMOIDOSCOPY 09/12/2011 PROCEDURE: HISTORICAL FLEXIBLE SIGMOIDOSCOPY; COMMENT: hemorrhoids COLONOSCOPY 06/17/2010 PROCEDURE: HISTORICAL COLONOSCOPY; COMMENT: Normal UPPER GASTROINTESTINAL ENDOSCOPY 06/17/2010 PROCEDURE: KY UPPER GI ENDOSCOPY PERFORMED; COMMENT: Normal COLONOSCOPY 11/27/2019 PROCEDURE: HISTORICAL COLONOSCOPY; COMMENT: Normal examination. HEMORRHOID SURGERY 07/11/2014 PROCEDURE: HISTORICAL HEMMORROIDECTOMY; COMMENT: Hemorrhoid surgery, Dr. Reji Mcqueen, [facility]. UPPER GASTROINTESTINAL ENDOSCOPY 11/18/2020 PROCEDURE: KY UPPER GI ENDOSCOPY PERFORMED; COMMENT: Normal findings. OTHER SURGICAL HISTORY 04/27/2022 PROCEDURE: KY THORACTOMY W/DX BX LUNG NODULE/MASS UNILATERAL; COMMENT: dr. pepito braun - wedge biopsy for lung nodules OTHER SURGICAL HISTORY 2021 PROCEDURE: HISTORY OTHER; COMMENT: Gastric sleeve OTHER SURGICAL HISTORY 04/12/2023 PROCEDURE: KY HYSTEROSCOPY ENDOMETRIAL ABLATION; COMMENT: Benign pathology, polyp, [...] and 2008 Convulsions, unspecified con vulsion type (CMS/HCC V24, CMS/HCC V28) 09/22/2006 DX:Convulsions, unspec ified convulsion type ([facility]); COMMENT: FOLLOWED BY DR VILLATORO Mixed hyperlipidemia [...] Never Tobacco Cessation:Ready to Q uit: Not Asked; Counseling Given: Not Answered Alcohol Use Standard Drinks/Week Comments Not Currently [...] care for your loved ones. For example, children's ministry director or elderly care for an older adult? [...] 09/17/2024 12 :05 PM EST Obstetrics History * This document contains information received from the source organization and may not represent a complete record from that organization. Para Term AB IAB SAB Ectopic Multiple Livin g Live Births 5 3 3 0 0 0 3 3 Date Outcome GA Total Labor Labor/2nd/3rd Weight Sex Type Anes PTL Karma A1 A5 Name Clin 1997 Term 40w 0d 13h 00m/ 3544 g (125 oz) M Vag-S pont None Livin g RAEKWO N CNM Delivery Location:[facility] 2000 Term 40w 0d 7h 00m/ 3544 g (125 oz) M Vag-S pont Livin g MICHAE L CNM Delivery Location:[facility] 2008 Term 38w 6d 8h 00m/ 3277 g (115.6 oz) M Vag-S pont None Livin g 8 9 Griselda Moore calvert Delivery Location:[facility] Last Filed Vital Signs Vital Sign Reading Time Taken Comments Blood Pressure 164/82 05/26/2025 11:42 AM EDT Pulse 86 05/26/2025 11:42 AM EDT Temperature 36.8 C (98.2 F) 05/26/2025 11:42 AM EDT Respiratory Rate 17 04/08/2025 8:20 AM EDT Oxygen Saturation 98% 05/26/2025 11:42 AM EDT Inhaled Oxygen Concentration - - Weight 63.5 kg (140 lb) 04/08/2025 8:20 AM EDT Height 154.9 cm (5' 1 ) 04/08/2025 8:20 AM EDT Body Mass Index 26.45 04/08/2025 8:20 AM EDT Plan of Treatment Upcoming Encounters Date Type Department Care Team (Late st Contact Info) Description 08/12/2025 7:30 AM EDT Office Visit Adult Medicine [address] [phone] Micah Jacques PA [address] [place] [phone] 10/08/2025 8:15 AM EST Office Visit Adult [address] [phone] Micah Jacques PA [address] [place] [phone] Health Maintenance Due Date Last Done Comments Hepatitis A Vaccines (1 of 2 - Risk 2-dose series) 1997 Hepatitis B Vaccines (1 of 3 - 19+ 3-dose series) 1997 Pneumococcal Vaccine: Pediatrics (0 to 5 Years) and At-Risk Patients (6 to 49 Years) (2 of 2 - PCV) 01/27/2017 01/28/2016, 11/26/2010 HPV Vaccines (3 - 3-dose SCDM series) 07/04/2022 04/11/2022, 03/22/2021 Medicare Annual Wellness Visit 09/24/2022 COVID-19 Vaccine ( season) 2025 08/02/2021, 01/13/2021, 11/19/2020 Influenza Vaccine (#1) 2025 , 11/17/2023, 08/02/2021, Additional history exists Colorectal Cancer Screening: Colonoscopy 10/30/2025 10/30/2020 Social Influencers of Health Screening 10/31/2025 10/31/2024 Cervical Cancer Screening: HPV 03/30/2026 03/30/2021 Hypertension/CHF/CAD Annual BMP Blood Test 04/08/2026 04/08/2025, 10/08/2024, 05/23/2024, Additional history exists Breast Cancer Screening 12/27/2026 12/28/19 25, 11/18/2023, 11/08/2022, Additional history exists DTaP,Tdap,and Td Vaccines (3 - Td or Tdap) 11/20/2029 11/20/2019, 07/03/2009 Cholesterol Screening (Lipid Panel) 04/08/2030 04/08/2025, 10/08/2024, 11/17/2023 RSV Immunization Adult Patients (1 - 1-dose 75+ series) 2053 HIV Screening Completed 08/20/2013 Hepatitis C Screening Completed 08/10/2021 Depression Screening Completed 10/31/2024 HIB Vaccines Aged Out No longer eligi [...] age to complete this topic Meningococcal B Vaccine Aged Out No l onger eligible based on patient's age to complete this topic RSV Immunization Patients Under 20 months Aged Out No longer eligible based on patient's age to complete this topic Varicella Vaccines Aged Out No longer eligible based on patient's age to complete this topic Procedures Procedure Name Priority Date/Time Associated Diagnosis Comments COMPREHENSIVE METABOLIC PANEL Routine 04/08/2025 9:18 AM EDT Fibromyalgia Occipital stroke (CMS/HCC V24, CMS/HCC V28) Primary hypertension Tietze's disease Mixed hyperlipidemia Thyroid nodule Neck mass Lung mass LIPID PANEL WITH REFLEX TO DIRECT LDL Routine 04/08/2025 9:18 AM EDT Fibromyalgia Occipital stroke (CMS/HCC V24, CMS/HCC V28) Primary hypertension Tietze's disease Mixed hyperlipidemia Thyroid nodule Neck mass Lung mass MG MAMMO DIGITAL SCREENING W KODI BILAT Routine 12/27/2024 1:54 PM EDT Encounter for screening mammogram for breast cancer HEPATITIS C SCREENING Routine 08/10/2021 HPV Routine 03/30/2021 COLONOSCOPY Routine 10/30/2020 HIV SCREENING Routine 08/20/2013 from Last 3 Months or Most Recently Relevant to Health Maintenance Results * (ABNORMAL) Lipid panel with reflex to direct LDL (04/08/2025 9:18 AM EDT) Cholesterol 254(H) 0 - 200 mg/dL LAB CHEMISTRY METHOD 04/08/2025 11:03 AM EDT [facility] Triglycerides 108 0 - 150 mg/dL LAB CHEMISTRY METHOD 04/08/2025 11:03 AM EDT [facility] HDL 85 >=40 mg/dL LAB CHEMISTRY METHOD 04/08[facility]25 [facility] LDL Calculated 147(H) 0 - 100 mg/dL LAB CHEMISTRY METHOD 04/08/2025 11:03 AM [facility] VLDL Cholesterol Des 21.6 mg/dL LAB CHEMISTRY METHOD 04/08/2025 11:03 AM [facility] Non HDL Chol. (LDL+VLDL) 169(H) <145 mg/dL LAB CHEMISTRY METHOD 04/08/2025 11:03 AM [facility] Chol/HDL Ratio 3.0 0.0 - 4.4 LAB CHEMISTRY METHOD 04/08/2025 11:03 AM [facility] Blood Venous blood specimen / Unknown Venipuncture / Unknown 04/08/2025 9:18 AM EDT 04/08/2025 9:35 AM EDT us Micah GEORGE LAB BLOOD ORDERABLES Annamaria l Result [facility] [address] [place] [address], * (ABNORMAL) Comprehensive metabolic panel (04/08/2025 9:18 AM EDT) Sodium 143 133 - 145 mmol/L LAB CHEMISTRY METHOD 04/08/2025 10:54 AM EDT [facility] Potassium 4.1 3.5 - 5.5 mmol/L LAB CHEMISTRY METHOD 04/08/2025 10:54 AM [facility] Chloride 107 96 - 110 mmol/L LAB CHEMISTRY METHOD 04/08/2025 10:54 AM [facility] CO2 30 21 - 32 mmol/L LAB CHEMISTRY METHOD 04/08/2025 10:54 AM [facility] Anion Gap 6 3 - 11 LAB CHEMISTRY METHOD 04/08/2025 10:54 AM [facility] Glucose 83 70 - 100 mg/dL LAB CHEMISTRY METHOD 04/08/2025 10:54 AM [facility] BUN 12 5 - 25 mg/dL LAB CHEMISTRY METHOD 04/08/2025 10:54 AM [facility] Creatinine 0.66 0.50 - 1.10 mg/dL LAB CHEMISTRY METHOD 04/08/2025 10:54 AM [facility] eGFR 109 >=60 mL/min/1. 73m2 LAB CHEMISTRY METHOD 04/08/2025 10:54 AM [facility] Comment:Calculation based on the Chronic Kidney Disease Epidemiology Collaboration (CKD-EPI) equation refit without adjustment for race. BUN/Creatinine Ratio 18.2 LAB CHEMISTRY METHOD 04/08/2025 10:54 AM [facility] Calcium 8.8 8.5 - 10.5 mg/dL LAB CHEMISTRY METHOD 04/08/2025 10:54 AM [facility] AST (SGOT) 13 10 - 42 unit/L LAB CHEMISTRY METHOD 04/08/2025 10:54 AM [facility] ALT (SGPT) 17 10 - 60 unit/L LAB CHEMISTRY METHOD 04/08/2025 10:54 AM [facility] Alkaline Phosphatase 65 42 - 121 unit/L LAB CHEMISTRY METHOD 04/08/2025 10:54 AM [facility] Total Protein 6.5 6.0 - 8.0 g/dL LAB CHEMISTRY METHOD 04/08/2025 10:54 AM EDT [facility] Albumin 3.6 3.2 - 5.0 g/dL LAB CHEMISTRY METHOD 04/08/2025 10:54 AM EDT [facility] Total Bilirubin 1.6(H) 0.0 - 1.4 mg/dL LAB CHEMISTRY METHOD 04/08/2025 10:54 AM EDT [facility] Blood Venous blood specimen / Unknown Venipuncture / Unknown 04/08/2025 9:18 AM EDT 04/08/2025 9:35 AM EDT Micah GEORGE LAB BLOOD ORDERABLES Annamaria de la cruz Result [facility] [address] [place] [address], * MG Mammo Digital Screening w Kodi bilat (12/27/2024 1:54 PM EDT) Anatomical Region Laterality Modality Breast Bilateral Mammography 12/30/2024 4:42 PM EDT Impressions 12/30/2024 4:51 PM EDT No mammographic evidence of malignancy. No suspicious interval change. A negative mammogram in the presence of a clinically suspicious palpable abnormality does not preclude the possibility of malignancy or alter the indications for biopsy. ASSESSMENT: BI-RADS 1: NEGATIVE RECOMMENDATION(S): 1: Routine screening mammogram BILATERAL in 1 year. [facility]: [facility] [address] [place], [address] -------- FINAL REPORT -------- Dictated By: Omar Wynne Dictated Date: 12/30/2024 16:42 ET Assigned Physician: Omar Wynne Reviewed and Electronically Signed By: Omar Wynne Signed Date: 12/30/2024 16:51 ET Workstation ID: [id number] Transcribed By: Self Edit Transcribed Date: 12/30/2024 16:42 ET Narrative 12/30/2024 4:51 PM EDT EXAM: SCREENING MAMMOGRAPHY, BILATERAL HISTORY: SCREENING. Family history of breast cancer; maternal grandmother diagnosed age 45, maternal aunt COMPARISON: 11/18/2023, 11/08/2022, 09/17/2020 TECHNIQUE: Synthesized CC and MLO projections of each breast. Tomosynthesis of each breast in the CC and MLO projections. ADDITIONAL IMAGING: None Computer-aided detection was employed with the iCAD ProFound AI 3-D. TISSUE DENSITY: There are scattered areas of fibroglandular density. (BI-RADS category B) FINDINGS: RIGHT BREAST: No suspicious mass. No suspicious calcification. No distortion. No additional suspicious right breast findings LEFT BREAST: No suspicious mass. No suspicious calcification. No distortion. No additional suspicious left breast findings Procedure [...] year. [facility]amm[facility] location[facility] [address], [address] -------- FINAL REPORT -------- Dictated By: Omar Wynne Dictated Date: 12/30/2024 16:42 ET Assigned Physician: Omar Wynne Reviewed and Electronically Signed By: Omar Wynne Signed Date: 12/30/2024 16:51 ET Workstation ID: [id number] Transcribed By: Self Edit Transcribed Date: 12/30/2024 16:42 ET Self Referral Sppl IMG BI PROCEDURES Final Resul t * Hepatitis C Screening (08/10/2021) [facility] Hepatitis C Screening abstracted [facility] Provider MD HEALTH MAINTENANCE Final Result * Cervical Cancer Screening: HPV (03/30/2021) [facility] Cervical Cancer Screening: HPV negative, abstracted Result [facility] Provider HEALTH MAINTENANCE Final Result * Colonoscopy (10/30/2020) [facility] Colonoscopy no interpretation , abstracted Anatomical Region Laterality Modality Other Result [facility] Provider HEALTH MAINTENANCE Final Result * HIV Screening (08/20/2013) [facility] HIV Screening abstracted [facility] Provider HEALTH MAINTENANCE Final Result from Last 3 Months or Most Recently Relevant to Health Maintenance Insurance MEDICARE [place]ICAID [place] Care Teams Associate Financial Advisor Relationship Specialty Start Date End Date Micah Jacques PA [address] [place] [address] PCP - General Internal Medicine 03/05/21
--- OUTSIDE RECORDS SUMMARY | 2025-08-11 17:55 | XMS_ITS | Clinical Summary ---
Author Organization [facility] Address [address] [place] [phone] Phone Care Team Providers Care Ncqa Specialist Name Role Phone Eder Jose MD Primary [...] 19+ 3-dose series) 1997 Influenza Vaccines (#1) 2025 COVID-19 Vaccine (2024-2 6 season) 2025 HIB Vaccines Aged Out No longer eligi [...] age to complete this topic Care Teams Ncqa Specialist Relationship Specialty Start Date End Date Eder Jose MD PCP - General 05/26/17
--- OUTSIDE RECORDS SUMMARY | 2025-08-11 17:55 | XMS_ITS ---
Author Organization [facility] [place] [address] Phone Care Team Providers Care Systems Integration Manager Name Role Phone Micah Jacques Primary Care Provider [phone] High Risk Care Management Status:Identified (Enrolling) Start date:06/26/2025 Enrollment reason:Identified as high-risk Related social drivers of health:Housing Instability, Food Access & Nutrition, Access to Healthcare, TH Health Literacy, Financial Risk, Transportation, Social Isolation, Food Risk Case Team Name Relationship Phone Monica Wyatt RN(Responsible Staff) [facility] Coord[facility]
--- OUTSIDE RECORDS SUMMARY | 2025-08-11 17:55 | XMS_ITS ---
Author Name [facility] Organization Unknown Care Team Organization Name Specialty Phone Email Start Date End Da te [facility]CO 06/04/2025 [facility] Erica Duffy Primary Care 03/24/2023 [facility] Olivia Velez Primary Care 08/23/2022 06/03/20 24
--- OUTSIDE RECORDS SUMMARY | 2025-08-11 17:55 | XMS_ITS | Clinical Summary ---
Author Organization [facility] Address [address] [address] Phone Care Team Providers Care Partner Manager Name Role Phone Micah Jacques Primary Care Provid er Allergies Active Allergy Reactions Criticality Noted Date Comments Sulfamethoxazole-Trimethopr im 01/27/2022 Doxycycline 01/27/2022 Morphine 01/27/2022 Other 01/27/2022 Any cillin antibiotic Medications LORazepam (ATIVAN) 0.5 MG tablet Take 0.5 mg by mouth every 6 (six) hours as needed for anxiety. Active clonazePAM (KLONOPIN) 0.5 MG tablet Take 0.5 mg by mouth daily. Active rosuvastatin calcium (ROSUVASTATIN ORAL) Take by mouth. Active ibuprofen (ADVIL,MOTRIN) 600 MG tablet Take 1 tablet (600 mg total) by mouth every 8 (eight) hours as needed for pain (specific location in comments). 21 tablet 02/02/2022 Active oxyCODONE 5 MG immediate release tablet Take 1 tablet (5 mg total) by mouth every 4 (four) hours as needed for moderate pain. Partial fill ok 6 tablet 02/02/2022 Active b complex vitamins capsule Take 1 capsule by mouth daily. Active cholecalciferol (VITAMIN D3) 25 MCG (1,000 unit) tablet Take 1,000 Units by mouth daily. Active Active Problems No known active problems Social History Tobacco Use Types Packs/Day Years [...] on file Sexual Orientation Not on file Last Filed Vital Signs Vital Sign Reading Time Taken Comments Blood Pressure 111/64 08/07/2024 12:40 PM EDT Pulse 61 08/07/2024 12:00 PM EDT Temperature 36.3 C (97.3 F) 08/07/2024 12:40 PM EDT Respiratory Rate 16 08/07/2024 12:40 PM EDT Oxygen Saturation 100% 08/07/2024 12:40 PM EDT Inhaled Oxygen Concentration - - Weight 61.2 kg (135 lb) 01/27/2022 1:09 PM EDT Height 154.9 cm (5' 1 ) 01/27/2022 1:09 PM EDT Body Mass Index 25.51 01/27/2022 1:09 PM EDT Plan of Treatment Health Maintenance Due Date Last Done Comments LIPID PANEL 1978 DEPRESSION SCREENING 1990 HEPATITIS C SCREENING 1996 HIV ONE-TIME SCREENING (18-65 YEARS) 1996 MAMMOGRAM 2018 COLOGUARD 2023 COLONOSCOPY 2023 COLORECTAL CANCER SCREENING 2023 FIT TEST 2023 FOBT 2023 SIGMOIDOSCOPY 2023 VIRTUAL COLONOSCOPY 2023 PAP SMEAR 03/22/2024 03/22/2021 INFLUENZA VACCINE (#1) 2025 , 08/02/2021, 07/06/2020, Additional history exists COVID-19 VACCINE ( season) 2025 08/02/2021 Adult Td,Tdap Booster 11/20/2029 11/20/2019, 009 PNEUMOCOCCAL VACCINES (0-49 years) Aged Out 01/28/2016, 11/26/2010 No longer eligibl e based on patient's age to complete this topic SMOKING STATUS SCREENING (Once After 26 Yrs) Completed 08/07/2024 HEPATITIS A VACCINES Aged Out No long er eligible based on patient's age to complete this topic HIB VACCINES Aged Out No longer eligi ble based on patient's age to complete this topic MENINGOCOCCAL VACCINES (ACWY) Aged Out No longer eligible based on patient's age to complete this topic MENINGOCOCCAL VACCINES (B) Aged Out N o longer eligible based on patient's age to complete this topic Medical Devices Implanted Type Area Packaging Manager Device Identifier Shelf Expiration Date Model / Serial / Lot Stent Ureteral 6fr 22 To 30cm Stretch Coated Courtney - [id number] Implanted:Qty: 1 on 08/07/2024 by Edgardo Elizabeth MD at [facility] Left: Ureter [employer] 03/02/2027 [id number] / / [id number] [place] [id number] MEDICARE PART A & B [facility] [place] [address] MEDICARE PART A & B [place] HEALTH MEDICARE PART A & [place] [facility] & [address] [place], [place] [address]HEALTH [place] [facility] [place] [address] MEDICARE PART A & [facility] Care Teams Partner Manager Relationship Specialty Start Date End Date Micah Jacques PA [address] [place] [address] PCP - General Unknown Provider Specialty 01/31/22 Additional Source Comments The information contained in this document represents components of the legal health record. It is not the complete legal health record.[facility]
--- OUTSIDE RECORDS SUMMARY | 2025-08-11 17:55 | XMS_ITS | Clinical Summary ---
Author Organization [facility] Address [address] [place] [address] Care Team Providers Care Audit Spec Name Role Phone Georgie Micah Rowland PA-C Primary Care Provider Allergies Active Allergy Reactions Criticality Noted Date Comments Doxycycline 06/14/2023 Nausea, diarrhea, abdominal pain Morphine Dermatitis,Rash Low 06/14/2023 Penicillins Dermatitis,Rash Low 06/14/2023 Medications Medication Sig Dispensed Refills Start Date End Date Status nicotine (NICODERM CQ) 14 MG/24HR Place 1 patch onto the skin daily. 0 Active clotrimazole (LOTRIMIN) 1 % cream Apply topically 2 (two) times a day. 0 Active LORazepam (ATIVAN) 0.5 MG tablet Take 1 tablet (0.5 mg total) by mouth 2 (two) times a day as needed for anxiety. 0 Active ferrous sulfate 325 (65 FE) MG tablet Take 1 tablet (325 mg total) by mouth every morning with breakfast. 0 Active docusate sodium (COLACE) 100 MG capsule Take 1 capsule (100 mg total) by mouth 2 (two) times a day. 0 Active fluticasone (FLONASE) 50 MCG/ACT nasal spray spray/apply 2 sprays in each nostril daily. 0 Active rosuvastatin (CRESTOR) tablet 40 mg Take 1 tablet (40 mg total) by mouth daily. 0 Active aspirin 81 MG chewable tablet Chew 1 tablet (81 mg total) by mouth daily. 0 Active albuterol (ProAir HFA) 108 (90 Base) MCG/ACT inhaler Inhale 1 puff into the lungs every 6 (six) hours as needed (cough, wheezing or shortness of breath). 0 Active escitalopram (LEXAPRO) 20 MG tablet Take 1 tablet (20 mg total) by mouth daily. 0 Active Fluticasone Furoate 200 MCG/ACT AEPB Inhale 1 puff into the lungs 2 (two) times a day. 0 Active Cholecalciferol (Vitamin D) 50 MCG (2000 UT) CAPS Take by mouth. 0 Active Diclofenac Sodium 1 % GEL Apply 4 g topically as needed (pain). 0 Active ciprofloxacin (CIPRO) 500 MG tablet Take 1 tablet (500 mg total) by mouth 2 (two) times a day. 0 Active Active Problems No known active problems Immunizations Name Administration Dates Next Due Covid-19 (Pfizer) Dilution Required 01/13/2021,0 11/19/2020 Family History Medical History Relation Name Comments Cancer Maternal Aunt Cancer Maternal Grandmother Cancer Mother ovarian Relation Name Status Comments Maternal Aunt Maternal Grandmother Mother Social History Tobacco Use Types Packs/Day Years Used Date Smoking Tobacco: Every Day Cigarettes Smokeless Tobacco: Never Tobacco Cessation:Ready to Q uit: Not Asked; Counseling Given: Not Answered Alcohol Use Standard Drinks/Week Comments Not Currently 0 (1 standard drink = 0.6 oz pur e alcohol) Sex and Gender Information Value Date Recorded Sex Assigned at Not on file Gender Identity Not on file Sexual Orientation Not on file Job Start Date Occupation Industry Not on file Not on file Not on file Last Filed Vital Signs Vital Sign Reading Time Taken Comments Blood Pressure 131/76 07/18/2023 1:40 PM EDT Pulse 67 07/18/2023 1:40 PM EDT Temperature 36.7 C (98 F) 07/18/2023 1:40 PM EDT Respiratory Rate - - Oxygen Saturation 100% 07/18/2023 1:40 PM EDT Inhaled Oxygen Concentration - - Weight 64.4 kg (142 lb) 07/18/2023 1:40 PM EDT Height 154.9 cm (5' 1 ) 07/18/2023 1:40 PM EDT Body Mass Index 26.83 07/18/2023 1:40 PM EDT Plan of Treatment Health Maintenance Due Date Last Done Comments Hepatitis B Vaccines (1 of 3 - 3-dose series) 1978 Hepatitis C Screening 1978 Depression Screening 1990 Preventative Health Evaluation 1996 Cervical Cancer Screening (Pap Smear) 1999 Pneumococcal Vaccine (2 of 2 - PCV) 01/27/2017 01/28/2016, 11/26/2010 DTap / Tdap / Td (2 - Td or Tdap) 07/03/2019 07/03/2009 Colon Cancer Screening (Colonoscopy) 2023 COVID-19 Vaccine ( season) 2025 08/02/2021, 01/13/2021, 11/19/2020 Influenza Vaccine (#1) 2025 , 07/06/2020, 06/22/2018, Additional history exists RSV Ped < 20 months Aged Out No longe r eligible based on patient's age to complete this topic Care Teams Audit Spec Relationship Specialty Start Date End Date Micah Jacques, PA-C PCP - General Medical Services 04/05/23
== END 2025-08-11 14:59 | disposition home or self-care (01) ==
LOC: HO.HCS 14:18
PROVIDERS: PCP Physician Assistant Medical; Visit Provider Internal Medicine Cardiovascular Disease
DX: R00.2 Palpitations (principal); I63.9 Cerebral infarction, unspecified
CPT/HCPCS: 93010; 99214; G2211

== ENCOUNTER → 2025-08-11 14:17 | Outpatient (BNVA) | payer MEDICARE, MEDICAID, SELFPAY | PROVIDERS: PCP Physician Assistant Medical; Visit Provider Internal Medicine Cardiovascular Disease | DX: R00.2 Palpitations (principal); I63.9 Cerebral infarction, unspecified; E78.5 Hyperlipidemia, unspecified; Z87.891 Personal history of nicotine dependence; Z79.82 Long term (current) use of aspirin | CPT/HCPCS: 93005; 99212 ==

== ENCOUNTER → 2025-09-10 13:37 | Outpatient (REF) | payer MEDICARE, MEDICAID, SELFPAY ==
--- OUTSIDE RECORDS SUMMARY | 2025-09-10 16:43 | XMS_ITS | Encounter Summary ---
Author Organization [facility] Address [address] [facility] [address] [place] [phone] Phone Care Team Providers Care Health Service Coordinator Name Role Phone Micah Jacques Primary Care Provid er Encounter Details Date Type Department Care Team (Late st Contact Info) Description 08/26/2024 Procedure Pass OR Admitting Dept - Virtual Department [address] [place] [address] Social History Tobacco Use Types Packs/Day Years [...] on filedocumented in this encounter Care Teams Health Service Coordinator Relationship Specialty Start Date End Date Micah Jacques PA [address] [place] [phone] PCP - General Unknown Provider Specialty 01/31/22 documented as of this encounter Additional Source Comments The information contained in this document represents components of the legal health record. It is not the complete legal health record.[facility]
--- OUTSIDE RECORDS SUMMARY | 2025-09-10 16:43 | XMS_ITS | Encounter Summary ---
Author Organization [facility] Address [address] [facility] [address] [place] [address] Phone Care Team Providers Care Final Finisher Forging Dies Name Role Phone Micah Jacques Primary Care Provid er Encounter Details Date Type Department Care Team (Late st Contact Info) Description 08/07/2024 Procedure Pass [place] Admitting Dept - Virtual Department [address] [place] [address] Social History Tobacco Use Types Packs/Day Years [...] on filedocumented in this encounter Care Teams Final Finisher Forging Dies Relationship Specialty Start Date End Date Micah Jacques PA [address] [place] [id number] PCP - General Unknown Provider Specialty 01/31/22 documented as of this encounter Additional Source Comments The information contained in this document represents components of the legal health record. It is not the complete legal health record.[facility]
--- OUTSIDE RECORDS SUMMARY | 2025-09-10 16:43 | XMS_ITS | Clinical Summary ---
Author Organization [facility] Address [address] [place] [address] Phone Care Team Providers Care Riveter Helper Name Role Phone Eder Jose MD Primary [...] age to complete this topic Care Teams Riveter Helper Relationship Specialty Start Date End Date Eder Jose MD PCP - General 05/26/17
--- OUTSIDE RECORDS SUMMARY | 2025-09-10 16:43 | XMS_ITS | Encounter Summary ---
Author Organization [facility] Address [address] [facility] [address] [place] [phone] Phone Care Team Providers Care Senior Instructor Name Role Phone Micah Jacques Primary Care Provid er Encounter Details Date Type Department Care Team (Late st Contact Info) Description 02/02/2022 Procedure Pass OR Admitting Dept - Virtual Department [address] [place] [address] Social History Tobacco Use Types Packs/Day Years [...] on filedocumented in this encounter Care Teams Senior Instructor Relationship Specialty Start Date End Date Micah Jacques PA [address] [place] [phone] PCP - General Unknown Provider Specialty 01/31/22 documented as of this encounter Additional Source Comments The information contained in this document represents components of the legal health record. It is not the complete legal health record.[facility]
--- OUTSIDE RECORDS SUMMARY | 2025-09-10 16:43 | XMS_ITS | Clinical Summary ---
Author Organization [facility] Address [address] [address] Phone Care Team Providers Care Lace Pinner Name Role Phone Micah Jacques Primary Care [...] this topic Medical Devices Implanted Type Area Network Systems Administrator Device Identifier Shelf Expiration Date Model / Serial / Lot Stent Ureteral 6fr 22 To 30cm Stretch Coated [employer] - [id number] Implanted:Qty: 1 on 08/07/2024 by Edgardo Elizabeth MD at [facility] Left: Ureter [employer] 03/02/2027 [id number] / / [id number] [place] [address] MEDICARE PART A & B [facility] [address] MEDICARE PART A & B [place] & B HEALTH MEDICARE PART A & [place] & [facility] A & B [address] [place], [place] [address]HEALTH [facility] [place] [address] MEDICARE PART A & B [facility] Care Teams Lace Pinner Relationship Specialty Start Date End Date Micah Jacques PA [address] [place] [address] PCP - General Unknown Provider Specialty 01/31/22 Additional Source Comments The information contained in this document represents components of the legal health record. It is not the complete legal health record.[facility]
--- OUTSIDE RECORDS SUMMARY | 2025-09-10 16:43 | XMS_ITS | Encounter Summary ---
Author Organization [facility] Address [address] [place] [address] Care Team Providers Care Rouge Sifter And Miller Name Role Phone Micah Jacques Primary Care Provider [phone] Encounter Details Date Type Department Care Team ([facility] Contact Info) Description 09/08/2025 Telephone Orthopedic Surgery - [place] [address] [address] Olivier Landaverde MD [address] [place] [address] Social History Tobacco Use Types Packs/Day Years [...] for your loved ones. For example, child care attendant school or elderly care for an older adult? [...] as of this encounter Progress Notes * Mary Min - 09/08/2025 3:45 PM EST Zeny is calling in stating she's been is some pain, unsure what to do, would like a call back for her finger pain. A appt for next available on 09/17 was offered documented in this encounter Plan of Treatment Upcoming Encounters Date Type Department Care Team (Late st Contact Info) Description 10/08/2025 8:15 AM EST Office Visit Adult Medicine [facility] [address] [place] [address] Micah Jacques PA [address] [place] [phone] documented as of this encounter Visit Diagnoses Not on filedocumented in this encounter Additional Health Concerns Assessment Noted Time PHQ-9 Depression Total Score: 12 025 11:14 AM EST documented as of this encounter Care Teams Rouge Sifter And Miller Relationship Specialty Start Date End Date Micah Jacques PA [address] [place] [address] PCP - General Internal Medicine 03/05/21 documented as of this encounter
--- OUTSIDE RECORDS SUMMARY | 2025-09-10 16:43 | XMS_ITS | Clinical Summary ---
Author Organization [facility] Address [address] [place] [address] Care Team Providers Care Decorating Consultant Name Role Phone Georgie Micah Rowland PA-C [...] age to complete this topic Care Teams Decorating Consultant Relationship Specialty Start Date End Date Micah Jacques, PA-C PCP - General Medical Services 04/05/23
--- OUTSIDE RECORDS SUMMARY | 2025-09-10 16:44 | XMS_ITS | Clinical Summary ---
Author Organization [facility] [place] [address] Phone Care Team Providers Care Insurance Processing Clerk Name Role Phone Micah Jacques Primary Care Provider [phone] Allergies Active Allergy Reactions Criticality Noted Date [...] topically 2 (two) times a day. 02/28/20 Active fluticasone propionate (FLONASE) 50 mcg/actuation nasal [...] 10/08/20 24 Active cyclobenzaprine (FLEXERIL) 10 mg tabletIndicatio ns:Mass of right side of neck,Thyroid nodule,Multiple pulmonary nodules,Fibromy algia,Anxiety,P rimary hypertension Take 1 tablet (10 mg total) [...] 1 mg 56 tablet 08/04/20 25 Active diclofenac (VOLTAREN) 1 % topical gel Apply 2 gram four times daily to affected joint 100 g 3 08/12/20 25 Active naproxen (NAPROSYN) 500 mg tablet Take 1 tablet (500 mg total) by mouth 2 (two) times a day if needed for mild pain (pain). 60 tablet 5 08/12/20 25 026 Active diclofenac (VOLTAREN) 1 % topical gel Apply 4 g topically 1 (one) time each day if needed. pain 06/30/20 23 025 Discontinued Hospital, Clinic, or Other Facility Administered Medication Ordered Dose Route Frequency Start Date End Date Status triamcinolone acetonide (KENALOG-40) 40 mg/mL injection 40 mgIndications:Right carpal tunnel syndrome 40 mg Once PRN Procedure 08/21/2025 08/21/2025 Ended triamcinolone acetonide (KENALOG-40) 40 mg/mL injection 40 mgIndications:Arthriti s of carpometacarpal (CMC) joint of left thumb 40 mg Once PRN Procedure 08/21/2025 08/21/2025 Ended Active Problems Problem Noted Date Diagnosed Date [...] being followed for several years initially at [facility] 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 Her most [...] (+ HPV) Mixed hyperlipidemia 09/22/2006 Occipital stroke ([facility]/HCC V24, CMS/HCC V28) 05/2006 Overview (09/01/2024): September 2006; Left medial occipital ischemia; MRI 05/27 similar to MRIs in 2005 and 2008 Convulsions (CMS/HCC V24, CMS/HCC V28) 6 Overview (09/01/2024): FOLLOWED BY DR VILLATORO Encounters Date Type Department Care Team Description 09/08/2025 Telephone Orthopedic Surgery [facility] [address] [facility] [address] [place] [address] Olivier Landaverde MD 08/21/2025 3:00 PM EST Office Visit Orthopedic Surgery [facility] [address] [facility] [address] [place] [address] Olivier Landaverde MD Trigger thumb of right hand (Primary Dx); Arthritis of carpometacarpal (CMC) joint of left thumb; Right carpal tunnel syndrome 08/12/2025 8:01 AM EDT - 08/12/2025 11:59 PM EDT Hospital Encounter [address] [phone] De Quervain's disease (tenosynovitis) Discharge Disposition: Home or Self Care 08/12/2025 7:30 AM EDT Office Visit Adult Medicine [address] [phone] Micah Jacques, PA De Quervain's disease (tenosynovitis) (Primary Dx) 08/12/2025 Results Follow-Up Adult Medicine [address] [phone] Micah Jacques PA 08/08/2025 Telephone Adult [address] [phone] iMcah Jacques, PA from Last 3 Months Immunizations Immunization Administration [...] BIOPSY W/ LOOP ELECTRODE EXCISION 2007 PROCEDURE: ID CONIZATION CERVIX W/WO D&C RPR ELTRD EXC; COMMENT: ALMAS 2 free margins in 2007. Also done in 1999. TUBAL LIGATION 04/2009 PROCEDURE: HISTORICAL TUBAL LIGATION; COMMENT: laparoscopy BREAST BIOPSY 2007 Left PROCEDURE: BX BREAST; PERC NEEDLE CORE W/IMAG GUID; COMMENT: neg OTHER SURGICAL HISTORY Right PROCEDURE: ID ANES HRNA RPR UPR ABD LMBR&VNT HERNIA&/DEHSN FLEXIBLE SIGMOIDOSCOPY 09/12/2011 PROCEDURE: HISTORICAL FLEXIBLE SIGMOIDOSCOPY; COMMENT: hemorrhoids COLONOSCOPY 06/17/2010 PROCEDURE: HISTORICAL COLONOSCOPY; COMMENT: Normal UPPER GASTROINTESTINAL ENDOSCOPY 06/17/2010 PROCEDURE: ID UPPER GI ENDOSCOPY PERFORMED; COMMENT: Normal COLONOSCOPY 11/27/2019 PROCEDURE: HISTORICAL COLONOSCOPY; COMMENT: Normal examination. HEMORRHOID SURGERY 07/11/2014 PROCEDURE: HISTORICAL HEMMORROIDECTOMY; COMMENT: Hemorrhoid surgery, Dr. Reji Mcqueen, [facility]. UPPER GASTROINTESTINAL ENDOSCOPY 11/18/2020 PROCEDURE: ID UPPER GI ENDOSCOPY PERFORMED; COMMENT: Normal findings. OTHER SURGICAL HISTORY 04/27/2022 PROCEDURE: ID THORACTOMY W/DX BX LUNG NODULE/MASS UNILATERAL; COMMENT: dr. pepito braun - wedge biopsy for lung nodules OTHER SURGICAL HISTORY 2021 PROCEDURE: HISTORY OTHER; COMMENT: Gastric sleeve OTHER SURGICAL HISTORY 04/12/2023 PROCEDURE: ID HYSTEROSCOPY ENDOMETRIAL ABLATION; COMMENT: Benign pathology, polyp, [...] V28) 09/22/2006 DX:Convulsions, unspec ified convulsion type (HCC); COMMENT: FOLLOWED BY DR [...] care for your loved ones. For example, childcare center administrator or elderly care for an older adult? [...] None Livin g RAEKWO N CNM Delivery Location:[facility] 2000 Term 40w 0d 7h 00m/ 3544 g (125 oz) M Vag-S pont Livin g MICHAE L CNM Delivery Location:[facility] 2008 Term 38w 6d 8h 00m/ 3277 g (115.6 oz) M Vag-S pont None Livin g 8 9 Griselda Moore calvert Delivery Location:[facility] Last Filed Vital Signs Vital Sign Reading Time Taken Comments Blood Pressure 139/84 08/12/2025 7:39 AM EDT Pulse 72 08/12/2025 7:39 AM EDT Temperature 36.1 C (97 F) 08/12/2025 7:39 AM EDT Respiratory Rate 15 08/12/2025 7:39 AM EDT Oxygen Saturation 100% 08/12/2025 7:39 AM EDT Inhaled Oxygen Concentration - - Weight 63.9 kg (140 lb 12.8 oz) 08/12/2025 7:39 AM EDT Height 154.9 cm (5' 1 ) 08/12/2025 7:39 AM EDT Body Mass Index 26.6 08/12/2025 7:39 AM EDT Plan of Treatment Upcoming Encounters Date Type Department Care Team (Late st Contact Info) Description 10/08/2025 8:15 AM EST Office Visit Adult Medicine [address] [phone] Micah Jacques [address] [phone] Health Maintenance Due Date Last Done Comments Hepatitis B Vaccines (1 of 3 - 19+ 3-dose series) 1997 Pneumococcal Vaccine: Pediatrics (0 to 5 Years) and At-Risk Patients (6 to 49 Years) (2 of 2 - PCV) 01/27/2017 01/28/2016, 11/26/2010 HPV Vaccines (3 - 3-dose SCDM series) 07/04/2022 04/11/2022, 03/22/2021 Medicare Annual Wellness Visit 09/24/2022 COVID-19 Vaccine ( - season) 2025 08/02/2021, 01/13/2021, 11/19/2020 Colorectal Cancer Screening: Colonoscopy 10/30/2025 10/30/2020 Social Influencers of Health Screening 10/31/2025 10/31/2024 Cervical Cancer Screening: HPV 03/30/2026 03/30/2021 Hypertension/CHF/CAD Annual BMP Blood Test 04/08/2026 04/08/2025, 10/08/2024, 05/23/2024, Additional history exists Breast Cancer Screening 12/27/2026 12/28/19, 11/18/2023, 11/08/2022, Additional history exists DTaP,Tdap,and Td Vaccines (3 - Td or Tdap) 11/20/2029 11/20/2019, 07/03/2009 Cholesterol Screening (Lipid Panel) 04/08/2030 04/08/2025, 10/08/2024, 11/17/2023 RSV Immunization Adult Patients (1 - 1-dose 75+ series) 2053 HIV Screening Completed 08/20/2013 Hepatitis C Screening Completed 08/10/2021 Depression Screening Completed 10/31/2024 Influenza Vaccine Completed 08/08/2025, , 11/17/2023, Additional history exists HIB Vaccines Aged Out [...] Procedure Name Priority Date/Time Associated Diagnosis Comments ID ARTHROCENTESIS/ASPIRA TION/INJECTION SMALL JOINT/BURSA WO U/S GUIDANCE Routine 08/21/2025 3:00 PM EST Arthritis of carpometacarpal (CMC) joint of left thumb ID INJECTION SINGLE TENDON SHEATH OR LIGAMENT APONEUROSIS Routine 08/21/2025 3:00 PM EST Right carpal tunnel syndrome XR HAND 3+ VIEWS BILAT Routine 08/12/2025 8:12 AM EDT De Quervain's disease (tenosynovitis) COMPREHENSIVE METABOLIC PANEL Routine 04/08/2025 9:18 AM [...] Recently Relevant to Health Maintenance Results * ID INJECTION SINGLE TENDON SHEATH OR LIGAMENT APONEUROSIS (08/21/2025 3:00 PM EST) Olivier Acuña MD - 08/21/2025 3:00 PM KEARA Landaverde MD 08/21/2025 4:54 PM Hand / UE Inj/Asp: R thumb A1 for trigger finger Indications: pain Details: 27 G needle, volar approach Medications: 40 mg triamcinolone acetonide 40 mg/mL Outcome: tolerated well, no immediate complications Site was prepped in standard fashion using alcohol swab, sterile technique was used to perform the injection, the patient tolerated the procedure well and a band-aid dressing was applied Informed Consent: Site: Thumb A1 clovis Laterality: Right Relevant images/test results available and reviewed: yes Health status cleared: Yes Procedure/treatment, purpose, treatment alternatives, risks/potential complications and benefits explained: yes Risk/complications/benefits details: Risk/complications/benefits details: Risks and benefits of corticosteroid injection were discussed, including risk of pain, bleeding, infection, tissue attenuation, tendon rupture, changes in skin color, and injury to surrounding structures such as arteries, veins and nerves. We also discussed the patient may develop worsening pain for a few days before having improvement in their symptoms. Patient questions answered: yes Patient agrees, verbalizes understanding, and wants to proceed: yes Consent given by: Patient Informed consent discussion completed by Physician/MIKIE with patient: Verbal Pre-procedure timeout performed: yes us Olivier Landaverde MD IN CLINIC/BEDSIDE ORDERABLES Fin al Result * ID ARTHROCENTESIS/ASPIRATION/INJECTION SMALL JOINT/BURSA WO U/S GUIDANCE (08/21/2025 3:00 PM EST) Olivier Acuña MD - 08/21/2025 3:00 PM EST Olivier Landaverde MD 08/21/2025 4:54 PM S Inj/Asp: L thumb CMC Indications: pain Details: 27 G needle, dorsal approach Medications: 40 mg triamcinolone acetonide 40 mg/mL Site was prepped in standard fashion using alcohol swab, sterile technique was used to perform the injection, the patient tolerated the procedure well and a band-aid dressing was applied Informed Consent: Site: Left thumb cmc joint Laterality: Left Relevant images/test results available and reviewed: yes Health status cleared: Yes Procedure/treatment, purpose, treatment alternatives, risks/potential complications and benefits explained: yes Risk/complications/benefits details: Risks and benefits of corticosteroid injection were discussed, including risk of pain, bleeding, infection, tissue attenuation, tendon rupture, changes in skin color, and injury to surrounding structures such as arteries, veins and nerves. We also discussed the patient may develop worsening pain for a few days before having improvement in their symptoms. Patient questions answered: yes Patient agrees, verbalizes understanding, and wants to proceed: yes Consent given by: Patient Informed consent discussion completed by Physician/MIKIE with patient: Verbal Pre-procedure timeout performed: yes us Olivier Landaverde MD IN CLINIC/BEDSIDE ORDERABLES Fin al Result * XR Hand 3+ Views bilat (08/12/2025 8:12 AM EDT) Anatomical Region Laterality Modality Upper Extremities, Hand Bilateral Radiogra phic Imaging 08/12/2025 9:03 AM EDT Impressions 08/12/2025 9:20 AM EDT Mild degenerative changes. -------- FINAL REPORT -------- Dictated By: Estephania Caldwell Dictated Date: 08/12/2025 09:03 ET Assigned Physician: Estephania Caldwell Reviewed and Electronically Signed By: Estephania Caldwell Signed Date: 08/12/2025 09:20 ET Workstation ID: [id number] Transcribed By: Self Edit Transcribed Date: 08/12/2025 09:03 ET Narrative 08/12/2025 9:20 AM EDT EXAM: Bilateral hand x-ray HISTORY: Bilateral thumb pain. COMPARISON: Right hand radiography 07/11/2019 FINDINGS: 3 views of both hands were performed. Mild degenerative changes at the right IP joint with joint space narrowing and spurring and to a lesser degree on the left. Minimal joint space narrowing at the bilateral CMC and bilateral fifth MCP joints. No acute fracture or malalignment. No destructive bone lesion. Procedure Note Estephania Caldwell MD - 08/12/2025 EXAM: Bilateral hand x-ray HISTORY: Bilateral thumb pain. COMPARISON: Right hand radiography 07/11/2019 FINDINGS: 3 views of both hands were performed. Mild degenerative changes at the right IP joint with joint space narrowingand spurring and to a lesser degree on the left. Minimal joint spacenarrowing at the bilateral CMC and bilateral fifth MCP joints. No acutefracture or malalignment. No destructive bone lesion. IMPRESSION: Mild degenerative changes. -------- FINAL REPORT -------- Dictated By: Estephania Caldwell Dictated Date: 08/12/2025 09:03 ET Assigned Physician: Estephania Caldwell Reviewed and Electronically Signed By: Estephania Caldwell Signed Date: 08/12/2025 09:20 ET Workstation ID: [id number] Transcribed By: Self Edit Transcribed Date: 08/12/2025 09:03 ET Micah GEORGE IMG XR PROCEDURES Final R esult * (ABNORMAL) Lipid panel with reflex to direct LDL (04/08/2025 9:18 AM EDT) Cholesterol 254(H) 0 - 200 mg/dL LAB CHEMISTR[facility] Triglycerides 108 0 - 150 mg/dL LAB CHEMISTRY METHOD 04/08/2025 11:03 AM [facility] HDL 85 >=40 mg/dL LAB CHEMISTRY METHOD 04/08/2025 11:03 AM [facility] LDL Calculated 147(H) 0 - 100 mg/dL LAB CHEMISTRY METHOD 04/08/2025 11:03 AM [facility] VLDL Cholesterol Des 21.6 mg/dL LAB CHEMISTRY METHOD 04/08/2025 11:03 AM [facility] Non HDL Chol. (LDL+VLDL) 169(H) <145 mg/dL LAB CHEMISTRY METHOD 04/08/2025 11:03 AM T [facility] Chol/HDL Ratio 3.0 0.0 - 4.4 LAB CHEMISTRY METHOD 04/08/2025 11:03 AM [facility] Blood Venous blood specimen / Unknown Venipuncture / Unknown 04/08/2025 9:18 AM EDT 04/08/2025 9:35 AM EDT Micah GEORGE LAB BLOOD ORDERABLES Annamaria l Result [facility] [address] [place] [address], * (ABNORMAL) Comprehensive metabolic panel (04/08/2025 9:18 AM EDT) Sodium 143 133 - 145 mmol/L LAB CHEMISTRY METHOD 04/08/2025 10:54 AM T [facility] Potassium 4.1 3.5 - 5.5 mmol/L LAB CHEMISTRY METHOD 04/08/2025 10:54 AM [facility] Chloride 107 96 - 110 mmol/L LAB CHEMISTRY METHOD 04/08/2025 10:54 AM [facility] CO2 30 21 - 32 mmol/L LAB CHEMISTRY METHOD 04/08/2025 10:54 AM [facility] Anion Gap 6 3 - 11 LAB CHEMISTRY METHOD 04/08/2025 10:54 AM [facility] Glucose 83 70 - 100 mg/dL LAB CHEMISTRY METHOD 04/08/2025 10:54 AM [facility] BUN 12 5 - 25 mg/dL LAB CHEMISTRY METHOD 04/08/2025 10:54 AM [facility] Creatinine 0.66 0.50 - 1.10 mg/dL LAB CHEMISTRY METHOD 04/08/2025 10:54 AM [facility] eGFR 109 >=60 mL/min/1. 73m2 LAB CHEMISTRY METHOD 04/08/2025 10:54 AM [facility] Comment:Calculation based on the Chronic Kidney Disease Epidemiology Collaboration (CKD-EPI) equation refit without adjustment for race. BUN/Creatinine Ratio 18.2 LAB CHEMISTRY METHOD 04/08/2025 10:54 AM [facility] Calcium 8.8 8.5 - 10.5 mg/dL LAB CHEMISTRY METHOD 04/08/2025 10:54 AM [facility] AST (SGOT) 13 10 - 42 unit/L LAB CHEMISTRY METHOD 04/08/2025 10:54 AM EDT [facility] ALT (SGPT) 17 10 - 60 unit/L LAB CHEMISTRY METHOD 04/08/2025 10:54 AM EDT [facility] Alkaline Phosphatase 65 42 - 121 unit/L LAB CHEMISTRY METHOD 04/08/2025 10:54 AM EDT [facility] Total Protein 6.5 6.0 - 8.0 [...] EDT Micah GEORGE LAB BLOOD ORDERABLES Annamaria l Result [facility] [address] [place] [id number], * MG Mammo Digital Screening w Kodi [...] year. 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 TISSUE DENSITY: There are scattered [...] year. Mammography location: [facility] [address], [address] -------- FINAL REPORT -------- Dictated By: Omar Wynne Dictated Date: 12/30/2024 16:42 ET Assigned Physician: Omar Wynne Reviewed and Electronically Signed By: Omar Wynne Signed Date: 12/30/2024 16:51 ET Workstation ID: [id number] Transcribed By: Self Edit Transcribed Date: 12/30/2024 16:42 ET Self Referral Sppl IMG BI PROCEDURES Final Resul t * Hepatitis C Screening (08/10/2021) [facility] Hepatitis C Screening abstracted [facility] Provider MD HEALTH MAINTENANCE Final Result * Cervical Cancer Screening: HPV (03/30/2021) [facility] Cervical Cancer Screening: HPV negative, abstracted Result [facility] Provider MD HEALTH MAINTENANCE Final Result * Colonoscopy (10/30/2020) [facility] Colonoscopy no interpretation , abstracted Anatomical Region Laterality Modality Other [facility] Provider HEALTH MAINTENANCE Final Result * HIV Screening (08/20/2013) [facility] HIV Screening abstracted [facility] Provider MD HEALTH MAINTENANCE Final Result from Last 3 Months or Most Recently Relevant to Health Maintenance Insurance MEDICARE MEDICAID - [place] Care Teams Insurance Processing Clerk Relationship Specialty Start Date End Date Micah Jacques PA [address] [place] [address] PCP - General Internal Medicine 03/05/21
== END ==
LOC: HO.CARD 13:37
PROVIDERS: PCP Physician Assistant Medical; Visit Provider Internal Medicine Cardiovascular Disease
DX: R00.2 Palpitations (principal)
CPT/HCPCS: 93270

== ENCOUNTER → 2025-09-10 13:40 | Outpatient (BNV) | payer MEDICARE, MEDICAID, SELFPAY | PROVIDERS: PCP Physician Assistant Medical; Visit Provider Internal Medicine Cardiovascular Disease | DX: R00.2 Palpitations (principal) | CPT/HCPCS: 93272 ==